=== PATIENT | female | born 1970 | race Caucasian/White ===

== ENCOUNTER 2019-10-25 00:01 | Emergency (ER) | payer SELFPAY ==
[2019-10-25 00:06] VITALS: BP 209/119; PULSE 112; RESP 20; TEMP 36.6; O2SAT 97
--- NOTE | 2019-10-25 00:33 | ED.GENADUL_ITS ---
Discharge Plan Disposition Patient Disposition: HOME Discharge Details Chief Complaint: DentalOral Clinical Impression: Dental abscess Primary Care Provider: Chrissie Roque ED Provider: Constantino Larson Home Meds and New Rx's Prescriptions: New penicillin V potassium 500 mg tablet 500 mg PO QID Qty: 27 RF: 0 Continued flaxseed oil 1,000 MG capsule 1,000 mg PO DAILY RF: 0 atorvastatin 40 MG tablet 1 tab PO DAILY RF: 0 amlodipine 10 mg tablet 10 mg PO DAILY Qty: 30 RF: 6 levothyroxine 50 mcg tablet 50 mcg PO DAILY@0600 Qty: 30 RF: 6 metoprolol tartrate 50 mg tablet 50 mg PO DAILY Qty: 30 RF: 6 triamcinolone acetonide 0.025 % ointment 1 applic Topical BID Qty: 1 RF: 2 Discharge Instructions Instructions: Penicillin V (By mouth), How to Stop Smoking (ED), Dental Abscess (ED) Additional Instructions: Please take full course of antibiotic as prescribed. Please follow-up with your dentist. Call tomorrow. Please contact your primary care physician to arrange timely follow-up this week. Be sure to discuss your elevated blood pressure. If your blood pressure remains elevated on recheck, you may need additional diagnostics and adjustment of your blood pressure medicine dosing. Return to the ER for any worsening or new concerning symptoms. Referrals: Chrissie Roque NP [Primary Care Provider] - Discharge Data Discharge Date/Time-TO BE ENTERED AT DEPARTURE: 10/25/19 01:24 Medical Decision Making 49-year-old female with history of hypertension, chronic dental disease, here with dental infection tooth #6 with significant fluctuance. Plan to start penicillin. Initial dose provided here. Incision and drainage performed by me after patient provided verbal informed consent. Patient was encouraged to follow-up with her dentist. She understands importance of timely follow-up and will call tomorrow. I discussed elevated blood pressure with the patient. She states that she is taking her antihypertensive and that her blood pressure is usually elevated when she goes to the doctor and also was significantly stressed about weather conditions outside today. I encouraged her to monitor her blood pressure at home and to follow-up this week with her primary care physician for recheck. She understands the importance of timely follow-up and that dosing adjustments may need to be made to her antihypertensive should blood pressure remain elevated. She was encouraged to return immediately for any worsening or new concerning symptoms. HPI General Mode of arrival: ambulatory . Date/Time Provider Initiated Documentation: 10/25/19 00:16 . Limitations to Documentation: no limitations . Information obtained by: patient . HPI Narrative: 59-year-old female with multiple medical problems presents with chief complaint dental infection. Patient notes history of chronic dental disease with plan for multiple tooth extractions. She has had dental infections in the past. No recent infections. Today she presents with swelling adjacent to tooth #6 inner and outer gumline. Outer gumline is moderately painful. No associated fever. She does have mild associated facial swelling. Symptoms started 2 days ago and have progressed. Salt water and hydrogen peroxide rinses have not resolved condition. Related Data Home Medications Medication Instructions Recorded Confirmed flaxseed oil 1,000 mg PO DAILY 08/12/16 10/25/19 atorvastatin 1 tab PO DAILY 12/08/17 01/01/18 amlodipine 10 mg tablet 10 mg PO DAILY #30 tab-cap 01/28/19 10/25/19 levothyroxine 50 mcg tablet 50 mcg PO DAILY@0600 #30 tab 01/28/19 10/25/19 metoprolol tartrate 50 mg tablet 50 mg PO DAILY #30 tab 01/28/19 10/25/19 triamcinolone acetonide 0.025 % 1 applic TOPICAL BID #1 tube 01/28/19 10/25/19 topical ointment penicillin V potassium 500 mg PO QID #27 tab 10/25/19 Previous Rx's Medication Instructions Recorded amlodipine 10 mg tablet 10 mg PO DAILY #30 tab-cap 01/28/19 levothyroxine 50 mcg tablet 50 mcg PO DAILY@0600 #30 tab 01/28/19 metoprolol tartrate 50 mg tablet 50 mg PO DAILY #30 tab 01/28/19 triamcinolone acetonide 0.025 % 1 applic TOPICAL BID #1 tube 01/28/19 topical ointment penicillin V potassium 500 mg PO QID #27 tab 10/25/19 Allergies Allergy/AdvReac Type Severity Reaction Status Date / Time codeine Allergy Intermediate CHEST Unverified 10/25/19 00:08 CLOSING General Stated Complaint: DentalOral ORA: 3 Review of Systems Constitutional Constitutional: Denies fever(s) Eyes Eyes: Denies eye pain ENT Ears, Nose, Mouth, and Throat: Reports as per HPI [facility] Medical History History of acute renal failure (Acute) Hypercholesteremia (Acute) Hypertension (Chronic) Hypothyroidism (Chronic) Surgical History History of appendectomy (Chronic) , Ectopic X 2 Family History Mother Essential hypertension Personal history of malignant neoplasm BREAST Father Essential hypertension Personal history of malignant neoplasm PROSTATE Sister Essential hypertension Brother Essential hypertension Social History Smoking/Tobacco Use Status: Current every day Tobacco Type: cigarettes Alcohol Intake: never Drug use: Never Substance use type: does not use current occupation: [employer] Do you feel safe at home: Yes Do you feel safe in your relationship?: Yes Exam Const General: cooperative and no acute distress HENMT General nose exam: external nose normal Face and sinus: edema on the right maxilla (mild) and no fluctuance Mouth: moist mucous membranes Teeth and gingiva: abnormal tooth or associated gingiva (#6 Fluctuance along the gumline), caries and poor dentition Throat: posterior oropharynx normal Other: No trismus Eyes Conjunctivae: normal conjunctivae Sclera: normal sclerae EOM: EOM intact bilaterally Neck Neck: no lymphadenopathy, trachea midline and supple Resp Auscultation: clear to auscultation bilaterally, no rales, no rhonchi and no wheezes Cardio Jugular venous pressure: no JVD Rate: regular rate and not tachycardic Rhythm: regular rhythm Skin General skin exam: no rashes or lesions noted Neuro General: alert and awake Extrem General: no edema Psych Mental Status: mental status grossly normal Course Vital Signs Vital signs: Vital Signs Temperature 36.6 C 10/25/19 00:06 Pulse 112 H 10/25/19 00:06 Respiratory Rate 10/25/19 00:06 Blood Pressure 209/119 H 10/25/19 00:06 Pulse Oximetry 97 10/25/19 00:06 Temperature 36.6 C 10/25/19 00:06 Temperature Source Temporal Artery Scan 10/25/19 00:06 Pulse 112 H 10/25/19 00:06 Respiratory Rate 10/25/19 00:06 Respiratory Effort Non-Labored 10/25/19 00:09 Blood Pressure 209/119 H 10/25/19 00:06 Blood Pressure Position Sitting 10/25/19 00:06 Pulse Oximetry 97 10/25/19 00:06 Oxygen Delivery Method Room Air 10/25/19 00:06 Oxygen Flow Rate 0 10/25/19 00:06 Pain Level 6 10/25/19 00:09 Procedures Abscess I/D Site: Other (dental) Side (if applicable): Right Local Anesthetic: Lidocaine 1% Amount of anesthesia used (mL): 2 Technique: Incised with #11 Blade Amount of fluid expressed (mL): 1 Packing used?: None Complications: Other (none)
[2019-10-25] MEDS: Acetaminophen 325 MG TAB 650 MG PO (00:36)
[2019-10-25] MEDS: Penicillin V POTASSIUM 500 MG TAB PO ×2 (00:36→01:40)
[2019-10-25] MEDS: Benzocaine 20% Gel 30 GM JAR MM (01:39)
[2019-10-25] MEDS: Lidocaine 1% Multi-Dose 50 ML VIAL IJ (01:40)
== END 2019-10-25 01:24 | disposition home or self-care (01) ==
PROVIDERS: Emergency Provider Student in an Organized Health Care Education/Training Program
DX: R68.84 Jaw pain (principal); K04.7 Periapical abscess without sinus; R22.0 Localized swelling, mass and lump, head; I10 Essential (primary) hypertension; F17.210 Nicotine dependence, cigarettes, uncomplicated
CPT/HCPCS: 41800

== ENCOUNTER 2020-03-20 01:14 | Outpatient (CLI) | payer MEDICAID, SELFPAY ==
[2020-03-20 12:41] LABS: Anion Gap 10.5 mmol/L (3-11); BUN 14 mg/dL (7-18); CO2 27.5 mmol/L (21.0-32.0); Calcium 9.4 mg/dL (8.5-10.1); Chloride 101 mmol/L (98-107); Estimated GFR 52.36 (mL/min/1.73m2); Glucose 89 mg/dL (74-106); Potassium 4.2 mmol/L (3.5-5.1); Sodium 139 mmol/L (136-145); TSH (W/Ref FT4) 34.45 uIU/mL (0.36-3.74)
== END 2020-03-20 01:34 ==
DX: E03.9 Hypothyroidism, unspecified (principal); G47.00 Insomnia, unspecified; I10 Essential (primary) hypertension; N28.9 Disorder of kidney and ureter, unspecified
CPT/HCPCS: 36415; 80048; 84439; 84443

== ENCOUNTER 2020-12-20 03:14 | Outpatient (CLI) | payer MEDICAID, SELFPAY ==
[2020-12-21 14:22] LABS: COVID-19 RT-PCR UVMMC Result Negative (Negative)
== END 2020-12-20 03:15 | disposition home or self-care (01) ==
LOC: LBO 03:14
DX: Z20.822 Contact with and (suspected) exposure to COVID-19 (principal)
CPT/HCPCS: U0003

== ENCOUNTER 2021-01-02 03:09 | Outpatient (CLI) | payer MEDICAID, SELFPAY ==
[2021-01-02 13:28] LABS: ALT 18 U/L (14-59); AST 14 U/L (15-37); Alkaline Phosphatase 134 U/L (46-116); Anion Gap 10.8 mmol/L (3-11); BUN 22 mg/dL (7-18); CO2 30.2 mmol/L (21.0-32.0); Calcium 9.4 mg/dL (8.5-10.1); Calculated LDL 135 mg/dL (<100); Chloride 102 mmol/L (98-107); Cholesterol 247 mg/dL (<200); Estimated GFR 58.45 (mL/min/1.73m2); Glucose 110 mg/dL (74-106); HDL Cholesterol 78 mg/dL (40-60); Potassium 3.8 mmol/L (3.5-5.1); Sodium 143 mmol/L (136-145); TSH (W/Ref FT4) 9.44 uIU/mL (0.36-3.74); Total Protein 8.2 g/dL (6.4-8.2); Triglyceride 171 mg/dL (<150)
[2021-01-02 13:51] LABS: Bilirubin, Total 0.2 mg/dL (0.2-1.0); FREE T4 1.07 ng/dL (0.76-1.46)
== END 2021-01-02 03:10 | disposition home or self-care (01) ==
LOC: LOS 03:10
DX: E03.9 Hypothyroidism, unspecified (principal); Z13.220 Encounter for screening for lipoid disorders; Z00.00 Encounter for general adult medical examination without abnormal findings
CPT/HCPCS: 36415; 80053; 80061; 84439; 84443

== ENCOUNTER 2021-01-02 11:00 | Outpatient (REF) | payer MEDICAID, SELFPAY ==
--- NOTE | 2021-01-02 11:00 | PAPFT_PTH ---
PATIENT: Geoff Treviño LOC: [facility] U#:[id number] AGE/SX: 50/F ROOM: RE01/02/[address]: Chrissie Roque APRN : 1970 BED: DIS: 01/02/2021 SPEC #: [id number] RECD: 01/03/21 13:01 STATUS: OMID GOSS #: [id number] PIERO: 01/02/21 11:[address]: Chrissie Roque [facility]PT: [facility] Cytology RECD BY: Rebecca Jeong Tissues: 1 - CX/ENDOCX FOR PAP SMEARS Procedures: PAP THIN PREP/UVM Screening HPV DNA PROBE Comments: [id number]
== END 2021-01-02 11:01 | disposition home or self-care (01) ==
LOC: LBN 11:00
DX: Z12.4 Encounter for screening for malignant neoplasm of cervix (principal); Z11.51 Encounter for screening for human papillomavirus (HPV)
CPT/HCPCS: 88142; 87624

== ENCOUNTER 2021-01-16 01:18 | Outpatient (CLI) | payer MEDICAID, SELFPAY ==
--- NOTE | 2021-01-16 12:09 | DI.MAMMO_ITS ---
EXAM: MAMMO SCREENING CLINICAL HISTORY: screening,Z12.39 TECHNIQUE: Mammograms were interpreted according to the usual protocol including computer analysis w [employer] CAD system, tomosynthesis and C-view imaging. COMPARISON: FINDINGS: The breasts are heterogeneously dense with fairly symmetrical distribution of fibroglandular tissue. No dominant mass or clumped microcalcification is identified in either breast. The current examinat ion is compared with previous examinations including March 2016 and there is a question of increased p rominence of a focal area of nodularity/asymmetric density projected in the superior anterior portion of left breast on MLO view, approximately 5 cm from the nipple. Additional mammographic views are r equested to include an MLO spot compression view of the left breast. No other significant change see n. IMPRESSION: Additional mammographic views of the left breast requested as described above. Breast ultrasound may be indicated as well depending on the results additional mammographic views. BI-RADS Category 0 - Assessment Incomplete: Need additional imaging evaluation Breast Density - Category C - Heterogeneously dense
== END 2021-01-16 01:38 ==
DX: Z12.31 Encounter for screening mammogram for malignant neoplasm of breast (principal); R92.8 Other abnormal and inconclusive findings on diagnostic imaging of breast
CPT/HCPCS: 77063; 77067

== ENCOUNTER 2021-01-23 01:45 | Outpatient (CLI) | payer MEDICAID, SELFPAY ==
--- NOTE | 2021-01-23 | DI.US_ITS ---
EXAM: MG MAMMO SCREEN CALL BACK UNI and U/S breast LT limited CLINICAL HISTORY: F/U MAMMO,? NODULARITY/ASYMMETRIC DENSITY LT BREAST. TECHNIQUE: Craniocaudal and mediolateral oblique Full Field Digital Mammography views of the left br east with Computer Aided Diagnosis followed by Tomosynthesis and left breast ultrasound. COMPARISON: Previous available for comparison. FINDINGS: Mammography/Tomosynthesis: Masses/Architectural Distortion: None seen. Microcalcifictions: No suspicious pleomorphic-type are seen. Skin Thickening/Nipple Retraction: None. Left breast US: Echotexture: Normal appearance of the glandular tissue. Shadowing: No suspicious foci. Cyst: None. Solid lesions: None seen. Ductal dilation: None. IMPRESSION: 1. No evidence of malignancy is noted. 2. Unless there is more urgent need, follow-up screening mammography is recommended, as per [employer] guidelines. 3. The findings were discussed with the patient on the date of the examination. BI-RADS Category 1 - Negative Breast Density - Category C - Heterogeneously dense Breast density Category C or D implies that the patient has dense breast tissue. Dense breast tissue can make it harder to find cancer on a mammogram. Dense breast tissue is also associated with an incr eased risk of breast cancer. This information about the result of the mammogram report was provided to the patient to raise their awareness. Use this report when you speak with the patient about their risks for breast cancer, which includes their family history. At that time, you may recommend additional screening tests (Ultrasoun d or MRI) as these tests may add significant information. A negative radiographic report should not delay biopsy if a dominant or clinically suspicious mass is present. Up to ten percent of cancers are not identified on mammography. A negative report may reinforce clinical impression. Adenosis and dense breasts may obscure an underlying neoplasm. False positive reports average 6 to 10%. Patient will receive a letter notifying them of these results.
== END 2021-01-23 02:05 ==
DX: Z12.31 Encounter for screening mammogram for malignant neoplasm of breast (principal); R92.8 Other abnormal and inconclusive findings on diagnostic imaging of breast; N64.59 Other signs and symptoms in breast
CPT/HCPCS: 76642; 77063; 77067

== ENCOUNTER 2021-06-19 18:53 | Emergency (ER) | payer MEDICAID, SELFPAY ==
[2021-06-19] VITALS (11 sets, daily range): BP systolic 168–195; BP diastolic 86–106; PULSE 65–90; RESP 18; TEMP 36.6; O2SAT 96–98
[2021-06-19] MEDS: Normal Saline 1,000 ML 1000 ML IV (20:01)
[2021-06-19 20:05] LABS: Eosinophils % 1.1; HCT 41.8 % (36.0-46.0); HGB 13.7 g/dL (11.2-15.7); Lymphocytes % 28.8; MCH 31.2 pg (27.0-33.0); MCHC 32.8 % (32.0-36.0); MCV 95.2 fL (80-95); MPV 11.1 fL (8.0-11.0); Monocytes % 8.3; Neutrophils % 60.4; Platelet Count 305 10^3/uL (130-400); RBC 4.39 10^6/uL (3.93-5.22); RDW 13.5 % (11.7-14.6); RDW-SD 47.7 fL
[2021-06-19 20:06] LABS: Abs Immature Grans 0.03 10^3/uL (0.0-0.06); Absolute Basophil Count 0.08 10^3/uL (0.0-0.2); Absolute Eosinophil Count 0.09 10^3/uL (0.0-0.7); Absolute Lymphocyte Count 2.39 10^3/uL (1.2-3.4); Absolute Monocyte Count 0.69 10^3/uL (0.1-0.8); Absolute Neutrophil Count 5.02 10^3/uL (1.2-6.7); Immature Grans % 0.4; Nucleated RBC 0 %
--- NOTE | 2021-06-19 20:07 | W.ED.GENAD ---
Discharge Plan Disposition Patient Disposition: HOME Condition: Stable Discharge Details Clinical Impression: Nausea, Dehydration, Hypothyroidism Primary Care Provider: Chrissie Roque ED Provider: James Ramirez Home Meds and New Rx's Prescriptions: New ondansetron 4 mg tablet,disintegrating 4 mg PO Q8H PRN (Reason: nausea and vomiting) Qty: 30 RF: 0 Continued metoprolol tartrate 50 mg tablet 50 mg PO BID Qty: 180 RF: 3 halobetasol propionate 0.05 % ointment 1 applic topical DAILY Qty: 50 RF: 4 amlodipine 10 mg tablet 10 mg PO DAILY Qty: 90 RF: 3 levothyroxine 75 mcg tablet 75 mcg PO DAILY Qty: 90 RF: 3 Discharge Instructions Additional Instructions: your blood work did not show concerning findings at this time. your kidney function was normal if symptoms continue this week follow up with your primary care provider if you feel more ill, have chest pain/pressure, abdomen pain, or persistent vomit return to the emergency department Medical Decision Making 51 yo female with hx of htn, hypothyroidism, prior history of tre in setting of ibuprofen use after tooth extraction, who comes in with several days of nasuea. Denies chest pain, dyspnea, headache, fevers/chills, abdomen pain or back pain. Denies urinary symptoms. Denies new foods or meds. no vomit. She is in no distress on exam speaking clearly, caox4. She has no abdomen tenderness or cva tenderness, clear lungs, no murmurs. She does smoke, denies alcohol or drug use. Unclear etiology for her nausea, could be gastritis or new food sensitivity, will evaluate for possible tre giving her history and also pancreatitis and uti. Given lack of abdomen tenderness doubt surgical pathology such as sbo and do not feel imaging at this time indicated. Given lack of chest pain/pressure or dyspnea do not feel acs workup indicated. patient's labs show no significant abnormalities and she remains stable. Still no chest pain or abdomen pain and no tenderness on abdominal exam. She feels well enough for d/c. Suspect gastritis and advised to follow up with pcp, return precautions given Differential Diagnosis Differential Diagnosis: food illness, gastritis, pancreatitis, uti Medical Records Medical records reviewed: Yes I reviewed the patient's medical records. Lab Data Lab results reviewed: Yes I reviewed the patient's lab results. HPI General Mode of arrival: ambulatory. Date/Time Provider Initiated Documentation: 06/19/21 19:43. Limitations to Documentation: no limitations. Information obtained by: patient. History of Present Illness 51 year old F presents to the emergency department with the chief complaint of nausea, described as moderate, Patient started experiencing this day(s) (3) and it has been constant. No relieving factors improve symptom(s), No exacerbating factors reported . Patient notes no other symptoms.; denies chest pain, fever/chills and shortness of breath. Patient did receive the following treatments prior to arrival, none Related Data Home Medications Medication Instructions Recorded Confirmed amlodipine 10 mg tablet 10 mg PO DAILY #90 tab-cap 06/08/20 06/19/21 halobetasol propionate 0.05 % 1 applic TOPICAL DAILY #50 g 01/02/21 06/19/21 topical ointment metoprolol tartrate 50 mg tablet 50 mg PO BID #180 tab 01/02/21 06/19/21 levothyroxine 75 mcg tablet 75 mcg PO DAILY #90 tab 05/17/21 06/19/21 ondansetron 4 mg PO Q8H PRN #30 tab 06/19/21 Previous Rx's Medication Instructions Recorded amlodipine 10 mg tablet 10 mg PO DAILY #90 tab-cap 06/08/20 halobetasol propionate 0.05 % 1 applic TOPICAL DAILY #50 g 01/02/21 topical ointment metoprolol tartrate 50 mg tablet 50 mg PO BID #180 tab 01/02/21 levothyroxine 75 mcg tablet 75 mcg PO DAILY #90 tab 05/17/21 ondansetron 4 mg PO Q8H PRN #30 tab 06/19/21 Allergies Allergy/AdvReac Type Severity Reaction Status Date / Time codeine Allergy Intermediate CHEST Verified 06/19/21 19:41 CLOSING General Stated Complaint: Nausea/Vomit/Diar ORA: 3 Review of Systems All systems reviewed & are unremarkable except as noted in HPI and below Constitutional Constitutional: Denies chills and Denies fever(s) Cardiovascular Cardiovascular: Denies chest pain and Denies dyspnea Respiratory Respiratory: Denies cough and Denies dyspnea Gastrointestinal Gastrointestinal: Denies abdominal pain and Denies vomiting Musculoskeletal Musculoskeletal: Denies joint swelling [facility] Medical History (Updated 06/19/21 @ 21:20 by James Ramirez MD) Aneurysm of infrarenal abdominal aorta (12/08/17) Annual physical exam Compromised kidney function Depressive disorder Family history of breast cancer (03/27/15) mother Headache (11/18/12) History of acute renal failure Hx of pyelonephritis (02/09/14) Hypercholesteremia Hypertension Hyperthyroidism Hypothyroidism Lichen sclerosus of female genitalia 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) (03/09/14) Renal failure (06/10/16) 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; + antibody, - antigen Surgical History (Updated 01/03/21 @ 15:28 by Chrissie Roque NP) History of appendectomy History of open reduction and internal fixation (ORIF) procedure , Ectopic X 2 Family History Mother Essential hypertension Personal history of malignant neoplasm BREAST Father Essential hypertension Personal history of malignant neoplasm PROSTATE Sister Essential hypertension Brother Essential hypertension Social History (Updated 01/08/21 @ 10:19 by Leeanne Morris) Smoking/Tobacco Use Status: Current every day Tobacco Type: cigarettes Quit status: considering quitting Smoking risk assessment performed?: Yes Alcohol Intake: current Alcohol Intake frequency: holidays/special occasions only Drug use: Never Substance use type: does not use Counseling given: No Counseling provided: none current occupation: [email or web address] Do you feel safe at home: Yes Do you feel safe in your relationship?: Yes Exam Const General: no acute distress Orientation: alert HENMT Head: normal to inspection Ears: external ears normal General nose exam: external nose normal Mouth: moist mucous membranes Eyes General: appearance normal, both eyes and all related structures Neck Neck: normal visual inspection Resp Effort & Inspection: normal respiratory effort and able to speak in complete sentences Cardio Rate: regular rate GI Palpation: soft and nontender Skin General skin exam: no rashes or lesions noted Neuro General: patient alert and patient oriented x3 Extrem General: normal to inspection Psych Mental Status: mental status grossly normal Course Vital Signs Vital signs: Vital Signs Temperature 36.6 C 06/19/21 19:35 Pulse 90 06/19/21 19:35 Respiratory Rate 18 06/19/21 19:35 Blood Pressure 195/102 H 06/19/21 19:35 Pulse Oximetry 98 06/19/21 19:35 Temperature 36.6 C 06/19/21 19:35 Temperature Source Temporal Artery Scan 06/19/21 19:35 Pulse 90 06/19/21 19:35 Respiratory Rate 18 06/19/21 19:35 Respiratory Effort Non-Labored 06/19/21 19:43 Blood Pressure 195/102 H 06/19/21 19:35 Blood Pressure Position Sitting 06/19/21 19:35 Pulse Oximetry 98 06/19/21 19:35 Oxygen Delivery Method Room Air 06/19/21 19:35 Oxygen Flow Rate 0 06/19/21 19:35 Pain Level 0 06/19/21 19:35 Lab/Test Results Lab/Test Results: Laboratory Tests Range/Units 06/19/21 19:15 WBC (4.4-10.8) 10^3/uL 8.30 RBC (3.93-5.22) 10^6/uL 4.39 Hgb (11.2-15.7) g/dL 13.7 Hct (36.0-46.0) % 41.8 MCV (80-95) fL 95.2 H MCH (27.0-33.0) pg 31.2 MCHC (32.0-36.0) % 32.8 RDW (11.7-14.6) % 13.5 Plt Count (130-400) 10^3/uL 305 MPV (8.0-11.0) fL 11.1 H Immature Gran % 0.4 Neutrophils % 60.4 Lymphocytes % 28.8 Monocytes % 8.3 Eosinophils % 1.1 Basophils % 1.0 Nucleated RBC % % 0 Absolute Neutrophils (1.2-6.7) 10^3/uL 5.02 Absolute Lymphocytes (1.2-3.4) 10^3/uL 2.39 Absolute Monocytes (0.1-0.8) 10^3/uL 0.69 Absolute Eosinophils (0.0-0.7) 10^3/uL 0.09 Absolute Basophils (0.0-0.2) 10^3/uL 0.08
[2021-06-19 20:11] LABS: Bilirubin Negative (Negative); Blood Small (Negative); Clarity Clear (Clear); Glucose Negative (Negative); Ketones Negative (Negative); Leukocyte Esterase Negative (Negative); Nitrite Negative (Negative); Specific Gravity 1.015 (1.005-1.025); Urobilinogen 0.2 EU/dL (Up TO 0.2); pH 6.5 (5-8)
[2021-06-19] MEDS: Ondansetron 4 MG/2 ML VIAL IVP (20:19)
[2021-06-19 20:26] LABS: ALT 25 U/L (14-59); AST 36 U/L (15-37); Albumin 4.5 g/dL (3.4-5.0); Alkaline Phosphatase 142 U/L (46-116); Anion Gap 7.9 mmol/L (3-11); BUN 17 mg/dL (7-18); Bilirubin, Total 0.3 mg/dL (0.2-1.0); CO2 33.1 mmol/L (21.0-32.0); Calcium 10.3 mg/dL (8.5-10.1); Chloride 101 mmol/L (98-107); Estimated GFR 58.22 (mL/min/1.73m2); Glucose 104 mg/dL (74-106); Magnesium 2.5 mg/dL (1.8-2.4); Potassium 3.4 mmol/L (3.5-5.1); Sodium 142 mmol/L (136-145); Total Protein 9.6 g/dL (6.4-8.2)
[2021-06-19 20:26] LABS: Bacteria Negative HPF (Negative); C & S Indicated? No; Crystals Negative HPF (Negative); Epithelial Cells Few HPF (Negative); Mucus Negative (Negative); WBC 0-2 HPF (0-5)
[2021-06-19 20:37] LABS: Lipase 210 U/L (73-393); TSH (W/Ref FT4) 16.62 uIU/mL (0.36-3.74)
[2021-06-19 21:00] LABS: FREE T4 0.96 ng/dL (0.76-1.46)
== END 2021-06-19 21:27 | disposition home or self-care (01) ==
PROVIDERS: Emergency Medicine; Emergency Provider Emergency Medicine
DX: R11.0 Nausea (principal); E86.0 Dehydration; E03.9 Hypothyroidism, unspecified
CPT/HCPCS: 36415; 80053; 83690; 96361; 96374; 99284; 81003; 81015; 83735; 84439; 84443; 85025; 99283; J2405

== ENCOUNTER 2021-07-04 02:37 | Outpatient (CLI) | payer MEDICAID, SELFPAY ==
[2021-07-04 12:35] LABS: TSH (W/Ref FT4) 13.07 uIU/mL (0.36-3.74)
[2021-07-04 12:54] LABS: FREE T4 0.94 ng/dL (0.76-1.46)
== END 2021-07-04 02:38 | disposition home or self-care (01) ==
LOC: LOS 02:37
DX: E03.9 Hypothyroidism, unspecified (principal)
CPT/HCPCS: 36415; 84439; 84443

== ENCOUNTER 2021-07-18 17:59 | Emergency (ER) | payer MEDICAID, SELFPAY ==
[2021-07-18 18:08] VITALS: BP 159/82; PULSE 79; RESP 16; TEMP 36.5; O2SAT 98
--- NOTE | 2021-07-18 18:54 | W.ED.GENAD ---
Discharge Plan Disposition Patient Disposition: HOME Condition: Stable Discharge Details Clinical Impression: Muscle spasm, Acute shoulder pain Primary Care Provider: Chrissie Roque ED Provider: Annie Duncan Home Meds and New Rx's Prescriptions: New cyclobenzaprine 10 mg tablet 10 mg PO TID PRN (Reason: muscle spasm) Qty: 10 RF: 0 Continued metoprolol tartrate 50 mg tablet 50 mg PO BID Qty: 180 RF: 3 halobetasol propionate 0.05 % ointment 1 applic topical DAILY Qty: 50 RF: 4 amlodipine 10 mg tablet 10 mg PO DAILY Qty: 90 RF: 3 amlodipine 5 mg tablet 5 mg PO QPM Qty: 90 RF: 3 levothyroxine 75 mcg tablet 75 mcg PO DAILY Qty: 90 RF: 3 ondansetron 4 mg tablet,disintegrating 4 mg PO Q8H PRN (Reason: nausea and vomiting) Qty: 30 RF: 0 Discharge Instructions Instructions: Cyclobenzaprine (By mouth), Muscle Spasm (ED), Shoulder Pain (ED) Additional Instructions: Your exam is most concerning for muscle spasm and muscle pain. Please encourage hydration. You may continue with Tylenol as needed for discomfort. Please continue with stretching with range of motion of the arm.. You may try topical options such as lidocaine patches. You may use the Flexeril as prescribed to help with muscle spasm. Please do not drive while taking this medication. Please follow-up with primary care in the next 2 weeks for reevaluation. If you develop chest pain, shortness of breath, increased pain, fever/chills or other new/worsening symptoms please seek care urgently once again. Referrals: Chrissie Roque NP [Primary Care Provider] - Discharge Data Discharge Date/Time-TO BE ENTERED AT DEPARTURE: 07/18/21 19:22 Medical Decision Making Patient is a pleasant 51-year-old [id number] female presenting today with chief complaint of right shoulder pain. She reports that for the past week she is been having difficulty with her neck feeling tight and pain in the posterior right shoulder. States that it feels better when she is moving and active. Worsens when at rest. Pain can occasionally radiate towards the elbow. No chest pain or shortness of breath. No pain with deep inspiration. Denies any fevers or chills. Denies any trauma. Denies any sensory deficit. Has been using Tylenol to discomfort. Patient unable to take NSAIDs secondary to kidney dysfunction. On exam, patient appears nontoxic. She is hypertensive but this appears to be chronic and unchanged. Lungs are clear, normal cardiac exam. She is limited range of motion of her neck secondary to pain along the right side of the neck towards the trapezius. No midline tenderness or paraspinal pain. No pain with palpation over the thoracic spine. She also has some discomfort and tightness towards the scapula. She is full range of motion of the right upper extremity. Neurovascularly intact. 2+ distal pulses. Axial nerve testing intact. No pain or pressure applied AP or laterally to the chest wall. No rash. No tenderness or weakness with rotator cuff testing. Patient I discussed differential diagnoses. At this time, I do not see any evidence to suggest fracture. No evidence to suggest infection. No midline tenderness or neurovascular compromise. Much more consistent with muscle spasm. I do not believe that imaging needs to be completed at this time. She reports that she has used Flexeril historically with good results. Will prescribe Flexeril. Will apply lidocaine patch. Encourage hydration. Encourage gentle range of motion. Advise follow-up with primary care in the next 1 to 2 weeks for reevaluation. Return precautions were discussed. All of her questions and concerns were addressed and she is in agreement this plan. [facility] General Mode of arrival: ambulatory. Date/Time Provider Initiated Documentation: 07/18/21 18:34. Limitations to Documentation: no limitations. Information obtained by: patient and RN notes reviewed. History of Present Illness 51 year old F presents to the emergency department with the chief complaint of right shoulder pain, described as severe, with intensity rated at 10. Quality is described as aching, and is localized to the right and upper extremity. Patient reports no radiation. Patient started experiencing this week(s) (1) and it has been constant. Movement improves symptom(s), Immoblization worsens symptoms . Patient notes no other symptoms.. Patient did receive the following treatments prior to arrival, other (heat) Related Data Home Medications Medication Instructions Recorded Confirmed halobetasol propionate 0.05 % 1 applic TOPICAL DAILY #50 g 01/02/21 07/18/21 topical ointment metoprolol tartrate 50 mg tablet 50 mg PO BID #180 tab 01/02/21 07/18/21 levothyroxine 75 mcg tablet 75 mcg PO DAILY #90 tab 05/17/21 07/18/21 ondansetron 4 mg PO Q8H PRN #30 tab 06/19/21 07/18/21 amlodipine 10 mg tablet 10 mg PO DAILY #90 tab-cap 07/03/21 07/18/21 amlodipine 5 mg tablet 5 mg PO QPM #90 tab 07/03/21 07/18/21 cyclobenzaprine 10 mg PO TID PRN #10 tab 07/18/21 Previous Rx's Medication Instructions Recorded halobetasol propionate 0.05 % 1 applic TOPICAL DAILY #50 g 01/02/21 topical ointment metoprolol tartrate 50 mg tablet 50 mg PO BID #180 tab 01/02/21 levothyroxine 75 mcg tablet 75 mcg PO DAILY #90 tab 05/17/21 ondansetron 4 mg PO Q8H PRN #30 tab 06/19/21 amlodipine 10 mg tablet 10 mg PO DAILY #90 tab-cap 07/03/21 amlodipine 5 mg tablet 5 mg PO QPM #90 tab 07/03/21 cyclobenzaprine 10 mg PO TID PRN #10 tab 07/18/21 Allergies Allergy/AdvReac Type Severity Reaction Status Date / Time codeine Allergy Intermediate CHEST Verified 07/03/21 11:24 CLOSING General Stated Complaint: Orthopedic ORA: 4 Review of Systems Constitutional Constitutional: Reports as per HPI, Denies chills, Denies fever(s), Denies headache(s) and Denies weakness ENT Ears, Nose, Mouth, and Throat: Denies headache(s) Cardiovascular Cardiovascular: Reports as per HPI Respiratory Respiratory: Reports as per HPI and Denies cough Musculoskeletal Musculoskeletal: Reports as per HPI and Denies tingling Integumentary/Breasts Skin/Breast: Reports as per HPI, Denies rash and Denies wounds Neurologic Neurologic: Reports as per HPI, Denies headache(s), Denies tingling, Denies paresthesias and Denies weakness [facility] Medical History Aneurysm of infrarenal abdominal aorta (12/08/17) Annual physical exam Compromised kidney function Depressive disorder Family history of breast cancer (03/27/15) mother Headache (11/18/12) History of acute renal failure Hx of pyelonephritis (02/09/14) Hypercholesteremia Hypertension Hyperthyroidism Hypothyroidism Lichen sclerosus of female genitalia 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) (03/09/14) Renal failure (06/10/16) 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; + antibody, - antigen Surgical History History of appendectomy History of open reduction and internal fixation (ORIF) procedure , Ectopic X 2 Family History Mother Essential hypertension Personal history of malignant neoplasm BREAST Father Essential hypertension Personal history of malignant neoplasm PROSTATE Sister Essential hypertension Brother Essential hypertension Social History Smoking/Tobacco Use Status: Current every day Tobacco Type: cigarettes Quit status: considering quitting Smoking risk assessment performed?: Yes Alcohol Intake: current Alcohol Intake frequency: holidays/special occasions only Drug use: Never Substance use type: does not use Counseling given: No Counseling provided: none current occupation: [employer] Do you feel safe at home: Yes Do you feel safe in your relationship?: Yes Exam Const General: cooperative, healthy appearing, comfortable, no acute distress, well developed and well groomed Nutritional Appearance: average body habitus and well nourished Orientation: alert and awake Neck Neck: normal visual inspection, limited ROM (limited secondary to tightness along right side of neck), no lymphadenopathy, no meningeal signs, trachea midline and supple Chest Chest: normal inspection of the chest and no localized rib tenderness Resp Effort & Inspection: normal respiratory effort, able to speak in complete sentences and no respiratory distress Auscultation: clear to auscultation bilaterally Cardio Rate: regular rate Rhythm: regular rhythm Heart Sounds: S1 normal and S2 normal Back/Spine/Pelvis Cervical Spine: normal cervical lordosis, No cervical ROM normal (limited rotation, particularly to the left), cervical muscular tenderness (right side along trapezius), pain with cervical ROM, cervical spasm, No cervical spinal tenderness and No step off deformity Thoracic/Lumbar Spine: thoracic and lumbar spine normal to inspection and No thoracic spinal tenderness Skin General skin exam: no rashes or lesions noted Lesions: no lesions Rashes: no rashes Trauma: no lacerations or abrasions Neuro General: patient alert and patient awake Cognition: normal cognition Speech: speech normal Gait: normal gait Motor: muscle tone normal throughout Sensory Exam: no sensory deficits noted Extrem Right upper extremity: normal to inspection, full ROM, normal capillary refill, no joint enlargement, shoulder/upper arm Details: normal to inspection, tenderness (superiorly along trapezius), axillary nerve sensory function normal, normal ROM and other (normal Speed, Hawkin, Neer); no swelling, no abrasions, no ecchymosis, no crepitus, no deformity and no unusual warmth, elbow/forearm Details: normal to inspection, normal ROM and distal pulses intact; no tenderness, no swelling, no crepitus and no deformity, wrist Details: normal to inspection, normal ROM, normal vascular exam and radial pulse present; no tenderness and no swelling and hand Details: normal to inspection, normal capillary refill, neuromotor exam normal, neurosensory exam normal, normal ROM of fingers and no swelling; no tenderness Psych Appearance: grossly normal and well kempt Mental Status: mental status grossly normal Speech and Movement: speech and movement normal Course Vital Signs Vital signs: Vital Signs Temperature 36.5 C 07/18/21 18:08 Pulse 79 07/18/21 18:08 Respiratory Rate 16 07/18/21 18:08 Blood Pressure 159/82 H 07/18/21 18:08 Pulse Oximetry 98 07/18/21 18:08 Temperature 36.5 C 07/18/21 18:08 Temperature Source Temporal Artery Scan 07/18/21 18:08 Pulse 79 07/18/21 18:08 Respiratory Rate 16 07/18/21 18:08 Respiratory Effort Non-Labored 07/18/21 18:12 Blood Pressure 159/82 H 07/18/21 18:08 Blood Pressure Position Sitting 07/18/21 18:08 Pulse Oximetry 98 07/18/21 18:08 Oxygen Delivery Method Room Air 07/18/21 18:08 Oxygen Flow Rate 0 07/18/21 18:08 Pain Level 10 07/18/21 18:13
[2021-07-18] MEDS: Cyclobenzaprine 10 MG TAB, 3 TABS/BTL PO (19:16)
[2021-07-18] MEDS: Lidocaine 5% Patch 1 PATCH TP (19:19)
== END 2021-07-18 19:22 | disposition home or self-care (01) ==
PROVIDERS: Emergency Provider Physician Assistant
DX: M62.838 Other muscle spasm (principal); M25.511 Pain in right shoulder
CPT/HCPCS: 99283

== ENCOUNTER 2021-07-31 01:22 | Outpatient (CLI) | payer MEDICAID, SELFPAY ==
--- NOTE | 2021-07-31 06:45 | DI.RAD_ITS ---
Exam(s) XR SHOULDER RT COMPLETE 2+V EXAM: XR SHOULDER RT COMPLETE 2+V CLINICAL HISTORY: acute pain x 2 weeks without known injury,m25.519 TECHNIQUE: COMPARISON: CR LEFT SHOULDER COMPLETE from 07/07/2015 FINDINGS: Five views were obtained. No bony or soft tissue abnormality seen. IMPRESSION: RADIATION DOSE DELIVERED: Total DLP
== END 2021-07-31 01:42 ==
DX: M25.511 Pain in right shoulder (principal)
CPT/HCPCS: 73030

== ENCOUNTER 2021-08-29 00:46 | Outpatient (CLI) | payer MEDICAID, SELFPAY ==
--- NOTE | 2021-08-29 07:15 | DI.MRI_ITS ---
Exam(s) MR CERVICAL SPINE WO EXAM: MR CERVICAL SPINE WO CLINICAL HISTORY: PT request, foraminal compromise, ? disc HERNIATION, ACUTE NECK PAIN, M54.2 TECHNIQUE: Multiplanar multisequence MRI of the cervical spine was performed without intravenous con trast. COMPARISON: No exams were available for comparison FINDINGS: The examination is limited due to patient motion artifact. BONES: Vertebral body heights are maintained. Intervertebral disc spaces are normal. Alignment is nor mal. There is a hemangioma or fatty rest in the T4 vertebral body. CERVICAL CORD: Craniovertebral junction is unremarkable. The cervical cord is normal size and signal intensity. There is prominence of the central canal of the spinal cord posterior to the T1 through T3 vertebral bodies. This may represent a syrinx. SOFT TISSUES: Unremarkable. C2-3: No disc herniation or bulge is identified. No significant central spinal canal or neural forami nal stenosis. C3-4: No disc herniation or bulge is identified. No significant central spinal canal or neural forami nal stenosis C4-5: There is a small central disc herniation. It compresses the anterior aspect of the spinal cord . The AP diameter of the spinal canal is 6 mm. No significant neural foraminal stenosis is present. C5-6: There is prominence of the osteophyte disc complex. It causes central spinal canal narrowing. The AP diameter of the central spinal canal is 6 mm. Bilateral [id number] neural foraminal st enosis is present. C6-7: There is a large disc herniation slightly eccentric to the right. It compresses the spinal cor d. The AP diameter of the spinal canal is 7 mm. There is extrusion posterior to the C7 vertebral skyler dy. There is mild narrowing of the right neural foramen. No significant left neural foraminal steno sis is seen. C7-T1: No disc herniation or bulge is identified. No significant central spinal canal or neural mihaela inal stenosis IMPRESSION: 1. Large disc herniation at C6-C7 with extrusion posterior to the C7 vertebral body. There is spinal cord compression and central spinal canal stenosis. Mild right neural foraminal stenosis is present . A postcontrast MRI of the cervical spine may be considered to confirm the disc herniation and to e xclude other epidural masses. 2. Central spinal canal stenosis at C4-5 and C5-C6 secondary to the degenerative changes/disc herniat ions. 3. Multilevel neural foraminal stenosis as described above. 4. Prominence of the central canal in the spinal cord posterior to the T1 through T3 vertebral bodies which may represent a syrinx. DATA REPOSITORY:
== END 2021-08-29 01:06 ==
DX: M50.223 Other cervical disc displacement at C6-C7 level (principal); M54.2 Cervicalgia; M48.02 Spinal stenosis, cervical region
CPT/HCPCS: 72141

== ENCOUNTER 2022-07-19 01:27 | Outpatient (CLI) | payer MEDICAID, SELFPAY ==
--- OUTSIDE RECORDS SUMMARY | 2022-07-19 01:34 | XMS_ITS | Encounter Summary ---
:1970 Author Organization [facility] [place] [address] Care Team Providers Name Role Phone Emanuel Anderson MD Primary Care Provider [phone] Encounter Details Date Type Department Care Team Description 06/07/2016 Orders Only Dermatology at [facility] Robyn Reyes MD [address] [facility] [place] [address] [facility] [phone] [place], [place] [address] (Wo rk) Social History Tobacco Use Types Packs/Day Years Used Date Former Smoker Smokeless Tobacco: Never Used Sex Assigned at Date Recorded Not on file documented as of this encounter Plan of Treatment Not on filedocumented as of this encounter Visit Diagnoses Not on filedocumented in this encounter Care Teams Cork Mixer Relationship Specialty Start Date End Date Emanuel Anderson MD PCP - General 03/17/15 12/02/[address] [place], [place] [id number] documented as of this encounter
--- OUTSIDE RECORDS SUMMARY | 2022-07-19 01:34 | XMS_ITS | Encounter Summary ---
:1970 Author Organization [facility] Address [address] [place] [address] Care Team Providers Name Role Phone Emanuel Anderson MD Primary Care Provider [phone] Reason for Visit Reason Comments Dermatitis Encounter Details Date Type Department Care Team Description 05/05/2015 Office Visit Dermatology at [facility], DR DENISE All ergic contact Road Julio Cesar Castillo MD [facility] [place] [address] dermatitis (Primary [address]) [place] [address] Social History Tobacco Use Types Packs/Day Years Used Date Former Smoker Smokeless Tobacco: Never Used Sex Assigned at Date Recorded Not on file documented as of this encounter Progress Notes Olamide Rodriguez LPN - 05/05/2015 4:16 PM EDT The patient is seen at the request of Dr. EMANUEL ANDERSON MD (General) for evaluation of rash Chief Complaint: rash History of Present Illness Geoff Treviño is a 45 y.o. female. Complains of a rash on the hands for the past 13 years intermittently. Severely pruritic. Spread to forearms. Associates flares with exposures at work. 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 No involved with washing dishes. Cannot tolerate gloves on hands due to sweat. Currently using no therapies but previously treated with topical and oral steroids with temporary resolution. Never been treated or biopsied. ? Denies Allergies Allergies Allergen Reactions ??? Codeine Phosphate CIS - dyspnea Medications levothyroxine (SYNTHROID) 200 mcg tablet; lisinopril (PRINIVIL;ZESTRIL) 20 mg tablet; hydrochlorothiazide (MICROZIDE) 12.5 mg capsule; ibuprofen (ADVIL;MOTRIN) 800 mg tablet Reconciled as above Review of Systems Significant for no fevers, chills, night sweats, or fatigue and no other pertinent and acute changesin constitutional, other skin, HEENT, gastrointestinal, respiratory, musculoskeletal, allergy/immunology systems upon specific queries. Past Medical History HTN, thyroid disease Past Surgical History Tubal ligations Family Medical History Breast and colon cancers Social History Marital Status: single Children: 2 Occupation: [employer] Tobacco: quit 2 months ago Alcohol: no Examination Standby: Rebecca Paredes, Clinical Scribe Pain 0/10. Mood is appropriate. Well developed, well-nourished in no apparent distress, alert and oriented to time, person, place and situation. Skin Type: II. Examination of the head - including the face, ears, nose, eyelids - neck, upper extremities, including the nail plates, significant for the following: - Erythematous papules and large >5 cm plaques and patches with crusts on the distal forearms anddorsum ring finger Assessment and Plan Allergic Contact Dermatitis Most c/w ACD, likely to food source, such as onions, over detergents. Last prednisone dose last week. Counseled: ACD; adverse effects of prolonged use of prednisone; immuno suppresant alternatives; limits of patch testing, patient alternative of testing various foods against skin; Recommend tapering prednisone and treating with a stronger topical steroid Counseled: patch testing, process, risk of blistering due to adhesive, keep back dry for 5 days to keep wells against skin and avoid washing off skin marker, interpretation (relevant v irrelevant v unknown positives, cross reactions, and false negatives). Must be off antihistamines 2w prior to testing. Answered all questions. Handout given. Patient to schedule. Start Clobetasol 0.05% ointment to affected areas BID PRN for itch. Counseled: risks of topical steroids, including but not limited to atrophy, dyspigmentation. Follow-up: 5 weeks for patch testing; patient will be contacted to schedule; patient instructed to call with questions or concerns. I am documenting this encounter acting as the scribe for and in the presence of Dr. Castillo: OLAMIDE RODRIGUEZ LPN and Rebecca Paredes, Clinical Scribe I performed the above scribed service and agree with the accuracy of the documentation in this encounter. Julio Cesar Castillo MD [facility] Section of Dermatology [facility] documented in this encounter Plan of Treatment Not on filedocumented as of this encounter Visit Diagnoses Diagnosis Allergic contact dermatitis - Primary Contact dermatitis and other eczema, due to unspecified cause documented in this encounter Care Teams Napper Fixer Relationship Specialty Start Date End Date Emanuel Anderson MD PCP - General 03/17/15 12/02/[address] [place] [address] documented as of this encounter
--- OUTSIDE RECORDS SUMMARY | 2022-07-19 01:34 | XMS_ITS | Encounter Summary ---
:1970 Author Organization [facility] [place] [address] Care Team Providers Name Role Phone Chrissie Roque APRN Primary Care Provider Reason for Visit Reason Onset Date Comments Appointment 05/14/2018 Encounter Details Date Type Department Care Team Description 05/14/2018 Telephone [facility]ascular Surgery at [facility] [place] [address] Social History Tobacco Use Types Packs/Day Years Used Date Current Every Day Smoker Cigarettes 0.5 Smokeless Tobacco: Never Used Sex Assigned at Date Recorded Not on file documented as of this encounter Miscellaneous Notes Telephone Encounter - Arabella Granger - 06/30/2018 12:39 PM EDT LMOM x2 Letter x1 Telephone Encounter - Arabella Granger - 05/14/2018 8:22 AM EDT LMOM x1 AAA, aortic dissection 6mo f/u documented in this encounter Plan of Treatment Not on filedocumented as of this encounter Visit Diagnoses Not on filedocumented in this encounter Care Teams It Analyst Relationship Specialty Start Date End Date Chrissie Roque APRN PCP - General Family Medicine 12/03/[address] [place], [place] [id number] documented as of this encounter
--- OUTSIDE RECORDS SUMMARY | 2022-07-19 01:34 | XMS_ITS | Clinical Summary ---
:1970 Author Organization [facility] [place] [address] Care Team Providers Name Role Phone Chrissie Roque APRN Primary Care Provider Allergies Active Allergy Reactions Severity Noted Date Comments Codeine Phosphate CIS - dysp tosin Medications Medication Sig Dispensed Refills Start Date End Date Status lisinopril 0 04/15/2005 Active (PRINIVIL;ZESTRIL) 20 mg tablet hydrochlorothiazide 0 04/15/2005 Active (MICROZIDE) 12.5 mg capsule ibuprofen (ADVIL;MOTRIN) 0 04/15/2005 Active 800 mg tablet clobetasol (TEMOVATE) 0.05 Apply twice a 60 g 2 5 Active % OintmentIndications: day to Allergic contact affected areas dermatitis as needed for itch amLODIPine (NORVASC) 5 mg Take 5 mg by 0 04/29/2016 Active Tablet mouth nightly. metoprolol tartrate 0 10/01/2021 Active (Lopressor) 50 mg Tablet levothyroxine (Synthroid) TAKE ONE 0 09/01/2021 Active 75 mcg Tablet TABLET BY MOUTH EVERY DAY amLODIPine (Norvasc) 10 mg Take 10 mg by 0 2 Active Tablet mouth daily. 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 12/03/2017 Pericardial effusion 12/03/2017 Essential hypertension 11/15/2013 Hypothyroidism 12/28/2012 Social History Tobacco Use Types Packs/Day Years Used Date Current Every Day Smoker Cigarettes 0.5 Smokeless Tobacco: Never Used Tobacco Cessation: Counseling Given: Yes Alcohol Use Standard Drinks/Week Comments Not Currently 0 (1 standard drink = 0.6 oz pure alcoho l) Sex Assigned at Date Recorded Not on file Last Filed Vital Signs Vital Sign Reading Time Taken Comments Blood Pressure 154/98 10/02/2021 1:15 PM EST Pulse 88 10/02/2021 1:15 PM EST Temperature 36.7 ??C (98 ??F) 10/02/2021 1:15 PM EST Respiratory Rate 18 10/02/2021 1:15 PM EST Oxygen Saturation 98% 10/02/2021 1:15 PM EST Inhaled Oxygen Concentration - - Weight 51.4 kg (113 lb 6.4 oz) 10/02/2021 1:15 PM EST Height 154.9 cm (5' 1) 10/02/2021 1:15 PM EST Body Mass Index 21.43 10/02/2021 1:15 PM EST Plan of Treatment Health Maintenance Due Date Last Done Comments Covid-19 Vaccine (#1) 1970 Pneumococcal Vaccine: At-Risk 5-64yrs (1 - PCV) 1975 Lipid Screening 1987 Tdap adult 1988 Tetanus vaccine 1988 HPV test 1999 PAP Smear 1999 Breast Cancer Share Decision Needed 2009 Colonoscopy 2014 Breast Cancer screening 2019 Zoster vaccine (1 of 2) 2019 Influenza (Flu) vaccine (1 of 1 - Influenza standard 05/30/2022 series) HIV screen Completed 06/06/2016 Hepatitis C Screening Completed 06/06/2016 Insurance Payer Benefit Plan / Subscriber ID Effective Dates Phone Addre ss Type Group [place] 250 2021-Prese [phone] [address] [facility] [address] [place], [place] [id number] Care Teams Audiology Technician Relationship Specialty Start Date End Date Chrissie Roque, CECIL PCP - General Family Medicine 12/03/[address] [place], [place] [id number]
--- OUTSIDE RECORDS SUMMARY | 2022-07-19 01:34 | XMS_ITS | Encounter Summary ---
:1970 Author Organization [facility] [place] [address] Care Team Providers Name Role Phone Emanuel Anderson MD Primary Care Provider [phone] Reason for Visit Reason Comments Dermatitis Consultation (Routine) - Specialty Diagnoses / Procedures Referred By Contact Refer red To Contact Dermatology Diagnoses Dermatitis Galo Castro MD [facility] Dermatology [address] [place], [place] [address] [address] [place] [address] Fax: Referral ID Status Reason Start Date Expiration Date Visits V isits Requested Authorized [id number] Consult, 05/03/2016 05/03/2017 1 1 [facility] Encounter Details Date Type Department Care Team Description 06/06/2016 Office Visit Dermatology at [facility] Robyn Reyes, Chronic dermatitis of hands (Primary Dx); Inga PLASENCIA High risk medication use [address] [place] [address] [facility] [phone] [address]-DERMATOLOGY [place], [place] [address] (Wo rk) Social History Tobacco Use Types Packs/Day Years Used Date Former Smoker Smokeless Tobacco: Never Used Sex Assigned at Date Recorded Not on file documented as of this encounter Progress Notes Robyn Reyes MD - 06/06/2016 2:30 PM EDT DERMATOLOGY - ESTABLISHED PATIENT FOLLOW-UP Date of service: 06/06/2016 Geoff Treviño : 1970 Dermatology Resident Note: Robyn Reyes MD, PGY4 Chief Complaint Patient presents with ??? Follow-up HPI: Ms. Geoff Treviño is a 46 y.o. female. This is an established patient, last seen by Julio Cesar Castillo MD, on 05/05/2015. Presents today for a rash: - Located on the bilateral hands and more recently forearms - Present for multiple years; severity fluctuates and is at times quite severe - Symptoms include itching. - Treatments tried in the past - Clobetasol - 2-3/day for multiple months - no improvement - Fluocinonide - 2-3/day for multiple months - slight improvment - Prednisone - much better. Recently completed a course of prednisone in efforts to keep condition manageable till able to be seen by Dermatology. - Current treatment: moisturizes several times a day with coconut oil or Lubriderm - Exacerbating factors: - hands itch when wearing gloves. 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 Wears latex free, powder free gloves as possible. Washes hands a lot at work. Notes significant improvement when away from work for a prolongedperiod of time. Denies other work/hobbies with her hands, outside of work. Denies h/o rash around umbilicus. Has not had her ears pierced. States she got patch testing numerous years ago, without significant findings. Skin History: Suspect allergic contact dermatitis There is no problem list on file for this patient. Past Medical History HTN, thyroid disease, acute renal failure (denies CKD but has been advised not to take NSAIDs going forward) Denies h/o liver or lung disease ?? Past Surgical History Tubal ligation Pre-Procedure Checklist: Pacemaker/defibrillator: No Allergy to lidocaine or epinephrine: No Do we have your permission to leave a voicemail with biopsy results and other detailed health information? Yes Current Outpatient Prescriptions Medication Sig Dispense Refill ??? clobetasol (TEMOVATE) 0.05 % Ointment Apply twice a day to affected areas as needed for itch 60 g 2 ??? levothyroxine (SYNTHROID) 200 mcg tablet ??? lisinopril (PRINIVIL;ZESTRIL) 20 mg tablet ??? hydrochlorothiazide (MICROZIDE) 12.5 mg capsule ??? ibuprofen (ADVIL;MOTRIN) 800 mg tablet No current facility-administered medications for this visit. Allergies Allergen Reactions ??? 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 No recent cold, fever or flu. - Skin: As per HPI; no other skin concerns. Examination: - Constitutional: Patient was alert, well-appearing and in no noticeable distress. - Skin: A focused exam of the bilateral forearms and hands was performed. Notable findings/Assessment/Plan: 1. Dermatitis - Bilateral palms, sides of fingers have innumerable deep-seated, translucent, flesh-colored, approx 2mm vesicles. Bilateral forearms have clustered, pink edematous papules. Fingers have flesh-colored scaly plaques. - Differential diagnosis includes allergic contact dermatitis, irritant contact dermatitis, dyshidrotic eczema; etiology could be multifactorial. - Recommend further evaluation with patch testing; pt agrees to proceed. - Discussed treatment options including topical steroids versus systemic immunosuppression with methotrexate or mycophenolate, some risks and benefits of each. Specifically reviewed the importance of taking methotrexate once a week, taking folic acid daily, avoiding NSAIDs and Bactrim, complete abstinence from alcohol. Discussed potential side effects of methotrexate including infection, bone marrow suppression, oral ulcers, GI upset, pulmonary toxicity, hepatotoxicity. - Labs today: CBC, CMP, HBV and HCV serologies, HIV. Verbal consent obtained to check viral serologies. Will give further consideration to these results before proceeding with immunosuppression. - Encouraged copious moisturization with a bland emollient and use of gloves. Labs Results for GEOFF TREVIÑO ( ) as of 06/07/2016 08:48 Ref. Range 06/06/2016 15:13 WBC Latest Ref Range: 4.0 - 9.5 x10(3)/mcL 4.6 RBC Latest Ref Range: 4.00 - 5.21 x10(6)/mcL 4.07 Hemoglobin Latest Ref Range: 11.7 - 15.5 gm/dL 13.1 Hematocrit Latest Ref Range: 35.7 - 45.8 % 38.1 MCV Latest Ref Range: 82.6 - 94.4 fL 93.6 MCH Latest Ref Range: 27.1 - 32.0 pg 32.2 (H) MCHC Latest Ref Range: 31.7 - 35.0 gm/dL 34.4 RDWSD Latest Ref Range: 37.0 - 46.0 fL 44.7 RDWCV Latest Ref Range: 11.5 - 14.1 % 13.0 Platelets Latest Ref Range: 145 - 357 x10(3)/mcL 270 MPV Latest Ref Range: 7.6 - 12.9 fL 10.6 nRBC % Auto Latest Units: % 0.0 nRBC Abs Auto Latest Ref Range: 0.000 - 0.000 x10(3)/mcL 0.000 Neutr Abs (ANC) Latest Ref Range: 1.70 - 6.10 x10(3)/mcL 2.95 Neutrophils % Latest Units: % 64.6 Immature Gran % Latest Units: % 0.20 Lymphocytes % Latest Units: % 18.9 Monocytes % Latest Units: % 11.0 Eosinophils % Latest Units: % 4.6 Basophils % Latest Units: % 0.7 [place] Gran Abs Latest Ref Range: 0.00 - 0.04 x10(3)/mcL 0.01 Lymphocytes Abs Latest Ref Range: 0.9 - 3.2 x10(3)/mcL 0.9 Monocyte Abs Latest Ref Range: 0.3 - 0.9 x10(3)/mcL 0.5 Eosinophils Abs Latest Ref Range: 0.0 - 0.4 x10(3)/mcL 0.2 Basophils Abs Latest Ref Range: 0.0 - 0.1 x10(3)/mcL 0.0 Sodium Latest Ref Range: 135 - 145 mmol/L 143 Potassium Latest Ref Range: 3.5 - 5.0 mmol/L 3.5 Chloride Latest Ref Range: 98 - 107 mmol/L 102 CO2 Latest Ref Range: 22 - 31 mmol/L 26 Anion Gap Latest Ref Range: 5 - 15 mmol/L 15 BUN Latest Ref Range: 8 - 18 mg/dL 13 Creatinine Latest Ref Range: 0.70 - 1.20 mg/dL 0.87 Estimated GFR Latest Ref Range: >=60 >60 Glucose Lvl Latest Ref Range: 65 - 199 mg/dL 116 Calcium Latest Ref Range: 8.5 - 10.5 mg/dL 10.0 Total Protein Latest Ref Range: 6.1 - 8.0 gm/dL 8.1 (H) Albumin Latest Ref Range: 3.2 - 5.2 gm/dL 4.7 Total Bilirubin Latest Ref Range: 0.2 - 1.3 mg/dL 0.3 Bili, Direct Latest Ref Range: 0.0 - 0.3 mg/dL 0.1 Alk Phos Latest Ref Range: 40 - 104 unit/L 139 (H) AST Latest Ref Range: 0 - 30 unit/L 55 (H) ALT Latest Ref Range: 0 - 30 unit/L 64 (H) HIV-1/2 Ab and Ag Latest Ref Range: Negative Negative HepB Surface Ab Unknown Negative HepB Surface Ag Latest Ref Range: Negative Negative Hep B Core Ab Latest Ref Range: Negative Positive (A) Hepatitis C Ab Latest Ref Range: Negative Negative Follow-up: RTC in 4 weeks. I, Kristi Banerjee MANAGER CLINICAL RESEARCH, am documenting this encounter acting as the scribe for and in the presence of Dr. Robyn Reyes. I performed the above scribed service and agree with the accuracy of the documentation of this encounter. Robyn Reyes MD, PGY4 Resident in Dermatology [facility] Patient seen and evaluated with staff transit mechanic: Saranya Rothman MD Section of Dermatology [facility] James Rothman MD - 06/06/2016 2:30 PM EDT I directly supervised Dr. Robyn Reyes during this office visit. Dr. Reyes presented the history and physical exam to me. I then saw and examined this patient with Dr. Reyes. We reviewed the history and pertinent details and I confirmed the physical findings. I agree with the details of the history and physical exam as documented in Dr. Reyes's note. JAMES ROTHMAN MD Staff Physician documented in this encounter Plan of Treatment Not on filedocumented as of this encounter Procedures Procedure Name Priority Date/Time Associated Comments Diagnosis HEMOGRAM Routine 06/06/2016 3:13 PM High risk Results f or this EDT medication use procedure are in the results section. DIFFERENTIAL, Routine 06/06/2016 3:13 PM High risk Results for this AUTOMATED EDT medication use procedure are in the results section. HEPATITIS C ANTIBODY Routine 06/06/2016 3:13 PM High risk R esults for this EDT medication use procedure are in the results section. HEPATITIS B CORE Routine 06/06/2016 3:13 PM High risk Resul ts for this ANTIBODY, TOTAL EDT medication use procedure are in the results section. HIV SCREEN, 4TH Routine 06/06/2016 3:13 PM High risk Result s for this GENERATION EDT medication use procedure are in ([facility]CGP/[place] the resul ts section. HEPATITIS B SURFACE Routine 06/06/2016 3:13 PM High risk Re sults for this ANTIBODY EDT medication use procedure are in the results section. HEPATITIS B SURFACE Routine 06/06/2016 3:13 PM High risk Re sults for this ANTIGEN EDT medication use procedure are in the results section. CBC (WITH DIFF) Routine 06/06/2016 3:13 PM High risk EDT medication use COMPREHENSIVE Routine 06/06/2016 3:13 PM High risk Results for this METABOLIC PANEL EDT medication use procedure are in (NON-FASTING) the results section. documented in this encounter Results Differential, Automated (06/06/2016 3:13 PM EDT) P athologist Signature Neutrophils % 64.6 % [facility] Neutr Abs (ANC) 2.95 1.70 - [facility] 6.10 [facility] x10(3)/[facility] LABORATORY Lymphocytes % 18.9 % [facility] Lymphocytes Abs 0.9 0.9 - 3.2 [facility] x10(3)/[facility] LABORATORY Monocytes % 11.0 % [facility] Monocyte Abs 0.5 0.3 - 0.9 [facility] x10(3)/[facility] LABORATORY Eosinophils % 4.6 % [facility] Eosinophils Abs 0.2 0.0 - 0.4 [facility] x10(3)/[facility] LABORATORY Basophils % 0.7 % [facility] Basophils Abs 0.0 0.0 - 0.1 [facility] x10(3)/[facility] LABORATORY Immature Gran % 0.20 % [facility] Comment: Immature granulocytes(IG's)percentage an d absolute count will include metamyelocytes, myelocytes, and promyelo cytes. Blood smears from CBCs yielding IG's will be scanned manually for concor dance. If this scan disagrees with the automated IG or if promyelocytes are not ed, a manual differential will be performed. [place] Gran Abs 0.01 0.00 - 0.04 x10(3)/[facility] Specimen Anatomical Collection Method Collection Time Receive d Time (Source) Location / / Volume Laterality Blood specimen 06/06/2016 3:13 PM 016 6:32 (specimen) EDT PM EDT Resulting Agency Comment Spec In Lab James Rothman MD HEMATOLOGY ORDERABLES Performing Organization Address City/State/ZIP Code Phon e Number [place] [phone] (ABNORMAL) Hemogram (06/06/2016 3:13 PM EDT) Analysis Performed At Patho logist Time Signature WBC 4.6 4.0 - 9.5 [facility] x10(3)/[facility] LABORATORY RBC 4.07 4.00 [facility]21 [facility] x10(6)/[facility] LABORATORY Hemoglobin 13.1 11.7 - [facility] 15.5 gm/dL [facility] Hematocrit 38.1 35.7 - [facility] 45.8 % [facility] MCV 93.6 82.6 - [facility] [facility] MCH 32.2 (H) 27.1 - [place] [facility] 32.[address] [facility] MCHC 34.4 31.7 - [facility] 35.0 gm/dL [facility] Platelets 270 145 - 357 [facility] x10(3)/[facility] LABORATORY RDWSD 44.7 37.0 - [facility] 46.0 [facility] LABORATORY RDWCV 13.0 11.5 - [facility] 14.1 % [facility] MPV 10.6 7.6 - 12.9 [facility] LABORATORY nRBC % Auto 0.0 % [facility] nRBC Abs Auto 0.000 0.000 - [place] 0.000 [facility] x10(3)/[facility] LABORATORY Specimen Anatomical Collection Method Collection Time Receive d Time (Source) Location / / Volume Laterality Blood specimen 06/06/2016 3:13 PM 016 6:32 (specimen) EDT PM EDT Resulting Agency Comment Spec In Lab James Rothman MD HEMATOLOGY ORDERABLES Performing Organization Address City/[facility] [place] [address] (ABNORMAL) Hepatitis B Core Antibody, Total (06/06/2016 3:13 PM EDT) Patholo gist Method Time Signature Hep B Core Ab Positive (A) Negative [facility] Specimen Anatomical Collection Method Collection Time Receive d Time (Source) Location / / Volume Laterality Blood specimen 06/06/2016 3:13 PM 016 6:30 (specimen) EDT PM EDT Resulting Agency Comment Spec In Lab James Rothman MD CHEMISTRY ORDERABLES Performing Organization Address City/[facility]/[place] [address] Hepatitis B Surface Antigen (06/06/2016 3:13 PM EDT) Analysis Performed At Patho logist Time Signature HepB Surface Negative Negative [facility] LABORATORY Specimen Anatomical Collection Method Collection Time Receive d Time (Source) Location / / Volume Laterality Blood specimen 06/06/2016 3:13 PM 016 6:30 (specimen) EDT PM EDT Resulting Agency Comment Spec In Lab James Rothman MD CHEMISTRY ORDERABLES Performing Organization Address City/[facility]/[place] [address] HIV Screen, 4th Generation (06/06/2016 3:13 PM EDT) Analysis Performed At [facility] Signature HIV-1/2 Ab and Negative Negative [facility] LABORATORY Comment: This 4th Generation HIV test screens for the presence of the HIV-1 p24 antigen as well as antibodies reactive against H IV-1 and HIV-2. A negative screen does not rule out an acute HIV infection. If acute HIV infection is suspected, testing should be repeated in 2 - 3 week s or HIV nucleic acid testing performed. Specimen Anatomical Collection Method Collection Time Receive d Time (Source) Location / / Volume Laterality Blood specimen 06/06/2016 3:13 PM 016 6:30 (specimen) EDT PM EDT Resulting Agency Comment Spec In Lab James Rothman MD IMMUNOLOGY ORDERABLES Performing Organization Address City/[facility] Phon e Number [address] Hepatitis B Surface Antibody (06/06/2016 3:13 PM EDT) Analysis Performed At [facility] Signature HepB Surface Negative [facility] LABORATORY Comment: Expected Results: Vaccinated: Positive Unvaccinated: Negative Please note: A positive result for this assay is consistent with a concentration of anti-HBs antibodies >10 mIU/ml, which indicates that anti-HBs antibodies have been detected at levels consistent with protective immunity against HBV infection. Specimen Anatomical Collection Method Collection Time Receive d Time (Source) Location / / Volume Laterality Blood specimen 06/06/2016 3:13 PM 016 6:30 (specimen) EDT PM EDT Resulting Agency Comment Spec In Lab James Rothman MD IMMUNOLOGY ORDERABLES Performing Organization Address City/[facility] Phon e Number [address] Hepatitis C Antibody (06/06/2016 3:13 PM EDT) Analysis Performed At [facility] Signature Hepatitis C Ab Negative Negative [facility] Specimen Anatomical Collection Method Collection Time Receive d Time (Source) Location / / Volume Laterality Blood specimen 06/06/2016 3:13 PM 016 6:30 (specimen) EDT PM EDT Resulting Agency Comment Spec In Lab James Rothman MD IMMUNOLOGY ORDERABLES Performing Organization Address City/State/[place] [address] (ABNORMAL) Comprehensive metabolic panel (non-fasting) (06/06/2016 3:13 PM EDT) athologist Signature Glucose Lvl 116 65 - 199 [facility] mg/dL [facility] Comment: Diabetes: >=200 mg/dL plus symp toms BUN 13 8 - 18 mg/dL [facility] Creatinine 0.87 0.70 - 1.20 mg/dL [facility] Comment: Please note that the pediatric reference intervals supplied above were not validated at [facility]. Results from pediatri c patients should be interpreted in conjunction to the patient's age, height and muscle mass. Sodium 143 135 - 145 mmol/L [facility] Potassium 3.5 3.5 - 5.0 mmol/L [facility] Comment: Please note: ??Patients with WBC >100,00 0 may have falsely elevated Potassium levels. ??For accurate Potassium quantif ication in these patients send serum separator tube (gold top) for subsequent determinations. ??Contact the Clinical Chemistry Laboratory if there are any qu estions. Chloride 102 98 - 107 mmol/L [facility] CO2 26 22 - 31 mmol/L [facility] Anion Gap 15 5 - 15 mmol/L [facility] Calcium 10.0 8.5 - 10.5 mg/dL [facility] Total Protein 8.1 (H) 6.1 - 8.0 gm/dL [facility] Albumin 4.7 3.2 - 5.2 gm/dL [facility] AST 55 (H) 0 - 30 unit/L [facility] ALT 64 (H) 0 - 30 unit/L [facility] Alk Phos 139 (H) 40 - 104 unit/L [facility] Total Bilirubin 0.3 0.2 - 1.3 mg/dL [facility] Bili, Direct 0.1 0.0 - 0.3 mg/dL [facility] Estimated GFR >60 >=60 [facility] Comment: This estimated GFR (eGFR) value was calc ulated using the MDRD equation which has been validated on patients between t he ages of 18 and 70. The MDRD should not be used to assess kidney function in patients < 18 years of age or in patients with extremes of body mass, or in patients with acute kidney failure. This value should be multiplied by 1.2 f or patients. For further information please copy and past e the following links into your internet browser. [email or web address] [email or web address] Specimen Anatomical Collection Method Collection Time Receive d Time (Source) Location / / Volume Laterality Blood specimen 06/06/2016 3:13 PM 016 6:30 (specimen) EDT PM EDT Resulting Agency Comment Spec In Lab James Rothman MD CHEMISTRY ORDERABLES Performing Organization Address City/State/ZIP Code Phon e Number [place] [phone] documented in this encounter Visit Diagnoses Diagnosis Chronic dermatitis of hands - Primary Contact dermatitis and other eczema, due to unspecified cause High risk medication use Encounter for long-term (current) use of other medications documented in this encounter Care Teams Cabin Man Relationship Specialty Start Date End Date Emanuel Anderson MD PCP - General 03/17/15 12/02/[address] [place] [address] documented as of this encounter
--- OUTSIDE RECORDS SUMMARY | 2022-07-19 01:34 | XMS_ITS | Encounter Summary ---
:1970 Author Organization [facility] [place] [address] Care Team Providers Name Role Phone Chrissie Roque APRN Primary Care Provider Encounter Details Date Type Department Care Team Description 12/03/2017 Orders Only Vascular Surgery Toño[place]Abe, Abdominal aortic [facility] Tanya Guerrero [place] [address] VASCULAR SURGERY [phone] [place], [place] [address] (Wo rk) Social History Tobacco Use Types Packs/Day Years Used Date Current Every Day Smoker Cigarettes 0.5 Smokeless Tobacco: Never Used Sex Assigned at Date Recorded Not on file documented as of this encounter Plan of Treatment Not on filedocumented as of this encounter Visit Diagnoses Diagnosis Abdominal aortic aneurysm dissection Dissection of aorta, abdominal documented in this encounter Care Teams Rotary Driller Prospecting Relationship Specialty Start Date End Date Chrissie Roque APRN PCP - General Family Medicine 12/03/[address] [place] [address] documented as of this encounter
--- OUTSIDE RECORDS SUMMARY | 2022-07-19 01:34 | XMS_ITS | Encounter Summary ---
:1970 Author Organization [facility] [place] [address] Care Team Providers Name Role Phone Chrissie Roque APRN Primary Care Provider Encounter Details Date Type Department Care Team Description 12/02/2017 External [place] [address] Social History Tobacco Use Types Packs/Day Years Used Date Former Smoker Smokeless Tobacco: Never Used Sex Assigned at Date Recorded Not on file documented as of this encounter Plan of Treatment Not on filedocumented as of this encounter Procedures Procedure Name Priority Date/Time Associated Diagnosis Comme nts ECG SCAN Routine 12/02/2017 documented in this encounter Results Scan Doc: ECG (12/02/2017) Narrative This result has an attachment that is no t available. Historical Provider MD PONCE MGR SCAN EXT ORDR/RSLT documented in this encounter Visit Diagnoses Not on filedocumented in this encounter Care Teams Weather Observer Relationship Specialty Start Date End Date Chrissie Roque APRN PCP - General Family Medicine 12/03/[address] [place] [address] documented as of this encounter
--- OUTSIDE RECORDS SUMMARY | 2022-07-19 01:34 | XMS_ITS | Encounter Summary ---
:1970 Author Organization [facility] [place] [address] Care Team Providers Name Role Phone Emanuel Anderson MD Primary Care Provider [phone] Encounter Details Date Type Department Care Team Description 01/24/2017 Telephone Dermatology at [facility] Robyn Reyes MD [address] [facility] [place] [address] [facility] [phone] [place], [place] [address] (Wo rk) Social History Tobacco Use Types Packs/Day Years Used Date Former Smoker Smokeless Tobacco: Never Used Sex Assigned at Date Recorded Not on file documented as of this encounter Miscellaneous Notes Telephone Encounter - Angie Fox - 01/24/2017 10:40 AM EDT I called the patient to schedule their long overdue f/u appointment. I was unable to reach them, so I left a VM leaving my direct line and requesting a call back to schedule. I will mail a letter letting her know she looks to be overdue for an appointment with us, and asking her to call back to schedule. Asked Dr. Reyes if I should send the letter certified since the patient isn't answering or returning our calls or letters. Will do so if she would like me to. documented in this encounter Plan of Treatment Not on filedocumented as of this encounter Visit Diagnoses Not on filedocumented in this encounter Care Teams Belt Sander Relationship Specialty Start Date End Date Emanuel Anderson MD PCP - General 03/17/15 12/02/[address] [place] [address] documented as of this encounter
--- OUTSIDE RECORDS SUMMARY | 2022-07-19 01:34 | XMS_ITS | Encounter Summary ---
:1970 Author Organization [facility] [place] [address] Care Team Providers Name Role Phone Emanuel Anderson MD Primary Care Provider [phone] Reason for Visit Reason Onset Date Comments Follow-up 07/07/2016 Encounter Details Date Type Department Care Team Description 07/07/2016 Telephone Dermatology at [facility] Robyn Reyes MD Follow-up [address] [facility] [place] [address] [facility] [phone] [place], [place] [address] (Wo rk) Social History Tobacco Use Types Packs/Day Years Used Date Former Smoker Smokeless Tobacco: Never Used Sex Assigned at Date Recorded Not on file documented as of this encounter Miscellaneous Notes Telephone Encounter - Robyn Reyes MD - 07/07/2016 5:04 PM EDT I called to inquire about whether pt has seen her PCP for further w/u regarding lab abnormalities. There was no answer. Left a general voicemail encouraging pt to call the clinic if I may be of any assistance to her. documented in this encounter Plan of Treatment Not on filedocumented as of this encounter Visit Diagnoses Not on filedocumented in this encounter Care Teams Bilingual Manager Relationship Specialty Start Date End Date Emanuel Anderson MD PCP - General 03/17/15 12/02/[address] [place], [place] [id number] documented as of this encounter
--- OUTSIDE RECORDS SUMMARY | 2022-07-19 01:34 | XMS_ITS | Encounter Summary ---
:1970 Author Organization [facility] [place] [address] Care Team Providers Name Role Phone Chrissie Roque APRN Primary Care Provider Reason for Visit Consultation (Urgent) - Authorized Specialty Diagnoses / Procedures Referred By Contact Refer red To Contact Neurosurgery Diagnoses Cervical disc disorder, unspecified, unspecified cervical region Cervicalgia Chrissie Roque APRN [facility] [address] [address] [address] [place], [place] [address] Referral ID Status Reason Start Expiration Visits Visits Date Date Requested Authorized [id number] Authorized Consult, 08/31/2021 08/31/2022 6 6 [facility] PCP Updated and/or Approved Encounter Details Date Type Department Care Team Description 10/02/2021 Office Visit Neurosurgery at [facility] Duke Radiculopathy of [facility] [place] [address] CENTER [phone] NEUROSURGERY [place], [place] [address] Social History Tobacco Use Types Packs/Day Years Used Date Current Every Day Smoker Cigarettes 0.5 Smokeless Tobacco: Never Used Alcohol Use Standard Drinks/Week Comments Not Currently 0 (1 standard drink = 0.6 oz pure alcoho l) Sex Assigned at Date Recorded Not on file documented as of this encounter Last Filed Vital Signs Vital Sign Reading [...] Mass Index 21.43 10/02/2021 1:15 PM EST documented in this encounter Progress Notes Tony Duke MD - 10/02/2021 1:30 PM EST I just met with Geoff Treviño. She is a 51-year-old left-handed female who had the onset of pain in her right shoulder and arm since June 2021. She has tried oral medications including Neurontin as well as physical therapy. She continued to have pain however more recently, she has had actually seen an improvement in the pain. When present, she stated that it was significant enough to alter her dailyactivities. She felt as though the pain radiated through the midportion of the arm and forearm. Past medical history is pertinent for hypertension, hypercholesterolemia, hypothyroidism, renal failure. She does smoke daily. On examination, she had hypoactive reflexes throughout the upper and lower extremities with no evidence of Torres's nor increased tone. Strength was 5/5 in the right biceps and 4+/5 in the right triceps. Her MRI was reviewed with her. This shows central stenosis at C4-5 and C6-7 due to degenerative discand ligament features. Pertinent to her symptoms, she has a clear herniated disc at C6-7 that is migrated caudally behind the C7 vertebral body. This is asymmetric to the patient's symptomatic right side. There is note made of a possible syrinx lower in the spinal cord. This measures approximately 2 mm. While this could be the start of a syrinx at its current size, it could also represent a slightly enlarged central canal. Therefore the patient presented with what sounds like a C7 radiculopathy that has now resolved. She has no objective findings of myelopathy. Though she has cervical stenosis at multiple levels, I think the causative level was likely the herniated disc at C6-7. Therefore she could certainly use surgery at any point she would like however with the improvement in her symptoms, it is reasonable to continue with observation. I have told her that where she to have any worsening in the right arm or extension of symptoms into the left arm or legsthat she should contact us for further evaluation. documented in this encounter Plan of Treatment Not on filedocumented as of this encounter Visit Diagnoses Diagnosis Radiculopathy of cervical region Brachial neuritis or radiculitis nos documented in this encounter Care Teams Net Web Developer Relationship Specialty Start Date End Date Chrissie Roque APRN PCP - General Family Medicine 12/03/[address] [place] [address] documented as of this encounter
--- OUTSIDE RECORDS SUMMARY | 2022-07-19 01:34 | XMS_ITS | Encounter Summary ---
:1970 Author Organization [facility] [place] [address] Care Team Providers Name Role Phone Emanuel Anderson MD Primary Care Provider [phone] Reason for Visit Reason Onset Date Comments Follow-up 01/23/2017 Encounter Details Date Type Department Care Team Description 01/23/2017 Telephone Dermatology at [facility] Robyn Reyes MD [facility] [address] [place] [address] [facility] [phone] [place], [place] [address] (Wo rk) Social History Tobacco Use Types Packs/Day Years Used Date Former Smoker Smokeless Tobacco: Never Used Sex Assigned at Date Recorded Not on file documented as of this encounter Miscellaneous Notes Telephone Encounter - Robyn Reyes MD - 01/23/2017 10:30 AM EDT I called to check in on this patient. There was no answer. I did not leave a voicemail. Also, I received this message from her PCP six months ago, in regards to her LFTs. FYI, ??I have also been trying to get in touch with her for over three weeks. Left three voice mails and send her a letter with not response as yet Galo Castro MD documented in this encounter Plan of Treatment Not on filedocumented as of this encounter Visit Diagnoses Not on filedocumented in this encounter Care Teams Senior Network Security Engineer Relationship Specialty Start Date End Date Emanuel Anderson MD PCP - General 03/17/15 12/02/[address] [place] [address] documented as of this encounter
--- OUTSIDE RECORDS SUMMARY | 2022-07-19 01:34 | XMS_ITS | Encounter Summary ---
:1970 [place] [address] Care Team Providers Name Role Phone Chrissie Roque APRN Primary Care Provider Encounter Details Date Type Department Care Team Description 12/03/2017 Telephone Non-Invasive Cardiology Lab [place], Jose Velasquez MD [facility] [place] [address] [place] [address] [phone] Social History Tobacco Use Types Packs/Day Years Used Date Current Every Day Smoker Cigarettes 0.5 Smokeless Tobacco: Never Used Sex Assigned at Date Recorded Not on file documented as of this encounter Miscellaneous Notes Telephone Encounter - Jose Chavez - 12/03/2017 1:07 AM EST See consult note documented in this encounter Plan of Treatment Not on filedocumented as of this encounter Visit Diagnoses Not on filedocumented in this encounter Care Teams Cafe Helper Relationship Specialty Start Date End Date Chrissie Roque APRN PCP - General Family Medicine 12/03/[address] [place], [place] [address] documented as of this encounter
--- OUTSIDE RECORDS SUMMARY | 2022-07-19 01:34 | XMS_ITS | Encounter Summary ---
:1970 Author Organization [facility] Address [facility] [place] [address] Care Team Providers Name Role Phone Jericho Roqueeen Avelino JACOB Primary Care Provider Encounter Details Date Type Department Care Team Description 12/03/2017 Telephone Vascular Surgery Tanya Ingram [facility] [place] [address] [facility] [phone] VASCULAR SURGERY [place], [place] [address] (Wo rk) Social History Tobacco Use Types Packs/Day Years Used Date Current Every Day Smoker Cigarettes 0.5 Smokeless Tobacco: Never Used Sex Assigned at Date Recorded Not on file documented as of this encounter Miscellaneous Notes Telephone Encounter - Tanya Ingram MD - 12/03/2017 1:30 AM EST Called by [facility] regarding the care of Geoff Treviño. I have not seen or evaluated the patient. 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 CT- PE protocol obtained and per OSH radiology read, Atherosclerosis of visualized abdominal aorta with calcified and soft plaque. Changes of theabdominal aorta at the inferior edge of this examination may be secondary to the superior end of an abdominal aorta aneurysm or possible dissection. Transfer center requesting vascular review images to see if dissection can be ruled out. The images are limited as the scan does not continue through the remainder of the abdomen/pelvis and the last several cuts of the CT scan demonstrate what could represent a dissection flap. To further evaluate, patient would need additional imaging with CT-A aorta with runoff. Recommend strict HR and BP control with SBP less than 120 and HR less than 60, in the event that patient does have a dissection. documented in this encounter Plan of Treatment Not on filedocumented as of this encounter Visit Diagnoses Not on filedocumented in this encounter Care Teams Marketing Liaison Relationship Specialty Start Date End Date Chrissie Roque APRN PCP - General Family Medicine 12/03/[address] [place] [address] [address] [place] [address] documented as of this encounter
--- OUTSIDE RECORDS SUMMARY | 2022-07-19 01:34 | XMS_ITS | Encounter Summary ---
:1970 [place] [address] Care Team Providers Name Role Phone Chrissie Roque APRN Primary Care Provider Reason for Visit Reason Onset Date Comments Other 06/30/2018 Encounter Details Date Type Department Care Team Description 06/30/2018 Telephone Vascular Lab at [facility] [place] [address] Social History Tobacco Use Types Packs/Day Years Used Date Current Every Day Smoker Cigarettes 0.5 Smokeless Tobacco: Never Used Sex Assigned at Date Recorded Not on file documented as of this encounter Miscellaneous Notes Telephone Encounter - Fátima Saldivar - 06/30/2018 1:12 PM EDT AAA, aortic dissection, 6 mo f/u (ED Consult) 06/30/18-LMOM x2 Letter x1. sha Recall removed 06/30/18 HH documented in this encounter Plan of Treatment Not on filedocumented as of this encounter Visit Diagnoses Not on filedocumented in this encounter Care Teams Roll On Man Relationship Specialty Start Date End Date Chrissie Roque APRN PCP - General Family Medicine 12/03/[address] [place] [address] documented as of this encounter
--- OUTSIDE RECORDS SUMMARY | 2022-07-19 01:34 | XMS_ITS | Encounter Summary ---
:1970 Author Organization [facility] Address [address] [place] [address] Care Team Providers Name Role Phone Chrissie Roque APRN Primary Care Provider Encounter Details Date Type Department Care Team Description 08/29/2021 Ancillary Procedure Radiology Library at Chrissie Roque APRN [facility] [place] [id number] [place] [address] (Wo rk) [address] [phone] Social History Tobacco Use Types Packs/Day Years Used Date Current Every Day Smoker Cigarettes 0.5 Smokeless Tobacco: Never Used Sex Assigned at Date Recorded Not on file documented as of this encounter Plan of Treatment Not on filedocumented as of this encounter Procedures Procedure Name Priority Date/Time Associated Diagnosis Comme nts FILM LIBRARY Routine 08/29/2021 12:00 AM Results for this STORAGE ONLY MR EST procedure ar e in SPINE the results section. documented in this encounter Results Film Library- Storage Only MR Spine (08/29/2021 12:00 AM EST) Specimen (Source) Anatomical Location Collection Method / Collectio n Time Received Time / Laterality Volume Narrative CATHLEEN - 08/31/2021 12:58 PM EST This exam is auto-finalizing. It's purpo se is for storage only. Chrissie Roque APRN Yolanda FILM LIBRARY ORDERABLES Performing Organization Address City/State/ZIP Code Phon e Number [place], [place] documented in this encounter Visit Diagnoses Not on filedocumented in this encounter Care Teams Joiner Relationship Specialty Start Date End Date Chrissie Roque APRN PCP - General Family Medicine 12/03/[address] [place] [address] documented as of this encounter
--- OUTSIDE RECORDS SUMMARY | 2022-07-19 01:34 | XMS_ITS | Encounter Summary ---
:1970 Author Organization [facility] [place] [address] Care Team Providers Name Role Phone Chrissie Roque APRN Primary Care Provider Encounter Details Date Type Department Care Team Description 06/30/2021 Telehealth notes only TeleHealth Telehealth, [facility] [place] [address] Social History Tobacco Use Types Packs/Day Years Used Date Current Every Day Smoker Cigarettes 0.5 Smokeless Tobacco: Never Used Sex Assigned at Date Recorded Not on file documented as of this encounter Miscellaneous Notes Consult Note - Clarence Goodrich MD - 06/30/2021 7:55 PM EDT [facility] TELENE[facility] EMERGENT TELENEUROLOGY CONSULT NOTE Date 06/30/21 Patient: Geoff Treviño : 1970 Gender: female VISIT Requesting Location: [facility] Requesting Physician: [place] Diagnosis/Reason for Consult: transient ischemic attack (Note: not a tPA or intra-arterial thrombolysis candidate) Arrival Date: 06/30/21 Arrival Time: 16:45 Consult Request Time: 19:13 Start Time of Video Consult: 19:50 Time Last Known Well: 1 week ago PROVIDER History: This 51 yo F presents with intermittent dizziness and nausea of unclear etiology. On 06/16 she left acamping trip due to the onset of dizziness and vomiting and felling off balance. She felt better thefollowing day and returned to work on 06/18 but on 06/19 had a recurrence of these symptoms and went to [facility] and then the story is a little unclear but on 06/20 and possibly 06/27 she went to [facility] ED for ongoing symptoms. She has had some diffuse headache at times. She felt well this AM and went to work [employer] Return and felt dizzy again and nauseated again. She fells back to baseline now except for a mild posterior headache. She was able to do the work today and in the ED was able to walk a short distance without difficulty. She has not had slurred speech or double vision or a change in hearing. She now is hungry and actually says she is starving. She received some meclizine earlier. Past Medical History: HTN. November 2017, seen [facility] for chest pain and incidental small penetrating ulcer abdominal aorta found. Current Medications: HCTZ, Lisinopril, and Metoprolol. Allergies: codeine Neurologic Family History: none reported Neurologic Social History: Not obtained Vitals: [id number]-179/98 NIH STROKE SCALE 1A. Level of Consciousness 0 1B. LOC Questions 0 1C. LOC Commands 0 2. Best Gaze 0 3. Visual 0 4. Facial Palsy 0 5. Motor Arm Left Arm 0 Right Arm 0 6. Motor Leg Left Leg 0 Right Leg 0 7. Limb Ataxia 0 8. Sensory 0 9. Best Language 0 10. Dysarthria 0 11. Extinction and Inattention (formerly neglect) 0 Additional Neurologic Examination Findings: Rolling to L or R side on stretcher does not produce symptoms Radiology Imaging CT head shows no abnormality. CTA shows no abnormalities. L FIBER WORKER looks ectatic but not stenotic to me. Labs:none abnormal reported CLINICAL IMPRESSION/DIAGNOSIS: Intermittent dizziness and nausea. She does not have any symptoms or findings at this time and the symptoms are not inducible. It is unclear if this is a gastrointestinal issue. A peripheral vestibularor central vestibular process is still possible but the current findings do not support these diagnoses. RECOMMENDATIONS/PLAN: Symptomatic treatment for intermittent nausea. If symptom continue, consider additional neurologic evaluation including a brain MRI. Outpatient monitoring of blood pressure Dr Deng and I discussed the plan. OBSERVATION/ADMISSION/TRANSFER: none documented in this encounter Plan of Treatment Not on filedocumented as of this encounter Visit Diagnoses Not on filedocumented in this encounter Care Teams Senior Lead Software Engineer Relationship Specialty Start Date End Date Chrissie Roque, PLACEMENT ASSISTANT PCP - General Family Medicine 12/03/[address] [place] [address] documented as of this encounter
--- OUTSIDE RECORDS SUMMARY | 2022-07-19 01:34 | XMS_ITS | Encounter Summary ---
:1970 Author Organization [facility] Address [address] [place] [address] Care Team Providers Name Role Phone Chrissie Roque APRN Primary Care Provider Encounter Details Date Type Department Care Team Description 07/31/2021 Ancillary Procedure Radiology Library at Chrissie Roque APRN [facility] [id number] [place] [address] (Wo rk) [address] [phone] Social History Tobacco Use Types Packs/Day Years Used Date Current Every Day Smoker Cigarettes 0.5 Smokeless Tobacco: Never Used Sex Assigned at Date Recorded Not on file documented as of this encounter Plan of Treatment Not on filedocumented as of this encounter Procedures Procedure Name Priority Date/Time Associated Diagnosis Comme nts FILM LIBRARY Routine 07/31/2021 12:00 AM Results for this STORAGE ONLY DX EDT procedure ar e in SHOULDER the results section. documented in this encounter Results Film Library- Storage Only DX Shoulder (07/31/2021 12:00 AM EDT) Specimen (Source) Anatomical Location Collection Method / Collectio n Time Received Time / Laterality Volume Narrative CATHLEEN - 08/31/2021 12:53 PM EST This exam is auto-finalizing. It's purpo se is for storage only. Chrissie Roque APRN G FILM LIBRARY ORDERABLES Performing Organization Address City/State/ZIP Code Phon e Number [place], [place] documented in this encounter Visit Diagnoses Not on filedocumented in this encounter Care Teams Restaurant Associate Relationship Specialty Start Date End Date Chrissie Roque, OPERATOR SPECIALIST COMMUNICATIONS PCP - General Family Medicine 12/03/[address] [place] [address] documented as of this encounter
--- OUTSIDE RECORDS SUMMARY | 2022-07-19 01:34 | XMS_ITS | Encounter Summary ---
:1970 Author Organization [facility] Address [facility] [place] [address] Care Team Providers Name Role Phone Emanuel Anderson MD Primary Care Provider [phone] Reason for Visit Reason Onset Date Comments Appointment 06/07/2016 Encounter Details Date Type Department Care Team Description 06/07/2016 Telephone Dermatology at [facility] Robyn Reyes MD [address]ment [address] [place] [address] [facility] [phone] [place], [place] [address] (Wo rk) Social History Tobacco Use Types Packs/Day Years Used Date Former Smoker Smokeless Tobacco: Never Used Sex Assigned at Date Recorded Not on file documented as of this encounter Miscellaneous Notes Telephone Encounter - Robyn Reyes MD - 06/12/2016 4:57 PM EDT I called and spoke with Ms. Treviño at the work #. Had her confirm first. Other # was not working though I confirmed with pt that her cell # is indeed [phone]. Informed pt that one of her hepatitis labs was abnormal, as well as a mild transaminitis. Advised pt that further blood work is needed to sort out the significance of these results. I asked pt to call her PCP's office to guide further work-up, and she agrees to do so. We discussed that we should hold off on starting methotrexate or other systemic immunosuppression till this issue is sorted out. I advised pt to continue topicals in the meantime. Could also consider in-office light treatments in the meantime and asked pt to call me if she would like me to help arrange light treatments. Telephone Encounter - Robyn Reyes MD - 06/12/2016 4:37 PM EDT I called and spoke with Dr. Castro's nurse Jyoti regarding abnormal hepatitis serologies and the need for further work-up. I suggested that perhaps he could guide further work-up. She will relay the message to Dr. Castro and she'll get back to me if there are any questions. Telephone Encounter - Robyn Reyes MD - 06/11/2016 1:35 PM EDT I called patient to discuss her lab results but there was no answer. I left a general voicemail and encouraged pt to call and let my psychiatric secretary know when would be a good time to reach her. Telephone Encounter - Alcira Bush - 06/07/2016 2:47 PM EDT I left a voicemail for Geoff Treviño requesting a call back to schedule a 4 week f/u hand dermatitis Telephone Encounter - Robyn Reyes MD - 06/07/2016 1:06 PM EDT I called the office of pt's listed PCP (Emanuel Anderson) to discuss HBV serologies. Dr. Matthew ellis works in that office is her current PCP. He is out of the office today but will be in all day Friday and Fri week, then he'll be off for a week. documented in this encounter Plan of Treatment Not on filedocumented as of this encounter Visit Diagnoses Not on filedocumented in this encounter Care Teams Loader Relationship Specialty Start Date End Date Emanuel Anderson MD PCP - General 03/17/15 12/02/17 [address] [place] [address] documented as of this encounter
--- OUTSIDE RECORDS SUMMARY | 2022-07-19 01:34 | XMS_ITS | Encounter Summary ---
:1970 Author Organization [facility] [address] [place] [address] Care Team Providers Name Role Phone Emanuel Anderson MD Primary Care Provider [phone] Encounter Details Date Type Department Care Team Description 12/02/2017 Hospital Encounter Radiology Library at YangIván [place] [address] [place] [address] [phone] (Wo rk) Social History Tobacco Use Types Packs/Day Years Used Date Former Smoker Smokeless Tobacco: Never Used Sex Assigned at Date Recorded Not on file documented as of this encounter Medications at Time of Discharge Medication Sig Dispensed Refills Start Date End Date amLODIPine (NORVASC) 5 mg Take 5 mg by mouth 0 Tablet nightly. clobetasol (TEMOVATE) 0.05 % Apply twice a day 60 g 2 05/05/2015 OintmentIndications: Allergic to affected areas contact dermatitis as needed for itch lisinopril (PRINIVIL;ZESTRIL) 0 2004 20 mg tablet hydrochlorothiazide 0 04/15/2005 (MICROZIDE) 12.5 mg capsule ibuprofen (ADVIL;MOTRIN) 800 0 005 mg tablet documented as of this encounter Plan of Treatment Not on filedocumented as of this encounter Procedures Procedure Name Priority Date/Time Associated Diagnosis Comme nts FILM LIBRARY Routine 12/02/2017 12:00 AM Pain Results for this STORAGE ONLY DX EST procedure ar e in CHEST the results section. documented in this encounter Results Film Library- Storage Only DX Chest (12/02/2017 12:00 AM EST) Specimen (Source) Anatomical Location Collection Method / Collectio n Time Received Time / Laterality Volume Narrative [facility] - 12/02/2017 11:31 PM EST This result has an attachment that is no t available. This exam is for storage only and is aut o-finalizing. Iván Yang MD IMG FILM LIBRARY ORDERABLES Performing Organization Address City/State/ZIP Code Phon e Number [place], [place] documented in this encounter Visit Diagnoses Diagnosis Pain Generalized pain documented in this encounter Care Teams Structures Technician Relationship Specialty Start Date End Date Emanuel Anderson MD PCP - General 03/17/15 12/02/[address] [place] [address] documented as of this encounter
--- OUTSIDE RECORDS SUMMARY | 2022-07-19 01:34 | XMS_ITS | Encounter Summary ---
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 ago, she developed an ear ache and coryza, both have since resolved. The onset of these symptoms made her think that perhaps it was an URTI brewing. She has no immediate family history of cardiac nor aortic issues. She denies hyper-flexible joints, elastic skin, inflamed joints. She notes that at one time she was diagnosed with PMR, but is not on active treatment for this. In the ED, she was placed on nicardipine gtt for aggressive BP lowering in the setting of the CTA demonstrating infrarenal aortic ulcers She is currently CP free Allergies Allergen Reactions ??? Codeine Phosphate CIS - dyspnea Family History: No family history on file. Social History: Social History Social History ??? Marital status: Single Spouse name: N/A ??? Number of children: N/A ??? Years of education: N/A Occupational History ??? Not on file. Social History Main Topics ??? Smoking status: Current Every Day Smoker Packs/day: 0.50 Types: Cigarettes ??? Smokeless tobacco: Never Used ??? Alcohol use Not on file ??? Drug use: Not on file ??? Sexual activity: Not on file Other Topics Concern ??? Not on file Social History Narrative Review of Systems: 11 point ROS is either negative or per HPI Physical Exam: Last value Range last 8 hrs Temperature Temp: -- Heart Rate Heart Rate: 78 Heart Rate: [72-87] Blood Pressure BP: 127/70 BP: (127-168)/(70-102) Respiratory Rate Resp: 23 Resp: [11-23] SpO2 SpO2: 91 % SpO2: [89 %-96 %] No intake or output data in the 24 hours ending 12/03/17 0702 Wt & BMI By Encounter Date ED from 12/03/2017 in Emergency Department [facility] Weight 56.7 kg (125 lb) 1 12/03/2017 0333 General: Pleasant female in NAD Cardiac: RRR, S1/S2 of normal character and amplitude, II/ non-harsh LADONNA at base, no r/g. PMI Nondisplaced. JVP not elevated. Pulsus paradoxus of 5 Respiratory: Adequate air entry throughout. No adventitious sounds Abdominal: Soft and non-tender with no organomegaly. Normal bowel sounds Extremities: No atrophy, no clubbing/cyanosis, no edema, radial/DP/PT pulses 2+ and symmetric Neurology: Without focal deficit ECG:NSR via 1* AVNB. Ischemically bland. The QTc appears prolonged CTA: 1. 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 2. Small pericardial effusion. ?? Recent Labs 12/03/17 0440 WBC 8.0 HGB 10.6* HCT 31.3* PLATELET 224 Recent Labs 12/03/17 0440 NA 143 K 3.8 CL 105 CO2 27 BUN 11 CREATININE 1.02 Recent Labs 12/03/17 0440 CK 346* TROPONINT 0.05* ESR 89 CRP 94 Assessment/Recommendations: # Troponinemia: The patient's story, with a prodromic history of perhaps a mild viral illness and a presentation of a gritty chest pain with respirophasic characteristics, along with a pericardial effusion and high inflammatory markers, point to the most likely source being a myopericarditis. The resultant pericardial effusion is clearly not causing any hemodynamic instability. Ischemia is highly unlikely, in that the patient's pain has lasted for 3 days nearly continuously, without development of Qwaves nor a significant troponin elevation. I would certainly not initiate ACS treatment for the + troponin, especially in the setting of aorticulcers and short segment dissection. Aggressive blood pressure management as ongoing is recommended. A connective tissue disease would tie together the aortic issues with her pericarditis; however, on exam and history she has no evidence of this. - Lipitor 80 - TTE - Treatment for ACS is not indicated - After consideration of intervention on the aortic ulcers by vascular surgery, would consider colchicine x 3 months Jose Cahvez MD Cardiology Staff Attending - Consult Addendum This patient was seen and examined in the ER by the on-call granulator tender, Dr. Chavez. The case was discussed with Dr. Chavez and plans were made for the patient to be admitted to the vascular service due to abdominal aortic findings as noted above. I did not have an opportunity to meet with the patient prior to her being discharged home by the vascular service. Follow-up is being arranged in thevascular medicine clinic with Dr. Ramsey and Dr. Powers. documented in this encounter Plan of Treatment Not on filedocumented as of this encounter Procedures Procedure Name Priority Date/Time Associated Comments Diagnosis ECHOCARDIOGRAM COMPLETE STAT 12/03/2017 10:16 Pericardial Results for this AM EST effusion procedure are i n the results section. TROPONIN STAT 12/03/2017 10:00 Results for this AM EST procedure are i n the results section. CT THORACIC ABDOMINAL STAT 12/03/2017 5:32 Res ults for this AORTIC ANEURYSM AM EST procedure ar e in ANGIOGRAPHY W CONTRAST the r esults section. CRP, ACUTE INFLAMMATION STAT 12/03/2017 4:40 R esults for this AM EST procedure are i n the results section. HEMOGRAM STAT 12/03/2017 4:40 Results for this AM EST procedure are i n the results section. DIFFERENTIAL, AUTOMATED STAT 12/03/2017 4:40 R esults for this AM EST procedure are i n the results section. GOLD TUBE HOLD STAT 12/03/2017 4:40 Results fo r this AM EST procedure are i n the results section. BLUE TUBE HOLD STAT 12/03/2017 4:40 Results fo r this AM EST procedure are i n the results section. SEDIMENTATION RATE STAT 12/03/2017 4:40 Result s for this AM EST procedure are i n the results section. CBC (WITH DIFF) STAT 12/03/2017 4:40 AM EST TROPONIN STAT 12/03/2017 4:40 Results for this AM EST procedure are i n the results section. CK STAT 12/03/2017 4:40 Results for this AM EST procedure are i n the results section. BASIC METABOLIC PANEL STAT 12/03/2017 4:40 Res ults for this (NON-FASTING) AM EST procedure are in the results section. EKG 12-LEAD STAT 12/03/2017 3:41 Results for this AM EST procedure are i n the results section. documented in this encounter Results ECHOCARDIOGRAM COMPLETE (12/03/2017 10:16 AM EST) P athologist Signature EF 55 HEARTLAB SYSTEM Anatomical Region Laterality Modality Other Specimen (Source) Anatomical Location Collection Method / Collectio n Time Received Time / Laterality Volume 12/03/2017 Narrative 12/03/2017 10:58 AM EST Procedure: ?Transthoracic Echocardiogram Patient: ?PATRICK Hi ? (Age): 1970(47y) Med Rec#: ? [id number] ?Sex: ?F ? Site Loc: ? [facility] ?Ht / Wt: ??160(cm)/57(kg) Pt. Loc: ?ED ?BSA: ?1.59 Study Date: ?? 12/03/2017 ?Pt. Type: Outpatient Tape: ? Referring: Alee Blake Reading: Bj Fitzpatrick ([id number]) Media Reporter: Carlos A Ball Diagnosis: *ICD-10-PCS Pericardial effusion (nonin flammatory) (I31.3) Rhythm: ? Sinus BP: ? 129/74 SUMMARY: 1. The left ventricular chamber size is normal. Severe concentric left ventricular hypertrophy is observed (LV mass index by linear method 174 g/m2). There is normal global left ventr icular systolic function. Ejection fraction is estimated to be 55% . There are no left ventricular segmental wall motion abnormalities. Lef t ventricular diastolic function is abnormal. The left ventricular diasto lic filling pattern is pseudonormal and consistent with elevate d left sided filling pressure. 2. The left atrium is moderately dilated . 3. Right ventricular chamber size, wall thickness, and systolic function are within normal limits. 4. The right atrium is mildly dilated. 5. The aortic valve leaflets are mildly thickened. There is a trace of aortic regurgitation present. 6. There is mild (1+/4+) mitral regurgit ation present. 7. There is a small circumferential rajeev cardial effusion. 8. The aortic root and ascending aorta a re normal in size without evidence for dissection. Findings ? : Study Quality: ? Adequate Left Ventricle: ? The left ventricul ar chamber size is normal. ?Severe concentric left ventricular hypertrophy is observed.(LV mass index by linear method 174 g/m2). ?There is normal global left ventri cular systolic function. ??Ejection fraction is estimated to be 55%. ?There are no left ventricular segm ental wall motion abnormalities. ?Left ventricular diastolic functio n is abnormal. ?The left ventricular diastolic mateus ling pattern is pseudonormal. ?Doppler assessment is consistent w ith elevated left sided filling pressure. Left Atrium: ? The left atrium is mo derately dilated.44 ml/m2 Right Ventricle: ? Right ventricular chamber size, wall thickness, and systolic function are within normal limi ts. Right Atrium: ? The right atrium is mildly dilated. Aortic Valve: ? The aortic valve is tricuspid. ?The aortic valve leaflets are mild ly thickened. ?There is no evidence of aortic cody ve stenosis. ?There is a trace of aortic regurgi tation present. Mitral Valve: ? The mitral valve scarlett ears normal in structure and function. ?There is mild (1+/4+) mitral regur gitation present. Tricuspid Valve: ? The tricuspid cody ve appears normal in structure and function. ?There is trace tricuspid regurgita tion present. Pulmonic Valve: ? The pulmonic valve appears normal in structure and function. ?There is mild (1+/4+) pulmonic reg urgitation present. Pericardium: ? There is a small circ umferential pericardial effusion. ?No pleural effusion is present. Aorta: ? The aortic root is normal i n size. ?The ascending aorta is normal in s ize. Pulmonary Artery: ? The main pulmona ry artery appears normal. Venous: ? The inferior vena cava scarlett ears normal in size. ?There is a greater than 50% respir atory change in the inferior vena cava dimension. Misc: ? See remainder of report for additional findings. ?Two-dimensional echo, spectral Dop pler and color Doppler performed. Chambers 2D ?Value ?Units (Range) ? IVSd (2D) ? 1.4 ?cm ? LVPWd (2D) ?1.4 ?cm ? IVS:LVPW ratio (2D) 1.1 ?ratio ? RWT (2D) ?0.6 ?ratio ? RWT PW (2D) ? 0.6 ?ratio ? LVIDd (2D) ?4.8 ?cm ? LVIDd (2D) index ?3 ?cm/m2 ? LV FS (2D) ?29 ? % ? EF Teichholz (2D) ?? 56 ? % ? Ao root diameter (2D3 ?cm (2.1 - 3.6) ? Ascending Ao ?2.9 ?cm (2 - 3.5) ? Volumes/Mass ?Value ?Units (Range) ? LA ESV BP (A/L) inde44.4 ? ml/m2 ? LV mass (2D) ?277.1 ?g ? LV mass (2D) index ??174.3 ?g/m2 ? Diastolic/Systolic Function ?Value ?Units (Range) ? MV E-wave Vmax ?1 ?m/sec ? MV deceleration gywa557.2 ? msec ? MV A-wave Vmax ?0.7 ?m/sec ? MV E:A ratio ?1.4 ?ratio ? LV septal e' Vmax ?? 0 ?m/sec ? LV lateral e' Vmax ??0.1 ?m/sec ? LV average e' Vmax ??0 ?m/sec ? LV E:e' septal ratio24.6 ? ratio ? LV E:e' lateral rati19.7 ? ratio ? LV average E:e' rati24.6 ? ratio ? Pulmonic Valve/Qp:Qs ?Value ?Units (Range) ? [place] end-diastolic Vma1.7 ?m/sec ? Wall Motion: Segment Name ?Rest ? Base-Anteroseptal ?? Normal ? Base-Anterior ? Normal ? Base-Anterolateral ??Normal ? Base-Posterolateral Normal ? Base-Inferior ? Normal ? Base-Inferoseptal ?? Normal ? Mid-Anteroseptal ?Normal ? Mid-Anterior ?Normal ? Mid-Anterolateral ?? Normal ? Mid-Posterolateral ??Normal ? Mid-Inferior ?Normal ? Mid-Inferoseptal ?Normal ? [place]-Septal ? Normal ? [place]-Anterior ? Normal ? [place]-Lateral ?Normal ? [place]-Inferior ? Normal ? [place]-Tip ?Normal ? This report has been electronically sign ed by: _ Bj Fitzpatrick MD ? 12/03/2017 10:57 :44 Images reviewed and interpretation shemar martinez [facility] Cardiac Ultrasound Laboratory Procedure Note Bj Fitzpatrick MD - 12/03/2017Formattalfredo g of this note might be different from the original. Procedure: Transthoracic Echocardiogram Patient: PATRICK CORNELL(Age): [birth year](47y) Med Rec#: [id number] Sex: F Site Loc: [facility] [place] Ht / Wt: 160(cm)/57(kg) Pt. Loc: ED BSA: 1.59 Study Date: 12/03/2017 Pt. Type: Outpati ent Tape: Referring: Alee Blake Reading: Bj Fitzpatrick ([id number]) Media Reporter: Carlos A Ball Diagnosis: *ICD-10-PCS Pericardial effusion (nonin flammatory) (I31.3) Rhythm: Sinus BP: 129/74 SUMMARY: 1. The left ventricular chamber size is normal. Severe concentric left ventricular hypertrophy is observed (LV mass index by linear method 174 g/m2). There is normal global left ventr icular systolic function. Ejection fraction is estimated to be 55% . There are no left ventricular segmental wall motion abnormalities. Lef t ventricular diastolic function is abnormal. The left ventricular diasto lic filling pattern is pseudonormal and consistent with elevate d left sided filling pressure. 2. The left atrium is moderately dilated . 3. Right ventricular chamber size, wall thickness, and systolic function are within normal limits. 4. The right atrium is mildly dilated. 5. The aortic valve leaflets are mildly thickened. There is a trace of aortic regurgitation present. 6. There is mild (1+/4+) mitral regurgit ation present. 7. There is a small circumferential rajeev cardial effusion. 8. The aortic root and ascending aorta a re normal in size without evidence for dissection. Findings : Study Quality: Adequate Left Ventricle: The left ventricular melina mber size is normal. Severe concentric left ventricular hype rtrophy is observed.(LV mass index by linear method 174 g/m2). There is normal global left ventricular systolic function. Ejection fraction is estimated to be 55%. There are no left ventricular segmental wall motion abnormalities. Left ventricular diastolic function is abnormal. The left ventricular diastolic filling pattern is pseudonormal. Doppler assessment is consistent with e levated left sided filling pressure. Left Atrium: The left atrium is moderate ly dilated.44 ml/m2 Right Ventricle: Right ventricular chamb er size, wall thickness, and systolic function are within normal limi ts. Right Atrium: The right atrium is mildly dilated. Aortic Valve: The aortic valve is tricus pid. The aortic valve leaflets are mildly th ickened. There is no evidence of aortic valve st enosis. There is a trace of aortic regurgitatio n present. Mitral Valve: The mitral valve appears n ormal in structure and function. There is mild (1+/4+) mitral regurgitat ion present. Tricuspid Valve: The tricuspid valve scarlett ears normal in structure and function. There is trace tricuspid regurgitation present. Pulmonic Valve: The pulmonic valve appea rs normal in structure and function. There is mild (1+/4+) pulmonic regurgit ation present. Pericardium: There is a small circumfere ntial pericardial effusion. No pleural effusion is present. Aorta: The aortic root is normal in size . The ascending aorta is normal in size. Pulmonary Artery: The main pulmonary art dashawn appears normal. Venous: The inferior vena cava appears n ormal in size. There is a greater than 50% respiratory change in the inferior vena cava dimension. Misc: See remainder of report for additi onal findings. Two-dimensional echo, spectral Doppler and color Doppler performed. Chambers 2D Value Units (Range) IVSd (2D) 1.4 cm LVPWd (2D) 1.4 cm IVS:LVPW ratio (2D) 1.1 ratio RWT (2D) 0.6 ratio RWT PW (2D) 0.6 ratio LVIDd (2D) 4.8 cm LVIDd (2D) index 3 cm/m2 LV FS (2D) 29 % EF Teichholz (2D) 56 % Ao root diameter (2D3 cm (2.1 - 3.6) Ascending Ao 2.9 cm (2 - 3.5) Volumes/Mass Value Units (Range) LA ESV BP (A/L) inde44.4 ml/m2 LV mass (2D) 277.1 g LV mass (2D) index 174.3 g/m2 Diastolic/Systolic Function Value Units (Range) MV E-wave Vmax 1 m/sec MV deceleration yrnm386.2 msec MV A-wave Vmax 0.7 m/sec MV E:A ratio 1.4 ratio LV septal e' Vmax 0 m/sec LV lateral e' Vmax 0.1 m/sec LV average e' Vmax 0 m/sec LV E:e' septal ratio24.6 ratio LV E:e' lateral rati19.7 ratio LV average E:e' rati24.6 ratio Pulmonic Valve/Qp:Qs Value Units (Range) [place] end-diastolic Vma1.7 m/sec Wall Motion: Segment Name Rest Base-Anteroseptal Normal Base-Anterior Normal Base-Anterolateral Normal Base-Posterolateral Normal Base-Inferior Normal Base-Inferoseptal Normal Mid-Anteroseptal Normal Mid-Anterior Normal Mid-Anterolateral Normal Mid-Posterolateral Normal Mid-Inferior Normal Mid-Inferoseptal Normal [place]-Septal Normal [place]-Anterior Normal [place]-Lateral Normal [place]-Inferior Normal [place]-Tip Normal This report has been electronically sign ed by: _ Bj Fitzpatrick MD 12/03/2017 10:57:44 Images reviewed and interpretation verif ied [facility] Cardiac Ultrasound Laboratory Alee Blake MD ECHO ORDERABLES (ABNORMAL) Troponin T (12/03/2017 10:00 AM EST) P athologist Signature Troponin-T 0.06 (H) 0.00 - BONNIE CLARKE 0.00 ng/mL [facility] Comment: called by/read back by (full name)/date- time called by/read back by (full name)/date- time The 99th percentile for Troponin T is le ss than 0.01 ng/mL, any detectable cTnT concentration using this assay should be considered elevated. According to the third universal definit ion of myocardial infarction the following criteria with a clinical prese ntation consistent with acute myocardial ischemia meets the diagnosis for a myocardial infarction (SC). Detection of a rise and/or fall of cTnT, with at least one value greater than the 99th percentile (> or = 0.01) and wi th at least one of the following ?? Symptoms of ischemia ?? New or presumed new significant ST-se gment-T wave (ST-T) changes or new left bundle branch block (LBBB) ?? Development of pathologic Q waves in the ECG ?? Imaging evidence of new loss of viabl e myocardium or new regional wall motion abnormality ?? Identification of an intracoronary th rombus by angiography or autopsy Samples for cTnT testing should be obtai linda serially upon first assessment and again 3 to 6 hours later. If the clinica l suspicion is high and previous samples have been negative an additional sample may be indicated. Reference: Third Foreman Definition of Myocardial Infarction. Journal of the [employer] 2012;60:1581-98 Specimen Anatomical Collection Method Collection Time Receive d Time (Source) Location / / Volume Laterality Blood specimen 12/03/2017 10:00 8 (specimen) AM EST 10:21 AM EST Resulting Agency Comment Spec In Lab Dana Anderson MD CHEMISTRY ORDERABLES Performing Organization Address City/State/ZIP [place] [address] Angiogram Thoracic Abdominal Aortic Aneurysm w Contrast (12/03/2017 5:32 AM EST) Anatomical Region Laterality Modality Chest, Abdomen Computed Tomography Specimen (Source) Anatomical Location Collection Method / Collectio n Time Received Time / Laterality Volume Impressions 12/03/2017 6:45 AM EST 1. ??Penetrating ulcers involving the infrarenal abdominal aorta with short segment dissection of the infrarenal abd ominal aorta with extension to the proximal common iliacs. 2. ??Small pericardial effusion. Findings #[address] Adela Blake by Dr. Baker at 6:00 AM on 12/03/2017. I have personally reviewed the image(s) and the residents interpretation and agree with the findings, Mera Torres at 12/03/2017 6:45 AM Narrative 12/03/2017 6:45 AM EST EXAMINATION: CT ANGIOGRAM THORACIC ABDOMINAL AORTIC ANEURYSM W CONTRAST CLINICAL HISTORY: chest pain, ctpe at [facility] saw ?infra-renal aortic dissection TECHNIQUE: Helical CT angiogram of the c hest, abdomen and pelvis was performed following intravenous administration of 100cc of Omnipaque 350. MPRs were performed. 3-D images were generated on an independent workstation. Of note, patient received IV contrast at [facility] at 21:54 PM on 12/02/2017. COMPARISON: Correlation made with chest CT from December 02, 2017 FINDINGS: VASCULAR FINDINGS Heart: Mildly enlarged. Small to moderat e pericardial effusion. Trace atherosclerotic plaque. Thoracic aorta: No stenosis or aneurysm. Scattered calcified atherosclerotic plaque is noted. Great vessel origins: No stenosis. Pulmonary arteries: No central filling d efects. Abdominal aorta: There is calcified and noncalcified thrombus seen throughout the abdominal aorta. There is irregulari ty of the infrarenal abdominal aorta beginning approximately 3.5 cm below the left renal artery. There are multiple penetrating ulcers along the anterior an d left lateral aspect of the aorta with a short segment dissection measuring scarlett roximately 2 cm. Suspected extension of dissection into the proximal bilateral c ommon iliacs is suggested by thin crescentic lucencies identified within b oth the right, series 624 image 357 and left, series 24 image 359 common iliac a rteries. Celiac axis: Mild narrowing of the origi n of the celiac trunk with mild poststenotic dilation. Otherwise patent. SMA: Minimal narrowing at the origin wit hout stenosis. Right renal artery: Widely patent. Left renal artery: Widely patent. LIANNA: Patent. Right: Common iliac artery: Equivocal dissectio n flap at the origin. Moderate calcified and noncalcified plaque at the origin wi th mild narrowing proximally. Patent. External iliac artery: Patent. Internal iliac artery: ??Mild calcified and noncalcified plaque without significant stenosis. Common femoral artery: Patent. Left: Common iliac artery: Equivocal dissectio n flap at the origin. Moderate calcified and noncalcified plaque at the origin wi th mild narrowing proximally. Patent.. External iliac artery: Mild narrowing at its origin secondary to calcified and noncalcified plaque.. Internal iliac artery: Moderate calcifie d and noncalcified plaques severely narrows the vessel at its origin for a s hort segment, otherwise patent Common femoral artery: Patent.. NON-VASCULAR FINDINGS Lungs and large airways: Bilateral depen dent atelectasis is noted. The airways are patent. Pleura: No effusion. Lymph nodes: No enlarged lymph nodes. Mediastinum and nova: Patulous esophagus containing air with a small amount of fluid at the level of the thoracic inlet . Prominent ampullary segment of the distal esophagus versus small hiatal her george. Liver: Normal. Bile ducts: Nondilated. Gallbladder: Single calcified gallstone near the fundus. Normal caliber wall. Pancreas: Normal. Spleen: Normal. Kidneys: Normal symmetric enhancement. N o hydronephrosis. Adrenals: Normal. Lymph Nodes: No enlarged lymph nodes. Bowel: Non-dilated, no wall thickening. ?? Peritoneum: No free air or free fluid. Urinary bladder: Contrast opacifies the normal appearing urinary bladder. Reproductive organs: Normal. Osseous structures: Fixation hardware is noted along the left ischial bone. Severe degenerative arthropathy is noted of the left hip. There is a mild levoscoliosis of the lumbar spine apex c entered at L1. Procedure Note Mera Torres MD - 12/03/2017 EXAMINATION: CT ANGIOGRAM THORACIC ABDOM INAL AORTIC ANEURYSM W CONTRAST CLINICAL HISTORY: chest pain, ctpe at [facility] saw ?infra-renal aortic dissection TECHNIQUE: Helical CT angiogram of the c hest, abdomen and pelvis was performed following intravenous administration of 100cc of Omnipaque 350. MPRs were performed. 3-D images were generated on an independent workstation. Of note, patient received IV contrast at [facility] at 21:54 PM on 12/02/2017. COMPARISON: Correlation made with chest CT from December 02, 2017 FINDINGS: VASCULAR FINDINGS Heart: Mildly enlarged. Small to moderat e pericardial effusion. Trace atherosclerotic plaque. Thoracic aorta: No stenosis or aneurysm. Scattered calcified atherosclerotic plaque is noted. Great vessel origins: No stenosis. Pulmonary arteries: No central filling d efects. Abdominal aorta: There is calcified and noncalcified thrombus seen throughout the abdominal aorta. There is irregulari ty of the infrarenal abdominal aorta beginning approximately 3.5 cm below the left renal artery. There are multiple penetrating ulcers along the anterior an d left lateral aspect of the aorta with a short segment dissection measuring scarlett roximately 2 cm. Suspected extension of dissection into the proximal bilateral c ommon iliacs is suggested by thin crescentic lucencies identified within b oth the right, series 624 image 357 and left, series 24 image 359 common iliac a rteries. Celiac axis: Mild narrowing of the origi n of the celiac trunk with mild poststenotic dilation. Otherwise patent. SMA: Minimal narrowing at the origin wit hout stenosis. Right renal artery: Widely patent. Left renal artery: Widely patent. LIANNA: Patent. Right: Common iliac artery: Equivocal dissectio n flap at the origin. Moderate calcified and noncalcified plaque at the origin wi th mild narrowing proximally. Patent. External iliac artery: Patent. Internal iliac artery: Mild calcified an d noncalcified plaque without significant stenosis. Common femoral artery: Patent. Left: Common iliac artery: Equivocal dissectio n flap at the origin. Moderate calcified and noncalcified plaque at the origin wi th mild narrowing proximally. Patent.. External iliac artery: Mild narrowing at its origin secondary to calcified and noncalcified plaque.. Internal iliac artery: Moderate calcifie d and noncalcified plaques severely narrows the vessel at its origin for a s hort segment, otherwise patent Common femoral artery: Patent.. NON-VASCULAR FINDINGS Lungs and large airways: Bilateral depen dent atelectasis is noted. The airways are patent. Pleura: No effusion. Lymph nodes: No enlarged lymph nodes. Mediastinum and nova: Patulous esophagus containing air with a small amount of fluid at the level of the thoracic inlet . Prominent ampullary segment of the distal esophagus versus small hiatal her george. Liver: Normal. Bile ducts: Nondilated. Gallbladder: Single calcified gallstone near the fundus. Normal caliber wall. Pancreas: Normal. Spleen: Normal. Kidneys: Normal symmetric enhancement. N o hydronephrosis. Adrenals: Normal. Lymph Nodes: No enlarged lymph nodes. Bowel: Non-dilated, no wall thickening. Peritoneum: No free air or free fluid. Urinary bladder: Contrast opacifies the normal appearing urinary bladder. Reproductive organs: Normal. Osseous structures: Fixation hardware is noted along the left ischial bone. Severe degenerative arthropathy is noted of the left hip. There is a mild levoscoliosis of the lumbar spine apex c entered at L1. IMPRESSION 1. 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 2. Small pericardial effusion. Findings #[address] Adela Blake by Dr. Baker at 6:00 AM on 12/03/2017. I have personally reviewed the image(s) and the residents interpretation and agree with the findings, Mera Torres at 12/03/2017 6:45 AM Alee Blake MD IMG CT ORDERABLES (ABNORMAL) CK (12/03/2017 4:40 AM EST) athologist [facility] CK, Total 346 (H) 0 - 160 [facility] unit/L [facility] Specimen Anatomical Collection Method Collection Time Receive d Time (Source) Location / / Volume Laterality Blood specimen Venous Draw / 12/03/2017 4:40 AM 2017 4:50 (specimen) Unknown EST AM EST Resulting Agency Comment Spec In Lab Jose Chavez MD CHEMISTRY ORDERABLES Performing Organization Address City/[facility]/ZIP Code Phon e Number [address] (ABNORMAL) Sedimentation rate (12/03/2017 4:40 AM EST) athologist [facility] Sed Rate 89 (H) 0 - 20 [facility] mm/hr [facility] Specimen Anatomical Collection Method Collection Time Receive d Time (Source) Location / / Volume Laterality Blood specimen Venous Draw / 12/03/2017 4:40 AM 2017 4:47 (specimen) Unknown EST AM EST Resulting Agency Comment Spec In Lab Jose Chavez MD HEMATOLOGY ORDERABLES Performing Organization Address City/[facility]/ZIP [place] [address] (ABNORMAL) CRP, acute inflammation (12/03/2017 4:40 AM EST) athologist [facility] CRP 93.7 (H) <=4.9 mg/L [facility] Comment: result rechecked-[facility] Specimen Anatomical Collection Method Collection Time Receive d Time (Source) Location / / Volume Laterality Blood specimen Venous Draw / 12/03/2017 4:40 AM 2017 4:50 (specimen) Unknown EST AM EST Resulting Agency Comment Spec In Lab Jose Chavez MD CHEMISTRY ORDERABLES Performing Organization Address City/[facility]/ZIP [place] [address] Gold Tube HOLD (12/03/2017 4:40 AM EST) P athologist Signature Gold Hold Sample in [facility] LABORATORY Specimen Anatomical Collection Method Collection Time Receive d Time (Source) Location / / Volume Laterality Blood specimen Venous Draw / 12/03/2017 4:40 AM 2017 4:48 (specimen) Unknown EST AM EST Alee Blake MD CHEMISTRY ORDERABLES Performing Organization Address City/[facility]/ZIP Code Phon e Number [address] Blue Tube HOLD (12/03/2017 4:40 AM EST) P athologist Signature Blue Hold Sample in [facility] LABORATORY Specimen Anatomical Collection Method Collection Time Receive d Time (Source) Location / / Volume Laterality Blood specimen Venous Draw / 12/03/2017 4:40 AM 2017 4:48 (specimen) Unknown EST AM EST Alee Blake MD HEMATOLOGY ORDERABLES Performing Organization Address City/[facility]/ZIP [facility] Phon e Number [address] (ABNORMAL) Differential, Automated (12/03/2017 4:40 AM EST) [facility] gist Method Time Signature Neutrophils % 68.9 % [facility] Neutr Abs (ANC) 5.48 1.70 - [facility] 6.[address] [facility] x10(3)/[facility] LABORATORY Lymphocytes % 17.2 % [facility] Lymphocytes Abs 1.4 0.9 - 3.2 [facility] x10(3)/[facility] LABORATORY Monocytes % 12.2 % [facility] Monocyte Abs 1.0 (H) 0.3 - 0.9 [facility] x10(3)/[facility] LABORATORY Eosinophils % 0.4 % [facility] Eosinophils Abs 0.0 0.0 - 0.4 [facility] x10(3)/[facility] LABORATORY Basophils % 0.9 % [facility] Basophils Abs 0.1 0.0 - 0.1 [facility] x10(3)/[facility] LABORATORY Immature Gran % 0.40 % [facility] Comment: Immature granulocytes(IG's)percentage an d absolute count will include metamyelocytes, myelocytes, and promyelo cytes. Blood smears from CBCs yielding IG's will be scanned manually for concor dance. If this scan disagrees with the automated IG or if promyelocytes are not ed, a manual differential will be performed. [place] Gran Abs 0.03 0.00 - 0.04 x10(3)/[facility] LABORATORY Specimen Anatomical Collection Method Collection Time Receive d Time (Source) Location / / Volume Laterality Blood specimen 12/03/2017 4:40 AM 018 4:47 (specimen) EST AM EST Resulting Agency Comment Spec In Lab Alee Blake MD HEMATOLOGY ORDERABLES Performing Organization Address City/State/[place] [address] (ABNORMAL) Hemogram (12/03/2017 4:40 AM EST) Analysis Performed At Patho logist Time Signature WBC 8.0 4.0 - 9.5 [facility] x10(3)/[facility] LABORATORY RBC 3.20 (L) 4.00 - [facility] 5.[address] [facility] x10(6)/[facility] LABORATORY Hemoglobin 10.6 (L) 11.7 - [facility] 15.[facility] gm/dL [facility] Hematocrit 31.3 (L) 35.7 - [facility] 45.8 % [facility]ORY MCV 97.8 (H) 82.6 - [facility] 94.4 [facility] LABORATORY MCH 33.1 (H) 27.1 - [facility] 32.0 pg [facility]ORY MCHC 33.9 31.7 - [facility] 35.0 gm/dL [facility] Platelets 224 145 - 357 [facility] x[facility](3[facility] LABORATORY RDWSD 48.6 (H) 37.0 - [facility] 46.0 [facility] RDWCV 13.5 11.5 - [facility] 14.1 % [facility] LABORATORY MPV 10.9 7.6 - 12.9 [facility] nRBC % Auto 0.0 % [facility] LABORATORY nRBC Abs Auto 0.000 0.000 - [facility] 0.[address] [facility] x10(3)/[facility] LABORATORY Specimen Anatomical Collection Method Collection Time Receive d Time (Source) Location / / Volume Laterality Blood specimen 12/03/2017 4:40 AM 018 4:47 (specimen) EST AM EST Resulting Agency Comment Spec In Lab Alee Blake MD HEMATOLOGY ORDERABLES Performing Organization Address City/State/[place] [address] (ABNORMAL) Troponin T (12/03/2017 4:40 AM EST) athologist Signature Troponin-T 0.05 (H) 0.00 - [facility] 0.00 ng/mL [facility] Comment: Called to ED by: [facility], Read back by: Yvonne Herndon, Date/Time:12/03/17 05:33. The 99th percentile for Troponin T is le ss than 0.01 ng/mL, any detectable cTnT concentration using this assay should be considered elevated. According to the third universal definit ion of myocardial infarction the following criteria with a clinical prese ntation consistent with acute myocardial ischemia meets the diagnosis for a myocardial infarction (SC). Detection of a rise and/or fall of cTnT, with at least one value greater than the 99th percentile (> or = 0.01) and wi th at least one of the following ?? Symptoms of ischemia ?? New or presumed new significant ST-se gment-T wave (ST-T) changes or new left bundle branch block (LBBB) ?? Development of pathologic Q waves in the ECG ?? Imaging evidence of new loss of viabl e myocardium or new regional wall motion abnormality ?? Identification of an intracoronary th rombus by angiography or autopsy Samples for cTnT testing should be obtai linda serially upon first assessment and again 3 to 6 hours later. If the clinica l suspicion is high and previous samples have been negative an additional sample may be indicated. Reference: Third Foreman Definition of Myocardial Infarction. Journal of the [employer] 2012;60:1581-98 Specimen Anatomical Collection Method Collection Time Receive d Time (Source) Location / / Volume Laterality Blood specimen 12/03/2017 4:40 AM 018 4:48 (specimen) EST AM EST Resulting Agency Comment Spec In Lab Alee Blake MD CHEMISTRY ORDERABLES Performing Organization Address City/State/[place] [address] (ABNORMAL) Basic Metabolic Panel (non-fasting) (12/03/2017 4:40 AM EST) athologist Signature Glucose Lvl 105 65 - 199 [facility] mg/dL [facility] Comment: Diabetes: >=200 mg/dL plus symp toms BUN 11 8 - 18 mg/dL [facility] Creatinine 1.02 0.70 - 1.20 mg/dL [facility] Sodium 143 135 - 145 mmol/L [facility] Potassium 3.8 3.5 - 5.0 mmol/L [facility] Comment: Please note: ??Patients with WBC >100,00 0 may have falsely elevated Potassium levels. ??For accurate Potassium quantif ication in these patients send serum separator tube (gold top) for subsequent determinations. ??Contact the Clinical Chemistry Laboratory if there are any qu estions. Chloride 105 98 - 107 mmol/L [facility] CO2 27 22 - 31 mmol/L [facility] Anion Gap 11 5 - 15 mmol/L [facility] Calcium 9.0 8.5 - 10.5 mg/dL [facility] Estimated GFR 58 (L) >=60 [facility] Comment: The reported eGFR should be multiplied b y 1.2 for patients. The MDRD is not an appropriate measure o f renal function for patients with body mass extremes or in patients with acute kidney failure. http://[employer]/DHnkdep http://[employer]/DHMCnkf Specimen Anatomical Collection Method Collection Time Receive d Time (Source) Location / / Volume Laterality Blood specimen 12/03/2017 4:40 AM 018 4:48 (specimen) EST AM EST Resulting Agency Comment Spec In Lab Alee Blake MD CHEMISTRY ORDERABLES Performing Organization Address City/State/[place] [address] EKG 12 Lead (12/03/2017 3:41 AM EST) [facility] gist Method Time Signature Ventricular rate 71 BPM MUSE SYSTEM Atrial Rate 71 BPM MUSE SYSTEM P-R Interval 218 ms MUSE SYSTEM QRS Duration 94 ms MUSE SYSTEM Q-T Interval 450 ms MUSE SYSTEM QTC Calculated 489 ms MUSE SYSTEM (Bezet) Calculated P Muncy 56 degrees MUSE SYSTEM Calculated R [place] 63 degrees MUSE SYSTEM Calculated T Mun[place] 52 degrees MUSE SYSTEM INTERPRETATION Sinus rhythm with 1st degree A-V block MUSE SYSTEM Abnormal ECG No previous ECGs available Confirmed by MD SOCO, GASTON ([id number]) on 12/03/2017 2:49:59 PM Specimen Anatomical Collection Method Collection Time Receive d Time (Source) Location / / Volume Laterality 12/03/2017 3:41 AM 8 2:49 EST PM EST Narrative This result has an attachment that is no t available. Alee Blake MD ECG ORDERABLES Performing Organization Address City/State/ZIP Code Phon e Number MUSE SYSTEM documented in this encounter Visit Diagnoses Diagnosis Dissection of abdominal aorta with penet rating ulcers - Primary Dissection of aorta, abdominal Pericardial effusion Unspecified disease of pericardium Acute myocardial infarction, subendocard ial infarction, initial episode of care Dissection of aorta, abdominal Essential hypertension, malignant First degree atrioventricular block Precordial pain Elevated total protein Other nonspecific findings on examinatio n of blood documented in this encounter Administered Medications Inactive Administered Medications - up to 3 most recent administrations Medication Order MAR Action Action Date Dose Rate Site iohexol (OMNIPAQUE) 350 mg/mL Given 12/03/2017 5:09 AM EST 100 m Ls solution 0-200 mL 0-200 mL, Intravenous, ONCE PRN, 1 dose, Starting on Fri12/03/17 at 0508, Until Fri12/03/17 at 0509, Per Protocol, Warning Vesicant/Irritant Medication , Radiology Contrast, Routine niCARdipine 0.2 mg/mL (standard New Bag 12/03/2017 11:15 AM ES T 15 mg/hr 75 mL/hr Adult and Pedi greater than 20 kg) infusion 5-15 mg/hr (25-75 mL/hr), Intravenous, CONTINUOUS, Starting on Fri12/03/17 at 0545, Until Fri12/03/17 at 1359, Start at 5 mg/hr, increase 2.5 mg/h increments prn, titrate to SBP >120., Routine New Bag 12/03/2017 8:31 AM EST 15 mg/hr 75 mL/hr Rate/Dose Change 12/03/2017 8:00 AM EST 15 mg/hr 75 mL/hr documented in this encounter Active and Recently Administered Medications Times are shown in EST. Continuous Medication Order 12/01/2017 12/02/2017 12/03/2017 niCARdipine 0.2 mg/mL (standard Adult and Pedi greater than 20 k g) infusion 0545 (New Bag - Provider: Jose Francisco Castellanos RN)0610 (Rate/Dose Change - Provider: Jose Francisco Castellanos RN)0615 (Rate/Dose Change - Provider: Jose Francisco Castellanos RN)0623 (Rate/Dose Change - Provider: Jose Francisco Castellanos RN) 5-15 mg/hr (25-75 mL/hr), Intravenous, a t 25-75 mL/hr, CONTINUOUS, Starting Fri12/03/17 at 0545, Until Fri12/03/17 at 1359, Start at 5 mg/hr, increase 2.5 mg/h increments prn, titrate to SBP >120., Routine 0800 (Rate/Dose Change - Provider: Ratna Harris RN)0831 (New Bag - Provider: Ratna Harris RN)1115 (New Bag - Provider: Ratna Harris, KATIE)1148 (Stopped - Provider: Ratna Harris, RN) PRN Medication Order 12/01/2017 12/02/2017 12/03/2017 iohexol (OMNIPAQUE) 350 mg/mL solution 0-200 mL (COMPLETED) 0509 (Given - Provider: Mohit Quesada) 0-200 mL, Intravenous, ONCE PRN, 1 dose, Starting Fri12/03/17 at 0508, Until Fri12/03/17 at 0509, Per Protocol, Warning Vesicant/Irritant Medication , Radiology Contrast, Routine documented in this encounter Care Teams Asphalt Mixing Machine Operator Relationship Specialty Start Date End Date Chrissie Roque, APPLIED COMPUTER SCIENCE PROFESSOR PCP - General Family Medicine 12/03/17 [address] [place] [address] documented as of this encounter
--- OUTSIDE RECORDS SUMMARY | 2022-07-19 01:35 | XMS_ITS | Encounter Summary ---
:1970 Author Organization [facility] Address [address] [place] [address] Care Team Providers Name Role Phone Unavailable Primary Care Provider Unavailable Encounter Details Date Type Department Care Team Description 03/01/2013 Results Only [facility] Cecilia Hopkins MD Laboratory Services - [facility] [address] [place] [address] [address] [facility] [place], [place] [id number] [phone] Social History Tobacco Use Types Packs/Day Years Used Date Never Assessed Sex Assigned at Date Recorded Not on file documented as of this encounter Plan of Treatment Not on filedocumented as of this encounter Procedures Procedure Name Priority Date/Time Associated Diagnosis Comme nts PAP TEST- RESULT Routine 03/01/2013 0:00 EDT Resu lts for this ONLY procedure are i n the results section. documented in this encounter Results PAP TEST- RESULT ONLY (03/01/2013 0:00 EDT) Pathology Report: CYTOPATHOLOGY REPORT [facility] Reports generated via electronic interface contain lore ginal data; however they are lacking the format of the original re port. Caution should be taken when reading/interpreting unfo rmatted reports. Name: ? GEOFF TREVIÑO ? Accession #: ? [id number] ? : ? 1970 (Age: 42) ??F ?Collect Da te: ? 03/01/2013 ? Location: ? [facility] ? Receive Date: ? 013 ? Provider: DEBBIE HOPKINS MD Copy to: ? Final Report SPECIMEN ADEQUACY ? Satisfactory for Evaluation - transformation zone component present - scant squamous epithelial component secondary to exc essive blood GENERAL CATEGORIZATION ? Negative for Intraepithelial Lesion or Malignan cy ?? Last Menstrual Period: 02/24/13 Hormonal/Contraceptive status: Yes: Levothyroxine Specimen/Source: ??Pap Test, Cervix/Endocervix, ThinPr ep Imaging System with manual evaluation Document reviewed and electronically signed by: ? Anna Munroe, CT(ASCP) ? Report ??Date: 03/09/2013 09:15 HPV with Pap Test ? Date Ordered: ? 03/09/2013 ? Status: ?? Signed Out ?Date Complete: ? 03/11/2013 ? By: ??S ystem Interface ? Date Reported: ? 03/11/2013 ? Interpretation RESULT: Positive for high or intermediate risk HPV. E6 OR E7 mRNA from one or more types of HPV types 16,1 8,31, 33,35,39,45,51,52,56,58,59,66, and 68 is detected by application engineer mediated amplification. High and intermediate risk HPV types are associated wi th most squamous intraepithelial lesions and cervical can cers. Comments Document reviewed and electronically signed by: ? System Interface ? Report date: 03/11/2013 By the signature above, the attending physician certif ies that he/she has personally conducted a gross and/or microscopic examin ation of the described specimens and rendered or confirmed the above diagnosi s. End of Report Specimen Performing Organization Address City/State/ZIP Code Phon e Number [facility] [address] [place] [address] SERVICES [facility] [address] [place] [address] documented in this encounter Visit Diagnoses Not on filedocumented in this encounter
--- OUTSIDE RECORDS SUMMARY | 2022-07-19 01:35 | XMS_ITS | Encounter Summary ---
:1970 Author Organization [facility] Address [address] [place] [address] Care Team Providers Name Role Phone Unavailable Primary Care Provider Unavailable Encounter Details Date Type Department Care Team Description 03/21/2014 Results Only [facility] Cecilia Hopkins MD Laboratory Services - [facility] [address] [place] [address] [address] [facility] [place], [place] [id number] [phone] Social History Tobacco Use Types Packs/Day Years Used Date Never Assessed Sex Assigned at Date Recorded Not on file documented as of this encounter Plan of Treatment Not on filedocumented as of this encounter Procedures Procedure Name Priority Date/Time Associated Diagnosis Comme nts PAP TEST- RESULT Routine 03/21/2014 0:00 EDT Resu lts for this ONLY procedure are i n the results section. documented in this encounter Results PAP TEST- RESULT ONLY (03/21/2014 0:00 EDT) Pathology Report: CYTOPATHOLOGY REPORT [facility] Reports generated via electronic interface contain lore ginal data; however they are lacking the format of the original re port. Caution should be taken when reading/interpreting unfo rmatted reports. Name: ? GEOFF TREVIÑO ? Accession #: ? [id number] ? : ? 1970 (Age: 44) ??F ?Collect Da te: ? 03/21/2014 ? Location: ? [facility] ? Receive Date: ? 014 ? Provider: DEBBIE HOPKINS MD Copy to: ? Final Report SPECIMEN ADEQUACY ? Satisfactory for Evaluation - transformation zone component present GENERAL CATEGORIZATION ? Negative for Intraepithelial Lesion or Malignan cy INTERPRETATION ? Reactive cellular melina nges associated with inflammation present (includes repair). Last Menstrual Period: 02/09 Other: Additional clinical information: HX OF HPV + 20 13 Specimen/Source: ??Pap Test, Cervix/Endocervix, ThinPr ep Imaging System with manual evaluation Document reviewed and electronically signed by: ? TARAS PABLO MD ? Report ??Date: 04/05/2014 18:54 HPV with Pap Test ? Date Ordered: ? 04/05/2014 ? Status: ?? Signed Out ?Date Complete: ? 04/08/2014 ? By: ??S ystem Interface ? Date Reported: ? 04/08/2014 ? Interpretation RESULT: Negative for HPV. No E6 or E7 mRNA is detected from HPV types 16,18,31,3 3,35, 39,45,51,52,56,58,59,66, and 68 by bond clerk media mateo amplification. Comments Document reviewed and electronically signed by: ? System Interface ? Report date: 04/08/2014 By the signature above, the attending physician certif ies that he/she has personally conducted a gross and/or microscopic examin ation of the described specimens and rendered or confirmed the above diagnosi s. End of Report Specimen Performing Organization Address City/State/ZIP Code Phon e Number [facility] [address] [place] [address] SERVICES [facility] [address] [place] [address] documented in this encounter Visit Diagnoses Not on filedocumented in this encounter
--- OUTSIDE RECORDS SUMMARY | 2022-07-19 01:35 | XMS_ITS | Clinical Summary ---
:1970 Author Organization [facility] Address [address] [place] [address] Care Team Providers Name Role Phone Unknown, Provider Primary Care Provider Social History Tobacco Use Types Packs/Day Years Used Date Never Assessed Sex Assigned at Date Recorded Not on file Plan of Treatment Not on file Care Teams Brickmason Helper Relationship Specialty Start Date End Date Unknown, Provider, PCP - General 08/08/15
--- OUTSIDE RECORDS SUMMARY | 2022-07-19 01:35 | XMS_ITS | Encounter Summary ---
:1970 Author Organization [facility] Address [address] [place] [address] Care Team Providers Name Role Phone Unavailable Primary Care Provider Unavailable Encounter Details Date Type Department Care Team Description 04/27/2003 Results Only [facility] - Lai Reddy MD conversion [address] [facility] [address] [place] [address] [place] [address] (Wo rk) Social History Tobacco Use Types Packs/Day Years Used Date Never Assessed Sex Assigned at Date Recorded Not on file documented as of this encounter Plan of Treatment Not on filedocumented as of this encounter Procedures Procedure Name Priority Date/Time Associated Diagnosis Comme nts CYTOPATHOLOGY Routine 04/27/2003 0:00 EDT Results for this procedure are i n the results section . documented in this encounter Results CYTOPATHOLOGY (04/27/2003 0:00 EDT) Pathology Report: CYTOPATHOLOGY REPORT [facility] Reports generated via electronic interface contain lore ginal data; however they are lacking the format of the original re port. Caution should be taken when reading/interpreting unfo rmatted reports. Name: ? GEOFF TREVIÑO ? Accession #: ? [id number] : ? 1970 (Age: 33) ??F ?Collect Date: ? 03/31 Location: ? [facility] ? Receive Date : ? 04/29/2003 Provider: ?LAI DELATORRE MD Copy to: ? Specimen/Source: ?ThinPrep Pap Test, Cervix/ Endocervix Last Menstrual Period: ? 04/22/03 ? SPECIMEN ADEQUACY ? Satisfactory for Evaluation - transformation zone component present GENERAL CATEGORIZATION ? Negative for Intraepithelial Lesion or Malignan cy INTERPRETATION ? Shift in jonathon present suggestive of bacterial vaginosis. ? Document reviewed and electronically signed by: ? ROBI Humphrey(ASCP) ? Report Date: ??05/03/2003 13:49 End of Report Specimen Performing Organization Address City/State/ZIP Code Phon e Number [facility] [address] [phone] SERVICES [facility] [address] [place] [address] documented in this encounter Visit Diagnoses Not on filedocumented in this encounter
--- OUTSIDE RECORDS SUMMARY | 2022-07-19 01:35 | XMS_ITS | Encounter Summary ---
:1970 Author Organization [facility] Address [address] [place] [address] Care Team Providers Name Role Phone Unknown, Provider Primary Care Provider Encounter Details Date Type Department Care Team Description 01/03/2021 Lab Requisition [facility] Chrissie Roque, EBD TEACHER Encounter for other Pathology & [address] [facility] Laboratory Medicine [place], [place] [address] [facility] [address] [place], [place] [phone] (Wo rk) [phone] Social History Tobacco Use Types Packs/Day Years Used Date Never Assessed Sex Assigned at Date Recorded Not on file documented as of this encounter Plan of Treatment Not on filedocumented as of this encounter Procedures Procedure Name Priority Date/Time Associated Comments Diagnosis PAP TEST Today 01/02/2021 11:00 Encounter for other Resu lts for this EDT general examination procedur e are in the results section. HUMAN PAPILLOMAVIRUS Today 01/02/2021 11:00 Encounter for ot her Results for this (HPV) DETECTION-HIGH EDT general examination procedure are in RISK TYPES the results section. documented in this encounter Results HUMAN PAPILLOMAVIRUS (HPV) DETECTION-HIGH RISK TYPES (01/02/2021 11:00 EDT) Human Papillomavirus NegativeComment: No Negative [facility] (HPV) Detection-High E6 or E7 mRNA is CENTER LABORATOR Y Types detected from HPV SERVICES types 16,18,31,33,35,39,45 ,51,52,56,58,59,66, and 68 by business intelligence manager mediated amplification. Specimen Pap Test - Cervix and/or Endocervix Performing Organization Address City/State/ZIP Code Phon e Number [facility] [address] [place] [address] SERVICES PAP TEST (01/02/2021 11:00 EDT) Specimens A. Cervix and/or [facility] Endocervix , ThinPrep CENTER Imaging System with LABORATORY Manual Evaluation SERVICES Specimen Adequacy Satisfactory for [facility] Evaluation - CENTER transformation zone LABORATORY component absent SERVICES General Negative for [facility] Categorization intraepithelial CENTER lesion or malignancy LABORATORY SERVICES Attestation . [facility] Electronically CENTER signed by Edu varela LABORATORY TEVIN Kowalski(A SCP) SERVICES on 01/10/2021 at 0824 Clinical History See below [facility] SERVICES HPV The result for the Human Pap illomavirus (HPV) Detection-High Risk Types is Negative. No E6 or E7 mRNA is detected from HPV types 16,18,31,33,35,39,45,51,52,56,58,59,66, and 68 by business intelligence manager mediated [facility] amplification.Testing was pe rformed on specimen [id number] and was resulted on 01/10/2021 0820 EDT by BENITEZ, LAB INSTRUMENT RESULTS IN [facility] SERVICES Performing Lab [facility] SERVICES Scanned Images [facility] SERVICES Specimen Pap Test - Cervix and/or Endocervix Performing Organization Address City/State/ZIP Code Phon e Number [facility] [address] [place] [address] SERVICES documented in this encounter Visit Diagnoses Diagnosis Encounter for other general examination documented in this encounter Care Teams Newspaper Editor Managing Relationship Specialty Start Date End Date Unknown, Provider, PCP - General 08/08/15 documented as of this encounter
--- OUTSIDE RECORDS SUMMARY | 2022-07-19 01:35 | XMS_ITS | Encounter Summary ---
:1970 Author Organization [facility] Address [address] [place] [address] Care Team Providers Name Role Phone Unknown, Provider MD Primary Care Provider Encounter Details Date Type Department Care Team Description 12/20/2020 Lab Requisition [facility] Outr Resulting Lab, Pathology & Laboratory Provider [facility] [address] [place], [place] [phone] Social History Tobacco Use Types Packs/Day Years Used Date Never Assessed Sex Assigned at Date Recorded Not on file documented as of this encounter Plan of Treatment Not on filedocumented as of this encounter Procedures Procedure Name Priority Date/Time Associated Diagnosis Comme nts COVID-19 TEST [facility] Today 12/20/2020 10:53 LAB PCR EDT COVID-19 TESTING Routine 12/20/2020 10:53 Results for this EDT procedure are i n the results section. documented in this encounter Results COVID-19 TEST [facility] LAB PCR (12/20/2020 10:53 EDT) Specimen Swab - Entire nasopharynx (body structur e) Performing Organization Address City/State/ZIP Code Phon e Number [facility] [address] [place] [address] SERVICES COVID-19 TESTING (12/20/2020 10:53 EDT) COVID-19 rt-PCR Negative Negative [facility] Result Comment: CENTER LABORATORY This test has not been FDA c leared or approved. This test has been authorized by FDA under an EUA for use by authorized laboratories. This test has been authorized only for detection of nucleic acid fro SERVICES m 2019-nCoV, not for any oth er viruses or pathogens. This test is only authorized for the duration of the declaration that circumstances exist justifying the authorization of emergency use of in vitro d iagnostic tests for detectio n and/or diagnosis of 2019-nCoV under section 564(b)(1) of Act, 21 U.S.C ?? 360bbb-3(b) (1), unless the authorization is terminated or revoked sooner. Negative results do not prec lude 2019-nCoV infection and should not be used as the sole basis for treatment or other patient management decisions. Negative results must be combined with clinical observa tions, patient history, and epidemiological informatio n. This test was developed and its performance characteristics determined by [facility]. It has not been cleared or approved by the US Food and Drug Administration. FDA does not require this test to go through premarket FDA review. This t est is used for clinical purposes. It should not be regarded as investigational or for research. This laboratory is certified under the Clinical Laboratory Improvement Amendm ents (CLIA) as qualified to perform high complexity clinical laboratory testing. This test is based on the CD C COVID-19 Emergency Use Authorization (EUA) assay, with minor modification as defined by the FDA Performed on the TV Volume Wizard Appo 7 Flex RT-PCR System. Performing Lab [facility] SERVICES Specimen Swab Performing Organization Address City/State/ZIP Code Phon e Number [facility] [address] [place] [address] SERVICES documented in this encounter Visit Diagnoses Not on filedocumented in this encounter Care Teams [employer] Relationship Specialty Start Date End Date Unknown, Provider, PCP - General 08/08/15 documented as of this encounter
--- OUTSIDE RECORDS SUMMARY | 2022-07-19 01:35 | XMS_ITS | Encounter Summary ---
:1970 Author Organization [facility] Address [address] [place] [address] Care Team Providers Name Role Phone Unavailable Primary Care Provider Unavailable Encounter Details Date Type Department Care Team Description 03/27/2015 Results Only [facility]- Galo Ferrer MD [phone] [address] [facility] [address] [place], [place] [address] (Wo rk) Social History Tobacco Use Types Packs/Day Years Used Date Never Assessed Sex Assigned at Date Recorded Not on file documented as of this encounter Plan of Treatment Not on filedocumented as of this encounter Procedures Procedure Name Priority Date/Time Associated Diagnosis Comme nts PAP TEST- RESULT Routine 03/27/2015 0:00 EDT Resu lts for this ONLY procedure are i n the results section. documented in this encounter Results PAP TEST- RESULT ONLY (03/27/2015 0:00 EDT) Pathology Report: CYTOPATHOLOGY REPORT [facility] Reports generated via electronic interface contain lore ginal data; SERVICES however they are lacking the format of the original re port. Caution should be taken when reading/interpreting unfo rmatted reports. Name: ? GEOFF TREVIÑO ? Accession #: ? [id number] ? : ? 1970 (Age: 45 ) ??F ?Collect Date: ? 03/27/2015 ? Location: ? [facility] ? Receive Date: ? 03/28/20 15 ? Provider: GALO DANGELO MD Copy to: ? Final Report SPECIMEN ADEQUACY ? Satisfactory for Evaluation - transformation zone component present GENERAL CATEGORIZATION ? Negative for Intraepithelial Lesion or Malignan cy INTERPRETATION ? Reactive cellular melina nges associated with inflammation present (includes repair). Last Menstrual Period: 01/11 Previous Gynecologic Pathology: HPV: + H/O 2012 Specimen/Source: ??Pap Test, Cervix/Endocervix, ThinPr ep Imaging System with manual evaluation Document reviewed and electronically signed by: ? BLAS ANDRADE MD ? Report ??Date: 04/11/2015 15:55 HPV with Pap Test ? Date Ordered: ? 04/11/2015 ? Status: ?? Signed Out ?Date Complete: ? 04/13/2015 ? By: ??Sy stem Interface ? Date Reported: ? 04/13/2015 ? Interpretation RESULT: Negative for HPV. No E6 or E7 mRNA is detected from HPV types 16,18,31,3 3,35, 39,45,51,52,56,58,59,66, and 68 by sustainable agriculture specialist media mateo amplification. Comments Document reviewed and electronically signed by: ? System Interface ? Report date: 04/13/2015 By the signature above, the attending physician certif ies that he/she has personally conducted a gross and/or microscopic examin ation of the described specimens and rendered or confirmed the above diagnosi s. End of Report Specimen Performing Organization Address City/State/ZIP Code Phon e Number [facility] [address] [place] [id number] SERVICES documented in this encounter Visit Diagnoses Not on filedocumented in this encounter
--- OUTSIDE RECORDS SUMMARY | 2022-07-19 01:35 | XMS_ITS | Encounter Summary ---
:1970 Author Organization [facility] Address [address] [place] [address] Care Team Providers Name Role Phone Unavailable Primary Care Provider Unavailable Encounter Details Date Type Department Care Team Description 08/11/2001 Results Only [facility] - Irasema Granados od, PIN GAME MACHINE INSPECTOR [address] [place] [phone] (Wo rk) Social History Tobacco Use Types Packs/Day Years Used Date Never Assessed Sex Assigned at Date Recorded Not on file documented as of this encounter Plan of Treatment Not on filedocumented as of this encounter Procedures Procedure Name Priority Date/Time Associated Diagnosis Comme nts CYTOPATHOLOGY Routine 08/11/2001 0:00 EST Results for this procedure are i n the results section . documented in this encounter Results CYTOPATHOLOGY (08/11/2001 0:00 EST) Pathology Report: CYTOPATHOLOGY REPORT [facility] Reports generated via electronic interface contain lore ginal data; however they are lacking the format of the original re port. Caution should be taken when reading/interpreting unfo rmatted reports. Name: ? GEOFF TREVIÑO ? Accession #: ? [id number] : ? 1970 (Age: 31) ??F ?Collect Date: ? 07/30 Location: ? [facility] ? Receive Date : ? 08/12/2001 Provider: ?IRASEMA LAN PIN GAME MACHINE INSPECTOR Copy to: ? Specimen/Source: ?ThinPrep Pap Test, Cervix/ Endocervix Last Menstrual Period: ? 07/31/01 ? SPECIMEN ADEQUACY ? Satisfactory for evaluation. GENERAL CATEGORIZATION ? Within Normal Limits ? Document reviewed and electronically signed by: ? ROBI Nation(ASCP) ? Report Date: ??08/18/2001 14:56 End of Report Specimen Performing Organization Address City/State/ZIP Code Phon e Number [facility] [address] [place] [address] SERVICES [facility] [address] [place] [address] documented in this encounter Visit Diagnoses Not on filedocumented in this encounter
[2022-07-19 13:07] LABS: ALT 13 U/L (14-59); AST 18 U/L (15-37); Alkaline Phosphatase 109 U/L (46-116); Anion Gap 8.4 mmol/L (3-11); BUN 18 mg/dL (7-18); Bilirubin, Total 0.2 mg/dL (0.2-1.0); CO2 30.6 mmol/L (21.0-32.0); CREATININE 1.1 mg/dL (0.55-1.02); Calcium 9.9 mg/dL (8.5-10.1); Chloride 102 mmol/L (98-107); Estimated GFR 60.08 (mL/min/1.73m2); Glucose 99 mg/dL (74-106); Potassium 3.3 mmol/L (3.5-5.1); Sodium 141 mmol/L (136-145); TSH (W/Ref FT4) 17.32 uIU/mL (0.36-3.74); Total Protein 8.3 g/dL (6.4-8.2)
[2022-07-19 13:31] LABS: FREE T4 0.79 ng/dL (0.76-1.46)
== END 2022-07-19 01:28 | disposition home or self-care (01) ==
LOC: LOS 01:27
DX: Z00.00 Encounter for general adult medical examination without abnormal findings (principal); E03.9 Hypothyroidism, unspecified
CPT/HCPCS: 36415; 80053; 84439; 84443

== ENCOUNTER 2022-09-17 19:32 | Observation (INO) | payer MEDICAID, SELFPAY ==
[2022-09-17] VITALS (16 sets, daily range): BP systolic 148–179; BP diastolic 79–88; PULSE 67–84; RESP 14–30; TEMP 36.2–36.7; O2SAT 96–98
--- NOTE | 2022-09-17 19:30 | RT.EKG_ITS ---
APPROVED REPORT Exam: Resting ECG Reason for Exam: Stroke Symptoms Patient Location: E HR:71 bpm ECG Measurements Heart Rate 71 AXIS MT 208 P 75 QRSd 98 QRS 72 QT 428 T 23 QTc 466 Conclusion Sinus rhythm...normal P axis, V-rate 60- 99 Borderline prolonged MT interval...MT >202, V-rate 50- 90 subte dep inferior lat
--- NOTE | 2022-09-17 19:45 | DI.CT_ITS ---
Exam(s) CT BRAIN NECK CTA EXAM: CT BRAIN NECK CTA CLINICAL HISTORY: left sided weakness. TECHNIQUE: Imaging Protocol: Axial CT angiography was performed with multi-slice acquisition and mu lti-planar and/or 3D reconstructions. CONTRAST MATERIAL: Intravenous: Omnipaque 350 Contrast volume:85 mL COMPARISON: CT CHEST FOR PULMONARY EMBOLUS from 12/02/2017 FINDINGS: CTA Neck W: Aortic arch anatomy: The aortic arch anatomy is conventional and there is no significant stenosis at the origin of the great vessels off of the aortic arch. No intimal flap evident. Anterior circulation: Both common carotid arteries ascend with normal luminal diameters. At the level the carotid bulbs and proximal internal carotid arteries are some mild calcified and non calcified plaque but no tight stenosis on either side. Both internal carotid arteries in the upper n maria elena exhibit normal luminal diameters and there also demonstrated to be patent in the skull base. Posterior circulation: Vertebral arteries originated conventional fashion off of the subclavian arteries and there is no obv ious stenosis at the origin of the vertebral arteries. Both vertebral arteries exhibit normal equal luminal diameters within the foramen transversarium. No focal stenosis nor dissection of these vessels. Both vertebral arteries contribute to the formation of the basilar artery at the skull base. CTA Brain W: Anterior circulation: Both internal carotid arteries are patent in the skull base carotid canals. However, there is signif icant disease of both vessels at the level the cavernous sinuses. There is severe critical stenosis in the right intracavernous internal carotid artery and moderate-severe stenosis of the left intracav ernous ICA. Supraclinoid aspects of these vessels are patent as are the A1 segments and anterior cerebral arterie s. There is no aneurysm at the level of the anterior communicating artery. Both middle cerebral arteries are patent with no evidence of significant stenosis nor intraluminal th rombus. There also no aneurysms of these vessels. Posterior circulation: The basilar artery ascends in the midline. Distally it gives off patent bilateral superior cerebella r arteries. Above this level basilar artery terminates as bilateral posterior cerebral arteries. The proximal le ft posterior cerebral artery loops anteriorly prior to coursing posteriorly. There is no evidence of aneurysm at the tip of the basilar artery nor elsewhere in the [id number] is. CT BRAIN: There is no evidence of intracranial hemorrhage, mass effect, or shift of midline structures. There are no extra-axial fluid collections. Ventricles are not enlarged or shifted. There are no ring enh ancing lesions in the brain and no abnormal meningeal enhancement. Small hypodensities in the basal ganglia left side of probably nonhemorrhagic lacunar infarcts, age i ndeterminate. IMPRESSION: 1. 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 2. Only mild plaque is noted at the carotid bifurcations and proximal ICAs in the neck. 3. Posterior circulation is patent. 4. Other findings as above. First read by [facility]. RADIATION DOSE DELIVERED: 1,843.83mGy.cm Total DLP DATA REPOSITORY: All CT scans at this facility are submitted to the National Radiology Data Registry (NRDR) Dose Index Registry (DIR) with the [employer] (ACR). RADIATION OPTIMIZATION: All CT scans at this facility use at least one of these dose optimization te chniques: automated exposure control; mA and/or kV adjustment per patient size (includes targeted exa ms where dose is matched to clinical indication); or iterative reconstruction.
[2022-09-17 20:04] LABS: Source Nasal/Nares
[2022-09-17 20:04] LABS: Abs Immature Grans 0.03 10^3/uL (0.0-0.06); Absolute Basophil Count 0.06 10^3/uL (0.0-0.2); Absolute Eosinophil Count 0.09 10^3/uL (0.0-0.7); Absolute Monocyte Count 0.84 10^3/uL (0.1-0.8); Absolute Neutrophil Count 7.43 10^3/uL (1.2-6.7); Basophils % 0.6; Eosinophils % 0.9; HCT 37.7 % (36.0-46.0); HGB 13.1 g/dL (11.2-15.7); Immature Grans % 0.3; Lymphocytes % 18.4; MCH 32.1 pg (27.0-33.0); MCHC 34.7 % (32.0-36.0); MCV 92 fL (80-95); MPV 11.3 fL (8.0-11.0); Monocytes % 8.1; Neutrophils % 71.7; Platelet Count 302 10^3/uL (130-400); RBC 4.08 10^6/uL (3.93-5.22); RDW 12.4 % (11.7-14.6); RDW-SD 42.1 fL; WBC 10.35 10^3/uL (4.4-10.8)
--- NOTE | 2022-09-17 20:23 | W.ED.GENAD ---
Discharge Plan Disposition Patient Disposition: Admit to [facility] Condition: Stable Discharge Details Clinical Impression: Acute left-sided weakness, Elevated troponin, Hypokalemia Primary Care Provider: Brittany Sandoval ED Provider: James Ramirez Home Meds and New Rx's Prescriptions: No Action halobetasol propionate 0.05 % ointment 1 applic topical DAILY Qty: 50 4RF Rx Instructions: Apply to labia and perineal tissue nightly x6 weeks then 2x per week. sertraline 25 mg tablet 25 mg PO DAILY Qty: 30 1RF hydroxyzine HCl 25 mg tablet 25 mg PO QHS PRN (Reason: itching) Qty: 30 1RF Rx Instructions: Take at bedtime as needed, take when script potassium is complete. metoprolol tartrate 50 mg tablet 50 mg PO BID Qty: 180 3RF hydrochlorothiazide 25 mg tablet 25 mg PO QAM Qty: 90 0RF amlodipine 5 mg tablet 5 mg PO QPM Qty: 90 3RF Rx Instructions: Takes 10 mg tab in AM, 5 mg tab in PM levothyroxine 88 mcg tablet 88 mcg PO DAILY Qty: 30 2RF amlodipine 10 mg tablet 10 mg PO DAILY Qty: 90 3RF Medical Decision Making 52 yo female with hx of hld, htn, who comes in with chief complaint of left sided weakness since the afternoon yesterday. She denies any fevers, chest pain, dyspnea, speech or vision changes. She arrives stable speaking clearly caox4. She does have very mild drift in her left arm and left leg and does have ataxia in both of those limbs, no drift or ataxia in either right limb. She has very mild assymetry of the left face. NIH is 5 (1 for left arm drift, 1 left leg drift, 1 for facial palsy and 2 for ataxia). Suspect she had a small cva, will obtain cbc, cmp, ekg, troponin and cta head and neck. She is outside the time window for intervention at this time. pt stable, cta shows severe stenosis of right ica and moderate/severe stenosis of left ica, k 2.4, mag 1.7, troponin over 200 but denies chest pain and suspect this is likely due to the cva she likely had. [place] to [facility] [place] discuss with neurology. spoke with neurology at [facility] [place] (Dr. Zacarias) who recommended aspirin, plavix for at least 21 days, atorvastatin, and will need f/u at discharge with neuro and vascular but no emergent interventions given last known normal was yesterday. Discussed with hospitalist who accepts for admission Differential Diagnosis Differential Diagnosis: cva, tia, electrolyte abnormality Medical Records Medical records reviewed: Yes I reviewed the patient's medical records. Imaging Data Radiologic Study: Attestation: I personally reviewed and interpreted this imaging study as follows: Imaging: CT Scan Radiologist's impression: 1. Severe stenosis cavernous right ICA. 2. Moderate to severe stenosis cavernous left ICA. Radiologic Study #2: Attestation: I personally reviewed and interpreted this imaging study as follows: Imaging: X-Ray Radiologist's impression: no acute findings Lab Data Lab results reviewed: Yes I reviewed the patient's lab results. HPI General Date/Time Provider Initiated Documentation: 09/17/22 19:51. Limitations to Documentation: no limitations. Information obtained by: patient. History of Present Illness 52 year old F presents to the emergency department with the chief complaint of left sided weakness, described as mild, Patient started experiencing this day(s) (1) and it has been constant. No relieving factors improve symptom(s), No exacerbating factors reported . Patient notes denies chest pain and shortness of breath. Patient did receive the following treatments prior to arrival, none Related Data Home Medications Medication Instructions Recorded Confirmed halobetasol propionate 0.05 % 1 applic topical DAILY #50 grams 01/02/21 09/17/22 topical ointment metoprolol tartrate 50 mg tablet 50 mg PO BID #180 tabs 01/07/22 09/17/22 amlodipine 5 mg tablet 5 mg PO QPM #90 tabs 07/15/22 09/17/22 hydrochlorothiazide 25 mg tablet 25 mg PO QAM #90 tabs 07/15/22 09/17/22 levothyroxine 88 mcg tablet 88 mcg PO DAILY #30 tabs 07/19/22 09/17/22 hydroxyzine HCl 25 mg tablet 25 mg PO QHS PRN itching #30 tabs 08/01/22 09/17/22 sertraline 25 mg tablet 25 mg PO DAILY #30 tabs 08/01/22 09/17/22 amlodipine 10 mg tablet 10 mg PO DAILY #90 tab-caps 09/04/22 09/17/22 Previous Rx's Medication Instructions Recorded halobetasol propionate 0.05 % 1 applic topical DAILY #50 grams 01/02/21 topical ointment metoprolol tartrate 50 mg tablet 50 mg PO BID #180 tabs 01/07/22 amlodipine 5 mg tablet 5 mg PO QPM #90 tabs 07/15/22 hydrochlorothiazide 25 mg tablet 25 mg PO QAM #90 tabs 07/15/22 levothyroxine 88 mcg tablet 88 mcg PO DAILY #30 tabs 07/19/22 hydroxyzine HCl 25 mg tablet 25 mg PO QHS PRN itching #30 tabs 08/01/22 sertraline 25 mg tablet 25 mg PO DAILY #30 tabs 08/01/22 amlodipine 10 mg tablet 10 mg PO DAILY #90 tab-caps 09/04/22 Allergies Allergy/AdvReac Type Severity Reaction Status Date / Time codeine Allergy Intermediate CHEST Verified 09/05/22 15:09 CLOSING General Stated Complaint: GenMedical ORA: 3 Review of Systems All systems reviewed & are unremarkable except as noted in HPI and below Constitutional Constitutional: Denies chills, Denies fever(s) and Denies weakness Cardiovascular Cardiovascular: Denies chest pain and Denies dyspnea Respiratory Respiratory: Denies cough and Denies dyspnea Gastrointestinal Gastrointestinal: Denies abdominal pain, Denies nausea and Denies vomiting Musculoskeletal Musculoskeletal: Denies joint swelling Neurologic Neurologic: Denies weakness PFSH All Active Problems (Updated 09/17/22 @ 21:44 by James Ramirez MD) Acute left-sided weakness (Acute) Elevated troponin (Acute) Hypokalemia (Acute) Eczema of both hands (Acute) Essential hypertension (Acute) Neck pain, acute (Acute) Cervical disc disorder (Acute) [facility] MRI- 08/29/21: Large disk herniation C6-7 w/ extrusion posterior to C7 vertebral body. +spinal cord compression & central spinal canal stenosis. C4-C5 & C5-C6 DJD w/spinal canal stenosis, Multilevel neural foraminal stenosis, prominence of the central canal in the spinal cord posterior to the T1-T3 vertebral bodies. Gastritis (Acute) Nausea (Acute) Muscle spasm (Acute) Acute shoulder pain (Acute) Chronic dermatitis of hands (Acute 03/27/16) Lichen sclerosus of female genitalia (Acute) Pure hypercholesterolemia (Acute 04/02/16) Smoker (Acute) Annual physical exam (Acute) Hypothyroidism (Chronic) Compromised kidney function (Acute) UTI (urinary tract infection) (Acute) Acute kidney failure (Acute) Dehydration (Acute) Bruit of right carotid artery (Acute) Murmur, cardiac (Acute) Kidney tubular necrosis (Acute) Medical History (Updated 09/17/22 @ 21:44 by James Ramirez MD) Aneurysm of infrarenal abdominal aorta (12/08/17) Depressive disorder Family history of breast cancer (03/27/15) mother Headache (11/18/12) History of acute renal failure Hx of pyelonephritis (02/09/14) Hypercholesteremia Hyperthyroidism Hypothyroidism 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) (03/09/14) Renal failure (06/10/16) 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; + antibody, - antigen Surgical History History of appendectomy History of open reduction and internal fixation (ORIF) procedure , Ectopic X 2 Family History Mother Essential hypertension Personal history of malignant neoplasm BREAST Father Essential hypertension Personal history of malignant neoplasm PROSTATE Sister Essential hypertension Brother Essential hypertension Social History (Updated 08/06/22 @ 12:11 by Tracie Mancini) Smoking/Tobacco Use Status: Current every day Tobacco Type: cigarettes Quit status: considering quitting Second Hand Exposure: Yes Smoking risk assessment performed?: Yes Alcohol Intake: current Alcohol Intake frequency: holidays/special occasions only Drug use: Never Substance use type: does not use Counseling given: No Counseling provided: none Caregiver/Support person: No Household members: family Housing: apartment Communication Needs: Deaf Do you need help understanding health information?: Never current occupation: [employer] Pets and animals: No Sexually active: No Do you think of yourself as: straight/heterosexual Current gender identity: male What is your relationship status?: never How often do you talk on the phone with friends or family?: never How often do you get together with friends or relatives?: once per week How often do you attend tenriism or restoration services?: decline to answer Do you belong to any clubs or organized social groups?: no Panel score (0-1 are the most socially isolated patients): 0 Do you feel safe at home: Yes Do you feel safe in your relationship?: Yes Exam Const General: no acute distress Orientation: alert HENOK Head: normal to inspection Ears: external ears normal General nose exam: external nose normal Mouth: moist mucous membranes Eyes General: appearance normal, both eyes and all related structures Neck Neck: normal visual inspection Resp Effort & Inspection: normal respiratory effort and able to speak in complete sentences Cardio Rate: regular rate Skin General skin exam: no rashes or lesions noted Neuro General: patient alert and patient oriented x3 Extrem General: normal to inspection Psych Mental Status: mental status grossly normal Course Vital Signs Vital signs: Vital Signs Temperature 36.7 C 09/17/22 19:46 Pulse 78 09/17/22 19:46 Respiratory Rate 16 09/17/22 19:46 Blood Pressure 179/82 H 09/17/22 19:46 Pulse Oximetry 98 09/17/22 19:46 Temperature 36.7 C 09/17/22 19:46 Temperature Source Oral 09/17/22 19:46 Pulse 78 09/17/22 19:46 Respiratory Rate 16 09/17/22 19:46 Respiratory Effort 09/17/22 19:53 Respiratory Depth Normal 09/17/22 19:53 Respiratory Pattern Normal 09/17/22 19:53 Blood Pressure 179/82 H 09/17/22 19:46 Blood Pressure Position Supine 09/17/22 19:46 Pulse Oximetry 98 09/17/22 19:46 Oxygen Delivery Method Room Air 09/17/22 19:46 Oxygen Flow Rate 0 09/17/22 19:46 Pain Level 0 09/17/22 19:46 Lab/Test Results Lab/Test Results: Laboratory Tests Range/Units 09/17/22 09/17/22 19:40 20:03 WBC (4.4-10.8) 10^3/uL 10.35 RBC (3.93-5.22) 10^6/uL 4.08 Hgb (11.2-15.7) g/dL 13.1 Hct (36.0-46.0) % 37.7 MCV (80-95) fL 92 MCH (27.0-33.0) pg 32.1 MCHC (32.0-36.0) % 34.7 RDW (11.7-14.6) % 12.4 Plt Count (130-400) 10^3/uL 302 MPV (8.0-11.0) fL 11.3 H Immature Gran % 0.3 Neutrophils % 71.7 Lymphocytes % 18.4 Monocytes % 8.1 Eosinophils % 0.9 Basophils % 0.6 Nucleated RBC % (0.0-0.3) % 0.0 Absolute Neutrophils (1.2-6.7) 10^3/uL 7.43 H Absolute Lymphocytes (1.2-3.4) 10^3/uL 1.90 Absolute Monocytes (0.1-0.8) 10^3/uL 0.84 H Absolute Eosinophils (0.0-0.7) 10^3/uL 0.09 Absolute Basophils (0.0-0.2) 10^3/uL 0.06 COVID-19 Source Nasal/Nares
[2022-09-17 20:24] LABS: ALT 15 U/L (14-59); AST 21 U/L (15-37); Albumin 4.3 g/dL (3.4-5.0); Alkaline Phosphatase 145 U/L (46-116); Anion Gap 9.8 mmol/L (3-11); BUN 14 mg/dL (7-18); Bilirubin, Total 0.2 mg/dL (0.2-1.0); CO2 30.2 mmol/L (21.0-32.0); Calcium 9.8 mg/dL (8.5-10.1); Chloride 98 mmol/L (98-107); Estimated GFR 67.36 (mL/min/1.73m2); Glucose 157 mg/dL (74-106); Magnesium 1.7 mg/dL (1.8-2.4); Sodium 138 mmol/L (136-145); Total Protein 8.8 g/dL (6.4-8.2)
[2022-09-17 20:29] LABS: Potassium 2.4 mmol/L (3.5-5.1)
[2022-09-17 20:30] LABS: Troponin I 274 ng/L (<or=60)
--- NOTE | 2022-09-17 20:30 | DI.RAD_ITS ---
Exam(s) XR CHEST 2V PA LATERAL EXAM: XR CHEST 2V PA LATERAL CLINICAL HISTORY: stroke. TECHNIQUE: 2D digital imaging was performed. COMPARISON: CR CHEST 2 VIEWS PA,LAT from 12/02/2017 FINDINGS: 2 views: Heart size is upper normal. The mediastinum is not widened. Lungs are clear. No infiltrates nor pleural effusions. IMPRESSION: No acute pulmonary findings. DATA REPOSITORY: RADIATION DOSE DELIVERED:
[2022-09-17 20:37] LABS: COVID-19 PCR Negative (Negative)
[2022-09-17] MEDS: Omnipaque 350 MG/ML 100 ML BTL IJ (20:38)
[2022-09-17 20:50] LABS: TSH (W/Ref FT4) 5.19 uIU/mL (0.36-3.74)
[2022-09-17] MEDS: MAGNESIUM SULFATE 2 GM/50 ML BAG IVPB (21:02)
[2022-09-17 21:07] LABS: FREE T4 1.33 ng/dL (0.76-1.46)
[2022-09-17] MEDS: Potassium Chloride 20 MEQ TABCR 80 MEQ PO (21:14)
--- NOTE | 2022-09-17 21:17 | DI.VRAD_ITS ---
PROCEDURE INFORMATION: Exam: CTA Head With Contrast, Arteriography Exam date and time: 09/17/2022 8:27 PM Age: 52 years old Clinical indication: Stroke-like symptoms; Lt upper extremity weakness; Additional info: Left sided weakness TECHNIQUE: Imaging protocol: Computed tomographic angiography of the head with contrast. Exam focused on the arteries. 3D rendering (Not supervised by radiologist): MIP and/or 3D reconstructed images were created by the technologist. Contrast material: OMNIPAQUE 350; Contrast volume: 85 ml; Contrast route: INTRAVENOUS (IV); COMPARISON: MR CERVICAL SPINE WO 08/29/2021 9:22 AM FINDINGS: ANTERIOR CIRCULATION: Right internal carotid artery: Severe stenosis cavernous right ICA. Right middle cerebral artery: No occlusion or significant stenosis. No aneurysm. Right anterior cerebral artery: No occlusion or significant stenosis. No aneurysm. Left internal carotid artery: Moderate to severe stenosis cavernous left ICA. Left middle cerebral artery: No occlusion or significant stenosis. No aneurysm. Left anterior cerebral artery: No occlusion or significant stenosis. No aneurysm. POSTERIOR CIRCULATION: Right vertebral artery: No occlusion or significant stenosis. No aneurysm. Left vertebral artery: No occlusion or significant stenosis. No aneurysm. Basilar artery: No occlusion or significant stenosis. No aneurysm. Right posterior cerebral artery: No occlusion or significant stenosis. No aneurysm. Left posterior cerebral artery: No occlusion or significant stenosis. No aneurysm. Brain: Hypodensities at the basal ganglia consistent with remote lacunar infarctions. Small vessel ischemic changes in the periventricular white matter. No evidence of an acute cortical infarct. Cerebral ventricles: No ventriculomegaly. Bones/joints: Unremarkable. No acute fracture. Soft tissues: Unremarkable. IMPRESSION: 1. Severe stenosis cavernous right ICA. 2. Moderate to severe stenosis cavernous left ICA. PROCEDURE INFORMATION: Exam: CTA Neck With Contrast Exam date and time: 09/17/2022 8:27 PM Age: 52 years old Clinical indication: Stroke-like symptoms; Lt upper extremity weakness; Additional info: Left sided weakness TECHNIQUE: Imaging protocol: Computed tomographic angiography of the neck with contrast. 3D rendering (Not supervised by radiologist): MIP and/or 3D reconstructed images were created by the technologist. Radiation optimization: All CT scans at this facility use at least one of these dose optimization techniques: automated exposure control; mA and/or kV adjustment per patient size (includes targeted exams where dose is matched to clinical indication); or iterative reconstruction. Contrast material: OMNIPAQUE 350; Contrast volume: 85 ml; Contrast route: INTRAVENOUS (IV); COMPARISON: MR CERVICAL SPINE WO 08/29/2021 9:22 AM FINDINGS: Right common carotid artery: No stenosis. No dissection or occlusion. Right internal carotid artery: No stenosis of the extracranial segment. No dissection or occlusion. Right external carotid artery: No occlusion or stenosis of the origin. Left common carotid artery: No stenosis. No dissection or occlusion. Left internal carotid artery: No stenosis of the extracranial segment. No dissection or occlusion. Left external carotid artery: No occlusion or stenosis of the origin. Right vertebral artery: No stenosis. No dissection or occlusion. Left vertebral artery: No stenosis. No dissection or occlusion. Soft tissues: Normal. No significant soft tissue swelling. Bones/joints: No acute fracture. IMPRESSION: No stenosis or occlusion. REFERENCES: NASCET CRITERIA. The degree of stenosis in the cervical segment of the internal carotid artery is based on NASCET criteria. Normal is no stenosis. Mild is less than 50% stenosis. Moderate is 50-69% stenosis. Severe is 70% to 99% stenosis. Total occlusion is no detectable patent lumen. Dictated and Authenticated by: Giuliano Alonzo MD. Ordering:SAE Meeks MD
--- NOTE | 2022-09-17 21:17 | DI.VRAD_ITS ---
PROCEDURE INFORMATION: Exam: XR Chest Exam date and time: 09/17/2022 8:52 PM Age: 52 years old Clinical indication: Other: Stroke TECHNIQUE: Imaging protocol: Radiologic exam of the chest. Views: 2 views. COMPARISON: CR CHEST 2 VIEWS PA,LAT 12/02/2017 8:30 PM FINDINGS: Lungs: Unremarkable. No consolidation. Pleural spaces: Unremarkable. No pleural effusion. No pneumothorax. Heart/Mediastinum: Unremarkable. No cardiomegaly. Bones/joints: Unremarkable. IMPRESSION: No acute findings. Dictated and Authenticated by: Giuliano Alonzo MD. Ordering:TEODORA Ramirez MD
[2022-09-17] MEDS: Aspirin 81 MG CHEW (21:41)
--- NOTE | 2022-09-17 22:34 | HPE_ITS ---
Date of service: 09/17/22 Time of Service: 22:35 Assessment and Plan Assessment and plan (1) Acute left-sided weakness: Status: Acute Assessment and plan: She appears to have had an acute right-sided stroke causing left hemiparesis. By symptoms and by exam her left arm appears to be improved compared to earlier. She still has persistent symptoms and findings on the left leg. She has been started on aspirin and clopidogrel and atorvastatin. Neurology consultation has been requested for tomorrow. CTA shows bilateral cavernous stenosis of internal carotid arteries. Echocardiogram has been requested. She will be placed on telemetry. (2) Elevated troponin: Status: Acute Assessment and plan: This will be rechecked in the morning. (3) Hypokalemia: Status: Acute Assessment and plan: She has been given supplemental potassium in the emergency department. This will be rechecked soon and in the morning. History of Present Illness History of Present Illness Chief Complaint: Left-sided weakness Narrative: This 52-year-old female presented here to the emergency department this evening because of weakness of her left side. She noticed that yesterday while she was at work she was having some trouble cutting up some food. 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 She said her left arm felt heavy and numb. She stated at work and today noticed that her left leg felt heavy in addition to the left arm heaviness. She did not notice any difficulty with her speech or swallowing or vision. She has not had symptoms like this previously. Today she noted she was having some trouble walking and almost fell but her daughter caught her. She says that the numb feeling in her arm was feeling improved today. She has had hypertension for 25 years and she smokes about 10 cigarettes/day. She did not tell her daughter about this until tonight because she said she thought it would get better. She lives with her daughter and grandson. She does not drink alcohol. She has had her 2 initial COVID vaccines shots but has not had any boosters nor has she had a flu shot this season. She states that yesterday her left arm felt shaky also. Review of Systems Constitutional Constitutional: Denies chills, Denies fever(s), Denies headache(s) and Reports weakness Eyes Eyes: Denies blurry vision, Denies change in vision and Denies loss of vision ENT Ears, Nose, Mouth, and Throat: Denies headache(s) and Reports disequilibrium Cardiovascular Cardiovascular: Denies chest pain, Denies syncope, Denies irregular heart rhythm, Denies palpitations and Denies dyspnea Respiratory Respiratory: Denies cough and Denies dyspnea Gastrointestinal Gastrointestinal: Denies abdominal pain, Denies diarrhea, Denies nausea and Denies vomiting Comments: She states that she attempted colonoscopy a few years ago but because she was starting to wake up they stopped it before completing it. She has not rescheduled. Genitourinary Genitourinary: Denies difficulty voiding, Denies urinary incontinence and Denies urinary urgency Musculoskeletal Musculoskeletal: Reports abnormal gait Neurologic Neurologic: Reports abnormal gait, Denies confusion, Denies syncope, Denies headache(s), Denies loss of vision, Reports sensory deficit, Reports disequilibrium and Reports weakness Psychiatric Psychiatric: Denies confusion Endocrine Endocrine: Denies palpitations PFSH All Active Problems (Updated 09/17/22 @ 21:44 by James Ramirez MD) Acute left-sided weakness (Acute) Elevated troponin (Acute) Hypokalemia (Acute) Eczema of both hands (Acute) Essential hypertension (Acute) Neck pain, acute (Acute) Cervical disc disorder (Acute) [facility] MRI- 08/29/21: Large disk herniation C6-7 w/ extrusion posterior to C7 vertebral body. +spinal cord compression & central spinal canal stenosis. C4- C5 & C5-C6 DJD w/spinal canal stenosis, Multilevel neural foraminal stenosis, prominence of the central canal in the spinal cord posterior to the T1-T3 vertebral bodies. Gastritis (Acute) Nausea (Acute) Muscle spasm (Acute) Acute shoulder pain (Acute) Chronic dermatitis of hands (Acute 03/27/16) Lichen sclerosus of female genitalia (Acute) Pure hypercholesterolemia (Acute 04/02/16) Smoker (Acute) Annual physical exam (Acute) Hypothyroidism (Chronic) Compromised kidney function (Acute) UTI (urinary tract infection) (Acute) Acute kidney failure (Acute) Dehydration (Acute) Bruit of right carotid artery (Acute) Murmur, cardiac (Acute) Kidney tubular necrosis (Acute) Medical History (Updated 09/17/22 @ 21:44 by James Ramirez MD) Aneurysm of infrarenal abdominal aorta (12/08/17) Depressive disorder Family history of breast cancer (03/27/15) mother Headache (11/18/12) History of acute renal failure Hx of pyelonephritis (02/09/14) Hypercholesteremia Hyperthyroidism Hypothyroidism 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) (03/09/14) Renal failure (06/10/16) 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; + antibody, - antigen Surgical History History of appendectomy History of open reduction and internal fixation (ORIF) procedure , Ectopic X 2 Family History Mother Essential hypertension Personal history of malignant neoplasm BREAST Father Essential hypertension Personal history of malignant neoplasm PROSTATE Sister Essential hypertension Brother Essential hypertension Social History (Updated 08/06/22 @ 12:11 by Tracie Mancini) Smoking/Tobacco Use Status: Current every day Tobacco Type: cigarettes Quit status: considering quitting Second Hand Exposure: Yes Smoking risk assessment performed?: Yes Alcohol Intake: current Alcohol Intake frequency: holidays/special occasions only Drug use: Never Substance use type: does not use Counseling given: No Counseling provided: none Caregiver/Support person: No Household members: family Housing: apartment Communication Needs: Deaf Do you need help understanding health information?: Never current occupation: [employer] Pets and animals: No Sexually active: No Do you think of yourself as: straight/heterosexual Current gender identity: male What is your relationship status?: never How often do you talk on the phone with friends or family?: never How often do you get together with friends or relatives?: once per week How often do you attend presybeterian or confucianism services?: decline to answer Do you belong to any clubs or organized social groups?: no Panel score (0-1 are the most socially isolated patients): 0 Do you feel safe at home: Yes Do you feel safe in your relationship?: Yes Meds Allergies and Home Medications Allergies Allergy/AdvReac Type Severity Reaction Status Date / Time codeine Allergy Intermediate CHEST Verified 09/05/22 15:09 CLOSING Home Medications Medication Instructions Recorded Confirmed Type halobetasol propionate 0.05 % 1 applic topical DAILY #50 grams 01/02/21 09/17/22 Rx topical ointment metoprolol tartrate 50 mg tablet 50 mg PO BID #180 tabs 01/07/22 09/17/22 Rx amlodipine 5 mg tablet 5 mg PO QPM #90 tabs 07/15/22 09/17/22 Rx hydrochlorothiazide 25 mg tablet 25 mg PO QAM #90 tabs 07/15/22 09/17/22 Rx levothyroxine 88 mcg tablet 88 mcg PO DAILY #30 tabs 07/19/22 09/17/22 Rx hydroxyzine HCl 25 mg tablet 25 mg PO QHS PRN itching #30 tabs 08/01/22 09/17/22 Rx sertraline 25 mg tablet 25 mg PO DAILY #30 tabs 08/01/22 09/17/22 Rx amlodipine 10 mg tablet 10 mg PO DAILY #90 tab-caps 09/04/22 09/17/22 Rx Exam Const General: cooperative, comfortable and no acute distress Nutritional Appearance: average body habitus Orientation: alert and awake [facility] Head: normal to inspection Throat: posterior oropharynx normal, uvula midline and uvula not displaced Eyes General: appearance normal, both eyes and all related structures Neck Neck: normal visual inspection, full ROM and no lymphadenopathy Carotids: no bruits Resp Auscultation: clear to auscultation bilaterally Cardio Rate: regular rate Rhythm: regular rhythm GI Palpation: soft, no hepatosplenomegaly, not firm and nontender Neuro General: patient alert, patient awake, patient oriented x3 and no meningeal signs Other: There is no drift of outstretched arms. Veneer Redrier is equal bilaterally. Finger interosseous strength is normal bilaterally. Iqynou-ar-mhhg and rapid altering movements of the hands and fingers are normal. She has weakness of left leg elevation and includes quadricep and hamstring compared to the right. She has difficulty doing lvdh-rt-[id number] testing on the left. Xiyd-uydh-hppp on the right is normal. There is mild weakness of ankle inversion and eversion plantar and dorsiflexion on the left compared. Extrem General: no cyanosis and no edema Results Labs Result diagrams: 09/17/22 19:40 09/17/22 19:40 Labs: Laboratory Results - last 24 hr 09/17/22 09/17/22 09/17/22 19:40 19:40 19:40 WBC 10.35 RBC 4.08 Hgb 13.1 Hct 37.7 MCV 92 MCH 32.1 MCHC 34.7 RDW 12.4 Plt Count 302 MPV 11.3 H Immature Gran % 0.3 Neutrophils % 71.7 Lymphocytes % 18.4 Monocytes % 8.1 Eosinophils % 0.9 Basophils % 0.6 Nucleated RBC % 0.0 Absolute Neutrophils 7.43 H Absolute Lymphocytes 1.90 Absolute Monocytes 0.84 H Absolute Eosinophils 0.09 Absolute Basophils 0.06 Sodium 138 Potassium 2.4 L* Chloride 98 Carbon Dioxide 30.2 Anion Gap 9.8 BUN 14 Creatinine 1.0 Est GFR (CKD-EPI 2020) 67.36 Glucose 157 H Calcium 9.8 Magnesium 1.7 L Total Bilirubin 0.2 AST 21 ALT 15 Alkaline Phosphatase 145 H Troponin I 274 H* Total Protein 8.8 H Albumin 4.3 TSH 5.19 H Free T4 1.33 COVID-19 Source SARS-CoV-2 (PCR) 09/17/22 09/17/22 20:03 21:25 WBC RBC Hgb Hct MCV MCH MCHC RDW Plt Count MPV Immature Gran % Neutrophils % Lymphocytes % Monocytes % Eosinophils % Basophils % Nucleated RBC % Absolute Neutrophils Absolute Lymphocytes Absolute Monocytes Absolute Eosinophils Absolute Basophils Sodium Potassium Chloride Carbon Dioxide Anion Gap BUN Creatinine Est GFR (CKD-EPI 2020) Glucose Calcium Magnesium Total Bilirubin AST ALT Alkaline Phosphatase Troponin I Total Protein Albumin TSH Free T4 COVID-19 Source Nasal/Nares Cancelled SARS-CoV-2 (PCR) Negative Cancelled Last Vital Signs Temp 36.7 C 09/17/22 19:46 Pulse 73 09/17/22 22:16 Resp 22 09/17/22 22:16 BP 164/79 H 09/17/22 22:16 Pulse Ox 98 09/17/22 22:16
[2022-09-17] MEDS: POTASSIUM CHLORIDE 10 MEQ/100 ML BAG 100 MEQ IVPB (23:21)
[2022-09-17] MEDS: Atorvastatin 20 MG TAB PO (23:34)
[2022-09-17] MEDS: Clopidogrel 75 MG TAB PO (23:34)
[2022-09-17 23:37] LABS: Potassium 2.5 mmol/L (3.5-5.1)
[2022-09-17 23:38] LABS: Troponin I 274 ng/L (<or=60)
[2022-09-18] VITALS (10 sets, daily range): BP systolic 113–161; BP diastolic 58–97; PULSE 55–80; RESP 16–18; TEMP 36.2–37; O2SAT 96–99
[2022-09-18 02:05] LABS: Troponin I 268 ng/L (<or=60)
--- NOTE | 2022-09-18 07:00 | RT.EKG_ITS ---
APPROVED REPORT Exam: Resting ECG Reason for Exam: elevated troponin, stroke Patient Location: I HR:79 bpm ECG Measurements Heart Rate 79 AXIS ND 224 P 64 QRSd 121 QRS 70 QT 411 T 50 QTc 472 Conclusion Sinus rhythm...normal P axis, V-rate 50- 99 Prolonged ND interval...ND >210, V-rate 50- 90
[2022-09-18 07:19] LABS: Potassium 2.8 mmol/L (3.5-5.1); Troponin I 259 ng/L (<or=60)
--- NOTE | 2022-09-18 08:00 | OT.INNT ---
Date of service: 09/18/22 Time of Service: 08:00 Occupational Therapy Notes 09/18/22 OT consult received and pts chart was reviewed. OT attempted to consult with pt who was out of room for testing. OT will attempt to resume services tomorrow. Tara Hardy OTR/[facility]
[2022-09-18] MEDS: Aspirin E.C. 81 MG TABEC PO (09:11)
[2022-09-18] MEDS: Levothyroxine 88 MCG TAB PO (09:11)
[2022-09-18] MEDS: Clopidogrel 75 MG TAB PO (09:11)
[2022-09-18] MEDS: amLODIPine 10 MG TAB PO (09:11)
[2022-09-18] MEDS: Sertraline 25 MG TAB PO (09:11)
[2022-09-18] MEDS: Metoprolol 50 MG TAB PO (09:11)
[2022-09-18] MEDS: Potassium Chloride Liquid 20 MEQ PKT 40 MEQ PO (09:11)
[2022-09-18] MEDS: POTASSIUM CHLORIDE 20 MEQ/100 ML BAG 50 MEQ IVPB (09:12)
--- NOTE | 2022-09-18 10:13 | INITIAL_ITS ---
- If Service Date Differs Date of service: 09/18/22 Time of Service: 10:13 Care Management Initial Assess REASON FOR HOSPITALIZATION:: left sided weakness, hypokalemia PAST MEDICAL HISTORY/PAST SURGICAL HISTORY:: All Active Problems. Acute left- sided weakness (Acute). Elevated troponin (Acute). Hypokalemia (Acute). Eczema of both hands (Acute). Essential hypertension (Acute). Neck pain, acute (Acute). Cervical disc disorder (Acute). [facility] MRI- 08/29/21: Large disk herniation C6-7 w/ extrusion posterior to C7 vertebral body. +spinal cord compression & central spinal canal stenosis. C4-C5 & C5-C6 DJD w/spinal canal stenosis, Multilevel neural foraminal stenosis, prominence of the central canal in the spinal cord posterior to the T1-T3 vertebral bodies. Gastritis (Acute). Nausea (Acute). Muscle spasm (Acute). Acute shoulder pain (Acute). Chronic dermatitis of hands (Acute 03/27/16). Lichen sclerosus of female genitalia (Acute). Pure hypercholesterolemia (Acute 04/02/16). Smoker (Acute). Annual physical exam (Acute). Hypothyroidism (Chronic). Compromised kidney function (Acute). UTI (urinary tract infection) (Acute). Acute kidney failure (Acute). Dehydration (Acute). Bruit of right carotid artery (Acute). Murmur, cardiac (Acute). Kidney tubular necrosis (Acute). Medical History. Aneurysm of infrarenal abdominal aorta (12/08/17). Depressive disorder. Family history of breast cancer (03/27/15). mother. Headache (11/18/12). History of acute renal failure. Hx of pyelonephritis (02/09/14). Hypercholesteremia. Hyperthyroidism. Hypothyroidism. 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) (03/09/14). Renal failure (06/10/16). Type B viral hepatitis. HX of Hep B; + antibody, - antigen. Surgical History. History of appendectomy. History of open reduction and internal fixation (ORIF) procedure. , Ectopic. X 2 PREVIOUS FUNCTIONAL STATUS/SOCIAL/FAMILY SUPPORTS:: Rosina lives in [place] with her daughter, Dee, and her grandson. 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 She is independent at baseline. CURRENT FUNCTIONAL STATUS:: Rosina was sitting up in bed when CM met with her. She stated that she is feeling ok, and she is hoping to be home before the holidays. CM discussed her plan as per report, she will be seen by PT, OT, and Neuro. She stated that she had an MRI this morning. Depending on these consults, she may discharge home soon, as she is in observation, or she may be changed to inpatient, if indicated. CM will continue to follow. ADVANCE DIRECTIVES:: Not on file. Has patient been provided with info about the portal/API?: Yes Did the patient sign up for the portal?: Yes (active) CODE STATUS:: Full Code INSURANCE COVERAGE / FINANCIAL ISSUES:: [employer] CURRENT HOME/COMMUNITY SERVICES/EQUIPMENT:: No services or equipment. PRIMARY CARE PHYSICIAN:: Brittany Castellanos POTENTIAL DISCHARGE NEEDS:: Evaluations for further needs, follow up appointments. PATIENT/FAMILY EDUCATION NEEDS:: Review discharge instructions and limitations, discussion of self care needs including ask me three. ANTICIPATED BARRIERS TO DISCHARGE:: None identified. TRANSPORTATION:: Via private vehicle by family. PLAN:: Anticipate Rosina will return home when medically cleared. Her daughter will drive her home via private vehicle. She will follow up with her PCP and discharge plan of care. CM will continue to follow.
--- NOTE | 2022-09-18 12:10 | DI.MRI_ITS ---
Exam(s) MR BRAIN WO EXAM: MR BRAIN WO CLINICAL HISTORY: CVA TECHNIQUE: Multiplanar multisequence MRI of the brain was performed. COMPARISON: No exams were available for comparison FINDINGS: CEREBRAL PARENCHYMA: There is no evidence of intracranial hemorrhage, mass effect, or shift of midline structures. There are no extra-axial fluid collections. Ventricles are not enlarged or shifted. There is no significant focal signal abnormality in the cerebellar hemispheres nor within the kay, m idbrain, and thalami. However, there are multiple foci of restricted diffusion in the right frontal and parietal lobes cons istent with probable emboli. No evidence of hemorrhage at these levels nor elsewhere in the brain. Similar findings are not seen on the left side. There few other nonacute appearing FLAIR bright foci of white matter signal abnormality bilaterally. PITUITARY GLAND: No mass nor parasellar abnormality. No obvious abnormality in the cavernous sinuses. FLOW VOIDS: The expected flow void are noted. No evidence of obvious aneurysm nor obvious vascular ma lformation. PARANASAL SINUSES: The visualized paranasal sinuses appear unremarkable. No obvious finding ORBITS: No obvious findings. IMPRESSION: There are multiple small foci of restricted diffusion evident on DWI in the right frontal and right p arietal lobes, consistent with acute ischemic insults, most probably embolic. Please note that the recent CT angiography study revealed severe stenosis in the right intracavernous internal carotid artery (and moderate-severe stenosis in the left intracavernous internal carotid ar doug). That study also revealed some mild plaque at both carotid bifurcations-proximal internal [place] tid arteries. DATA REPOSITORY:
--- NOTE | 2022-09-18 14:25 | IN_ITS ---
Date of service: 09/18/22 Time of Service: 14:25 PT Notes Visit Reasons: left-sided weakness,hypokalemia Physical Therapy Inpatient Initial Evaluation Date: 09/18/2022 Referring Doctor: Edi Canela MD PT Orders: PT CONSULT: Limited ability Precautions: Fall. Standard. Activity as tolerated. Patient Profile/Admitting Diagnosis: Ashley is a 52-year-old female right-hand dominant female who presented to the ED on 09/17/2022 due to left-sided weakness that started and yesterday in the afternoon. Patient is admitted to the MedSurg unit for assessment of acute left-sided weakness, elevated troponin, and hypokalemia. PMHX: All Active Problems?(Updated 09/17/22 @ 21:44 by James Ramirez MD) Acute left-sided weakness (Acute) Elevated troponin (Acute) Hypokalemia (Acute) Eczema of both hands (Acute) Essential hypertension (Acute) Neck pain, acute (Acute) Cervical disc disorder (Acute) [facility] MRI- 08/29/21: Large disk herniation C6-7 w/ extrusion posterior to C7 vertebral body. +spinal cord compression & central spinal canal stenosis. C4-C5 & C5-C6 DJD w/spinal canal stenosis, Multilevel neural foraminal stenosis, prominence of the central canal in the spinal cord posterior to the T1-T3 vertebral bodies. Gastritis (Acute) Nausea (Acute) Muscle spasm (Acute) Acute shoulder pain (Acute) Chronic dermatitis of hands (Acute 03/27/16) Lichen sclerosus of female genitalia (Acute) Pure hypercholesterolemia (Acute 04/02/16) Smoker (Acute) Annual physical exam (Acute) Hypothyroidism (Chronic) Compromised kidney function (Acute) UTI (urinary tract infection) (Acute) Acute kidney failure (Acute) Dehydration (Acute) Bruit of right carotid artery (Acute) Murmur, cardiac (Acute) Kidney tubular necrosis (Acute) Medical History?(Updated 09/17/22 @ 21:44 by James Ramirez MD) Aneurysm of infrarenal abdominal aorta (12/08/17) Depressive disorder Family history of breast cancer (03/27/15) mother Headache (11/18/12) History of acute renal failure Hx of pyelonephritis (02/09/14) Hypercholesteremia Hyperthyroidism Hypothyroidism 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) (03/09/14) Renal failure (06/10/16) 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 History of appendectomy History of open reduction and internal fixation (ORIF) procedure , Ectopic X 2 Social History/Home Situation: Lives with daughter and grandson in a private home. Independent with all aspects of ADLs prior to admission. 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 Equipment Owned/DME: None Subjective: 2 attempts at evaluation earlier were unsuccessful as patient was at testing. In the afternoon, patient reported that she is feels that she is at baseline mobility. Complained of being chilly. Did verbalize needing to rest and stay in bed after ambulation activity. Denies headache, chest pain, and dizziness throughout session. Objective: General Observation: Supine in bed. IV access through the left UE. Telemetry monitoring in place. Mental Status: Alert and oriented as to person, place, time, and purpose. Able to pay attention, focus, and respond appropriately. Pain: Denies Vital Signs: WNL as closely monitored by nursing staff ROM: Right Upper Extremity: Shoulder Flexion WFL. Shoulder abduction WFL. Elbow flexion WFL. Wrist flexion WFL. Functional opening and closing of hand WFL. Left Upper Extremity: Shoulder Flexion WFL. Shoulder abduction WFL. Elbow flexion WFL. Wrist flexion WFL. Functional opening and closing of hand WFL. Right Lower Extremity: Hip flexion WFL. Hip abduction WFL. Knee flexion WFL. Ankle dorsiflexion to neutral only. Ankle plantarflexion WFL. Left Lower Extremity: Hip flexion lacks the last 25% of AROM. Hip abduction lacks the last 25% of AROM. Knee flexion WFL. Ankle dorsiflexion to neutral only. Ankle plantarflexion WFL. Strength: Right Upper Extremity: Shoulder flexors 4-/5. Shoulder abductors 4-/5. Elbow flexors 4-/5. Elbow extensors 4-/5. Agricultural Education Teacher strong. Left Upper Extremity: Shoulder flexors 4-/5. Shoulder abductors 4-/5. Elbow flexors 4-/5. Elbow extensors 4-/5. Agricultural Education Teacher strong. Right Lower Extremity: Hip flexors 5/5. Hip abductors 5/5. Knee flexors 5/5. Knee extensors 5/5. Ankle dorsiflexors 3-/5. Ankle plantarflexors 4-/5. Left Lower Extremity: Hip flexors 3-/5. Hip abductors 3-/5. Knee flexors 4-/5. Knee extensors 4-/5. Ankle dorsiflexors 3-/5. Ankle plantarflexors 4-/5. Bed Mobility/Transfers: Supine to sit independent Sit to supine independent Sit to stand independent Stand to sit independent Bed to reclining chair independent Reclining chair to bed independent Gait: Instructed patient with level surface ambulation of 350 feet requiring supervision, no assistive device needed. Step length slightly asymmetric due to previous surgery in L hip. No loss of balance. No shortness of breath. Did gently bumped onto housekeeping cart parked on her left side on the way to her room. Balance: Static Sitting: Normal Dynamic Sitting: Normal Static Standing: Normal Dynamic Standing: Good Special Tests: Mobility Limitations Standardized Measure [facility] 6 clicks Basic Mobility Inpatient Short Form: Raw Score: 24 CMS Score: 0% deficit NEURO: Romberg Test: Negative Rapid alternating movement: slowed down in the L UE Finger to nose: slowed response with L UE [id number]: Unable with L LE due to AROM limitations in the L hip 4-stage balance Test: Unable to maintain full tandem and one-legged stance for 10 seconds Informed Consent/Education: Patient was instructed in purpose of PT consult and plan of care. Agreeable to proceed with established PT POC to achieve personal goals. Assessment: AROM in L UE symmetric however some slowness in movement with the L UE was obeserved. Strength in the UEs the same. Strength difference in the LEs due in part to previous L hip ORIF. Patient states that at this time, there has been no change as far as strength and mobility are concerned. There is some decline in balance but did not require use of AD during ambulation. Some mild impairment with L-sided awareness seen. Patient presents with clinical signs and symptoms consistent with current/admitting diagnoses as demonstrated by the following impairment level findings: 1. Decreased strength to L hip major muscle groups (chronic) 2. Impaired standing balance 3. Impaired activity tolerance 4. Limitation of joint range of motion in L hip (chronic) 5. Mild reduction L-sided awareness/L-sided neglect Impairments are contributing to the following functional limitations: 1. Decreased safety with environmental manipulation Patient is assessed as a 89150 low complexity based on the following: History: 52-year-old female with past medical history as indicated above Examination: Demonstrable impairment in strength, balance, and mobility level with underlying impairments and functional limitations as exhibited above as well as deficit score of 0% utilizing the [facility] Mobility Inpatient Short Form Presentation: Stable Decision Makin low complexity Goals: Goals X1 week 1. Patient will be independent with level surface ambulation with no assistive ambulatory device with full awareness of environmental obstacles for safe return to ADL and vocational performance. Plan of Care/Treatment Plan: 1x/day, 7 days/week x 1 week. Plan of care has been reviewed with the CARE TEAM COORDINATOR SCHEDULER providing the service under Physical Therapy direction. Initiate Physical Therapy intervention for pain management as needed, strengthening, bed mobility, transfers, gait, stairs, balance training, and use of assistive device. DISCHARGE RECOMMENDATIONS: [] Home with no services [] [] Home with services [specify] [X] Home with outpatient PT to address persistent impairments noted above. [] SNF for continued rehabilitation [] [] Marketing Support Coordinator Care [] [] SNF versus LTC based on ability to participate and progress [] TREATMENT CODE/TIME: 77759 x 20 minutes beginning at 14:25 PM. Thank you for the opportunity to participate in the care of this patient. Alyse More PT, DPT, CLT [facility] [place], [place]
[2022-09-18 15:41] LABS: Lab Add On Test DONE
--- NOTE | 2022-09-18 15:43 | W.NEUROCONSU ---
Date of service: 09/18/22 Time of Service: 15:43 Assessment and Plan Assessment and plan (1) Acute left-sided weakness: Status: Acute (2) Intracranial carotid stenosis, bilateral: Status: Acute (3) Acute stroke due to stenosis of right carotid artery: Status: Acute Assessment and plan: Ms. Treviño is a 52 year-old, left-handed woman admitted with acute stroke manifested by L hemiparesis, ?ataxia, and ?hemisensory loss, symptoms now seemingly resolved though with some mild L hip flexor weakness - complicated by prior L hip injury. Etiology secondary to severe R carotid intracranial stenosis at the cavernous sinus. Incidentally noted to have stenosis in the same area on the left, moderate. We discussed diagnosis of stroke as well as the intracranial stenosis, etiology, and treatment options. Evidence suggests even with severe intracranial stenosis, that medical management remains superior. However, we discussed given the degrees of stenosis and her young age, that a surgical consultation may be worthwhile. She will think about this. Work-up: -TTE with bubble study - results pending -Lipid panel -results pending Medications: -aspirin 81mg daily for secondary stroke prevention; indefinitely -clopidogrel 75mg daily for secondary stroke prevention, x 90 days only -atorvastatin 80mg daily for secondary stroke prevention Other: -Allow permissive hypertension; avoid hypotension given bilateral carotid stenosis -Physical therapy for leg weakness, gait training -Occupation therapy for upper extremity weakness, activities of daily living -We discussed smoking cessation -We discussed fatigue post-stroke as well as increased risk of mood d/o following stroke -Otherwise, noted exam finding consistent with her known cervical stenosis. Will plan to have her follow-up for routine neurological exams to monitor. She should f/up in neurology clinic in ~4 weeks at which time we can further discuss neurosurgical consultation for her R carotid stenosis. History of Present Illness History of Present Illness Chief Complaint: stroke Narrative: Handedness: LEFT. HPI: Ms. Treviño is a 52 year-old woman with hypertension, smoking, AAA, prior hepatitis, cervical spine stenosis, and hypothyroidism. On 09/16/22 at work, she noticed her left arm/hand felt heavy. On 09/17/22, this persisted but she also developed a sensation of pins/needles throughout her left hemibody. Her left leg began to feel weak. She tried to walk and fell - luckily daughter was there to catch her. She presented to the [facility] ER and admitted for suspected stroke, noted to have mild L>F/A weakness and ataxia. She was not a candidate for tPA as she was outside of the time window. She was started on ASA 81mg + clopidogrel 75mg (no load that I can see) + atorvastatin 80mg. She was on none of these prior to admission. She has undergone the work-up as below. She feels here clinical symptoms have resolved as of today. Work-up: -CTH (09/17/22): No acute findings. I reviewed these images personally and this is my personal interpretation. -CTA head/neck (09/17/22): severe R carotid stenosis in the cavernous sinus. Moderate L in the same area. Mild plaque at the carotid bulbs L>R but with no stenosis. I reviewed these images personally and this is my personal interpretation. -MRI brain w/o (09/18/22): scattered small areas of acute ischemia in the right frontal and parietal lobe in MCA vs watershed distribution. No prior strokes. Mild chronic vascular changes. I reviewed these images personally and this is my personal interpretation. 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 She smokes <1ppd. She has been trying to quit smoking. She has a FHx of HTN. No history of stroke/RI that she is aware of. She otherwise has a history of cervical spine stenosis. -MRI c-spine (08/29/21): syrinx T1-T3. Large disc herniations with severe cervical stenosis C5-6 and C6-7. I reviewed these images personally and this is my personal interpretation. MRI was done at the time for what sounds like cervical radiculopathy symptoms, now resolved. Consulted with Dr. Duke at [facility] who recommended clinical monitoring for symptoms of myelopathy at which time surgery would be indicated. Review of Systems All systems reviewed & are unremarkable except as noted in HPI and below PFSH All Active Problems (Updated 09/18/22 @ 16:47 by Jyoti Crisostomo MD) Acute stroke due to stenosis of right carotid artery (Acute) Intracranial carotid stenosis, bilateral (Acute) Acute left-sided weakness (Acute) Elevated troponin (Acute) Hypokalemia (Acute) Eczema of both hands (Acute) Essential hypertension (Acute) Neck pain, acute (Acute) Cervical disc disorder (Acute) [facility] MRI- 08/29/21: Large disk herniation C6-7 w/ extrusion posterior to C7 vertebral body. +spinal cord compression & central spinal canal stenosis. C4-C5 & C5-C6 DJD w/spinal canal stenosis, Multilevel neural foraminal stenosis, prominence of the central canal in the spinal cord posterior to the T1-T3 vertebral bodies. Gastritis (Acute) Nausea (Acute) Muscle spasm (Acute) Acute shoulder pain (Acute) Chronic dermatitis of hands (Acute 03/27/16) Lichen sclerosus of female genitalia (Acute) Pure hypercholesterolemia (Acute 04/02/16) Smoker (Acute) Annual physical exam (Acute) Hypothyroidism (Chronic) Compromised kidney function (Acute) UTI (urinary tract infection) (Acute) Acute kidney failure (Acute) Dehydration (Acute) Bruit of right carotid artery (Acute) Murmur, cardiac (Acute) Kidney tubular necrosis (Acute) Medical History (Updated 09/18/22 @ 16:47 by Jyoti Crisostomo MD) Aneurysm of infrarenal abdominal aorta (12/08/17) Depressive disorder Family history of breast cancer (03/27/15) mother Headache (11/18/12) History of acute renal failure Hx of pyelonephritis (02/09/14) Hypercholesteremia Hyperthyroidism Hypothyroidism 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) (03/09/14) Renal failure (06/10/16) 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; + antibody, - antigen Surgical History History of appendectomy History of open reduction and internal fixation (ORIF) procedure , Ectopic X 2 Family History Mother Essential hypertension Personal history of malignant neoplasm BREAST Father Essential hypertension Personal history of malignant neoplasm PROSTATE Sister Essential hypertension Brother Essential hypertension Social History (Updated 08/06/22 @ 12:11 by Tracie Mancini) Smoking/Tobacco Use Status: Current every day Tobacco Type: cigarettes Quit status: considering quitting Second Hand Exposure: Yes Smoking risk assessment performed?: Yes Alcohol Intake: current Alcohol Intake frequency: holidays/special occasions only Drug use: Never Substance use type: does not use Counseling given: No Counseling provided: none Caregiver/Support person: No Household members: family Housing: apartment Communication Needs: Deaf Do you need help understanding health information?: Never current occupation: [employer] Pets and animals: No Sexually active: No Do you think of yourself as: straight/heterosexual Current gender identity: male What is your relationship status?: never How often do you talk on the phone with friends or family?: never How often do you get together with friends or relatives?: once per week How often do you attend sikh or gnosticism services?: decline to answer Do you belong to any clubs or organized social groups?: no Panel score (0-1 are the most socially isolated patients): 0 Do you feel safe at home: Yes Do you feel safe in your relationship?: Yes Visit Medication and Allergies Active Medications Generic Name Dose Route Start Last Admin Trade Name Freq PRN Reason Stop Dose Admin Amlodipine Besylate 10 mg 09/18/22 08:30 09/18/22 09:11 Amlodipine 10 Mg Tab PO 10 mg DAILY ZENAIDA Administration Aspirin 81 mg 09/18/22 08:30 09/18/22 09:11 Aspirin E.C. 81 Mg Tabec PO 81 mg DAILY ZENAIDA Administration Atorvastatin Calcium 80 mg 09/18/22 20:00 Atorvastatin 40 Mg Tab PO QPM ZENAIDA Clopidogrel Bisulfate 75 mg 09/18/22 08:30 09/18/22 09:11 Clopidogrel 75 Mg Tab PO 75 mg DAILY ZENAIDA Administration Dimethicone/Zinc Oxide 0 gm 09/17/22 22:26 Nathalia Protect Cream 142 Gm Tube TP PRN PRN Hydroxyzine HCl 25 mg 09/18/22 11:11 Hydroxyzine Hcl 25 Mg Tab PO HS PRN PRN ITCHING Sodium Chloride 500 mls @ 0 mls/hr 09/17/22 19:51 Saline 500ml Bag IV PRN PRN As Directed IV Miscellaneous Supplies 1 each 09/17/22 20:00 Iv Access IV DIRECTED ZENAIDA Levothyroxine Sodium 88 mcg 09/18/22 06:00 09/18/22 09:11 Levothyroxine 88 Mcg Tab PO 88 mcg DAILY@0600 ZENAIDA Administration Metoprolol Tartrate 50 mg 09/18/22 08:30 09/18/22 09:11 Metoprolol 50 Mg Tab PO 50 mg BID ZENAIDA Administration Nicotine 14 mg 09/18/22 08:30 09/18/22 09:11 Nicotine 14 Mg/24 Hr Patch TD Not Given DAILY ZENAIDA Sertraline HCl 25 mg 09/18/22 08:30 09/18/22 09:11 Sertraline 25 Mg Tab PO 25 mg DAILY ZENAIDA Administration Sodium Chloride 0 ml 09/17/22 19:51 Normal Saline Flush 10 Ml Syr IVP PRN PRN Allergies codeine Allergy (Intermediate, Verified 09/05/22 15:09) CHEST CLOSING Exam Narrative Exam Narrative: Physical Exam: Gen: Patient of apparent stated age, NAD Head and face: no facial or cranial abnormalities Neck: Supple, no meningismus, no occipital tenderness CV: + S1, S2, RRR, no murmur Resp: CTA B/L Abd: soft, nontender, nondistended Ext: No edema. No clubbing or cyanosis. No bony deformity. Neuro Exam: Language: fluency, naming, repetition, and comprehension intact; Mental Status: AAOx3, current events intact, fund of knowledge intact; Speech: no dysarthria Cranial nerves: Funduscopy: not performed CN II: visual sanchez intact CN III, IV, : extraocular movements intact, no nystagmus, pupils symmetric and reactive to light CN V: face sensation intact to LT and PP CN VII: no facial asymmetry noted CN VIII: hearing intact bilaterally CN IX, X: palate rises symmetrically CN XI: trapezius/SCM 5/5 bilaterally CN XII: protrudes tongue symmetrically Sensory: intact to LT, PP in all extremities Motor: bulk and tone intact. Fine motor movements intact bilaterally. No pronator drift. Strength 5/5 throughout including the deltoids, biceps, triceps, wrist extensors, hip flexors, knee flexors, knee extensors, ankle flexors, and ankle extensors except L hip flexor 4/5. Reflexes: 2+ at the biceps, triceps, brachioradialis, patella, and achilles tendons bilaterally; +Babinski bilaterally; neg Torres/Tromner Coordination: FTN and HTS intact bilaterally Gait: not tested Results Last Vital Signs Temp 98.2 F 09/18/22 15:14 Pulse 55 L 09/18/22 15:14 Resp 16 09/18/22 15:14 BP 113/71 09/18/22 15:14 Pulse Ox 97 09/18/22 15:14 Labs Result diagrams: 09/17/22 19:40 09/18/22 06:21 Labs: Laboratory Results - last 24 hr 09/17/22 09/17/22 09/17/22 19:40 19:40 19:40 WBC 10.35 RBC 4.08 Hgb 13.1 Hct 37.7 MCV 92 MCH 32.1 MCHC 34.7 RDW 12.4 Plt Count 302 MPV 11.3 H Immature Gran % 0.3 Neutrophils % 71.7 Lymphocytes % 18.4 Monocytes % 8.1 Eosinophils % 0.9 Basophils % 0.6 Nucleated RBC % 0.0 Absolute Neutrophils 7.43 H Absolute Lymphocytes 1.90 Absolute Monocytes 0.84 H Absolute Eosinophils 0.09 Absolute Basophils 0.06 Sodium 138 Potassium 2.4 L* Chloride 98 Carbon Dioxide 30.2 Anion Gap 9.8 BUN 14 Creatinine 1.0 Est GFR (CKD-EPI 2020) 67.36 Glucose 157 H Calcium 9.8 Magnesium 1.7 L Total Bilirubin 0.2 AST 21 ALT 15 Alkaline Phosphatase 145 H Troponin I 274 H* Total Protein 8.8 H Albumin 4.3 TSH 5.19 H Free T4 1.33 COVID-19 Source SARS-CoV-2 (PCR) Add-On Test Request 09/17/22 09/17/22 09/17/22 20:03 21:25 23:03 WBC RBC Hgb Hct MCV MCH MCHC RDW Plt Count MPV Immature Gran % Neutrophils % Lymphocytes % Monocytes % Eosinophils % Basophils % Nucleated RBC % Absolute Neutrophils Absolute Lymphocytes Absolute Monocytes Absolute Eosinophils Absolute Basophils Sodium Potassium Chloride Carbon Dioxide Anion Gap BUN Creatinine Est GFR (CKD-EPI 2020) Glucose Calcium Magnesium Total Bilirubin AST ALT Alkaline Phosphatase Troponin I 274 H* Total Protein Albumin TSH Free T4 COVID-19 Source Nasal/Nares Cancelled SARS-CoV-2 (PCR) Negative Cancelled Add-On Test Request 09/17/22 09/18/22 09/18/22 23:03 01:41 06:21 WBC RBC Hgb Hct MCV MCH MCHC RDW Plt Count MPV Immature Gran % Neutrophils % Lymphocytes % Monocytes % Eosinophils % Basophils % Nucleated RBC % Absolute Neutrophils Absolute Lymphocytes Absolute Monocytes Absolute Eosinophils Absolute Basophils Sodium Potassium 2.5 L* 2.8 L* Chloride Carbon Dioxide Anion Gap BUN Creatinine Est GFR (CKD-EPI 2020) Glucose Calcium Magnesium Total Bilirubin AST ALT Alkaline Phosphatase Troponin I 268 H* 259 H* Total Protein Albumin TSH Free T4 COVID-19 Source SARS-CoV-2 (PCR) Add-On Test Request 09/18/22 06:21 WBC RBC Hgb Hct MCV MCH MCHC RDW Plt Count MPV Immature Gran % Neutrophils % Lymphocytes % Monocytes % Eosinophils % Basophils % Nucleated RBC % Absolute Neutrophils Absolute Lymphocytes Absolute Monocytes Absolute Eosinophils Absolute Basophils Sodium Potassium Chloride Carbon Dioxide Anion Gap BUN Creatinine Est GFR (CKD-EPI 2020) Glucose Calcium Magnesium Total Bilirubin AST ALT Alkaline Phosphatase Troponin I Total Protein Albumin TSH Free T4 COVID-19 Source SARS-CoV-2 (PCR) Add-On Test Request DONE
[2022-09-18 16:42] LABS: Hemoglobin A1C 5.8 % (<5.7)
[2022-09-18 16:45] LABS: Calculated LDL 169 mg/dL (<100); Cholesterol 247 mg/dL (<200); HDL Cholesterol 64 mg/dL (40-60); Triglyceride 73 mg/dL (<150)
--- NOTE | 2022-09-18 18:20 | PGE_ITS ---
Date of Service Date of service: 09/18/22 Time of Service: 18:20 Assessment and Plan Assessment and plan (1) Acute left-sided weakness: Status: Acute Assessment and plan: CT head w/o acute findings. CTA head and neck showed severe R carotid stenosis in the cavernous sinus. Moderate stenosis of L carotid in cavernous sinus. MRI brain with scattered small areas of acute ischemia in the right frontal and parietal lobe in the MCA vs watershed distribution. Mild chronic vascular changes. ASA, Plavix and high dose statin Echocardiogram pending. A1c and lipid panel pending. PT/OT/Speech. (2) Elevated troponin: Status: Acute Assessment and plan: Troponins: 274>274>268>259. Echocardiogram read pending. She has had no CP. Now on ASA, Plavix and statin as above for stroke. (3) Hypokalemia: Status: Acute Assessment and plan: She has been given supplemental potassium in the emergency department. IMproved from 2.6 to 2.8. Cont oral and IV repletion and monitor. Subjective Subjective Patient reports: no new complaints and feels better; denies nausea, vomiting or shortness of breath Exam Const General: cooperative, comfortable and no acute distress Nutritional Appearance: average body habitus Orientation: alert and awake [facility] Head: normal to inspection Throat: posterior oropharynx normal, uvula midline and uvula not displaced Eyes General: appearance normal, both eyes and all related structures Neck Neck: normal visual inspection, full ROM and no lymphadenopathy Carotids: no bruits Resp Effort & Inspection: normal respiratory effort Auscultation: clear to auscultation bilaterally Cardio Rate: regular rate Rhythm: regular rhythm Heart Sounds: S1 normal and S2 normal GI Palpation: soft, no hepatosplenomegaly, not firm and nontender Neuro General: patient alert, patient awake, patient oriented x3 and no meningeal signs Cognition: normal cognition Motor: strength 5/5 throughout (Upper exts. Left hip flexor 4/5.) Coordination: pyoi-pu-lyap test normal Other: There is no drift of outstretched arms. 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 Finger interosseous strength is normal bilaterally. Hqbehr-gz-fkrh and rapid altering movements of the hands and fingers are normal. She has weakness of left leg elevation and includes quadricep and hamstring compared to the right. She has difficulty doing rydf-es-sykf testing on the left. Mura-itau-mhmh on the right is normal. There is mild weakness of ankle inversion and eversion plantar and dorsiflexion on the left compared. Extrem General: no cyanosis and no edema Psych Appearance: grossly normal Speech and Movement: speech clear Affect: blunted Objective Last Vital Signs Temp 36.8 C 09/18/22 15:14 Pulse 55 L 09/18/22 15:14 Resp 16 09/18/22 15:14 BP 113/71 09/18/22 15:14 Pulse Ox 97 09/18/22 15:14 Laboratory Results - last 24 hr 09/17/22 09/17/22 09/17/22 19:40 19:40 19:40 WBC 10.35 RBC 4.08 Hgb 13.1 Hct 37.7 MCV 92 MCH 32.1 MCHC 34.7 RDW 12.4 Plt Count 302 MPV 11.3 H Immature Gran % 0.3 Neutrophils % 71.7 Lymphocytes % 18.4 Monocytes % 8.1 Eosinophils % 0.9 Basophils % 0.6 Nucleated RBC % 0.0 Absolute Neutrophils 7.43 H Absolute Lymphocytes 1.90 Absolute Monocytes 0.84 H Absolute Eosinophils 0.09 Absolute Basophils 0.06 Sodium 138 Potassium 2.4 L* Chloride 98 Carbon Dioxide 30.2 Anion Gap 9.8 BUN 14 Creatinine 1.0 Est GFR (CKD-EPI 2020) 67.36 Glucose 157 H Hemoglobin A1c Calcium 9.8 Magnesium 1.7 L Total Bilirubin 0.2 AST 21 ALT 15 Alkaline Phosphatase 145 H Troponin I 274 H* Total Protein 8.8 H Albumin 4.3 Triglycerides Total Cholesterol LDL Cholesterol, Calc HDL Cholesterol TSH 5.19 H Free T4 1.33 COVID-19 Source SARS-CoV-2 (PCR) Add-On Test Request 09/17/22 09/17/22 09/17/22 19:40 20:03 21:25 WBC RBC Hgb Hct MCV MCH MCHC RDW Plt Count MPV Immature Gran % Neutrophils % Lymphocytes % Monocytes % Eosinophils % Basophils % Nucleated RBC % Absolute Neutrophils Absolute Lymphocytes Absolute Monocytes Absolute Eosinophils Absolute Basophils Sodium Potassium Chloride Carbon Dioxide Anion Gap BUN Creatinine Est GFR (CKD-EPI 2020) Glucose Hemoglobin A1c 5.8 H Calcium Magnesium Total Bilirubin AST ALT Alkaline Phosphatase Troponin I Total Protein Albumin Triglycerides Total Cholesterol LDL Cholesterol, Calc HDL Cholesterol TSH Free T4 COVID-19 Source Nasal/Nares Cancelled SARS-CoV-2 (PCR) Negative Cancelled Add-On Test Request 09/17/22 09/17/22 09/18/22 23:03 23:03 01:41 WBC RBC Hgb Hct MCV MCH MCHC RDW Plt Count MPV Immature Gran % Neutrophils % Lymphocytes % Monocytes % Eosinophils % Basophils % Nucleated RBC % Absolute Neutrophils Absolute Lymphocytes Absolute Monocytes Absolute Eosinophils Absolute Basophils Sodium Potassium 2.5 L* Chloride Carbon Dioxide Anion Gap BUN Creatinine Est GFR (CKD-EPI 2020) Glucose Hemoglobin A1c Calcium Magnesium Total Bilirubin AST ALT Alkaline Phosphatase Troponin I 274 H* 268 H* Total Protein Albumin Triglycerides Total Cholesterol LDL Cholesterol, Calc HDL Cholesterol TSH Free T4 COVID-19 Source SARS-CoV-2 (PCR) Add-On Test Request 09/18/22 09/18/22 09/18/22 06:21 06:21 06:21 WBC RBC Hgb Hct MCV MCH MCHC RDW Plt Count MPV Immature Gran % Neutrophils % Lymphocytes % Monocytes % Eosinophils % Basophils % Nucleated RBC % Absolute Neutrophils Absolute Lymphocytes Absolute Monocytes Absolute Eosinophils Absolute Basophils Sodium Potassium 2.8 L* Chloride Carbon Dioxide Anion Gap BUN Creatinine Est GFR (CKD-EPI 2020) Glucose Hemoglobin A1c Calcium Magnesium Total Bilirubin AST ALT Alkaline Phosphatase Troponin I 259 H* Total Protein Albumin Triglycerides 73 Total Cholesterol 247 H LDL Cholesterol, Calc 169 H HDL Cholesterol 64 TSH Free T4 COVID-19 Source SARS-CoV-2 (PCR) Add-On Test Request DONE
[2022-09-18] MEDS: Atorvastatin 40 MG TAB 80 MG PO (19:56)
[2022-09-18] MEDS: Normal Saline Flush 10 ML SYR IVP (19:57)
[2022-09-19 02:57] VITALS: BP 116/71; PULSE 68; RESP 18; TEMP 36.3; O2SAT 95
[2022-09-19] MEDS: Levothyroxine 88 MCG TAB PO (05:56)
[2022-09-19 06:43] LABS: Anion Gap 5.8 mmol/L (3-11); BUN 11 mg/dL (7-18); CO2 27.2 mmol/L (21.0-32.0); CREATININE 0.9 mg/dL (0.55-1.02); Calcium 9.6 mg/dL (8.5-10.1); Chloride 101 mmol/L (98-107); Estimated GFR 76.44 (mL/min/1.73m2); Glucose 100 mg/dL (74-106); Magnesium 2.3 mg/dL (1.8-2.4); Sodium 134 mmol/L (136-145)
[2022-09-19 07:30] VITALS: PULSE 62
[2022-09-19 08:19] VITALS: BP 114/60; PULSE 64; RESP 17; TEMP 36.3; O2SAT 98
[2022-09-19] MEDS: Sertraline 25 MG TAB PO (08:27)
[2022-09-19] MEDS: Clopidogrel 75 MG TAB PO (08:27)
[2022-09-19] MEDS: Aspirin E.C. 81 MG TABEC PO (08:28)
--- NOTE | 2022-09-19 08:31 | OT.INIE ---
Occupational Therapy Notes Inpatient Occupational Therapy Evaluation Date: 09/19/22 Referring Doctor:Dr. Reynolds OT Orders: Non-Urgent Precautions: Fall, standard, full PATIENT PROFILE/ADMITTING DIAGNOSIS: Pt is a 52 year old female who was admitted through the ED for acute stroke due to stenosis of (R) carotid artery, intracranial carotid stenosis (B), elevated troponin, hypokalemia, gastritis, nausea and muscle spasm. Past Medical History: All Active Problems?(Updated 09/17/22 @ 21:44 by James Ramirez MD) Acute left-sided weakness (Acute) Elevated troponin (Acute) Hypokalemia (Acute) Eczema of both hands (Acute) Essential hypertension (Acute) Neck pain, acute (Acute) Cervical disc disorder (Acute) [facility] MRI- 08/29/21: Large disk herniation C6-7 w/ extrusion posterior to C7 vertebral body. +spinal cord compression & central spinal canal stenosis. C4-C5 & C5-C6 DJD w/spinal canal stenosis, Multilevel neural foraminal stenosis, prominence of the central canal in the spinal cord posterior to the T1-T3 vertebral bodies.Gastritis (Acute) Nausea (Acute) Muscle spasm (Acute) Acute shoulder pain (Acute) Chronic dermatitis of hands (Acute 03/27/16) Lichen sclerosus of female genitalia (Acute) Pure hypercholesterolemia (Acute 04/02/16) Smoker (Acute) Annual physical exam (Acute) Hypothyroidism (Chronic) Compromised kidney function (Acute) UTI (urinary tract infection) (Acute) Acute kidney failure (Acute) Dehydration (Acute) Bruit of right carotid artery (Acute) Murmur, cardiac (Acute) Kidney tubular necrosis (Acute) Medical History?(Updated 09/17/22 @ 21:44 by James Ramirez MD) Aneurysm of infrarenal abdominal aorta (12/08/17) Depressive disorder Family history of breast cancer (03/27/15) mother Headache (11/18/12) History of acute renal failure Hx of pyelonephritis (02/09/14) Hypercholesteremia Hyperthyroidism Hypothyroidism 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) (03/09/14) Renal failure (06/10/16) 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 History of appendectomy History of open reduction and internal fixation (ORIF) procedure , Ectopic X 2 Social History/Home Situation: Pt states that she lives in a private home with her daughter and grandson. She notes that they are veyr helpful around her home with cleaning and managing home tasks. At her baseline she reports that she is (I). She does utilize a sock aide at her baseline due to an old injury that occurred. Pt states that she feels like she is at her baseline level of function at this time. She does have a couple stairs to get into her home but notes that otherwise she is (I) with functional mobility. She reports that she has a tub shower for bathing. She notes that she has no difficulty with this. Equipment owned/DME: sock aide SUBJECTIVE: Pt was lying in bed when OT arrived. She reports that she is doing fine. She notes that she feels like she is at her baseline level of function. OBJECTIVE: General Observation: Pleasant, a slight (L) side neglect. Pt is aware of her position in space but awkward functional mobility with her arm. Mental Status: A&Ox4 Pain: no c/o pain ROM: RUE AROM WFL L UE AROM WFL STRENGTH: RUE 4/5 throughout LUE 4-/5 throughout FUNCTIONAL MOBILITY/ADLS: BATHING Pt denies but has ideal ROM for functional (I) and performance. DRESSING utilizes sock aide for (L) LE due to old injury, otherwise (I) BALANCE: Static sitting Normal Dynamic Sitting Normal SPECIAL TESTS: Daily Activity Limitations Standardized Measure [facility] AM -PAC ?6 clicks? Daily Activity Inpatient Short Form: Raw score: 23 INFORMED CONSENT/EDUCATION: Pt instructed in purpose of OT Consult and plan of care. ASSESSMENT: Patient is a 52-year-old female referred to occupational therapy services with diagnosis of acute stroke due to stenosis of (R) carotid artery, intracranial carotid stenosis (B), elevated troponin, hypokalemia, gastritis, nausea and muscle spasm. Patient presents with clinical signs and symptoms consistent with dx. Pt was seen for initial consult today. She does feel that she is at her baseline level of function. She does have a slight neglect and OT was able to go over strengthening with pt and increased functional use of her (L) hand. She is (L) hand dominant so this will (A) with her functional use. Patient is assessed as a Low 34308 complexity based on the following: History: see above Examination:see functional limitations Presentation: evolving Decision Making: AMPAC score 23 GOALS N/A seen for OT consult only. PLAN OF CARE/TREATMENT PLAN: Seen for OT consult only and plan is to discharge pt to home when medically cleared per MD. DISCHARGE RECOMMENDATIONS Return home when medically cleared per MD with outpatient Physical and/or Occupational Therapy for progressive hand function, strengthening, increased (L) Side awareness, and increased functional activity tolerance. TREATMENT TIME/MINUTES/CODES 22430, 01102, 20 minutes (08:15) Tara Hardy OTR/[facility]
--- NOTE | 2022-09-19 11:01 | W.PM.DS.N ---
Date of service: 09/19/22 Time of Service: 11:01 DS: Diagnosis Discharge Diagnosis (1) Acute left-sided weakness: Status: Acute (2) Elevated troponin: Status: Acute (3) Hypokalemia: Status: Acute Discharge Plan Disposition Patient Disposition: Home Condition: Good Discharge Details Reason For Visit: left-sided weakness,hypokalemia Admit Date/Time: 09/17/22 21:45 Admit Provider: Edi Canela Attending Provider: Edi Canela [facility] Course: This 52-year-old female presented here to the emergency department this evening because of weakness of her left side.? She noticed that on the prior day while she was at work she was having some trouble cutting up some food.? 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 She endorsed left arm felt heavy and numb.? She stated at work and today noticed that her left leg felt heavy in addition to the left arm heaviness.? She did not notice any difficulty with her speech or swallowing or vision.? She has not had symptoms like this previously.? Today she noted she was having some trouble walking and almost fell but her daughter caught her.? She stated that the numb feeling in her arm was feeling improved.? She has had hypertension for 25 years and she smokes about 10 cigarettes/day.? She did not tell her daughter about this until the night of admission because she said she thought it would get better.? She lives with her daughter and grandson.? She does not drink alcohol.? She has had her 2 initial COVID vaccines shots but has not had any boosters nor has she had a flu shot this season.? She states that her left arm felt shaky also. She was started on aspirin and clopidogrel and atorvastatin.? Neurology consulted.? CTA shows bilateral cavernous stenosis of internal carotid arteries.? Echocardiogram. Placed on telemetry and no arrythmias noted. Echocardiogram showed a left ventricular EF of 61% and no segmental wall motion abnormalities noted. MRI head with scattered small areas of acute ischemia in the right frontal and parietal lobe in the MCA vs watershed distribution.? Mild chronic vascular changes Total cholesterol 247. LDL 169. Hgb A1c 5.8 PT/OT consulted. Recommended outpt PT/OT. Neurology will have pt f/u in 4 weeks and discuss the carotid stenosis and possible referral for evaluation. Home Meds and New Rx's Prescriptions: New aspirin 81 mg Tablet,Delayed Release (Dr/Ec) 81 mg PO DAILY Qty: 0 0RF atorvastatin [Lipitor] 80 mg tablet 80 mg PO QHS Qty: 30 0RF clopidogrel 75 mg Tablet 75 mg PO DAILY Qty: 30 0RF nicotine 14 mg/24 hr Patch 24 Hour 14 mg transdermal DAILY Qty: 14 0RF Continued halobetasol propionate 0.05 % ointment 1 applic topical DAILY Qty: 50 4RF Rx Instructions: Apply to labia and perineal tissue nightly x6 weeks then 2x per week. sertraline 25 mg tablet 25 mg PO DAILY Qty: 30 1RF hydroxyzine HCl 25 mg tablet 25 mg PO QHS PRN (Reason: itching) Qty: 30 1RF Rx Instructions: Take at bedtime as needed, take when script potassium is complete. levothyroxine 88 mcg tablet 88 mcg PO DAILY Qty: 30 2RF Held metoprolol tartrate 50 mg tablet 50 mg PO BID Qty: 180 3RF Hold Instructions: Resume on 09/20/22. hydrochlorothiazide 25 mg tablet 25 mg PO QAM Qty: 90 0RF Hold Instructions: Resume on 09/20/22. amlodipine 10 mg tablet 10 mg PO DAILY Qty: 90 3RF Hold Instructions: Resume on 09/20/22. Discontinued amlodipine 5 mg tablet 5 mg PO QPM Qty: 90 3RF Rx Instructions: Takes 10 mg tab in AM, 5 mg tab in PM Discharge Instructions Referrals: EDWARD Reeder [OTHER] - (s/p CVA with left sided involvement. ) Tara Hardy [REG OCCUPATIONAL THERAPIST] - (S/P CVA with left sided involvement) Activity:: Activity as Tolerated Equipment/Supplies:: No Equipment Needed Diet:: low carb diet Discharge Orders Discharge Orders: Discharge Order (Routine); Ordered 09/19/22 Ordered By: Darvin Reynolds DS: Summary Time Spent with Patient providing and/or coordinating discharge services: Greater than 30 minutes Status at Discharge Functional status at discharge: independent ambulation Overall status at discharge: patient is progressing back to baseline Mental Status: mental status grossly normal Speech and Movement: speech clear Mood: congruent mood Affect: blunted Exam Const General: cooperative, comfortable and no acute distress Nutritional Appearance: average body habitus Orientation: alert and awake [facility] Head: normal to inspection Throat: posterior oropharynx normal, uvula midline and uvula not displaced Eyes General: appearance normal, both eyes and all related structures Neck Neck: normal visual inspection, full ROM and no lymphadenopathy Carotids: no bruits Resp Effort & Inspection: normal respiratory effort Auscultation: clear to auscultation bilaterally Cardio Rate: regular rate Rhythm: regular rhythm Heart Sounds: S1 normal and S2 normal GI Palpation: soft, no hepatosplenomegaly, not firm and nontender Neuro General: patient alert, patient awake, patient oriented x3 and no meningeal signs Cognition: normal cognition Motor: strength 5/5 throughout (Upper exts. Left hip flexor 4/5.) Coordination: gnqv-uw-wjlm test normal Other: There is no drift of outstretched arms. Heat And Vent Aircraft Mechanic is equal bilaterally. Finger interosseous strength is normal bilaterally. Kkikpm-cb-ppzs and rapid altering movements of the hands and fingers are normal. She has weakness of left leg elevation and includes quadricep and hamstring compared to the right. She has difficulty doing purb-sd-epdf testing on the left. Ktgu-yfyi-dqpz on the right is normal. There is mild weakness of ankle inversion and eversion plantar and dorsiflexion on the left compared. Extrem General: no cyanosis and no edema Psych Appearance: grossly normal Mental Status: mental status grossly normal Speech and Movement: speech clear Mood: congruent mood Affect: blunted DS: Data Vitals/I&O Vitals and I&O: Vital Signs Temperature 36.3 C L 09/19/22 08:19 Temperature Source Tympanic 09/19/22 08:19 Pulse 64 09/19/22 08:19 Pulse Rhythm Regular 09/19/22 08:53 Pulse 81 09/17/22 22:16 Respiratory Rate 17 09/19/22 08:19 Respiratory Effort 09/19/22 08:53 Respiratory Depth Normal 09/19/22 08:53 Respiratory Pattern Normal 09/19/22 08:53 Blood Pressure 114/60 09/19/22 08:19 Blood Pressure Mean 98 09/17/22 22:16 Blood Pressure Position Supine 09/17/22 19:46 Pulse Oximetry 98 09/19/22 08:19 Oxygen Delivery Method Room Air 09/19/22 08:19 Oxygen Flow Rate 0 09/19/22 08:19 Pain Level 0 09/19/22 02:57 Comment 09/18/22 12:30 Intake & Output 09/18/22 09/18/22 09/19/22 11:59 23:59 11:59 Intake Total 390 / 500 110 / 500 120 / 120 Balance 390 / 500 110 / 500 120 / 120 Intake: IV 150 / 260 110 / 260 Oral 240 / 240 120 / 120 Other: Urine Appearance Clear Clear Comment pT goes to the bathroom independently. Voids in toilet. pt voids independently. pt denies dysuria pt reports voiding in BR without difficulty Voiding Methods Toilet Toilet Data Completed and Pending Labs on day of discharge: Labs from last 24 hours 09/19/22 09/18/22 09/18/22 05:55 06:21 06:21 Sodium 134 L Potassium 3.0 L Chloride 101 Carbon Dioxide 27.2 Anion Gap 5.8 BUN 11 Creatinine 0.9 Est GFR (CKD-EPI 2020) 76.44 Glucose 100 Hemoglobin A1c Calcium 9.6 Magnesium 2.3 Triglycerides 73 Total Cholesterol 247 H LDL Cholesterol, Calc 169 H HDL Cholesterol 64 Add-On Test Request DONE 09/17/22 19:40 Sodium Potassium Chloride Carbon Dioxide Anion Gap BUN Creatinine Est GFR (CKD-EPI 2020) Glucose Hemoglobin A1c 5.8 H Calcium Magnesium Triglycerides Total Cholesterol LDL Cholesterol, Calc HDL Cholesterol Add-On Test Request PFSH All Active Problems Acute stroke due to stenosis of right carotid artery (Acute) Intracranial carotid stenosis, bilateral (Acute) Acute left-sided weakness (Acute) Elevated troponin (Acute) Hypokalemia (Acute) Eczema of both hands (Acute) Essential hypertension (Acute) Neck pain, acute (Acute) Cervical disc disorder (Acute) [facility] MRI- 08/29/21: Large disk herniation C6-7 w/ extrusion posterior to C7 vertebral body. +spinal cord compression & central spinal canal stenosis. C4-C5 & C5-C6 DJD w/spinal canal stenosis, Multilevel neural foraminal stenosis, prominence of the central canal in the spinal cord posterior to the T1-T3 vertebral bodies. Gastritis (Acute) Nausea (Acute) Muscle spasm (Acute) Acute shoulder pain (Acute) Chronic dermatitis of hands (Acute 03/27/16) Lichen sclerosus of female genitalia (Acute) Pure hypercholesterolemia (Acute 04/02/16) Smoker (Acute) Annual physical exam (Acute) Hypothyroidism (Chronic) Compromised kidney function (Acute) UTI (urinary tract infection) (Acute) Acute kidney failure (Acute) Dehydration (Acute) Bruit of right carotid artery (Acute) Murmur, cardiac (Acute) Kidney tubular necrosis (Acute) Medical History Aneurysm of infrarenal abdominal aorta (12/08/17) Depressive disorder Family history of breast cancer (03/27/15) mother Headache (11/18/12) History of acute renal failure Hx of pyelonephritis (02/09/14) Hypercholesteremia Hyperthyroidism Hypothyroidism 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) (03/09/14) Renal failure (06/10/16) 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; + antibody, - antigen Surgical History History of appendectomy History of open reduction and internal fixation (ORIF) procedure , Ectopic X 2 Family History Mother Essential hypertension Personal history of malignant neoplasm BREAST Father Essential hypertension Personal history of malignant neoplasm PROSTATE Sister Essential hypertension Brother Essential hypertension Social History Smoking/Tobacco Use Status: Current every day Tobacco Type: cigarettes Quit status: considering quitting Second Hand Exposure: Yes Smoking risk assessment performed?: Yes Alcohol Intake: current Alcohol Intake frequency: holidays/special occasions only Drug use: Never Substance use type: does not use Counseling given: No Counseling provided: none Caregiver/Support person: No Household members: family Housing: apartment Communication Needs: Deaf Do you need help understanding health information?: Never 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
[2022-09-19 11:29] VITALS: BP 123/73; PULSE 63; RESP 16; TEMP 36.4; O2SAT 98
--- NOTE | 2022-09-19 11:35 | PT.INTREAT ---
Date of service: 09/19/22 Time of Service: 10:48 PT Notes Visit Reasons: left-sided weakness,hypokalemia Inpatient Physical Therapy Treatment Note [facility] Date: 09/19/2022 PRECAUTIONS: Fall, Activity as tolerated SUBJECTIVE: Rosina is pleasant and agreeable to participating in PT. She reports that she is feeling better, although feels her balance is not quite at her baseline. Patient reports that she has been transferring and ambulating independently within her room safely. OBJECTIVE: PAIN: No c/o pain BED MOBILITY/TRANSFERS Supine-sit: I Sit-supine: I Sit-stand: I Stand-sit: I Bed-Chair: I Chair-bed: I GAIT Assistive Device: No AD Weight bearing: Full Assist: I Distance: 650' Deviation: Appropriate pacing STAIRS: Up/down 3x4 and 2x6 using U rail/no rail and a step-to pattern independently. ASSESSMENT: Patient tolerated session well, without complaint. She was able to tolerate a progression in gait distance, demonstrating independence without AD support. PLAN: Patient to discharge to home later today, per provider. Recommend follow up with OP PT upon discharge. TREATMENT CODE/TIME: 10 minutes; 96129 (10:48)
--- NOTE | 2022-09-19 12:55 | PDOC.CMDIS ---
- If Service Date Differs Date of service: 09/19/22 Time of Service: 12:55 LACE Index Scoring Tool - Questions: Length of Stay (in days): 2 Acuity (Admit via E.D.?): Yes Comorbidities: Cerebrovascular Disease E.D. Visits: 1 - Answers: Total Score: 7 Risk of Readmission: Low Risk Care Management Discharge Reason for Hospitalization: left sided weakness, hypokalemia Discharge Plan: Rosina returned home today with a referral to outpatient PT/OT. Her daughter drove her home via private vehicle. She will follow up with her PCP and discharge plan of care. She is happy to be going home. Patient/Family Education Needs: Review discharge instructions and limitations, discussion of self care needs including ask me three.
--- NOTE | 2022-09-20 08:51 | INDS_ITS ---
PT Notes Visit Reasons: left-sided weakness,hypokalemia Physical Therapy Inpatient Discharge Summary Treatment Dates: 09/18/2022 - 09/19/22 Referring Doctor: Edi Canela MD PT Orders: PT CONSULT: Limited ability Precautions: Fall. Standard. Activity as tolerated. This document serves as a summary of care. No PT services were provided on this date. Patient Profile/Admitting Diagnosis: Ashley is a 52-year-old female right-hand dominant female who presented to the ED on 09/17/2022 due to left-sided weakness that started and yesterday in the afternoon. Patient is admitted to the Medr unit for assessment of acute left-sided weakness, elevated troponin, and hypokalemia.She was seen for 2 PT sessions over the course of 2 days, demonstrating significant improvements in mobility. Once deemed medically stable, was recommended for return to community with PT in outpatient setting. Social History/Home Situation: Lives with daughter and grandson in a private home. Independent with all aspects of ADLs prior to admission. 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 Equipment Owned/DME: None Subjective: none obtained Objective: ROM: Right Upper Extremity: Shoulder Flexion WFL. Shoulder abduction WFL. Elbow flexion WFL. Wrist flexion WFL. Functional opening and closing of hand WFL. Left Upper Extremity: Shoulder Flexion WFL. Shoulder abduction WFL. Elbow flexion WFL. Wrist flexion WFL. Functional opening and closing of hand WFL. Right Lower Extremity: Hip flexion WFL. Hip abduction WFL. Knee flexion WFL. Ankle dorsiflexion to neutral only. Ankle plantarflexion WFL. Left Lower Extremity: Hip flexion lacks the last 25% of AROM. Hip abduction lacks the last 25% of AROM. Knee flexion WFL. Ankle dorsiflexion to neutral only. Ankle plantarflexion WFL. Strength: Right Upper Extremity: Shoulder flexors 4-/5. Shoulder abductors 4-/5. Elbow flexors 4-/5. Elbow extensors 4-/5. Information Technology Specialist strong. Left Upper Extremity: Shoulder flexors 4-/5. Shoulder abductors 4-/5. Elbow flexors 4-/5. Elbow extensors 4-/5. Information Technology Specialist strong. Right Lower Extremity: Hip flexors 5/5. Hip abductors 5/5. Knee flexors 5/5. Knee extensors 5/5. Ankle dorsiflexors 3-/5. Ankle plantarflexors 4-/5. Left Lower Extremity: Hip flexors 3-/5. Hip abductors 3-/5. Knee flexors 4-/5. Knee extensors 4-/5. Ankle dorsiflexors 3-/5. Ankle plantarflexors 4-/5. BED MOBILITY/TRANSFERS? Supine-sit: I ? Sit-supine: I? Sit-stand: I? Stand-sit: I ? Bed-Chair: I ? Chair-bed: I ? GAIT? Assistive Device: No AD ? Weight bearing: Full Assist: I ? Distance: 650' ? Deviation: Appropriate pacing STAIRS: Up/down 3x4 and 2x6 using U rail/no rail and a step-to pattern independently. Balance: Static Sitting: Normal Dynamic Sitting: Normal Static Standing: Normal Dynamic Standing: Good Special Tests: Mobility Limitations Standardized Measure [facility] AM-PAC 6 clicks Basic Mobility Inpatient Short Form: Raw Score: 24 CMS Score: 0% deficit Assessment: Patient participated in 2 PT sessions over the course of 2 days. Demonstrated sufficient safety and independence to return home once medically stabilized. Was able to discharge home 09/19/22. D/C from PT services in acute care setting, with recommendation for outpatient PT. Goals: Goals X1 week 1. Patient will be independent with level surface ambulation with no assistive ambulatory device with full awareness of environmental obstacles for safe return to ADL and vocational performance. (met) Plan of Care/Treatment Plan: DISCHARGE RECOMMENDATIONS: [X] Home with outpatient PT to address persistent impairments noted in initial evaluation. TREATMENT CODE/TIME: Thank you for the opportunity to participate in the care of this patient. Betina Tobias PT, DPT [facility] [place], [place]
== END 2022-09-19 12:54 | disposition home or self-care (01) ==
LOC: ER 22:00 → MS 22:43
PROVIDERS: Family Medicine; Student in an Organized Health Care Education/Training Program; Admitting Provider Family Medicine; Emergency Provider Emergency Medicine; PCP Nurse Practitioner Family; Visit Provider Family Medicine
DX: I63.233 Cerebral infarction due to unspecified occlusion or stenosis of bilateral carotid arteries (principal); R53.1 Weakness; R74.8 Abnormal levels of other serum enzymes; E87.6 Hypokalemia; G81.94 Hemiplegia, unspecified affecting left nondominant side; I10 Essential (primary) hypertension; F17.210 Nicotine dependence, cigarettes, uncomplicated; E03.9 Hypothyroidism, unspecified; M50.221 Other cervical disc displacement at C4-C5 level; Z20.822 Contact with and (suspected) exposure to COVID-19
CPT/HCPCS: 36415; 36416; 70496; 70498; 80048; 80053; 80061; 82962; 87635; 93005; 96365; 96366; 97110; 97161; 97165; 97530; 99217; 99285; 70551; 71046; 83036; 83735; 84132; 84439; 84443; 84484; 85025; 93010; 93306; 99220; 99225; G0378; J3480; J3490

== ENCOUNTER 2022-11-03 12:11 | Emergency (ER) | payer MEDICAID, SELFPAY ==
[2022-11-03] VITALS (39 sets, daily range): BP systolic 127–185; BP diastolic 66–103; PULSE 69–111; RESP 5–38; TEMP 36.6; O2SAT 95–100
--- NOTE | 2022-11-03 12:15 | RT.EKG_ITS ---
APPROVED REPORT Exam: Resting ECG Reason for Exam: dizziness Patient Location: E HR:90 bpm ECG Measurements Heart Rate 90 AXIS IL 217 P 49 QRSd 99 QRS 77 QT 365 T -71 QTc 448 Conclusion Sinus rhythm...normal P axis, V-rate 60- 99 Prolonged IL interval...IL >210, V-rate 50- 90 Left atrial enlargement...P, P'>60mS, <-0.15mV V1
[2022-11-03 13:13] LABS: Abs Immature Grans 0.06 10^3/uL (0.0-0.06); Absolute Basophil Count 0.06 10^3/uL (0.0-0.2); Absolute Eosinophil Count 0.08 10^3/uL (0.0-0.7); Absolute Lymphocyte Count 1.28 10^3/uL (1.2-3.4); Absolute Monocyte Count 0.76 10^3/uL (0.1-0.8); Absolute Neutrophil Count 5.81 10^3/uL (1.2-6.7); Basophils % 0.7; HCT 40.8 % (36.0-46.0); HGB 14.1 g/dL (11.2-15.7); Immature Grans % 0.7; Lymphocytes % 15.9; MCH 31.6 pg (27.0-33.0); MCHC 34.6 % (32.0-36.0); MCV 92 fL (80-95); Monocytes % 9.4; Neutrophils % 72.3; Platelet Count 343 10^3/uL (130-400); RBC 4.46 10^6/uL (3.93-5.22); RDW 12.5 % (11.7-14.6); RDW-SD 41.7 fL; WBC 8.05 10^3/uL (4.4-10.8)
[2022-11-03 13:33] LABS: ALT 38 U/L (14-59); AST 34 U/L (15-37); Albumin 4.6 g/dL (3.4-5.0); Alkaline Phosphatase 181 U/L (46-116); Anion Gap 12.6 mmol/L (3-11); BUN 15 mg/dL (7-18); Bilirubin, Total 0.5 mg/dL (0.2-1.0); CO2 31.4 mmol/L (21.0-32.0); CREATININE 1.5 mg/dL (0.55-1.02); Calcium 10.1 mg/dL (8.5-10.1); Chloride 97 mmol/L (98-107); Creatine Kinase 247 U/L (26-192); Estimated GFR 41.41 (mL/min/1.73m2); Glucose 133 mg/dL (74-106); Magnesium 1.8 mg/dL (1.8-2.4); Sodium 141 mmol/L (136-145); Total Protein 9.1 g/dL (6.4-8.2)
[2022-11-03 13:36] LABS: Potassium 2.4 mmol/L (3.5-5.1); Troponin I 237 ng/L (<or=60)
--- NOTE | 2022-11-03 13:45 | DI.CT_ITS ---
Exam(s) CT BRAIN NECK CTA EXAM: CT BRAIN NECK CTA CLINICAL HISTORY: dizziness. TECHNIQUE: Imaging Protocol: Axial CT angiography was performed with multi-slice acquisition and mu lti-planar and/or 3D reconstructions. CONTRAST MATERIAL: Intravenous: Omnipaque 350 contrast volume:85 mL COMPARISON: CT CT BRAIN NECK CTA from 09/17/2022 FINDINGS: CT Head W/O and W: Ventricles and Extra axial spaces: Normal in size and morphology for the patient's age. Hemorrhage: None. Cerebral parenchyma: No acute territorial infarct is present. 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 There are areas of decreased attenuation in the white matter consistent with small vessel ischemic disease. Midline shift: None. Brainstem/Cerebellum: Normal. Calvarium: Normal. Visualized Paranasal sinuses/Mastoids: Clear. Soft Tissues: Unremarkable. Enhancement: Unremarkable. CTA Neck W: Common Carotid: Right: No dissection, occlusion or significant stenosis. Left: No dissection, occlusion or significant stenosis. External Carotid: Right: No occlusion or significant stenosis. Left: No occlusion or significant stenosis. Internal Carotid: Right: No dissection, occlusion or significant stenosis. Left: No dissection, occlusion or significant stenosis. Vertebral Artery: Right: No dissection, occlusion or significant stenosis. Left: No dissection, occlusion or significant stenosis. Lung Apices: Normal. Bones: Within normal limits for the patient's age. There are mild degenerative changes in the cervica l spine. Soft Tissues: Normal. CTA Brain W: Internal Carotid Arteries: There is atherosclerosis present. Severe stenosis is seen in the right in ternal carotid artery in the right carotid siphon region. There is less than 50 percent stenosis of the left internal carotid artery in the region of the carotid siphon. No aneurysm or occlusion. Anterior Cerebral Arteries: Right: No aneurysm, occlusion or significant stenosis. Left: No aneurysm, occlusion or significant stenosis. Middle Cerebral Arteries: Right: No aneurysm, occlusion or significant stenosis. Left: No aneurysm, occlusion or significant stenosis. Posterior Cerebral Arteries: Right: No aneurysm, occlusion or significant stenosis. Left: No aneurysm, occlusion or significant stenosis. Vertebral Arteries: Right: No aneurysm, occlusion or significant stenosis. Left: No aneurysm, occlusion or significant stenosis. Basilar Artery: No aneurysm, occlusion or significant stenosis. IMPRESSION: 1. Severe (79 99 percent stenosis of the right internal carotid artery in the right carotid siphon se gment. 2. Less than 50 percent stenosis of the left internal carotid artery in the left carotid siphon segme nt. 3. No acute intracranial process. 4. No occlusion or significant stenosis on the CT angiography of the neck. RADIATION DOSE DELIVERED: 1,803.7mGy.cm Total DLP DATA REPOSITORY: All CT scans at this facility are submitted to the National Radiology Data Registry (NRDR) Dose Index Registry (DIR) with the [employer] [place] [employer] (A[employer]). RADIATION OPTIMIZATION: All CT scans at this facility use at least one of these dose optimization te chniques: automated exposure control; mA and/or kV adjustment per patient size (includes targeted exa ms where dose is matched to clinical indication); or iterative reconstruction.
[2022-11-03 14:17] LABS: TSH (W/Ref FT4) 5.21 uIU/mL (0.36-3.74)
[2022-11-03] MEDS: Potassium Chloride 20 MEQ TABCR 40 MEQ PO (14:21)
[2022-11-03] MEDS: Metoclopramide 10 MG/2 ML VIAL IVP (14:22)
[2022-11-03] MEDS: POTASSIUM CHLORIDE 20 MEQ/100 ML BAG 50 MEQ IVPB (14:22)
[2022-11-03] MEDS: Lactated Ringers 1,000 ML 1000 ML IV (14:22)
[2022-11-03 14:34] LABS: FREE T4 1.29 ng/dL (0.76-1.46)
--- NOTE | 2022-11-03 15:27 | ED.GENADUL_ITS ---
Discharge Plan Disposition Patient Disposition: Home Condition: Improving Discharge Details Clinical Impression: Nausea & vomiting, Hypokalemia, Dizziness Primary Care Provider: Brittany Sandoval ED Provider: Fredy Sears Home Meds and New Rx's Prescriptions: New potassium chloride 20 mEq tablet extended release 40 meq PO BID 5 Days Qty: 20 0RF Continued bupropion HCl [Wellbutrin SR] 150 mg tablet sustained-release 12 hr 150 mg PO BID Qty: 180 1RF Rx Instructions: Start with 150 mg p.o. daily, increase to 150 mg p.o. twice a day after 3 days. Stop smoking between days 5 and 7. chlorthalidone 25 mg tablet 25 mg PO DAILY Qty: 90 3RF clopidogrel 75 mg tablet 75 mg PO DAILY Qty: 60 0RF metoprolol tartrate 50 mg tablet 50 mg PO BID Qty: 180 3RF Hold Instructions: Resume on 09/20/22. amlodipine 10 mg tablet 10 mg PO DAILY Qty: 90 3RF Hold Instructions: Resume on 09/20/22. atorvastatin [Lipitor] 80 mg tablet 80 mg PO QHS Qty: 90 3RF levothyroxine 88 mcg tablet 88 mcg PO DAILY Qty: 90 2RF aspirin 81 mg Tablet,Delayed Release (Dr/Ec) 81 mg PO DAILY Qty: 0 0RF nicotine 14 mg/24 hr Patch 24 Hour 14 mg transdermal DAILY Qty: 14 0RF Discharge Instructions Instructions: Hypokalemia (ED), Acute Nausea and Vomiting (ED), Dizziness (ED) Additional Instructions: Zofran and potassium as directed. Please watch for new or worsening symptoms and return to the ER for any concerns. Please contact your primary care provider tomorrow to discuss your ER visit and need for outpatient reevaluation. You will need to have your labs rechecked in the next few days to be sure that your potassium is normalizing. Discharge Data Discharge Date/Time-TO BE ENTERED AT DEPARTURE: 11/03/22 19:09 Medical Decision Making <LIAN Causey - Last Filed: 11/06/22 08:48> This 52-year-old female with complex medical history and multiple comorbidities presents with report of dizziness and lightheadedness which started yesterday. She denies any chest pain or shortness of breath She had a stroke at the end of August for which she was hospitalized but states that the symptoms are different she had left-sided involvement at that time She was discharged home on 3 new medications, chlorthalidone, clopidogrel, and statin She on exam is quite lightheaded but ambulatory with assistance She has a nonfocal neurological exam Potassium of 2.4 without significant EKG change, gap of 12.6, creatinine 1.5, increased from prior, CPK of 247 Troponin is elevated at 273without acute evidence of ischemia on EKG, please see attendings interpretation When compared to prior, her last admission in August she had elevated troponin and prior to that her troponins have been consistently elevated, Denies any chest pain or shortness of breath, however she is quite nauseous and lightheaded so will order repeat troponin level, telemetry monitoring, given the dizziness and recent stroke a CTA of her head and neck which is still pending at this time Secondary to her hypokalemia, IV potassium was initiated and p.o. potassium, she received 20 mill equivalents IV and 40 mEq p.o. She will likely need admission to the hospital pending CTA and potassium administration <LIAN Leyva - Last Filed: 11/03/22 17:41> This 52-year-old female with complex medical history and multiple comorbidities presents with report of dizziness and lightheadedness which started yesterday. She denies any chest pain or shortness of breath She had a stroke at the end of August for which she was hospitalized but states that the symptoms are different she had left-sided involvement at that time She was discharged home on 3 new medications, chlorthalidone, clopidogrel, and statin She on exam is quite lightheaded but ambulatory with assistance She has a nonfocal neurological exam Potassium of 2.4 without significant EKG change, gap of 12.6, creatinine 1.5, increased from prior, CPK of 247 Troponin is elevated at 273without acute evidence of ischemia on EKG, please see attendings interpretation When compared to prior, her last admission in August she had elevated troponin and prior to that her troponins have been consistently elevated, Denies any chest pain or shortness of breath, however she is quite nauseous and lightheaded so will order repeat troponin level, telemetry monitoring, given the dizziness and recent stroke a CTA of her head and neck which is still pending at this time Secondary to her hypokalemia, IV potassium was initiated and p.o. potassium, she received 20 mill equivalents IV and 40 mEq p.o. She will likely need admission to the hospital pending CTA and potassium administration 1530: Fredy Sears PA-C I assumed care of this 52-year-old female from my colleague LIAN Ahmadi, please see her initial HPI and examination. At time of signout awaiting delta troponin and CTA of the head and brain, then likely admission. Patient is receiving 20 IV and 40 p.o. potassium for hypokalemia. Delta troponin 240, CTA pending. CTA as below, known stenosis, multiple chronic infarcts. No large vessel occlusion. Nothing acute On reevaluation patient is receiving IV fluids. She reports overall her nausea and vomiting has resolved completely, dizziness is a little better but not resolved. Reports burning from her IV potassium, mixing with additional fluid. Plan to discuss the case with our hospitalist team for admission for hypokalemia and dizziness. The case was discussed with Dr. Reynolds. After reviewing the case he feels as though the patient can be safely discharged home and does not require admission. CTA does not reveal any acute process. Nausea and vomiting has resolved and patient is now tolerating p.o. intake. Troponins appear chronically elevated, stable today, no chest pain whatsoever. EKG reveals no evidence of hypokalemia or STEMI. Hypokalemia likely secondary to the nausea and vomiting. Recommends oral antiemetics and potassium supplementation, 40 p.o. twice daily. I discussed my conversation with her hospitalist team with the patient. She states that she feels as though her overall dizziness has resolved completely and she is comfortable with this plan. She will finish receiving her IV potassium. I will provide her a prescription for potassium supplementation as well as Zofran. Patient was noted to ambulate steadily. Standard discharge and return precautions were provided. Patient understands, is agreeable to this plan, and has no additional questions or concerns upon discharge. This documentation was generated using [email or web address] system, please disregard any oddities of phrase or misspellings. Medical Records Medical records reviewed: Yes I reviewed the patient's medical records. Imaging Data Radiologic Study: Attestation: I personally reviewed and interpreted this imaging study as follows: Imaging: CT Scan Radiologist's impression: PROCEDURE INFORMATION: Exam: CTA Head With Contrast, Arteriography Exam date and time: 11/03/2022 3:45 PM Age: 52 years old Clinical indication: Dizziness and giddiness TECHNIQUE: Imaging protocol: Computed tomographic angiography of the head with contrast. Exam focused on the arteries. 3D rendering (Not supervised by radiologist): MIP and/or 3D reconstructed images were created by the technologist. Contrast material: OMNIPAQUE 350; Contrast volume: 100 ml; Contrast route: INTRAVENOUS (IV); COMPARISON: CT BRAIN NECK CTA 09/17/2022 8:27 PM FINDINGS: ANTERIOR CIRCULATION: Right internal carotid artery: Intracranial segment is patent, however there is severe, 70-99% diameter stenosis of the artery in the right carotid siphon region. No aneurysm. Right middle cerebral artery: No occlusion or significant stenosis. No aneurysm. Right anterior cerebral artery: No occlusion or significant stenosis. No aneurysm. Left internal carotid artery: Intracranial segment is patent, however there is mild, less than 50% diameter stenosis of the artery in the left carotid siphon region. No aneurysm. Left middle cerebral artery: No occlusion or significant stenosis. No aneurysm. Left anterior cerebral artery: No occlusion or significant stenosis. No aneurysm. POSTERIOR CIRCULATION: Right vertebral artery: No occlusion or significant stenosis. No aneurysm.Left vertebral artery: No occlusion or significant stenosis. No aneurysm. Basilar artery: No occlusion or significant stenosis. No aneurysm. Right posterior cerebral artery: No occlusion or significant stenosis. No aneurysm. Left posterior cerebral artery: No occlusion or significant stenosis. No aneurysm. Brain: No definite mass, mass effect, or midline shift. Multiple chronic infarcts are noted in both basal ganglia especially the left caudate nucleus region. Small foci of leukomalacia are present in the deep white matter of both cerebral hemispheres consistent with chronic small vessel ischemic disease. Cerebral ventricles: No ventriculomegaly. Bones/joints: Unremarkable. No acute fracture. Soft tissues: Unremarkable. IMPRESSION: 1. No large vessel occlusion identified in the intracranial arteries. 2. There is severe, 70-99% diameter stenosis of the right internal carotid artery in the right carotid siphon segment. 3. There is mild, less than 50% diameter stenosis of the left internal carotid artery in the left carotid siphon segment. 4. Multiple chronic lacunar infarcts are noted in both basal ganglia especially the left caudate nucleus region. Small foci of leukomalacia are present in the deep white matter of both cerebral hemispheres, consistent with chronic small vessel ischemic disease. PROCEDURE INFORMATION: Exam: CTA Neck With Contrast Exam date and time: 11/03/2022 3:45 PM Age: 52 years old Clinical indication: Dizziness and giddiness TECHNIQUE: Imaging protocol: Computed tomographic angiography of the neck with contrast. 3D rendering (Not supervised by radiologist): MIP and/or 3D reconstructed images were created by the technologist. Contrast material: OMNIPAQUE 350; Contrast volume: 100 ml; Contrast route: INTRAVENOUS (IV); COMPARISON: CT BRAIN NECK CTA 09/17/2022 8:27 PMFINDINGS: The great vessels in the upper mediastinum and the proximal subclavian arteries bilaterally are normal. Right common carotid artery: No stenosis. No dissection or occlusion. Right internal carotid artery: No stenosis of the extracranial segment. No dissection or occlusion. Right external carotid artery: No occlusion or stenosis of the origin. Left common carotid artery: No stenosis. No dissection or occlusion. Left internal carotid artery: No stenosis of the extracranial segment. No dissection or occlusion. Left external carotid artery: No occlusion or stenosis of the origin. Right vertebral artery: No stenosis. No dissection or occlusion. Left vertebral artery: No stenosis. No dissection or occlusion. Soft tissues: Normal. No significant soft tissue swelling. Bones/joints: No acute fracture. IMPRESSION: No stenosis, dissection or occlusion of the arteries in the neck. Lab Data Lab results reviewed: Yes I reviewed the patient's lab results. Labs: 11/03/22 16:35 Urine - Reflex from Ua Urine Culture - Pending Laboratory Tests Range/Units 11/03/22 11/03/22 11/03/22 12:30 12:30 12:30 WBC (4.4-10.8) 10^3/uL 8.05 RBC (3.93-5.22) 10^6/uL 4.46 Hgb (11.2-15.7) g/dL 14.1 Hct (36.0-46.0) % 40.8 MCV (80-95) fL 92 MCH (27.0-33.0) pg 31.6 MCHC (32.0-36.0) % 34.6 RDW (11.7-14.6) % 12.5 Plt Count (130-400) 10^3/uL 343 MPV (8.0-11.0) fL 11.0 Immature Gran % 0.7 Neutrophils % 72.3 Lymphocytes % 15.9 Monocytes % 9.4 Eosinophils % 1.0 Basophils % 0.7 Nucleated RBC % (0.0-0.3) % 0.0 Absolute Neutrophils (1.2-6.7) 10^3/uL 5.81 Absolute Lymphocytes (1.2-3.4) 10^3/uL 1.28 Absolute Monocytes (0.1-0.8) 10^3/uL 0.76 Absolute Eosinophils (0.0-0.7) 10^3/uL 0.08 Absolute Basophils (0.0-0.2) 10^3/uL 0.06 Sodium (136-145) mmol/L 141 Potassium (3.5-5.1) mmol/L 2.4 L* Chloride (98-107) mmol/L 97 L Carbon Dioxide (21.0-32.0) mmol/L 31.4 Anion Gap (3-11) mmol/L 12.6 H BUN (7-18) mg/dL 15 Creatinine (0.55-1.02) mg/dL 1.5 H Est GFR (CKD-EPI 2020) (mL/min/1.73m2) 41.41 Glucose (74-106) mg/dL 133 H Calcium (8.5-10.1) mg/dL 10.1 Magnesium (1.8-2.4) mg/dL 1.8 Total Bilirubin (0.2-1.0) mg/dL 0.5 AST (15-37) U/L 34 ALT (14-59) U/L 38 Alkaline Phosphatase (46-116) U/L 181 H Creatine Kinase (26-192) U/L 247 H Troponin I (<or=60) ng/L 237 H* Total Protein (6.4-8.2) g/dL 9.1 H Albumin (3.4-5.0) g/dL 4.6 TSH (0.36-3.74) uIU/mL 5.21 H Free T4 (0.76-1.46) ng/dL 1.29 Urine Color (Yellow) Urine Clarity (Clear) Urine pH (5-8) Ur Specific Strawberry (1.005-1.025) Urine Protein (Negative) mg/dL Urine Ketones (Negative) mg/dL Urine Blood (Negative) Urine Nitrite (Negative) Urine Bilirubin (Negative) Urine Urobilinogen (Up TO 0.2) EU/dL Ur Leukocyte Esterase (Negative) Urine RBC (0-2) HPF Urine WBC (0-5) HPF Ur Epithelial Cells (Negative) HPF Urine Crystals (Negative) HPF Urine Bacteria (Negative) HPF Urine Casts (Negative) LPF Urine Mucus (Negative) Ur Culture Indicated? Urine Glucose (Negative) mg/dL Range/Units 11/03/22 11/03/22 16:25 16:35 WBC (4.4-10.8) 10^3/uL RBC (3.93-5.22) 10^6/uL Hgb (11.2-15.7) g/dL Hct (36.0-46.0) % MCV (80-95) fL MCH (27.0-33.0) pg MCHC (32.0-36.0) % RDW (11.7-14.6) % Plt Count (130-400) 10^3/uL MPV (8.0-11.0) fL Immature Gran % Neutrophils % Lymphocytes % Monocytes % Eosinophils % Basophils % Nucleated RBC % (0.0-0.3) % Absolute Neutrophils (1.2-6.7) 10^3/uL Absolute Lymphocytes (1.2-3.4) 10^3/uL Absolute Monocytes (0.1-0.8) 10^3/uL Absolute Eosinophils (0.0-0.7) 10^3/uL Absolute Basophils (0.0-0.2) 10^3/uL Sodium (136-145) mmol/L Potassium (3.5-5.1) mmol/L Chloride (98-107) mmol/L Carbon Dioxide (21.0-32.0) mmol/L Anion Gap (3-11) mmol/L BUN (7-18) mg/dL Creatinine (0.55-1.02) mg/dL Est GFR (CKD-EPI 2020) (mL/min/1.73m2) Glucose (74-106) mg/dL Calcium (8.5-10.1) mg/dL Magnesium (1.8-2.4) mg/dL Total Bilirubin (0.2-1.0) mg/dL AST (15-37) U/L ALT (14-59) U/L Alkaline Phosphatase (46-116) U/L Creatine Kinase (26-192) U/L Troponin I (<or=60) ng/L 240 H* Total Protein (6.4-8.2) g/dL Albumin (3.4-5.0) g/dL TSH (0.36-3.74) uIU/mL Free T4 (0.76-1.46) ng/dL Urine Color (Yellow) Yellow Urine Clarity (Clear) Sl Cloudy Urine pH (5-8) 7.0 Ur Specific Strawberry (1.005-1.025) 1.015 Urine Protein (Negative) mg/dL Negative Urine Ketones (Negative) mg/dL Negative Urine Blood (Negative) Trace-intact H Urine Nitrite (Negative) Negative Urine Bilirubin (Negative) Negative Urine Urobilinogen (Up TO 0.2) EU/dL 0.2 Ur Leukocyte Esterase (Negative) Trace H Urine RBC (0-2) HPF 0-2 Urine WBC (0-5) HPF 5-10 Ur Epithelial Cells (Negative) HPF Few Urine Crystals (Negative) HPF Negative Urine Bacteria (Negative) HPF Moderate Urine Casts (Negative) LPF Negative Urine Mucus (Negative) Negative Ur Culture Indicated? Yes Urine Glucose (Negative) mg/dL Negative HPI <LIAN Causey - Last Filed: 11/06/22 08:48> General Date/Time Provider Initiated Documentation: 11/03/22 12:12 . HPI Narrative: This 52-year-old female with history of ischemic stroke, gastritis, hypothyroidism, renal insufficiency, coronary artery disease presents with dizziness that started yesterday. She states that she feels dizzy with intermittent lightheadedness. She states she is status post stroke at the end of August. She states that she recently had medication changed from hydrochlorothiazide to chlorthalidone, Lipitor, and Plavix, these are new for the patient. She denies any chest pain or shortness of breath. She states he has been vomiting and quite nauseous. She feels as though the dizziness is precipitating this. She states she is not been able to hold down anything today. She is been having difficulty urinating as well. She denies any fever or chills. She denies known sick contacts. She denies any blood in her vomitus. Related Data Home Medications Medication Instructions Recorded Confirmed metoprolol tartrate 50 mg tablet 50 mg PO BID #180 tabs 01/07/22 11/03/22 amlodipine 10 mg tablet 10 mg PO DAILY #90 tab-caps 09/04/22 11/03/22 aspirin 81 mg tablet,delayed 81 mg PO DAILY #0 tabs 09/19/22 11/03/22 release nicotine 14 mg/24 hr daily 14 mg transdermal DAILY #14 ea 09/19/22 11/03/22 transdermal patch clopidogrel 75 mg tablet 75 mg PO DAILY #60 tabs 10/17/22 11/03/22 atorvastatin 80 mg tablet (Lipitor) 80 mg PO QHS #90 tabs 10/21/22 11/03/22 bupropion HCl 150 mg tablet,12 hr 150 mg PO BID #180 tabs 10/24/22 11/03/22 sustained-release (Wellbutrin SR) chlorthalidone 25 mg tablet 25 mg PO DAILY #90 tabs 10/24/22 11/03/22 levothyroxine 88 mcg tablet 88 mcg PO DAILY #90 tabs 11/03/22 potassium chloride 20 mEq 40 meq PO BID 5 days #20 tabs 11/03/22 tablet,extended release Previous Rx's Medication Instructions Recorded metoprolol tartrate 50 mg tablet 50 mg PO BID #180 tabs 01/07/22 amlodipine 10 mg tablet 10 mg PO DAILY #90 tab-caps 09/04/22 aspirin 81 mg tablet,delayed 81 mg PO DAILY #0 tabs 09/19/22 release nicotine 14 mg/24 hr daily 14 mg transdermal DAILY #14 ea 09/19/22 transdermal patch clopidogrel 75 mg tablet 75 mg PO DAILY #60 tabs 10/17/22 atorvastatin 80 mg tablet (Lipitor) 80 mg PO QHS #90 tabs 10/21/22 bupropion HCl 150 mg tablet,12 hr 150 mg PO BID #180 tabs 10/24/22 sustained-release (Wellbutrin SR) chlorthalidone 25 mg tablet 25 mg PO DAILY #90 tabs 10/24/22 levothyroxine 88 mcg tablet 88 mcg PO DAILY #90 tabs 11/03/22 potassium chloride 20 mEq 40 meq PO BID 5 days #20 tabs 11/03/22 tablet,extended release Allergies Allergy/AdvReac Type Severity Reaction Status Date / Time codeine Allergy Intermediate CHEST Verified 02/05/23 12:18 CLOSING General Stated Complaint: Nausea/Vomit/Diar ORA: 3 PFSH <LIAN Causey - Last Filed: 11/06/22 08:48> All Active Problems (Updated 11/03/22 @ 17:35 by LIAN Leyva) Nausea & vomiting (Acute) Hypokalemia (Acute) Dizziness (Acute) Depression with anxiety (Acute) Acute stroke due to stenosis of right carotid artery (Acute) Intracranial carotid stenosis, bilateral (Acute) Elevated troponin (Acute) Eczema of both hands (Acute) Essential hypertension (Acute) Neck pain, acute (Acute) Cervical disc disorder (Acute) [facility] MRI- 08/29/21: Large disk herniation C6-7 w/ extrusion posterior to C7 vertebral body. +spinal cord compression & central spinal canal stenosis. C4- C5 & C5-C6 DJD w/spinal canal stenosis, Multilevel neural foraminal stenosis, prominence of the central canal in the spinal cord posterior to the T1-T3 vertebral bodies. Gastritis (Acute) Nausea (Acute) Muscle spasm (Acute) Acute shoulder pain (Acute) Chronic dermatitis of hands (Acute 03/27/16) Lichen sclerosus of female genitalia (Acute) Pure hypercholesterolemia (Acute 04/02/16) Smoker (Acute) Annual physical exam (Acute) Hypothyroidism (Chronic) Compromised kidney function (Acute) UTI (urinary tract infection) (Acute) Acute kidney failure (Acute) Dehydration (Acute) Bruit of right carotid artery (Acute) Murmur, cardiac (Acute) Kidney tubular necrosis (Acute) Medical History Aneurysm of infrarenal abdominal aorta (12/08/17) Depressive disorder Family history of breast cancer (03/27/15) mother Headache (11/18/12) History of acute renal failure Hx of pyelonephritis (02/09/14) Hypercholesteremia Hyperthyroidism Hypothyroidism 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) (03/09/14) Renal failure (06/10/16) 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; + antibody, - antigen Surgical History History of appendectomy History of open reduction and internal fixation (ORIF) procedure , Ectopic X 2 Family History Mother Essential hypertension Personal history of malignant neoplasm BREAST Father Essential hypertension Personal history of malignant neoplasm PROSTATE Sister Essential hypertension Brother Essential hypertension Social History Smoking/Tobacco Use Status: Former Tobacco Use Quit status: considering quitting Second Hand Exposure: Yes Smoking risk assessment performed?: Yes Alcohol Intake: former Drug use: Never Substance use type: does not use Counseling given: No Counseling provided: none Caregiver/Support person: No Household members: family Housing: apartment Communication Needs: Deaf Do you need help understanding health information?: Never current occupation: [employer] Pets and animals: No Sexually active: No Do you think of yourself as: straight/heterosexual Current gender identity: male What is your relationship status?: never How often do you talk on the phone with friends or family?: never How often do you get together with friends or relatives?: once per week How often do you attend baptist or tenriism services?: decline to answer Do you belong to any clubs or organized social groups?: no Panel score (0-1 are the most socially isolated patients): 0 Do you feel safe at home: Yes Do you feel safe in your relationship?: Yes Exam <LIAN Causey - Last Filed: 11/06/22 08:48> Const General: cooperative, comfortable and well developed Eyes Pupils: PERRL EOM: No nystagmus Neck Other: No carotid bruit Resp Effort & Inspection: normal respiratory effort Auscultation: clear to auscultation bilaterally Cardio Rate: regular rate Rhythm: regular rhythm GI Inspection: normal to inspection Auscultation: normal bowel sounds Skin General skin exam: no rashes or lesions noted Neuro General: patient alert and patient oriented x3 Cranial Nerves: CN's II-XI intact bilaterally, tongue midline and no nystagmus Cognition: normal cognition Motor: strength 5/5 throughout Coordination: [id number] test abnormal Other: Negative [id number], negative heel landaverde, negative pronator drift Extrem General: normal to inspection Course <LIAN Causey - Last Filed: 11/06/22 08:48> Vital Signs Vital signs: Vital Signs Temperature 36.6 C 11/03/22 12:15 Pulse 111 H 11/03/22 12:15 Blood Pressure 185/103 H 11/03/22 12:15 Pulse Oximetry 95 11/03/22 12:15 Temperature 36.6 C 11/03/22 12:15 Temperature Source Temporal Artery Scan 11/03/22 12:15 Pulse 111 H 11/03/22 12:15 Respiratory Effort Non-Labored 11/03/22 12:18 Blood Pressure 185/103 H 11/03/22 12:15 Blood Pressure Position Sitting 11/03/22 12:15 Pulse Oximetry 95 11/03/22 12:15 Oxygen Delivery Method Room Air 11/03/22 12:15 Oxygen Flow Rate 0 11/03/22 12:15 Pain Level 0 11/03/22 14:22 Lab/Test Results Lab/Test Results: Laboratory Tests Range/Units 11/03/22 11/03/22 11/03/22 12:30 12:30 12:30 WBC (4.4-10.8) 10^3/uL 8.05 RBC (3.93-5.22) 10^6/uL 4.46 Hgb (11.2-15.7) g/dL 14.1 Hct (36.0-46.0) % 40.8 MCV (80-95) fL 92 MCH (27.0-33.0) pg 31.6 MCHC (32.0-36.0) % 34.6 RDW (11.7-14.6) % 12.5 Plt Count (130-400) 10^3/uL 343 MPV (8.0-11.0) fL 11.0 Immature Gran % 0.7 Neutrophils % 72.3 Lymphocytes % 15.9 Monocytes % 9.4 Eosinophils % 1.0 Basophils % 0.7 Nucleated RBC % (0.0-0.3) % 0.0 Absolute Neutrophils (1.2-6.7) 10^3/uL 5.81 Absolute Lymphocytes (1.2-3.4) 10^3/uL 1.28 Absolute Monocytes (0.1-0.8) 10^3/uL 0.76 Absolute Eosinophils (0.0-0.7) 10^3/uL 0.08 Absolute Basophils (0.0-0.2) 10^3/uL 0.06 Sodium (136-145) mmol/L 141 Potassium (3.5-5.1) mmol/L 2.4 L* Chloride (98-107) mmol/L 97 L Carbon Dioxide (21.0-32.0) mmol/L 31.4 Anion Gap (3-11) mmol/L 12.6 H BUN (7-18) mg/dL 15 Creatinine (0.55-1.02) mg/dL 1.5 H Est GFR (CKD-EPI 2020) (mL/min/1.73m2) 41.41 Glucose (74-106) mg/dL 133 H Calcium (8.5-10.1) mg/dL 10.1 Magnesium (1.8-2.4) mg/dL 1.8 Total Bilirubin (0.2-1.0) mg/dL 0.5 AST (15-37) U/L 34 ALT (14-59) U/L 38 Alkaline Phosphatase (46-116) U/L 181 H Creatine Kinase (26-192) U/L 247 H Troponin I (<or=60) ng/L 237 H* Total Protein (6.4-8.2) g/dL 9.1 H Albumin (3.4-5.0) g/dL 4.6 TSH (0.36-3.74) uIU/mL 5.21 H Free T4 (0.76-1.46) ng/dL 1.29 Sign Out <LIAN Causey - Last Filed: 11/06/22 08:48> Sign Out Data: Sign Out Comment: pending cta interpretation and repeat troponin and admission for dizziness and hypokalemia Last updated by Rebecca Ahmadi PA at 11/03/22 16:03
[2022-11-03] MEDS: Omnipaque 350 MG/ML 100 ML BTL IJ (15:43)
[2022-11-03] MEDS: Normal Saline Flush 10 ML SYR IVP (15:45)
[2022-11-03] MEDS: Normal Saline - Diluent 50 ML VIAL IJ (15:45)
[2022-11-03 16:50] LABS: Bilirubin Negative (Negative); Blood Trace-intact (Negative); Clarity Sl Cloudy (Clear); Glucose Negative (Negative); Ketones Negative (Negative); Leukocyte Esterase Trace (Negative); Nitrite Negative (Negative); Specific Gravity 1.015 (1.005-1.025); Urobilinogen 0.2 EU/dL (Up TO 0.2)
[2022-11-03 16:54] LABS: Troponin I 240 ng/L (<or=60)
[2022-11-03 16:58] LABS: Bacteria Moderate HPF (Negative); C & S Indicated? Yes; Casts Negative LPF (Negative); Crystals Negative HPF (Negative); Epithelial Cells Few HPF (Negative); Mucus Negative (Negative); RBC 0-2 HPF (0-2)
--- NOTE | 2022-11-03 17:11 | DI.VRAD_ITS ---
PROCEDURE INFORMATION: Exam: CTA Head With Contrast, Arteriography Exam date and time: 11/03/2022 3:45 PM Age: 52 years old Clinical indication: Dizziness and giddiness TECHNIQUE: Imaging protocol: Computed tomographic angiography of the head with contrast. Exam focused on the arteries. 3D rendering (Not supervised by radiologist): MIP and/or 3D reconstructed images were created by the technologist. Contrast material: OMNIPAQUE 350; Contrast volume: 100 ml; Contrast route: INTRAVENOUS (IV); COMPARISON: CT BRAIN NECK CTA 09/17/2022 8:27 PM FINDINGS: ANTERIOR CIRCULATION: Right internal carotid artery: Intracranial segment is patent, however there is severe, 70-99% diameter stenosis of the artery in the right carotid siphon region. No aneurysm. Right middle cerebral artery: No occlusion or significant stenosis. No aneurysm. Right anterior cerebral artery: No occlusion or significant stenosis. No aneurysm. Left internal carotid artery: Intracranial segment is patent, however there is mild, less than 50% diameter stenosis of the artery in the left carotid siphon region. No aneurysm. Left middle cerebral artery: No occlusion or significant stenosis. No aneurysm. Left anterior cerebral artery: No occlusion or significant stenosis. No aneurysm. POSTERIOR CIRCULATION: Right vertebral artery: No occlusion or significant stenosis. No aneurysm. Left vertebral artery: No occlusion or significant stenosis. No aneurysm. Basilar artery: No occlusion or significant stenosis. No aneurysm. Right posterior cerebral artery: No occlusion or significant stenosis. No aneurysm. Left posterior cerebral artery: No occlusion or significant stenosis. No aneurysm. Brain: No definite mass, mass effect, or midline shift. Multiple chronic infarcts are noted in both basal ganglia especially the left caudate nucleus region. Small foci of leukomalacia are present in the deep white matter of both cerebral hemispheres consistent with chronic small vessel ischemic disease. Cerebral ventricles: No ventriculomegaly. Bones/joints: Unremarkable. No acute fracture. Soft tissues: Unremarkable. IMPRESSION: 1. No large vessel occlusion identified in the intracranial arteries. 2. There is severe, 70-99% diameter stenosis of the right internal carotid artery in the right carotid siphon segment. 3. There is mild, less than 50% diameter stenosis of the left internal carotid artery in the left carotid siphon segment. 4. Multiple chronic lacunar infarcts are noted in both basal ganglia especially the left caudate nucleus region. Small foci of leukomalacia are present in the deep white matter of both cerebral hemispheres, consistent with chronic small vessel ischemic disease. PROCEDURE INFORMATION: Exam: CTA Neck With Contrast Exam date and time: 11/03/2022 3:45 PM Age: 52 years old Clinical indication: Dizziness and giddiness TECHNIQUE: Imaging protocol: Computed tomographic angiography of the neck with contrast. 3D rendering (Not supervised by radiologist): MIP and/or 3D reconstructed images were created by the technologist. Contrast material: OMNIPAQUE 350; Contrast volume: 100 ml; Contrast route: INTRAVENOUS (IV); COMPARISON: CT BRAIN NECK CTA 09/17/2022 8:27 PM FINDINGS: The great vessels in the upper mediastinum and the proximal subclavian arteries bilaterally are normal. Right common carotid artery: No stenosis. No dissection or occlusion. Right internal carotid artery: No stenosis of the extracranial segment. No dissection or occlusion. Right external carotid artery: No occlusion or stenosis of the origin. Left common carotid artery: No stenosis. No dissection or occlusion. Left internal carotid artery: No stenosis of the extracranial segment. No dissection or occlusion. Left external carotid artery: No occlusion or stenosis of the origin. Right vertebral artery: No stenosis. No dissection or occlusion. Left vertebral artery: No stenosis. No dissection or occlusion. Soft tissues: Normal. No significant soft tissue swelling. Bones/joints: No acute fracture. IMPRESSION: No stenosis, dissection or occlusion of the arteries in the neck. REFERENCES: NASCET CRITERIA. The degree of stenosis in the cervical segment of the internal carotid artery is based on NASCET criteria. Normal is no stenosis. Mild is less than 50% stenosis. Moderate is 50-69% stenosis. Severe is 70% to 99% stenosis. Total occlusion is no detectable patent lumen. Dictated and Authenticated by: Wilder Ortiz MD. Ordering:MARIANGEL Fernandez MD
[2022-11-03] MEDS: Normal Saline 1,000 ML 1000 ML IV (17:28)
== END 2022-11-03 19:09 | disposition home or self-care (01) ==
PROVIDERS: Physician Assistant; Emergency Provider Physician Assistant; PCP Nurse Practitioner Family
DX: E87.6 Hypokalemia (principal); R11.2 Nausea with vomiting, unspecified; R42 Dizziness and giddiness; I25.10 Atherosclerotic heart disease of native coronary artery without angina pectoris; R77.8 Other specified abnormalities of plasma proteins; Z86.73 Personal history of transient ischemic attack (TIA), and cerebral infarction without residual deficits; Z79.02 Long term (current) use of antithrombotics/antiplatelets
CPT/HCPCS: 70496; 70498; 80053; 82550; 93005; 96361; 96365; 96366; 96375; 99285; 81003; 81015; 83735; 84439; 84443; 84484; 85025; 87086; 93010; 99284; J2765; J3480; J3490

== ENCOUNTER 2022-11-12 21:46 | Outpatient (REF) | payer MEDICAID, SELFPAY ==
[2022-11-12 22:24] LABS: ALT 30 U/L (14-59); AST 29 U/L (15-37); Albumin 4.3 g/dL (3.4-5.0); Alkaline Phosphatase 163 U/L (46-116); Anion Gap 8.6 mmol/L (3-11); BUN 18 mg/dL (7-18); Bilirubin, Total 0.4 mg/dL (0.2-1.0); CO2 31.4 mmol/L (21.0-32.0); CREATININE 1.1 mg/dL (0.55-1.02); Calcium 9.9 mg/dL (8.5-10.1); Chloride 99 mmol/L (98-107); Estimated GFR 60.08 (mL/min/1.73m2); Glucose 109 mg/dL (74-106); Potassium 3.2 mmol/L (3.5-5.1); Sodium 139 mmol/L (136-145)
== END 2022-11-12 21:47 | disposition home or self-care (01) ==
LOC: LBN 21:46
PROVIDERS: Visit Provider Nurse Practitioner Family
DX: I10 Essential (primary) hypertension (principal)
CPT/HCPCS: 80053

== ENCOUNTER 2022-11-14 13:51 | Emergency (ER) | payer MEDICAID, SELFPAY ==
[2022-11-14] VITALS (54 sets, daily range): BP systolic 81–148; BP diastolic 49–107; PULSE 59–95; RESP 10–24; TEMP 36.7; O2SAT 90–100
--- NOTE | 2022-11-14 13:45 | RT.EKG_ITS ---
APPROVED REPORT Exam: Resting ECG Reason for Exam: nausea, pain between shoulder blades. Patient Location: E HR:70 bpm ECG Measurements Heart Rate 70 AXIS RI 196 P 81 QRSd 99 QRS 83 QT 452 T 71 QTc 487 Conclusion Sinus rhythm...normal P axis, V-rate 60- 99 Narrow complex normal sinus rhythm at a rate of 70. Normal axis. Intervals within normal limits. S T segment flattening left lateral chest wall leads. Appears slightly more pronounced compared to pina or dated earlier this month. QTc has also prolonged
--- NOTE | 2022-11-14 14:30 | DI.MRI_ITS ---
Exam(s) MR ANGIO BRAIN WO EXAM: MR ANGIO BRAIN WO CLINICAL HISTORY: dizziness, hx of cva TECHNIQUE: Performed on 1.5 artemio unit [id number] sequence. No IV contrast COMPARISON: MR MR BRAIN WO from 09/18/2022 MR MR ANGIO NECK WO from 11/14/2022 MR MR BRAIN WO from 11/14/2022 FINDINGS: ANTERIOR CIRCULATION: Both internal carotid arteries are patent in the skull base and cavernous sinuses. Supraclinoid aspe cts of vessels are patent nonaneurysmal. Both A1 segments are patent as are the anterior cerebral ar teries. Is no evidence of obvious aneurysm at the level of the anterior communicating artery. Both middle cerebral arteries are patent. No significant stenosis occlusion. No aneurysms. POSTERIOR CIRCULATION: Basilar artery is formed by both vertebral arteries at the skull base and asce nds in the midline. Distally it gives off the superior cerebellar arteries. Above this level termin ates as patent bilateral posterior cerebral arteries. There is no aneurysm of the tip of the basilar artery. IMPRESSION: 1. Patent intracranial arteries. See separate brain MRI study. Called by myself to ER provider. DATA REPOSITORY:
--- NOTE | 2022-11-14 14:30 | DI.MRI_ITS ---
Exam(s) MR BRAIN WO EXAM: MR BRAIN WO CLINICAL HISTORY: dizziness, hx of cva TECHNIQUE: Multiplanar multisequence MRI of the brain was performed. COMPARISON: MR MR BRAIN WO from 09/18/2022 FINDINGS: CEREBRAL PARENCHYMA: There is no evidence of intracranial hemorrhage, mass effect, or shift of midline structures. There are no extra-axial fluid collections. Ventricles are not enlarged or shifted. There is no new significant focal signal abnormality in the cerebellar hemispheres nor within the marianne s, midbrain, and thalami. Again noted are the previously described FLAIR bright foci of white matter signal abnormality which w ere previously present on the prior study and remain unchanged. The present study there are no foci of restricted diffusion as were evident on prior August 1022. PITUITARY GLAND: No mass nor parasellar abnormality. No obvious abnormality in the cavernous sinuses. FLOW VOIDS: The expected flow void are noted. No evidence of obvious aneurysm nor obvious vascular ma lformation. PARANASAL SINUSES: The visualized paranasal sinuses appear unremarkable. No obvious finding ORBITS: No obvious findings. IMPRESSION: No significant acute intracranial findings on this noninfused MRI scan of the brain. Foci of white matter signal abnormality are unchanged from 09/18/2022. There are no focal areas of restricted diffusion in the brain on today's study (as were evident on MRI scan of September 18, 2022). DATA REPOSITORY:
--- NOTE | 2022-11-14 14:30 | DI.MRI_ITS ---
Exam(s) MR ANGIO NECK WO CLINICAL HISTORY: dizziness, hx of cva. TECHNIQUE: Multiplanar multisequence MRI of the neck was performed using [id number] sequence CONTRAST MATERIAL: IV Contrast: None COMPARISON: None. FINDINGS: Both common carotid arteries are patent. There is no significant stenosis at carotid bifurcations no r within the proximal internal carotid arteries. The internal carotid arteries in the upper neck are also nicely patent and not tortuous. Posterior circulation: Vertebral arteries are patent. Ascend in the foramen transverse area with nor mal approximately equal luminal diameters. No evidence of intraluminal thrombus nor stenosis nor dis section. At the skull base both vertebral arteries contribute to the formation of the basilar artery . IMPRESSION: Patent carotid and vertebral arteries in the neck. DATA REPOSITORY:
[2022-11-14] MEDS: Normal Saline 500 ML IV (14:44)
[2022-11-14 14:46] LABS: Abs Immature Grans 0.09 10^3/uL (0.0-0.06); Absolute Basophil Count 0.07 10^3/uL (0.0-0.2); Absolute Eosinophil Count 0.06 10^3/uL (0.0-0.7); Absolute Lymphocyte Count 1.12 10^3/uL (1.2-3.4); Absolute Monocyte Count 0.87 10^3/uL (0.1-0.8); Absolute Neutrophil Count 6.03 10^3/uL (1.2-6.7); Basophils % 0.8; Eosinophils % 0.7; HCT 38.9 % (36.0-46.0); Immature Grans % 1.1; Lymphocytes % 13.6; MCHC 33.4 % (32.0-36.0); MCV 93 fL (80-95); Monocytes % 10.6; Neutrophils % 73.2; Platelet Count 323 10^3/uL (130-400); RBC 4.19 10^6/uL (3.93-5.22); RDW 12.6 % (11.7-14.6); RDW-SD 43.2 fL; WBC 8.24 10^3/uL (4.4-10.8)
[2022-11-14] MEDS: diazePAM 10 MG/2 ML SYR 5 MG IVP (14:47)
--- NOTE | 2022-11-14 14:53 | W.ED.GENAD ---
Discharge Plan Discharge Details Chief Complaint: Nausea/Vomit/Diar Primary Care Provider: Brittany Sandoval ED Provider: Vidal Early Home Meds and New Rx's Prescriptions: No Action bupropion HCl [Wellbutrin SR] 150 mg tablet sustained-release 12 hr 150 mg PO BID Qty: 180 1RF Rx Instructions: Start with 150 mg p.o. daily, increase to 150 mg p.o. twice a day after 3 days. Stop smoking between days 5 and 7. chlorthalidone 25 mg tablet 25 mg PO DAILY Qty: 90 3RF lisinopril 10 mg tablet 10 mg PO DAILY Qty: 90 1RF triamcinolone acetonide 0.1 % lotion 1 applic topical BID 90 Days Qty: 60 2RF clopidogrel 75 mg tablet 75 mg PO DAILY Qty: 60 0RF amlodipine 10 mg tablet 10 mg PO DAILY Qty: 90 3RF Hold Instructions: Resume on 09/20/22. atorvastatin [Lipitor] 80 mg tablet 80 mg PO QHS Qty: 90 3RF levothyroxine 88 mcg tablet 88 mcg PO DAILY Qty: 90 2RF aspirin 81 mg Tablet,Delayed Release (Dr/Ec) 81 mg PO DAILY Qty: 0 0RF nicotine 14 mg/24 hr Patch 24 Hour 14 mg transdermal DAILY Qty: 14 0RF Medical Decision Making Patient presenting to the emergency department for chief complaint of headache, nausea vomiting, dizziness, and pain between her shoulder blades. She states this has been going on for the past couple days. She thought maybe it was because her new prescription of Wellbutrin but she has been on this for almost 3 weeks. Patient has significant past medical history of infrarenal aneurysm of the abdominal or aorta, VA, acute renal failure, hypercholesteremia, CVA with mild left-sided symptoms. Patient also reports 75% stenosis of the right carotid. Physical exam shows mild bilateral effusions to the ears, no findings noted on hints exam, no nystagmus, no focal weakness above reported baseline, normal cardiac and respiratory exam. Patient did have reported dizziness with Zahida-Hallpike maneuver to the left which we went into the Rani's maneuver which patient did tolerate but did not have any resolution of symptoms. Given patient's significant history and vasculopath I am concerned/differential diagnosis to includer potential CVA, worsening carotid stenosis, or aortic dissection given pain between her shoulder blades and back and her history. At this time she is stable but it is noted that she has slightly low blood pressure. We will give patient 500 mL bag of fluids and diazepam pending results. Please see physician interpretation for full interpretation of EKG but there is noted ST depressions unsure if these are any change from before but no findings to qualify patient as acute STEMI. We will continue to monitor Reviewed patient's labs and CBC is overall unremarkable and nondiagnostic, CMP shows potassium of 3.1, carbon oxide of 33.8, elevated BUN and creatinine of 19 creatinine of 2.1 with a GFR of 27. Glucose is 112, calcium of 10.3, alk phos of 177, troponin is bumped at 221 but upon review of previous records patient typically has troponin in the 200s on every visit to the ER. But will continue to monitor. Given question of aortic dissection along with low GFR discussed with radiologist for doing MRA of thorax and abdomen for further evaluation of potential dissection. HPI General Mode of arrival: ambulatory. Date/Time Provider Initiated Documentation: 11/14/22 14:10. Limitations to Documentation: no limitations. Information obtained by: patient, RN notes reviewed and old records reviewed. History of Present Illness 52 year old F presents to the emergency department with the chief complaint of Dizziness, described as moderate and similar to prior episodes, with intensity rated at 8. Quality is described as aching, and is localized to the head. Patient reports no radiation. Patient started experiencing this day(s) (2) and it has been constant. No relieving factors improve symptom(s), Patient notes denies syncope and weakness. Patient did receive the following treatments prior to arrival, none Related Data Home Medications Medication Instructions Recorded Confirmed amlodipine 10 mg tablet 10 mg PO DAILY #90 tab-caps 09/04/22 11/14/22 aspirin 81 mg tablet,delayed 81 mg PO DAILY #0 tabs 09/19/22 11/14/22 release nicotine 14 mg/24 hr daily 14 mg transdermal DAILY #14 ea 09/19/22 11/14/22 transdermal patch clopidogrel 75 mg tablet 75 mg PO DAILY #60 tabs 10/17/22 11/14/22 atorvastatin 80 mg tablet (Lipitor) 80 mg PO QHS #90 tabs 10/21/22 11/14/22 bupropion HCl 150 mg tablet,12 hr 150 mg PO BID #180 tabs 10/24/22 11/14/22 sustained-release (Wellbutrin SR) chlorthalidone 25 mg tablet 25 mg PO DAILY #90 tabs 10/24/22 11/14/22 levothyroxine 88 mcg tablet 88 mcg PO DAILY #90 tabs 11/03/22 11/14/22 lisinopril 10 mg tablet 10 mg PO DAILY #90 tabs 11/12/22 11/14/22 triamcinolone acetonide 0.1 % 1 applic topical BID 90 days #60 mL 11/12/22 11/14/22 lotion Previous Rx's Medication Instructions Recorded amlodipine 10 mg tablet 10 mg PO DAILY #90 tab-caps 09/04/22 aspirin 81 mg tablet,delayed 81 mg PO DAILY #0 tabs 09/19/22 release nicotine 14 mg/24 hr daily 14 mg transdermal DAILY #14 ea 09/19/22 transdermal patch clopidogrel 75 mg tablet 75 mg PO DAILY #60 tabs 10/17/22 atorvastatin 80 mg tablet (Lipitor) 80 mg PO QHS #90 tabs 10/21/22 bupropion HCl 150 mg tablet,12 hr 150 mg PO BID #180 tabs 10/24/22 sustained-release (Wellbutrin SR) chlorthalidone 25 mg tablet 25 mg PO DAILY #90 tabs 10/24/22 levothyroxine 88 mcg tablet 88 mcg PO DAILY #90 tabs 11/03/22 lisinopril 10 mg tablet 10 mg PO DAILY #90 tabs 11/12/22 triamcinolone acetonide 0.1 % 1 applic topical BID 90 days #60 mL 11/12/22 lotion Allergies Allergy/AdvReac Type Severity Reaction Status Date / Time codeine Allergy Intermediate CHEST Verified 11/14/22 14:39 CLOSING General Stated Complaint: Nausea/Vomit/Diar ORA: 3 Review of Systems Constitutional Constitutional: Denies body ache(s), Denies chills, Denies fever(s) and Reports headache(s) Eyes Eyes: Denies change in vision ENT Ears, Nose, Mouth, and Throat: Reports dizziness, Reports headache(s) and Reports other (Occasional popping sensation of left ear) Cardiovascular Cardiovascular: Denies chest pain, Denies syncope and Denies dyspnea Respiratory Respiratory: Denies dyspnea Gastrointestinal Gastrointestinal: Reports nausea and Reports vomiting Musculoskeletal Musculoskeletal: Reports abnormal gait, Reports back pain and Reports tingling (Left upper and lower extremity) Neurologic Neurologic: Reports as per HPI, Reports abnormal gait, Denies confusion, Reports dizziness, Denies syncope, Reports headache(s), Reports localized weakness, Denies sensory deficit and Reports tingling (Left upper and lower extremity) Psychiatric Psychiatric: Denies confusion PFSH All Active Problems Nausea & vomiting (Acute) Hypokalemia (Acute) Dizziness (Acute) Depression with anxiety (Acute) Acute stroke due to stenosis of right carotid artery (Acute) Intracranial carotid stenosis, bilateral (Acute) Elevated troponin (Acute) Eczema of both hands (Acute) Essential hypertension (Acute) Neck pain, acute (Acute) Cervical disc disorder (Acute) [facility]- 08/29/21: Large disk herniation C6-7 w/ extrusion posterior to C7 vertebral body. +spinal cord compression & central spinal canal stenosis. C4-C5 & C5-C6 DJD w/spinal canal stenosis, Multilevel neural foraminal stenosis, prominence of the central canal in the spinal cord posterior to the T1-T3 vertebral bodies. Gastritis (Acute) Nausea (Acute) Muscle spasm (Acute) Acute shoulder pain (Acute) Chronic dermatitis of hands (Acute 03/27/16) Lichen sclerosus of female genitalia (Acute) Pure hypercholesterolemia (Acute 04/02/16) Smoker (Acute) Annual physical exam (Acute) Hypothyroidism (Chronic) Compromised kidney function (Acute) UTI (urinary tract infection) (Acute) Acute kidney failure (Acute) Dehydration (Acute) Bruit of right carotid artery (Acute) Murmur, cardiac (Acute) Kidney tubular necrosis (Acute) Medical History Aneurysm of infrarenal abdominal aorta (12/08/17) Depressive disorder Family history of breast cancer (03/27/15) mother Headache (11/18/12) History of acute renal failure Hx of pyelonephritis (02/09/14) Hypercholesteremia Hyperthyroidism Hypothyroidism 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) (03/09/14) Renal failure (06/10/16) 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; + antibody, - antigen Surgical History History of appendectomy History of open reduction and internal fixation (ORIF) procedure , Ectopic X 2 Family History Mother Essential hypertension Personal history of malignant neoplasm BREAST Father Essential hypertension Personal history of malignant neoplasm PROSTATE Sister Essential hypertension Brother Essential hypertension Social History Smoking/Tobacco Use Status: Former Tobacco Use Quit status: considering quitting Second Hand Exposure: Yes Smoking risk assessment performed?: Yes Alcohol Intake: former Drug use: Never Substance use type: does not use Counseling given: No Counseling provided: none Caregiver/Support person: No Household members: family Housing: apartment Communication Needs: Deaf Do you need help understanding health information?: Never current occupation: [employer] Pets and animals: No Sexually active: No Do you think of yourself as: straight/heterosexual Current gender identity: male What is your relationship status?: never How often do you talk on the phone with friends or family?: never How often do you get together with friends or relatives?: once per week How often do you attend mandaeism or orthodoxy services?: decline to answer Do you belong to any clubs or organized social groups?: no Panel score (0-1 are the most socially isolated patients): 0 Do you feel safe at home: Yes Do you feel safe in your relationship?: Yes Exam Const General: cooperative, healthy appearing, no acute distress and well groomed Orientation: alert, awake and oriented x3 HENMT Head: normal to inspection Ears: hearing grossly normal bilaterally and TM abnormal wth effusion serous bilaterally General nose exam: external nose normal Face and sinus: normal facial exam Mouth: oral mucosae normal and moist mucous membranes Throat: posterior oropharynx normal Eyes Visual Sanchez: normal visual sanchez by confrontation Alignment and Position: alignment normal Periorbital: periorbital findings normal Eyelids: eyelids normal Sclera: sclerae normal Cornea: corneas normal Pupils: PERRL EOM: EOM intact bilaterally Neck Neck: normal visual inspection, full ROM, no lymphadenopathy and no meningeal signs Resp Effort & Inspection: normal respiratory effort and able to speak in complete sentences Auscultation: clear to auscultation bilaterally Cardio Rate: regular rate Rhythm: regular rhythm Heart Sounds: S1 normal and S2 normal Neuro General: patient alert, patient awake, patient oriented x3, gait normal, tone normal, moves all extremities, CN's II-XI intact bilaterally and not confused Cognition: normal cognition Speech: speech normal Motor: muscle tone normal throughout, no movement abnormalities noted and no fasciculations Coordination: [id number] test normal and Does not sway with eyes open Course Vital Signs Vital signs: Vital Signs Temperature 36.7 C 11/14/22 13:54 Pulse 82 11/14/22 13:54 Respiratory Rate 18 11/14/22 13:54 Blood Pressure 98/60 L 11/14/22 13:54 Pulse Oximetry 98 11/14/22 13:54 Temperature 36.7 C 11/14/22 13:54 Temperature Source Tympanic 11/14/22 13:54 Pulse 83 11/14/22 14:31 Pulse 77 11/14/22 14:31 Respiratory Rate 13 11/14/22 14:31 Respiratory Effort Normal, Non-Labored 11/14/22 14:39 Blood Pressure 91/65 L 11/14/22 14:31 Blood Pressure Mean 72 11/14/22 14:31 Blood Pressure Position Sitting 11/14/22 13:54 Pulse Oximetry 95 11/14/22 14:31 Oxygen Delivery Method Room Air 11/14/22 13:54 Oxygen Flow Rate 0 11/14/22 13:54 Pain Level 8 11/14/22 13:54 Lab/Test Results Lab/Test Results: Laboratory Tests Range/Units 11/14/22 14:07 WBC (4.4-10.8) 10^3/uL 8.24 RBC (3.93-5.22) 10^6/uL 4.19 Hgb (11.2-15.7) g/dL 13.0 Hct (36.0-46.0) % 38.9 MCV (80-95) fL 93 MCH (27.0-33.0) pg 31.0 MCHC (32.0-36.0) % 33.4 RDW (11.7-14.6) % 12.6 Plt Count (130-400) 10^3/uL 323 MPV (8.0-11.0) fL 11.0 Immature Gran % 1.1 Neutrophils % 73.2 Lymphocytes % 13.6 Monocytes % 10.6 Eosinophils % 0.7 Basophils % 0.8 Nucleated RBC % (0.0-0.3) % 0.0 Absolute Neutrophils (1.2-6.7) 10^3/uL 6.03 Absolute Lymphocytes (1.2-3.4) 10^3/uL 1.12 L Absolute Monocytes (0.1-0.8) 10^3/uL 0.87 H Absolute Eosinophils (0.0-0.7) 10^3/uL 0.06 Absolute Basophils (0.0-0.2) 10^3/uL 0.07 Sign Out Sign Out Data: Sign Out Comment: Patient signed out pending MRI/MRA brain and neck for dizziness and evaluation of CVA, patient also pending MRA of thorax and abdomen for evaluation of potential aneurysm. Patient in stable condition and in DI at time of signout. Do suspect need of admission due to significant worsening of GFR compared to baseline along with symptomology Last updated by Vidal Early NP at 11/14/22 15:43
[2022-11-14 15:16] LABS: ALT 40 U/L (14-59); AST 28 U/L (15-37); Albumin 4.6 g/dL (3.4-5.0); Alkaline Phosphatase 177 U/L (46-116); Anion Gap 9.2 mmol/L (3-11); BUN 19 mg/dL (7-18); Bilirubin, Total 0.5 mg/dL (0.2-1.0); CO2 33.8 mmol/L (21.0-32.0); CREATININE 2.1 mg/dL (0.55-1.02); Calcium 10.3 mg/dL (8.5-10.1); Chloride 98 mmol/L (98-107); Estimated GFR 27.65 (mL/min/1.73m2); Glucose 112 mg/dL (74-106); Magnesium 2.2 mg/dL (1.8-2.4); Potassium 3.1 mmol/L (3.5-5.1); Sodium 141 mmol/L (136-145); Total Protein 9.1 g/dL (6.4-8.2)
[2022-11-14 15:26] LABS: Troponin I 221 ng/L (<or=60)
--- NOTE | 2022-11-14 15:49 | DI.CT_ITS ---
Exam(s) CT THORAX ABD/PEL CTA EXAM: CT THORAX ABD/PEL CTA CLINICAL HISTORY: Evaluation for dissection, mid back pain. TECHNIQUE: Imaging Protocol: Axial CT angiography was performed with multi-slice acquisition and mu lti-planar and/or 3D reconstructions. CONTRAST MATERIAL: Intravenous: Omnipaque 350 Contrast volume:100 ml COMPARISON: CT ABD PELVIS WITH CONTRAST from 04/06/2009 CT HEAD WITHOUT CONTRAST from 11/18/[address] BRAIN NECK CTA from 11/03/2022 FINDINGS: CHEST: Pulmonary Arteries: Not well evaluated since bolus timing was performed for evaluation of the arteria l structures. No large central pulmonary emboli visible. Tracheobronchial tree: Patent where visualized. Mediastinum and Meggan: No dominant adenopathy or fluid collection. Pulmonary parenchyma: No consolidation or dominant measurable mass. No architectural distortion. Pleura: No effusion or pneumothorax. Heart: The heart is not dilated. Mild coronary artery calcifications are seen. Aorta: Mild atherosclerotic changes seen at arch. Mild dilatation of the ascending aorta to 2.9 cm. Bones: Mild degenerative changes in the spine. No compression fractures. Tubes, Catheters, and Lines: None ABDOMEN: Liver: Normal density. No measurable mass. Portal, Superior Mesenteric, and Splenic Veins: Unremarkable. Gallbladder and Biliary Tract: Gallbladder not well evaluated due to surrounding motion artifact. Ca lcified stones is packed in. No abnormal distension. No radiodense calculus or dilation. Pancreas: Normal density, no abnormal calcifications or inflammatory process. Spleen: Normal. Adrenals: No masses seen. Kidneys: Normal size, contour and axis. No radiodense stones or obstructive uropathy. No masses seen. Abdominal Aorta: Dilatation 2.8 x 2.1 cm. Marked calcification is well as irregularity in the region of the dilatation as well as mural thrombus. Findings suspicious for penetrating ulcer over a lengt h of 4 cm. Approximate 7 millimeters of depth. No evidence of active contrast extravasation. Iliac arteries: Right: Marked atherosclerotic plaque causing moderate stenosis at the origin and over all mild degree of stenosis throughout its extent.. Left: Severe atherosclerotic plaque causing mode rate to severe stenosis at the origin and [id number] stenosis throughout its extent. Celiac axis--and SMA show mild stenosis proximally. The LIANNA arises at the level of the penetrating u lcer and shows moderate stenosis. No definite distal branch vessel occlusions. Renal arteries no significant stenosis. Bowel: Thickening of the antrum of the stomach and duodenum. Abnormal bowel wall thickening also see n in multiple loops of distal ileum. Colon shows no wall thickening. Appendix is not seen. Peritoneal Cavity: No ascites, collection or mesenteric inflammatory response. Lymph Nodes: Within normal limits. Bones: Degenerative changes in the spine. Soft Tissues: Unremarkable. PELVIS: Bladder: Symmetric distention, no gross wall thickening. Reproductive Organs: Unremarkable as visualized. Lymph Nodes: Within normal limits. Bones: Hardware in left ischium. Degenerative changes of the hips. IMPRESSION: 1. No acute abnormality in the chest. 2. Severe atherosclerotic changes aorta and iliac arteries. Findings suspicious for penetrating ulce r of the distal abdominal aorta. 3. Wall thickening and mild dilatation involving stomach, duodenum and distal ileum suspicious for en teritis, the ischemic versus inflammatory. RADIATION DOSE DELIVERED: 296.17 mGy.cm Total DLP DATA REPOSITORY: All CT scans at this facility are submitted to the National Radiology Data Registry (NRDR) Dose Index Registry (DIR) with the [employer] (ACR). RADIATION OPTIMIZATION: All CT scans at this facility use at least one of these dose optimization te chniques: automated exposure control; mA and/or kV adjustment per patient size (includes targeted exa ms where dose is matched to clinical indication); or iterative reconstruction.
[2022-11-14 18:07] LABS: Lactate 0.8 mmol/L (0.6-1.4)
[2022-11-14] MEDS: Potassium Chloride 20 MEQ TABCR 40 MEQ PO (18:10)
[2022-11-14 18:47] LABS: COVID-19 PCR Negative (Negative); Influenza A PCR Negative (Negative); Influenza B PCR Negative (Negative); RSV PCR Negative (Negative)
[2022-11-14 18:49] LABS: Source Nasopharynx
[2022-11-14] MEDS: Normal Saline 1,000 ML 1000 ML IV (19:15)
--- NOTE | 2022-11-14 19:20 | NUR.NOTE ---
report from KATIE Borden. Pt now returning from radiology, placed back on monitor, IV fluids infusing
[2022-11-14] MEDS: Omnipaque 350 MG/ML 100 ML BTL IJ (19:40)
[2022-11-14] MEDS: Normal Saline - Diluent 50 ML VIAL IJ (19:41)
[2022-11-14 20:43] LABS: Bilirubin Negative (Negative); Blood Trace-intact (Negative); Clarity Clear (Clear); Glucose Negative (Negative); Ketones Negative (Negative); Leukocyte Esterase Trace (Negative); Nitrite Negative (Negative); Specific Gravity 1.015 (1.005-1.025); Urobilinogen 0.2 EU/dL (Up TO 0.2)
[2022-11-14 21:00] LABS: Bacteria Rare HPF (Negative); C & S Indicated? Yes; Casts Negative LPF (Negative); Crystals Negative HPF (Negative); Epithelial Cells Rare HPF (Negative); Mucus Negative (Negative); RBC 0-2 HPF (0-2)
[2022-11-14 21:44] LABS: Troponin I 215 ng/L (<or=60)
--- NOTE | 2022-11-14 21:46 | DI.VRAD_ITS ---
PROCEDURE INFORMATION: Exam: CTA Chest With Contrast CTA Abdomen and Pelvis With Contrast Exam date and time: 11/14/2022 5:25 PM Age: 52 years old Clinical indication: Other: Evaluation for dissection, mid back pain; Abdominal pain TECHNIQUE: Imaging protocol: Computed tomographic angiography of the chest with contrast. Computed tomographic angiography of the abdomen and pelvis with contrast. 3D rendering (Not supervised by radiologist): MIP and/or 3D reconstructed images were created by the technologist. Contrast material: OMNIPAQUE 350; Contrast volume: 60 ml; Contrast route: INTRAVENOUS (IV); COMPARISON: MR ANGIO NECK WO 11/14/2022 4:17 PM FINDINGS: Limitations: This examination is not diagnostic for pulmonary embolus due to suboptimal contrast opacification of the pulmonary arteries. VASCULATURE: Pulmonary arteries: Limited evaluation due to suboptimal contrast opacification. Aorta: There is adequate contrast opacification of the aorta. There is no evidence of thoracic aortic aneurysm or dissection.There is mild scattered atherosclerotic calcification throughout the thoracic aorta. In the mid and distal infrarenal abdominal aorta, however, there is a penetrating ulcer along the left posterolateral aortic wall. At this level, the aorta measures 2.8 x 2.1 cm in transaxial diameters. The penetrating ulcer shows a maximum depth of 7 mm, extends along the anterior, left lateral and posterior circumference of the aorta and shows a craniocaudal extent of 4 cm. There is both contrast and thrombus in the aortic wall. No evidence of free para-aortic fluid or contrast are extravasation. Celiac trunk and mesenteric arteries: The celiac trunk and SMA show mild proximal stenosis. The LIANNA arises from the aorta at the penetrating ulcer and shows moderate stenosis at its origin. Renal arteries: Mild atherosclerotic plaques noted in the right and left main renal arteries without a hemodynamically significant stenosis. Right iliac arteries: There is diffuse atherosclerotic plaque throughout the right common iliac artery with mild stenosis. There is moderate stenosis at the origin of the right internal iliac artery. The right external iliac artery is widely patent. There is a mild stenosis at the origin the right common femoral artery. Left iliac arteries: Diffuse atherosclerotic plaques throughout the left common iliac artery with mild to moderate stenosis. There is moderate to severe stenosis at the origin of the left internal iliac artery. The left external iliac shows a mild stenosis at its origin and distal segment. CHEST: Lungs: There are mild bibasilar atelectatic changes. No consolidation. No masses. Pleural spaces: Unremarkable. No pneumothorax. No pleural effusion. Heart: Unremarkable. No cardiomegaly. No pericardial effusion. ABDOMEN AND PELVIS: Liver: No mass. Gallbladder and bile ducts: Unremarkable. No calcified stones. No ductal dilation. Pancreas: No mass. No ductal dilation. Spleen: Unremarkable. No splenomegaly. Adrenal glands: Unremarkable. No mass. Kidneys and ureters: There is no hydronephrosis. No renal or obstructive ureteral calculi are identified. Stomach and bowel: There is severe wall thickening and mucosal enhancement throughout the stomach consistent with gastritis. There is wall thickening of the duodenum and multiple small bowel loops consistent with enteritis. Appendix: The appendix is not identified. Intraperitoneal space: Unremarkable. No free air. No significant fluid collection. Urinary bladder: Unremarkable. No mass. Reproductive: Unremarkable as visualized. Lymph nodes: Unremarkable. No enlarged lymph nodes. Bones/joints: No acute fracture. There are degenerative changes of both hips, worse on the left. There is orthopedic instrumentation of the right iliac bone posterior to the acetabulum for treatment of an old healed fracture. There is fusion of the left sacroiliac joint. Multilevel facet arthrosis of the lumbar spine is noted. Soft tissues: Unremarkable. IMPRESSION: 1. Findings consistent with gastroenteritis. 2. Large penetrating ulcer in the mid and distal infrarenal abdominal aorta as described above. No evidence of active extravasation, but consider vascular surgery evaluation if clinically indicated. 3. Additional non emergent findings as above. THIS REPORT CONTAINS FINDINGS THAT MAY BE CRITICAL TO PATIENT CARE. The findings were verbally communicated via telephone conference with LIAN Bernard at 9:40 PM EST on 11/14/2022. The findings were acknowledged and understood. Dictated and Authenticated by: Beka Mccormick MD. Ordering:CAREY Drake MD
[2022-11-14 21:59] LABS: Anion Gap 10.6 mmol/L (3-11); BUN 20 mg/dL (7-18); CO2 26.4 mmol/L (21.0-32.0); CREATININE 1.6 mg/dL (0.55-1.02); Calcium 8.6 mg/dL (8.5-10.1); Chloride 103 mmol/L (98-107); Estimated GFR 38.33 (mL/min/1.73m2); Glucose 78 mg/dL (74-106); Sodium 140 mmol/L (136-145)
--- NOTE | 2022-11-14 22:35 | W.ED.GENAD ---
Discharge Plan Disposition Patient Disposition: Home Discharge Details Clinical Impression: Acute kidney failure, Elevated troponin, Nausea & vomiting, Acute hypokalemia Primary Care Provider: Brittany Sandoval ED Provider: Rebecca Ahmadi Home Meds and New Rx's Prescriptions: New prochlorperazine maleate [Compazine] 10 mg tablet 10 mg PO Q6H PRNQty: 10 0RF potassium chloride 20 mEq tablet,ER particles/crystals 20 meq PO DAILY Qty: 10 0RF Continued bupropion HCl [Wellbutrin SR] 150 mg tablet sustained-release 12 hr 150 mg PO BID Qty: 180 1RF Rx Instructions: Start with 150 mg p.o. daily, increase to 150 mg p.o. twice a day after 3 days. Stop smoking between days 5 and 7. chlorthalidone 25 mg tablet 25 mg PO DAILY Qty: 90 3RF lisinopril 10 mg tablet 10 mg PO DAILY Qty: 90 1RF triamcinolone acetonide 0.1 % lotion 1 applic topical BID 90 Days Qty: 60 2RF clopidogrel 75 mg tablet 75 mg PO DAILY Qty: 60 0RF amlodipine 10 mg tablet 10 mg PO DAILY Qty: 90 3RF Hold Instructions: Resume on 09/20/22. atorvastatin [Lipitor] 80 mg tablet 80 mg PO QHS Qty: 90 3RF levothyroxine 88 mcg tablet 88 mcg PO DAILY Qty: 90 2RF aspirin 81 mg Tablet,Delayed Release (Dr/Ec) 81 mg PO DAILY Qty: 0 0RF nicotine 14 mg/24 hr Patch 24 Hour 14 mg transdermal DAILY Qty: 14 0RF Discharge Instructions Instructions: Hypokalemia (ED), Acute Nausea and Vomiting (ED) Additional Instructions: Take Compazine as needed for nausea and vomiting Start taking your potassium tomorrow You should be drinking at least eight 8 ounce glasses of water daily You need to have your creatinine rechecked with your doctor Ask your doctor for referral to [facility] regarding your aorta, you have an ulcer that was diagnosed several years ago and has not changed acutely I recommend reassessment with your doctor tomorrow Return earlier should you have any worsening complaints Referrals: Brittany Sandoval NP [Primary Care Provider] - 1 day Discharge Data Discharge Date/Time-TO BE ENTERED AT DEPARTURE: 11/14/22 23:06 HPI General Mode of arrival: ambulatory. Date/Time Provider Initiated Documentation: 11/14/22 14:10. Limitations to Documentation: no limitations. Information obtained by: patient, RN notes reviewed and old records reviewed. History of Present Illness with intensity rated at 8. Quality is described as aching, and is localized to the head. No relieving factors improve symptom(s), Patient notes denies syncope and weakness. Patient did receive the following treatments prior to arrival, none HPI Narrative: This 52-year-old female with complex medical history including that of stroke and new and ulcerating lesion in her abdominal aorta presents with report of upper back pain which started after vomiting which is now resolved, nausea and vomiting for the past 2 days. Denies any blood in vomitus. Denies any shortness of breath. States she was started on Wellbutrin approximately a month ago and is wondering if this is contributing to her symptoms Related Data Home Medications Medication Instructions Recorded Confirmed amlodipine 10 mg tablet 10 mg PO DAILY #90 tab-caps 09/04/22 11/14/22 aspirin 81 mg tablet,delayed 81 mg PO DAILY #0 tabs 09/19/22 11/14/22 release nicotine 14 mg/24 hr daily 14 mg transdermal DAILY #14 ea 09/19/22 11/14/22 transdermal patch clopidogrel 75 mg tablet 75 mg PO DAILY #60 tabs 10/17/22 11/14/22 atorvastatin 80 mg tablet (Lipitor) 80 mg PO QHS #90 tabs 10/21/22 11/14/22 bupropion HCl 150 mg tablet,12 hr 150 mg PO BID #180 tabs 10/24/22 11/14/22 sustained-release (Wellbutrin SR) chlorthalidone 25 mg tablet 25 mg PO DAILY #90 tabs 10/24/22 11/14/22 levothyroxine 88 mcg tablet 88 mcg PO DAILY #90 tabs 11/03/22 11/14/22 lisinopril 10 mg tablet 10 mg PO DAILY #90 tabs 11/12/22 11/14/22 triamcinolone acetonide 0.1 % 1 applic topical BID 90 days #60 mL 11/12/22 11/14/22 lotion potassium chloride 20 mEq 20 meq PO DAILY #10 tabs 11/14/22 tablet,extended release(part/cryst) prochlorperazine maleate 10 mg 10 mg PO Q6H PRN #10 tabs 11/14/22 tablet (Compazine) Previous Rx's Medication Instructions Recorded amlodipine 10 mg tablet 10 mg PO DAILY #90 tab-caps 09/04/22 aspirin 81 mg tablet,delayed 81 mg PO DAILY #0 tabs 09/19/22 release nicotine 14 mg/24 hr daily 14 mg transdermal DAILY #14 ea 09/19/22 transdermal patch clopidogrel 75 mg tablet 75 mg PO DAILY #60 tabs 10/17/22 atorvastatin 80 mg tablet (Lipitor) 80 mg PO QHS #90 tabs 10/21/22 bupropion HCl 150 mg tablet,12 hr 150 mg PO BID #180 tabs 10/24/22 sustained-release (Wellbutrin SR) chlorthalidone 25 mg tablet 25 mg PO DAILY #90 tabs 10/24/22 levothyroxine 88 mcg tablet 88 mcg PO DAILY #90 tabs 11/03/22 lisinopril 10 mg tablet 10 mg PO DAILY #90 tabs 11/12/22 triamcinolone acetonide 0.1 % 1 applic topical BID 90 days #60 mL 11/12/22 lotion potassium chloride 20 mEq 20 meq PO DAILY #10 tabs 11/14/22 tablet,extended release(part/cryst) prochlorperazine maleate 10 mg 10 mg PO Q6H PRN #10 tabs 11/14/22 tablet (Compazine) Allergies Allergy/AdvReac Type Severity Reaction Status Date / Time codeine Allergy Intermediate CHEST Verified 11/15/22 13:20 CLOSING General Stated Complaint: Nausea/Vomit/Diar ORA: 3 PFSH All Active Problems (Updated 11/14/22 @ 22:40 by LIAN Causey) Nausea & vomiting (Acute) Acute hypokalemia (Acute) Nausea & vomiting (Acute) Hypokalemia (Acute) Dizziness (Acute) Depression with anxiety (Acute) Acute stroke due to stenosis of right carotid artery (Acute) Intracranial carotid stenosis, bilateral (Acute) Elevated troponin (Acute) Eczema of both hands (Acute) Essential hypertension (Acute) Neck pain, acute (Acute) Cervical disc disorder (Acute) [facility] MRI- 08/29/21: Large disk herniation C6-7 w/ extrusion posterior to C7 vertebral body. +spinal cord compression & central spinal canal stenosis. C4-C5 & C5-C6 DJD w/spinal canal stenosis, Multilevel neural foraminal stenosis, prominence of the central canal in the spinal cord posterior to the T1-T3 vertebral bodies. Gastritis (Acute) Nausea (Acute) Muscle spasm (Acute) Acute shoulder pain (Acute) Chronic dermatitis of hands (Acute 03/27/16) Lichen sclerosus of female genitalia (Acute) Pure hypercholesterolemia (Acute 04/02/16) Smoker (Acute) Annual physical exam (Acute) Hypothyroidism (Chronic) Compromised kidney function (Acute) UTI (urinary tract infection) (Acute) Acute kidney failure (Acute) Dehydration (Acute) Bruit of right carotid artery (Acute) Murmur, cardiac (Acute) Kidney tubular necrosis (Acute) Medical History Aneurysm of infrarenal abdominal aorta (12/08/17) Depressive disorder Family history of breast cancer (03/27/15) mother Headache (11/18/12) History of acute renal failure Hx of pyelonephritis (02/09/14) Hypercholesteremia Hyperthyroidism Hypothyroidism 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) (03/09/14) Renal failure (06/10/16) 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; + antibody, - antigen Surgical History History of appendectomy History of open reduction and internal fixation (ORIF) procedure , Ectopic X 2 Family History Mother Essential hypertension Personal history of malignant neoplasm BREAST Father Essential hypertension Personal history of malignant neoplasm PROSTATE Sister Essential hypertension Brother Essential hypertension Social History Smoking/Tobacco Use Status: Former Tobacco Use Quit status: considering quitting Second Hand Exposure: Yes Smoking risk assessment performed?: Yes Alcohol Intake: former Drug use: Never Substance use type: does not use Counseling given: No Counseling provided: none Caregiver/Support person: No Household members: family Housing: apartment Communication Needs: Deaf Do you need help understanding health information?: Never current occupation: [employer] Pets and animals: No Sexually active: No Do you think of yourself as: straight/heterosexual Current gender identity: male What is your relationship status?: never How often do you talk on the phone with friends or family?: never How often do you get together with friends or relatives?: once per week How often do you attend moravian or confucianist services?: decline to answer Do you belong to any clubs or organized social groups?: no Panel score (0-1 are the most socially isolated patients): 0 Do you feel safe at home: Yes Do you feel safe in your relationship?: Yes Course Vital Signs Vital signs: Vital Signs Temperature 36.7 C 11/14/22 13:54 Pulse 82 11/14/22 13:54 Respiratory Rate 18 11/14/22 13:54 Blood Pressure 98/60 L 11/14/22 13:54 Pulse Oximetry 98 11/14/22 13:54 Temperature 36.7 C 11/14/22 13:54 Temperature Source Tympanic 11/14/22 13:54 Pulse 79 11/14/22 22:01 Pulse 75 11/14/22 22:10 Respiratory Rate 19 11/14/22 22:10 Respiratory Effort Normal, Non-Labored 11/14/22 14:39 Blood Pressure 148/107 H 11/14/22 22:01 Blood Pressure Mean 114 11/14/22 22:01 Blood Pressure Position Sitting 11/14/22 13:54 Pulse Oximetry 96 11/14/22 22:10 Oxygen Delivery Method Room Air 11/14/22 18:32 Oxygen Flow Rate 0 11/14/22 18:32 Pain Level 8 11/14/22 13:54 Lab/Test Results Lab/Test Results: 11/14/22 20:27 Urine - Reflex from Ua Urine Culture - Pending Laboratory Tests Range/Units 11/14/22 11/14/22 11/14/22 14:07 14:07 18:03 WBC (4.4-10.8) 10^3/uL 8.24 RBC (3.93-5.22) 10^6/uL 4.19 Hgb (11.2-15.7) g/dL 13.0 Hct (36.0-46.0) % 38.9 MCV (80-95) fL 93 MCH (27.0-33.0) pg 31.0 MCHC (32.0-36.0) % 33.4 RDW (11.7-14.6) % 12.6 Plt Count (130-400) 10^3/uL 323 MPV (8.0-11.0) fL 11.0 Immature Gran % 1.1 Neutrophils % 73.2 Lymphocytes % 13.6 Monocytes % 10.6 Eosinophils % 0.7 Basophils % 0.8 Nucleated RBC % (0.0-0.3) % 0.0 Absolute Neutrophils (1.2-6.7) 10^3/uL 6.03 Absolute Lymphocytes (1.2-3.4) 10^3/uL 1.12 L Absolute Monocytes (0.1-0.8) 10^3/uL 0.87 H Absolute Eosinophils (0.0-0.7) 10^3/uL 0.06 Absolute Basophils (0.0-0.2) 10^3/uL 0.07 VBG Lactate (0.6-1.4) mmol/L Sodium (136-145) mmol/L 141 Potassium (3.5-5.1) mmol/L 3.1 L Chloride (98-107) mmol/L 98 Carbon Dioxide (21.0-32.0) mmol/L 33.8 H Anion Gap (3-11) mmol/L 9.2 BUN (7-18) mg/dL 19 H Creatinine (0.55-1.02) mg/dL 2.1 H D Est GFR (CKD-EPI 2020) (mL/min/1.73m2) 27.65 Glucose (74-106) mg/dL 112 H Calcium (8.5-10.1) mg/dL 10.3 H Magnesium (1.8-2.4) mg/dL 2.2 Total Bilirubin (0.2-1.0) mg/dL 0.5 AST (15-37) U/L 28 ALT (14-59) U/L 40 Alkaline Phosphatase (46-116) U/L 177 H Troponin I (<or=60) ng/L 221 H* Total Protein (6.4-8.2) g/dL 9.1 H Albumin (3.4-5.0) g/dL 4.6 Urine Color (Yellow) Urine Clarity (Clear) Urine pH (5-8) Ur Specific [place] (1.005-1.025) Urine Protein (Negative) mg/dL Urine Ketones (Negative) mg/dL Urine Blood (Negative) Urine Nitrite (Negative) Urine Bilirubin (Negative) Urine Urobilinogen (Up TO 0.2) EU/dL Ur Leukocyte Esterase (Negative) Urine RBC (0-2) HPF Urine WBC (0-5) HPF Ur Epithelial Cells (Negative) HPF Urine Crystals (Negative) HPF Urine Bacteria (Negative) HPF Urine Casts (Negative) LPF Urine Mucus (Negative) Ur Culture Indicated? Urine Glucose (Negative) mg/dL COVID-19 Source Nasopharynx SARS-CoV-2 (PCR) (Negative) Negative Influenza Type A (PCR) (Negative) Negative Influenza Type B (PCR) (Negative) Negative RSV (PCR) (Negative) Negative Range/Units 11/14/22 11/14/22 11/14/22 18:03 20:27 21:13 WBC (4.4-10.8) 10^3/uL RBC (3.93-5.22) 10^6/uL Hgb (11.2-15.7) g/dL Hct (36.0-46.0) % MCV (80-95) fL MCH (27.0-33.0) pg MCHC (32.0-36.0) % RDW (11.7-14.6) % Plt Count (130-400) 10^3/uL MPV (8.0-11.0) fL Immature Gran % Neutrophils % Lymphocytes % Monocytes % Eosinophils % Basophils % Nucleated RBC % (0.0-0.3) % Absolute Neutrophils (1.2-6.7) 10^3/uL Absolute Lymphocytes (1.2-3.4) 10^3/uL Absolute Monocytes (0.1-0.8) 10^3/uL Absolute Eosinophils (0.0-0.7) 10^3/uL Absolute Basophils (0.0-0.2) 10^3/uL VBG Lactate (0.6-1.4) mmol/L 0.8 Sodium (136-145) mmol/L Potassium (3.5-5.1) mmol/L Chloride (98-107) mmol/L Carbon Dioxide (21.0-32.0) mmol/L Anion Gap (3-11) mmol/L BUN (7-18) mg/dL Creatinine (0.55-1.02) mg/dL Est GFR (CKD-EPI 2020) (mL/min/1.73m2) Glucose (74-106) mg/dL Calcium (8.5-10.1) mg/dL Magnesium (1.8-2.4) mg/dL Total Bilirubin (0.2-1.0) mg/dL AST (15-37) U/L ALT (14-59) U/L Alkaline Phosphatase (46-116) U/L Troponin I (<or=60) ng/L 215 H* Total Protein (6.4-8.2) g/dL Albumin (3.4-5.0) g/dL Urine Color (Yellow) Yellow Urine Clarity (Clear) Clear Urine pH (5-8) 6.0 Ur Specific [place] (1.005-1.025) 1.015 Urine Protein (Negative) mg/dL Negative Urine Ketones (Negative) mg/dL Negative Urine Blood (Negative) Trace-intact H Urine Nitrite (Negative) Negative Urine Bilirubin (Negative) Negative Urine Urobilinogen (Up TO 0.2) EU/dL 0.2 Ur Leukocyte Esterase (Negative) Trace H Urine RBC (0-2) HPF 0-2 Urine WBC (0-5) HPF 3-5 Ur Epithelial Cells (Negative) HPF Rare Urine Crystals (Negative) HPF Negative Urine Bacteria (Negative) HPF Rare Urine Casts (Negative) LPF Negative Urine Mucus (Negative) Negative Ur Culture Indicated? Yes Urine Glucose (Negative) mg/dL Negative COVID-19 Source SARS-CoV-2 (PCR) (Negative) Influenza Type A (PCR) (Negative) Influenza Type B (PCR) (Negative) RSV (PCR) (Negative) Range/Units 11/14/22 21:13 WBC (4.4-10.8) 10^3/uL RBC (3.93-5.22) 10^6/uL Hgb (11.2-15.7) g/dL Hct (36.0-46.0) % MCV (80-95) fL MCH (27.0-33.0) pg MCHC (32.0-36.0) % RDW (11.7-14.6) % Plt Count (130-400) 10^3/uL MPV (8.0-11.0) fL Immature Gran % Neutrophils % Lymphocytes % Monocytes % Eosinophils % Basophils % Nucleated RBC % (0.0-0.3) % Absolute Neutrophils (1.2-6.7) 10^3/uL Absolute Lymphocytes (1.2-3.4) 10^3/uL Absolute Monocytes (0.1-0.8) 10^3/uL Absolute Eosinophils (0.0-0.7) 10^3/uL Absolute Basophils (0.0-0.2) 10^3/uL VBG Lactate (0.6-1.4) mmol/L Sodium (136-145) mmol/L 140 Potassium (3.5-5.1) mmol/L 3.0 L Chloride (98-107) mmol/L 103 Carbon Dioxide (21.0-32.0) mmol/L 26.4 Anion Gap (3-11) mmol/L 10.6 BUN (7-18) mg/dL 20 H Creatinine (0.55-1.02) mg/dL 1.6 H Est GFR (CKD-EPI 2020) (mL/min/1.73m2) 38.33 Glucose (74-106) mg/dL 78 Calcium (8.5-10.1) mg/dL 8.6 Magnesium (1.8-2.4) mg/dL Total Bilirubin (0.2-1.0) mg/dL AST (15-37) U/L ALT (14-59) U/L Alkaline Phosphatase (46-116) U/L Troponin I (<or=60) ng/L Total Protein (6.4-8.2) g/dL Albumin (3.4-5.0) g/dL Urine Color (Yellow) Urine Clarity (Clear) Urine pH (5-8) Ur Specific [place] (1.005-1.025) Urine Protein (Negative) mg/dL Urine Ketones (Negative) mg/dL Urine Blood (Negative) Urine Nitrite (Negative) Urine Bilirubin (Negative) Urine Urobilinogen (Up TO 0.2) EU/dL Ur Leukocyte Esterase (Negative) Urine RBC (0-2) HPF Urine WBC (0-5) HPF Ur Epithelial Cells (Negative) HPF Urine Crystals (Negative) HPF Urine Bacteria (Negative) HPF Urine Casts (Negative) LPF Urine Mucus (Negative) Ur Culture Indicated? Urine Glucose (Negative) mg/dL COVID-19 Source SARS-CoV-2 (PCR) (Negative) Influenza Type A (PCR) (Negative) Influenza Type B (PCR) (Negative) RSV (PCR) (Negative) Sign Out Sign Out Data: Sign Out Comment: Patient signed out pending MRI/MRA brain and neck for dizziness and evaluation of CVA, patient also pending MRA of thorax and abdomen for evaluation of potential aneurysm. Patient in stable condition and in DI at time of signout. Do suspect need of admission due to significant worsening of GFR compared to baseline along with symptomology Last updated by Vidal Early NP at 11/14/22 15:43
== END 2022-11-14 23:06 | disposition home or self-care (01) ==
PROVIDERS: Nurse Practitioner Family; Emergency Provider Physician Assistant; PCP Nurse Practitioner Family
DX: N17.9 Acute kidney failure, unspecified (principal); R77.8 Other specified abnormalities of plasma proteins; E78.00 Pure hypercholesterolemia, unspecified; I10 Essential (primary) hypertension; E87.6 Hypokalemia; H93.8X3 Other specified disorders of ear, bilateral; Z86.73 Personal history of transient ischemic attack (TIA), and cerebral infarction without residual deficits; Z79.82 Long term (current) use of aspirin; Z79.01 Long term (current) use of anticoagulants; Z20.822 Contact with and (suspected) exposure to COVID-19
CPT/HCPCS: 36415; 70544; 70547; 71275; 80048; 80053; 87637; 93005; 96361; 96374; 99285; 70551; 74174; 81003; 81015; 83605; 83735; 84484; 85025; 87086; 93010; 99284; J3360; J3490

== ENCOUNTER 2022-11-19 12:45 | Outpatient (REF) | payer MEDICAID, SELFPAY ==
[2022-11-18 19:15] LABS: Anion Gap 7.4 mmol/L (3-11); BUN 15 mg/dL (7-18); CO2 31.6 mmol/L (21.0-32.0); Calcium 9.4 mg/dL (8.5-10.1); Chloride 107 mmol/L (98-107); Estimated GFR 67.36 (mL/min/1.73m2); Glucose 97 mg/dL (74-106); Potassium 3.6 mmol/L (3.5-5.1); Sodium 146 mmol/L (136-145)
== END 2022-11-19 12:46 | disposition home or self-care (01) ==
LOC: LBN 12:45
PROVIDERS: PCP Nurse Practitioner Family; Visit Provider Nurse Practitioner Family
DX: E87.6 Hypokalemia (principal)
CPT/HCPCS: 80048

== ENCOUNTER 2023-03-05 02:19 | Outpatient (CLI) | payer MEDICAID, SELFPAY ==
--- NOTE | 2023-03-05 08:00 | DI.MRI_ITS ---
Exam(s) MR BRAIN WO EXAM: MR BRAIN WO CLINICAL HISTORY: Prior stroke with severe intracranial artery disease, acute stroke stenosis TECHNIQUE: Multiplanar multisequence MRI of the brain was performed. COMPARISON: MR MR BRAIN WO from 09/18/2022 MR MR BRAIN WO from 11/14/2022 FINDINGS: VENTRICLES AND EXTRA AXIAL SPACES: Normal in size and morphology for the patient's age. MIDLINE SHIFT: None. CEREBRAL PARENCHYMA: No focus of restricted diffusion to suggest acute infarct. No space-occupying le stacie identified. There are several areas of hyperintense signal seen in the white matter on the FLAIR and T2 weighted images consistent with small vessel ischemic disease. Sign old lacunar infarct in t he left basal ganglia. HEMORRHAGE: None. BRAINSTEM/CEREBELLUM: Normal. CALVARIUM: Normal. VISUALIZED PARANASAL SINUSES/MASTOIDS:Clear. [place]: Normal flow void. PIT[place]ARY GLAND: Unremarkable. OTHER FINDINGS: None. IMPRESSION: 1. No evidence of an acute infarct. 2. Small vessel ischemic disease and old left basal gangliar lacunar infarct. DATA REPOSITORY:
== END 2023-03-05 02:39 ==
LOC: DI 02:20
PROVIDERS: PCP Nurse Practitioner Family; Visit Provider Psychiatry & Neurology Neurology
DX: I63.81 Other cerebral infarction due to occlusion or stenosis of small artery
CPT/HCPCS: 70551

== ENCOUNTER 2023-03-05 02:21 | Outpatient (CLI) | payer MEDICAID, SELFPAY ==
--- NOTE | 2023-03-05 08:00 | DI.RAD_ITS ---
Exam(s) XR HAND RT COMPLETE XR WRIST RT COMPLETE EXAM: XR HAND RT COMPLETE and XR wrist RT complete CLINICAL HISTORY: pain rt wrist, M25.531. TECHNIQUE: 2D digital imaging was performed of the right hand. Six images were obtained. AP, latera l and oblique views were obtained. COMPARISON: No previous for comparison. FINDINGS: BONES: No acute fracture is present. No bony destructive lesion is seen. JOINTS: No dislocation present. There are mild degenerative changes in the hand and wrist characteriz ed by joint space narrowing and periarticular spurring. The findings are most marked at the 1st CMC joint and the interphalangeal joints of the fingers. No erosions are seen. SOFT TISSUE: Normal. IMPRESSION: Mild degenerative changes of the hand and wrist. DATA REPOSITORY: RADIATION DOSE DELIVERED:
== END 2023-03-05 02:41 ==
LOC: DI 02:21
PROVIDERS: PCP Nurse Practitioner Family; Visit Provider Nurse Practitioner Family
DX: M19.031 Primary osteoarthritis, right wrist; M19.041 Primary osteoarthritis, right hand
CPT/HCPCS: 73110; 73130

== ENCOUNTER 2023-03-25 02:03 | Outpatient (CLI) | payer MEDICAID, SELFPAY ==
[2023-03-25 16:44] LABS: Hemoglobin A1C 5.5 % (<5.7)
[2023-03-25 17:34] LABS: Anion Gap 7.3 mmol/L (3-11); BUN 15 mg/dL (7-18); CO2 30.7 mmol/L (21.0-32.0); Calculated LDL 122 mg/dL (<100); Chloride 105 mmol/L (98-107); Cholesterol 209 mg/dL (<200); Estimated GFR 66.95 (mL/min/1.73m2); Glucose 94 mg/dL (74-106); HDL Cholesterol 66 mg/dL (40-60); Potassium 4.1 mmol/L (3.5-5.1); Sodium 143 mmol/L (136-145); Triglyceride 109 mg/dL (<150)
[2023-03-28 09:13] LABS: Lipoprotein (a) <7 nmol/L (<75)
== END 2023-03-25 02:04 | disposition home or self-care (01) ==
LOC: LBO 02:03
PROVIDERS: PCP Nurse Practitioner Family; Visit Provider Internal Medicine Cardiovascular Disease
DX: I71.02 Dissection of abdominal aorta (principal); I10 Essential (primary) hypertension
CPT/HCPCS: 36415; 80048; 80061; 83695; 83036

== ENCOUNTER 2023-10-28 02:35 | Outpatient (CLI) | payer MEDICAID, SELFPAY ==
[2023-10-28 13:00] LABS: TSH (W/Ref FT4) 7.82 uIU/mL (0.36-3.74)
[2023-10-28 13:17] LABS: FREE T4 0.83 ng/dL (0.76-1.46)
== END 2023-10-28 02:36 | disposition home or self-care (01) ==
LOC: LBO 02:35
PROVIDERS: PCP Nurse Practitioner Family; Visit Provider Nurse Practitioner Family
DX: E03.9 Hypothyroidism, unspecified (principal)
CPT/HCPCS: 36415; 84439; 84443

== ENCOUNTER 2025-05-10 01:36 | Observation (INO) | payer SELFPAY ==
[2025-05-10] VITALS (227 sets, daily range): BP systolic 134–239; BP diastolic 80–111; PULSE 57–89; RESP 9–26; TEMP 35.7–37.1; O2SAT 92–99
--- NOTE | 2025-05-10 01:15 | RT.EKG_ITS ---
APPROVED REPORT Exam: Resting ECG Reason for Exam: SOB Patient Location: E HR:74 bpm ECG Measurements Heart Rate 74 AXIS NJ 256 P 55 QRSd 100 QRS 75 QT 429 T 15 QTc 476 Conclusion Sinus rhythm...normal P axis, V-rate 60- 99 Prolonged NJ interval...NJ >210, V-rate 50- [address]-T changes There are no significant changes compared to prior EKG performed on 11/14/2022 at 14:04.
--- NOTE | 2025-05-10 01:27 | W.ED.GENAD ---
Discharge Plan Disposition Patient Disposition: Admit to [facility] Condition: Improving Discharge Details Clinical Impression: Hypertensive emergency, LFT elevation Primary Care Provider: Brittany Sandoval ED Provider: Antonio Herrera Medissac and New Rx's Prescriptions: No Action clobetasol 0.05 % ointment 1 applic topical BID 14 Days Qty: 60 1RF Rx Instructions: Use BID for 1 week, then daily for 1 week and then as needed. atorvastatin [Lipitor] 80 mg tablet 80 mg PO QHS Qty: 90 3RF bupropion HCl [Wellbutrin SR] 150 mg tablet sustained-release 12 hr 150 mg PO BID Qty: 180 3RF lisinopril 10 mg tablet 10 mg PO DAILY Qty: 90 3RF amlodipine 10 mg tablet 10 mg PO DAILY Qty: 90 3RF levothyroxine 88 mcg tablet 88 mcg PO DAILY Qty: 90 2RF clopidogrel 75 mg tablet 75 mg PO DAILY Qty: 90 1RF carvedilol 3.125 mg tablet 3.125 mg PO BID Qty: 60 0RF aspirin 81 mg Tablet,Delayed Release (Dr/Ec) 81 mg PO DAILY Qty: 0 0RF HPI General Mode of arrival: EMS. Date/Time Provider Initiated Documentation: 05/10/25 01:41. Limitations to Documentation: no limitations. Information obtained by: patient, RN notes reviewed and old records reviewed. HPI Narrative: Patient presents to the ED by ambulance after waking up with shortness of breath, chest pain with radiation of pain to the back and shoulders. Patient was fine prior to going to bed. Describes feeling some tingling in her arms but no weakness, syncope, loss of sensation. Family member provided a nebulizer while waiting for EMS to arrive. EMS gave aspirin and establish IV, transported patient to ED. Patient reports feeling somewhat better with minimal pain at this point. Still feels a little short of breath. Does not describe the pain as pleuritic. Did not have any abdominal pain or low back pain. No recent illnesses. Does have a previous history of CVA and is followed by cardiology at [facility]. Related Data Home Medications ?Medication ?Instructions ?Recorded ?Confirmed aspirin 81 mg tablet,delayed 81 mg PO DAILY #0 tabs 09/19/22 05/10/25 release atorvastatin 80 mg tablet (Lipitor) 80 mg PO QHS #90 tabs 10/21/22 05/10/25 clobetasol 0.05 % topical ointment 1 applic topical BID 2 weeks #60 08/05/23 05/10/25 grams bupropion HCl 150 mg tablet,12 hr 150 mg PO BID #180 tabs 10/06/23 05/10/25 sustained-release (Wellbutrin SR) lisinopril 10 mg tablet 10 mg PO DAILY #90 tabs 06/15/24 05/10/25 amlodipine 10 mg tablet 10 mg PO DAILY #90 tab-caps 10/04/24 05/10/25 levothyroxine 88 mcg tablet 88 mcg PO DAILY #90 tabs 10/04/24 05/10/25 clopidogrel 75 mg tablet 75 mg PO DAILY #90 tabs 12/19/24 05/10/25 carvedilol 3.125 mg tablet 3.125 mg PO BID #60 tabs 04/25/25 05/10/25 Previous Rx's ?Medication ?Instructions ?Recorded aspirin 81 mg tablet,delayed 81 mg PO DAILY #0 tabs 09/19/22 release atorvastatin 80 mg tablet (Lipitor) 80 mg PO QHS #90 tabs 10/21/22 clobetasol 0.05 % topical ointment 1 applic topical BID 2 weeks #60 08/05/23 grams bupropion HCl 150 mg tablet,12 hr 150 mg PO BID #180 tabs 10/06/23 sustained-release (Wellbutrin SR) lisinopril 10 mg tablet 10 mg PO DAILY #90 tabs 06/15/24 amlodipine 10 mg tablet 10 mg PO DAILY #90 tab-caps 10/04/24 levothyroxine 88 mcg tablet 88 mcg PO DAILY #90 tabs 10/04/24 clopidogrel 75 mg tablet 75 mg PO DAILY #90 tabs 12/19/24 carvedilol 3.125 mg tablet 3.125 mg PO BID #60 tabs 04/25/25 Allergies Allergy/AdvReac Type Severity Reaction Status Date / Time codeine Allergy Intermediate CHEST Verified 05/10/25 01:38 CLOSING General ORA: 3 Exam Narrative Exam Narrative: Const: WDWN female in NAD. VS per triage. HEENT: NC/AT. Normal facial exam. Neck: Supple. Trachea midline. Lungs: Normal respiratory effort. Lungs are clear. Cor: RRR without murmur. Good distal pulses. GI: Soft/ND/NT. Neuro: A+O x 3. Normal speech, mentation, gait. Cranial nerves II - XII grossly intact. No gross motor or sensory deficit. Ext: No C/C/E. Medical Decision Making Patient presenting to the ED acute onset of shortness of breath, chest pain radiating to back and shoulders, tingling in her arms which woke her from sleep. She does have a prior history of CVA. She is followed by [facility] cardiology. She does have a previous history ofaortic and abdominal aortic. She has improved and on arrival reports minimal pain and improvement in her shortness of breath. EKG on arrival is sinus rhythm with prolonged CT, nonspecific ST changes, nothing acute and does not significantly different from previous. My concern would be for aortic dissection, ACS, less likely PE. She has good pulses throughout. She is neurologically intact. She did receive aspirin from EMS. Will proceed with fluids, laboratory studies, CTA of the torso to evaluate for possible dissection which should also allow for evaluation of possible PE. 03:30 - Patient reports feeling much better at this time. BP is still quite high. She reports taking her medications regularly. Labs significant for elevated LFTs with AST 301, ALT 132, Alk Phos 192, Total Bili 0.4. Her first troponin is 118. Potassium a little low. CT scan with no PE and no dissection, no change in aortic ulcerations. Large gallstone but no suggestion of acute cholecystitis and no CBD. Patient has a completely non-tender abdomen at this time. Second troponin is down to 106. This may be related to hypertensive emergency/urgency given continued elevated BP. Will dose with labetalol and replete potassium orally. 06:00 - BP initially responded to labetalol but then went back up to systolics over 200 once again. She was given her oral lisinopril and amlodipine as well as a second dose of IV labetalol. She did have improvement though she is still running high with most recent blood pressure 175/81. Troponin continues to trend down. Suspect symptoms are related to hypertensive urgency/emergency. Will discuss with hospitalist for admission monitoring of blood pressure, consider ECHO. Medical Records Medical records reviewed: Yes I reviewed the patient's medical records. Medical records narrative: cardiology notes Imaging Data Radiologic Study: Imaging: CT Scan Radiologist's impression: IMPRESSION: 1. Unchanged appearance of the multiple abdominal aortic ulcerated plaques within the infrarenal abdominal aorta when compared with the study dated 11/14/2022. 2. No findings to suggest aortic dissection. No aneurysmal dilatation of the aorta. 3. Cholelithiasis. The gallbladder has a bilobed appearance raising the suspicion for gallbladder scarring at the level of the large, solitary gallstone. There are no findings to suggest acute cholecystitis or choledocholithiasis. 4. The appendix is not visualized; however there are no ancillary findings to suggest acute appendicitis. Thank you for allowing us to participate in the care of your patient. Dictated and Authenticated by: Joann Rothman MD Lab Data Lab results reviewed: Yes I reviewed the patient's lab results. Lab results narrative: see MDM ECG Data Attestation: I personally reviewed and interpreted this ECG (s) as follows: Prior ECG tracings: available for review Interpretation: see EKG/MDM Quality:SDOH Health Related Social Needs: Health related social needs house/econ circumstance Health related social needs details UNINSURED Critical Care Time Critical Care Time Critical Care Time: Yes Total Critical Care Time: 60 Attestation: Upon my evaluation, this patient had a high probability of imminent or life-threatening deterioration, which required my direct attention, intervention, and personal management. I have personally provided 60 minutes of critical care time exclusive of time spent on separately billable procedures. Time includes monitoring for potential decompensation, ordering of tests and medications, review of laboratory and radiology results, discussion with consultants and documentation . Interventions were performed as documented above in procedures. [facility] All Active Problems (Updated 05/10/25 @ 06:50 by Antonio Herrera MD) LFT elevation (Acute) Hypertensive emergency (Acute) De Quervain's tenosynovitis, right (Acute) 40 mg Depo-Medrol injection: 09/15/2023 UTI (urinary tract infection) (Acute) Bruit of right carotid artery (Acute) Murmur, cardiac (Acute) Kidney tubular necrosis (Acute) Compromised kidney function (Acute) Hypothyroidism (Chronic) Annual physical exam (Acute) Pure hypercholesterolemia (Acute 04/02/16) Lichen sclerosus of female genitalia (Acute) Chronic dermatitis of hands (Acute 03/27/16) Nausea (Acute) Muscle spasm (Acute) Acute shoulder pain (Acute) Gastritis (Acute) Cervical disc disorder (Acute) [facility] MRI- 08/29/21: Large disk herniation C6-7 w/ extrusion posterior to C7 vertebral body. +spinal cord compression & central spinal canal stenosis. C4-C5 & C5-C6 DJD w/spinal canal stenosis, Multilevel neural foraminal stenosis, prominence of the central canal in the spinal cord posterior to the T1-T3 vertebral bodies. 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; + antibody, - antigen Hx of pyelonephritis (02/09/14) 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) (03/09/14) History of acute renal failure Hypercholesteremia Hypothyroidism Hyperthyroidism Surgical History History of open reduction and internal fixation (ORIF) procedure History of appendectomy , Ectopic X 2 Family History Mother Essential hypertension Personal history of malignant neoplasm BREAST Father Essential hypertension Personal history of malignant neoplasm PROSTATE Sister Essential hypertension Brother Essential hypertension Social History Smoking/Tobacco Use Status: Former Tobacco Use Quit status: quit date established Second Hand Exposure: Yes Smoking risk assessment performed?: Yes Alcohol Intake: former Drug use: Never Substance use type: does not use Counseling given: No Counseling provided: none Caregiver/Support person: No Household members: family Housing: apartment Communication Needs: Deaf Do you need help understanding health information?: Never 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
--- NOTE | 2025-05-10 01:30 | DI.CT_ITS ---
Exam(s) CT THORAX ABD/PEL CTA EXAM: CT THORAX ABD/PEL CTA CLINICAL HISTORY: Chest pain concern for dissection. TECHNIQUE: Imaging Protocol: Axial CT angiography was performed with multi- slice acquisition and multi-planar and/or 3D reconstructions. Computer aided detection (CAD) was utilized. CONTRAST MATERIAL: Intravenous: Omnipaque 350 Contrast volume:100 ml Intravenous: Omnipaque 350 Contrast volume:125 ml COMPARISON: CT CT THORAX ABD/PEL CTA from 11/14/2022 FINDINGS: CHEST: Pulmonary Arteries: Suboptimally opacified. No evidence of filling defects to suggest pulmonary emboli. Tracheobronchial tree: No bronchiectasis or mucus plugging. Mediastinum and Meggan: No dominant adenopathy or fluid collection. Pulmonary parenchyma: No consolidation or dominant measurable mass. Pleura: No effusion. No pneumothorax. Heart: The heart is notdilated. No coronary artery calcifications are seen. Aorta: Thoracic aorta non-dilated. Mild plaque. Bones: Unremarkable for age. Tubes, Catheters, and Lines: None. Soft tissues: Unremarkable. ABDOMEN and PELVIS: Liver: Normal size. Normal density. No suspicious measurable mass. Portal, Superior Mesenteric, and Splenic Veins: Unremarkable. Gallbladder and Biliary Tract: Cholelithiasis. No gallbladder wall thickening. No biliary dilatation. Pancreas: Normal density, no abnormal calcifications or inflammatory process. Spleen: Normal. Adrenals: No masses seen. Kidneys: Normal size, contour and axis. No radiodense stones. No obstructive uropathy. No masses seen. Vasculature: Abdominal aorta non-dilated. Multi focal calcific plaque. Slight dilatation of the distal abdominal aorta with there is irregular ulcerated plaque. Moderate stenosis of the left common iliac artery. Multi focal plaque involving the external iliac arteries and common femoral arteries without significant stenosis. Bowel: No obstruction or bowel wall thickening. Appendix is unremarkable not seen. Peritoneal Cavity: No ascites, collection or mesenteric inflammatory response. Lymph Nodes: Within normal limits. Soft Tissues: Unremarkable. Bladder: Symmetric distention, no gross wall thickening. Reproductive Organs: Unremarkable as visualized. Bones: Hardware noted in left acetabulum. Advanced degenerative changes are noted in the left hip. IMPRESSION: 1. No evidence of aortic dissection or pulmonary embolism. 2. No acute abdominal or pelvic process. 3. Atherosclerotic changes of the abdominal aorta with ulcerated plaque distally. No evidence of dissection. Moderate stenosis of proximal left common iliac artery. The preliminary [facility] report was reviewed. RADIATION DOSE DELIVERED: 467.04mGy.cm Total DLP 467.04mGy.cm Total DLP DATA REPOSITORY: All CT scans at this facility are submitted to the National Radiology Data Registry (NRDR) Dose Index Registry (DIR) with the [employer] (A[employer]). RADIATION OPTIMIZATION: All CT scans at this facility use at least one of these dose optimization techniques: automated exposure control; mA and/or kV adjustment per patient size (includes targeted exams where dose is matched to clinical indication); or iterative reconstruction.
[2025-05-10] MEDS: Omnipaque 350 MG/ML 100 ML BTL IJ (01:53)
[2025-05-10] MEDS: Normal Saline Flush 10 ML SYR IVP ×3 (01:54→20:02)
[2025-05-10] MEDS: Normal Saline - Diluent 50 ML VIAL IJ (01:54)
[2025-05-10 02:00] LABS: Abs Immature Grans 0.04 10^3/uL (0.0-0.06); HCT 36.7 % (36.0-46.0); HGB 12.2 g/dL (11.2-15.7); Immature Grans % 0.5 %; MCH 30.8 pg (27.0-33.0); MCHC 33.2 % (32.0-36.0); MCV 93 fL (80-95); MPV 10.6 fL (8.0-11.0); Platelet Count 232 10^3/uL (130-400); RBC 3.96 10^6/uL (3.93-5.22); RDW 13.1 % (11.7-14.6); RDW-SD 44.4 fL; WBC 8.77 10^3/uL (4.4-10.8)
[2025-05-10 02:21] LABS: ALT 132 U/L (14-59); AST 301 U/L (15-37); Albumin 4.2 g/dL (3.4-5.0); Alkaline Phosphatase 192 U/L (46-116); Anion Gap 7.9 mmol/L (3-11); BUN 21 mg/dL (7-18); Bilirubin, Total 0.4 mg/dL (0.2-1.0); CO2 31.1 mmol/L (21.0-32.0); Calcium 9.7 mg/dL (8.5-10.1); Chloride 101 mmol/L (98-107); Estimated GFR 58.97 (mL/min/1.73m2); Glucose 136 mg/dL (74-106); Magnesium 2.1 mg/dL (1.8-2.4); Potassium 3.2 mmol/L (3.5-5.1); Sodium 140 mmol/L (136-145); Total Protein 8.4 g/dL (6.4-8.2)
[2025-05-10 02:25] LABS: Troponin I 118 ng/L (<or=51)
[2025-05-10] MEDS: Omnipaque 350 MG/ML 50 ML BTL IJ (02:57)
[2025-05-10] MEDS: Normal Saline 500 ML IV (03:06)
--- NOTE | 2025-05-10 03:22 | DI.[facility]_ITS ---
PROCEDURE INFORMATION: Exam: CTA Chest With Contrast CTA Abdomen and Pelvis With Contrast Exam date and time: 05/10/2025 1:45 AM Age: 55 years old Clinical indication: Radiating; Prior surgery; Surgery date: 6+ months; Surgery type: L hip surgery, appendectomy; Chest pain concern for dissection TECHNIQUE: Imaging protocol: Computed tomographic angiography of the chest with contrast. Exam focused on the arteries. Computed tomographic angiography of the abdomen and pelvis with contrast. Exam focused on the arteries. 3D rendering (Not supervised by radiologist): MIP and/or 3D reconstructed images were created by the technologist. Radiation optimization: All CT scans at this facility use at least one of these dose optimization techniques: automated exposure control; mA and/or kV adjustment per patient size (includes targeted exams where dose is matched to clinical indication); or iterative reconstruction. Contrast material: OMNIPAQUE 350; Contrast volume: 125 ml; Contrast route: INTRAVENOUS (IV); COMPARISON: CT THORAX ABD/PEL CTA 11/14/2022 5:25 PM FINDINGS: VASCULATURE: Pulmonary arteries: Normal. No pulmonary emboli. Aorta: Atheromatous calcifications are present within the visualized thoracic aorta. Scattered atheromatous calcifications are present within the descending thoracic aorta. No aortic wall thickening or periaortic fat stranding. Scattered atheromatous calcifications are present within the abdominal aorta. Multiple ulcerated plaques are redemonstrated within the abdominal aorta. These are similar in size, location and extent to the comparison CT dated 11/14/2022. Celiac trunk and mesenteric arteries: No occlusion or significant stenosis. Renal arteries: No occlusion or significant stenosis. Right iliac arteries: A mild stenosis is redemonstrated at the origin of the right common iliac artery, unchanged. Left iliac arteries: A moderate stenosis is present at the origin of the left common iliac artery, increased when compared with the 2022 CT. CHEST: Lungs: Mild atelectasis is present at the dependent lung bases. The lungs are otherwise clear. Pleural spaces: Unremarkable. No pneumothorax. No pleural effusion. Heart: Heart is normal size. No pericardial effusion. ABDOMEN AND PELVIS: Liver: The liver has a normal appearance. Gallbladder and biliary ducts: A calcified stone is present within the body of the gallbladder. The gallbladder has a bilobed appearance. No gallbladder wall thickening or pericholecystic fluid. Pancreas: The pancreas demonstrates normal size. No pancreatic ductal dilatation. Spleen: The spleen demonstrates normal size. Adrenal glands: The adrenal glands have a normal appearance. Kidneys and ureters: The kidneys are symmetric in size and enhancement. Multifocal cortical scarring is noted suggesting prior infarct or infection. No nephrolithiasis or hydronephrosis. No hydroureter or ureterolithiasis. Stomach and bowel: The bowel demonstrates overall normal caliber and wall thickness. Appendix: The appendix is not visualized; however there are no ancillary findings to suggest acute appendicitis such as free right lower quadrant fluid or perienteric fat stranding. Intraperitoneal space: Unremarkable. No free air. No significant fluid collection. Urinary bladder: The bladder is thin walled and fluid filled. Reproductive: The uterus has a normal appearance. Lymph nodes: Unremarkable. No enlarged lymph nodes. Bones/joints: Bones have a normal appearance. No acute fracture or suspicious bone lesion. Soft tissues: Unremarkable. IMPRESSION: 1. Unchanged appearance of the multiple abdominal aortic ulcerated plaques within the infrarenal abdominal aorta when compared with the study dated 11/14/2022. 2. No findings to suggest aortic dissection. No aneurysmal dilatation of the aorta. 3. Cholelithiasis. The gallbladder has a bilobed appearance raising the suspicion for gallbladder scarring at the level of the large, solitary gallstone. There are no findings to suggest acute cholecystitis or choledocholithiasis. 4. The appendix is not visualized; however there are no ancillary findings to suggest acute appendicitis. Dictated and Authenticated by: Joann Rothman MD. Orderin Javier Alvarez MD
[2025-05-10 03:33] LABS: Troponin I 106 ng/L (<or=51)
[2025-05-10] MEDS: Labetalol 100 MG/20 ML VIAL 20 MG IVP ×2 (03:54→05:04)
[2025-05-10] MEDS: Potassium Chloride 10 MEQ CAPCR 40 MEQ PO (04:17)
[2025-05-10] MEDS: Lisinopril 10 MG TAB PO (05:07)
[2025-05-10] MEDS: amLODIPine 10 MG TAB PO (05:33)
[2025-05-10] MEDS: Calcium Carbonate *TUMS* 500 MG CHEW 1000 MG PO ×2 (05:33→22:21)
[2025-05-10 06:08] LABS: Troponin I 97 ng/L (<or=51)
--- NOTE | 2025-05-10 08:47 | W.PM.HP.N ---
Date of service: 05/10/25 Time of Service: 08:00 Assessment and Plan Assessment and plan (1) Hypertensive emergency: Status: Acute Assessment and plan: Severe range BPs in the 230's / 100's on arrival Cardiac workup negative Imaging negative for acute vasculopathy in the chest/abdomen/pelvis Resolved with medications Etiology unclear. UDS not done. TSH checked, consistent with uncontrolled hypothyroidism which would not contribute to BP elevation. Possible panic attack. Will monitor on telemetry and continue home regimen (2) Hypothyroidism: Status: Chronic Assessment and plan: Undertreated. Current levothyroxine dose 88 mcg for many years, no labs done for years. TSH elevated with low free T4. Increasing dose to 150 mcg Unlikely to see improvement in labs for 6-8 weeks Strongly recommend PCP followup and monitoring (3) Intracranial carotid stenosis, bilateral: Status: Acute Assessment and plan: Patient's 2021 CVA due to significant carotid atherosclerosis She was lost to followup with [facility] [place] cardiology and vascular surgery She followed with neurology who continued DAPT indefinitely, and she has been taking it per her report Continue DAPT, statin (4) Major depression, recurrent, chronic: Status: Acute Assessment and plan: Continue bupropion History of Present Illness History of Present Illness Chief Complaint: chest pain Narrative: Geoff Treviño is a 55 year old woman presenting May 10 with sudden onset of chest pain radiating to her back. She reports being roused from sleep by sharp epigastric pain which initially felt like a need to burp, worsening to chest pain and dyspnea. She felt that both arms were tingling intermittently. Her daughter called 911. She had gone to bed feeling fine. She has not seen a regular doctor for a long time as she is uninsured, but she continues to buy her medications and take them as directed. PMH includes 2021 CVA due to carotid intracranial stenosis, 2018 infrarenal AAA, hypothyroid, depression, HTN, former tobacco smoker On ED arrival, BP 239 / 104. EKG with NSR, unchanged from 2022. Troponin elevated 118, downtrending to 97. CTA chest/abdomen/pelvis with atherosclerosis of the major vessels, no dissection/aneurysm/PE. Mildly low potassium 3.2. Mildly elevated glucose 136. Transaminitis with ALT 301 worsening to 1409 and AST 192 worsening to 271. Thyroid labs checked after admission with TSH very elevated at 14.6 with free T4 low at 0.54. BP improved with labetalol 20 x2 and amlodipine. PFSH All Active Problems (Updated 05/10/25 @ 18:44 by Tee Maier MD) Major depression, recurrent, chronic (Acute) LFT elevation (Acute) Hypertensive emergency (Acute) De Quervain's tenosynovitis, right (Acute) 40 mg Depo-Medrol injection: 09/15/2023 UTI (urinary tract infection) (Acute) Bruit of right carotid artery (Acute) Murmur, cardiac (Acute) Kidney tubular necrosis (Acute) Compromised kidney function (Acute) Hypothyroidism (Chronic) Annual physical exam (Acute) Pure hypercholesterolemia (Acute 04/02/16) Lichen sclerosus of female genitalia (Acute) Chronic dermatitis of hands (Acute 03/27/16) Nausea (Acute) Muscle spasm (Acute) Acute shoulder pain (Acute) Gastritis (Acute) Cervical disc disorder (Acute) [facility] MRI- 08/29/21: Large disk herniation C6-7 w/ extrusion posterior to C7 vertebral body. +spinal cord compression & central spinal canal stenosis. C4-C5 & C5-C6 DJD w/spinal canal stenosis, Multilevel neural foraminal stenosis, prominence of the central canal in the spinal cord posterior to the T1-T3 vertebral bodies. 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; + antibody, - antigen Hx of pyelonephritis (02/09/14) 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) (03/09/14) History of acute renal failure Hypercholesteremia Hypothyroidism Hyperthyroidism Surgical History History of open reduction and internal fixation (ORIF) procedure History of appendectomy , Ectopic X 2 Family History Mother Essential hypertension Personal history of malignant neoplasm BREAST Father Essential hypertension Personal history of malignant neoplasm PROSTATE Sister Essential hypertension Brother Essential hypertension Social History Smoking/Tobacco Use Status: Former Tobacco Use Quit status: quit date established Second Hand Exposure: Yes Smoking risk assessment performed?: Yes Alcohol Intake: former Drug use: Never Substance use type: does not use Counseling given: No Counseling provided: none Caregiver/Support person: No Household members: family Housing: apartment Communication Needs: Deaf Do you need help understanding health information?: Never current occupation: [employer] Pets and animals: No Sexually active: No Do you think of yourself as: straight/heterosexual Current gender identity: male What is your relationship status?: never How often do you talk on the phone with friends or family?: never How often do you get together with friends or relatives?: once per week How often do you attend temple or mormon services?: decline to answer Do you belong to any clubs or organized social groups?: no Panel score (0-1 are the most socially isolated patients): 0 Do you feel safe at home: Yes Do you feel safe in your relationship?: Yes Meds Allergies and Home Medications Allergies Allergy/AdvReac Type Severity Reaction Status Date / Time codeine Allergy Intermediate CHEST Verified 05/10/25 01:38 CLOSING Home Medications ?Medication ?Instructions ?Recorded ?Confirmed ?Type aspirin 81 mg tablet,delayed 81 mg PO DAILY #0 tabs 09/19/22 05/10/25 Rx release atorvastatin 80 mg tablet (Lipitor) 80 mg PO QHS #90 tabs 10/21/22 05/10/25 Rx clobetasol 0.05 % topical ointment 1 applic topical BID 2 weeks #60 08/05/23 05/10/25 Rx grams bupropion HCl 150 mg tablet,12 hr 150 mg PO BID #180 tabs 10/06/23 05/10/25 Rx sustained-release (Wellbutrin SR) lisinopril 10 mg tablet 10 mg PO DAILY #90 tabs 06/15/24 05/10/25 Rx amlodipine 10 mg tablet 10 mg PO DAILY #90 tab-caps 10/04/24 05/10/25 Rx levothyroxine 88 mcg tablet 88 mcg PO DAILY #90 tabs 10/04/24 05/10/25 Rx clopidogrel 75 mg tablet 75 mg PO DAILY #90 tabs 12/19/24 05/10/25 Rx carvedilol 3.125 mg tablet 3.125 mg PO BID #60 tabs 04/25/25 05/10/25 Rx Exam Narrative Exam Narrative: General: This is a very pleasant woman in no acute distress HEENT: Normocephalic, atraumatic CV: RRR Resp: CTAB Abd: soft, NT/ND, +NBS MSK: Voluntary motion x4 Neuro: Awake, alert, no focal deficits Results Labs 05/10/25 01:50 05/10/25 10:14 Labs: Laboratory Results - last 24 hr 05/10/25 05/10/25 05/10/25 01:50 02:54 04:55 WBC 8.77 RBC 3.96 Hgb 12.2 Hct 36.7 MCV 93 MCH 30.8 MCHC 33.2 RDW 13.1 Plt Count 232 MPV 10.6 Immature Gran % 0.5 Neutrophils % 74.8 Lymphocytes % 14.5 Monocytes % 8.4 Eosinophils % 1.1 Basophils % 0.7 Nucleated RBC % 0.0 Absolute Neutrophils 6.56 Absolute Lymphocytes 1.27 Absolute Monocytes 0.74 Absolute Eosinophils 0.10 Absolute Basophils 0.06 Sodium 140 Potassium 3.2 L Chloride 101 Carbon Dioxide 31.1 Anion Gap 7.9 BUN 21 H Creatinine 1.1 H Est GFR (CKD-EPI 2020) 58.97 Glucose 136 H Calcium 9.7 Magnesium 2.1 Total Bilirubin 0.4 AST 301 H ALT 132 H Alkaline Phosphatase 192 H Troponin I 118 H* 106 H* 97 H* Total Protein 8.4 H Albumin 4.2 Last Vital Signs Temp 36.5 C 05/10/25 08:41 Pulse 66 05/10/25 08:41 Resp 18 05/10/25 08:41 BP 161/90 H 05/10/25 08:41 Pulse Ox 95 05/10/25 08:41 Time Spent Time spent with Patient: 40-54 minutes Time was spent: preparing to see the patient(eg.review tests), obtaining and/or reviewing separately otained hiistory, ordering medications,tests, procedures, referring, communicating with other health residential child care counselor, indepentently interpreting results, counseling the patient and care coordination
--- NOTE | 2025-05-10 08:53 | W.PC.ACHO ---
Registration Status: ADM JAXSON Primary Language: Preferred Language: Estonian ED Information & Data Chief Complaint Chest Pain 05/10/25 01:34 Chief Complaint Chest Pain 05/10/25 01:27 Other Complaint RespSymp 05/10/25 01:27 Triage Note Pt BIBEMS s/p waking up ~ 05/10/25 01:27 0000 from sleep w/ severe resp distress. Also feeling numbness to BUE and 'gas bubble' pressure substernally radiating into back. ASA given enroute. Family member gave a neb prescribed to them (not pt) Medical / Surgical History (Last Reviewed 05/10/25 @ 02:12 by Antonio Herrera MD) Smoker Dehydration Acute kidney failure Aneurysm of infrarenal abdominal aorta (12/08/17) Depressive disorder Family history of breast cancer (03/27/15) Headache (11/18/12) Renal failure (06/10/16) Type B viral hepatitis Hx of pyelonephritis (02/09/14) 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) (03/09/14) History of acute renal failure Hypercholesteremia Hypothyroidism Hyperthyroidism (Last Reviewed 05/10/25 @ 02:11 by Antonio Herrera MD) History of open reduction and internal fixation (ORIF) procedure History of appendectomy , Ectopic Most Recent Vital Signs Temperature 36.5 C 05/10/25 08:41 Temperature Source Temporal Artery Scan 05/10/25 08:41 Pulse 66 05/10/25 08:41 Pulse Rhythm Regular 05/10/25 08:32 Pulse 59 L 05/10/25 08:01 Respiratory Rate 18 05/10/25 08:41 Respiratory Effort Normal 05/10/25 08:32 Respiratory Depth Normal 05/10/25 08:32 Respiratory Pattern Normal 05/10/25 08:32 Blood Pressure 161/90 H 05/10/25 08:41 Blood Pressure Mean 113 05/10/25 08:41 Blood Pressure Position Supine 05/10/25 01:27 Pulse Oximetry 95 05/10/25 08:41 Oxygen Delivery Method Room Air 05/10/25 08:41 Oxygen Flow Rate 0 05/10/25 08:41 Pain Level 0 05/10/25 08:32 Comment rn notified 05/10/25 08:41 Allergies codeine Allergy (Intermediate, Verified 05/10/25 01:38) CHEST CLOSING Precautions Isolation Standard precaution 05/10/25 01:34 Active Medications Generic Name Dose Route Start Last Admin Trade Name Roopa PRN Reason Stop Dose Admin Sodium Chloride 0 ml 05/10/25 01:41 05/10/25 01:54 Normal Saline Flush 10 Ml Syr IVP 10 ml PRN PRN Administration IV IV Catheter Type [Right Saline Lock Antecubital] IV Catheter Type [Right Wrist] Saline Lock IV Catheter Type [Left Saline Lock Antecubital] IV Catheter Gauge [Right 18 Antecubital] IV Catheter Gauge [Right Wrist 20 ] IV Catheter Gauge [Left 20 Antecubital] Diet Orders Category Date Time Status Heart Healthy Eating [DIET] Nutrition 05/10/25 Breakfast Active Diagnostics 05/10/25 05/10/25 05/10/25 Range/Units 09:00 04:55 02:54 WBC (4.4-10.8) 10^3/uL RBC (3.93-5.22) 10^6/uL Hgb (11.2-15.7) g/dL Hct (36.0-46.0) % MCV (80-95) fL MCH (27.0-33.0) pg MCHC (32.0-36.0) % RDW (11.7-14.6) % Plt Count (130-400) 10^3/uL MPV (8.0-11.0) fL Immature Gran % % Neutrophils % % Lymphocytes % % Monocytes % % Eosinophils % % Basophils % % Nucleated RBC % (0.0-0.3) % Absolute Neutrophils (1.2-6.7) 10^3/uL Absolute Lymphocytes (1.2-3.4) 10^3/uL Absolute Monocytes (0.1-0.8) 10^3/uL Absolute Eosinophils (0.0-0.7) 10^3/uL Absolute Basophils (0.0-0.2) 10^3/uL Sodium Pending (136-145) mmol/L Potassium Pending (3.5-5.1) mmol/L Chloride Pending (98-107) mmol/L Carbon Dioxide Pending (21.0-32.0) mmol/L Anion Gap Pending (3-11) mmol/L BUN Pending (7-18) mg/dL Creatinine Pending (0.55-1.02) mg/dL Est GFR (CKD-EPI 2020) Pending (mL/min/1.73m2) Glucose Pending (74-106) mg/dL Calcium Pending (8.5-10.1) mg/dL Magnesium (1.8-2.4) mg/dL Total Bilirubin Pending (0.2-1.0) mg/dL AST Pending (15-37) U/L ALT Pending (14-59) U/L Alkaline Phosphatase Pending (46-116) U/L Troponin I 97 H* 106 H* (<or=51) ng/L Total Protein Pending (6.4-8.2) g/dL Albumin Pending (3.4-5.0) g/dL TSH Pending 05/10/25 Range/Units 01:50 WBC 8.77 (4.4-10.8) 10^3/uL RBC 3.96 (3.93-5.22) 10^6/uL Hgb 12.2 (11.2-15.7) g/dL Hct 36.7 (36.0-46.0) % MCV 93 (80-95) fL MCH 30.8 (27.0-33.0) pg MCHC 33.2 (32.0-36.0) % RDW 13.1 (11.7-14.6) % Plt Count 232 (130-400) 10^3/uL MPV 10.6 (8.0-11.0) fL Immature Gran % 0.5 % Neutrophils % 74.8 % Lymphocytes % 14.5 % Monocytes % 8.4 % Eosinophils % 1.1 % Basophils % 0.7 % Nucleated RBC % 0.0 (0.0-0.3) % Absolute Neutrophils 6.56 (1.2-6.7) 10^3/uL Absolute Lymphocytes 1.27 (1.2-3.4) 10^3/uL Absolute Monocytes 0.74 (0.1-0.8) 10^3/uL Absolute Eosinophils 0.10 (0.0-0.7) 10^3/uL Absolute Basophils 0.06 (0.0-0.2) 10^3/uL Sodium 140 (136-145) mmol/L Potassium 3.2 L (3.5-5.1) mmol/L Chloride 101 (98-107) mmol/L Carbon Dioxide 31.1 (21.0-32.0) mmol/L Anion Gap 7.9 (3-11) mmol/L BUN 21 H (7-18) mg/dL Creatinine 1.1 H (0.55-1.02) mg/dL Est GFR (CKD-EPI 2020) 58.97 (mL/min/1.73m2) Glucose 136 H (74-106) mg/dL Calcium 9.7 (8.5-10.1) mg/dL Magnesium 2.1 (1.8-2.4) mg/dL Total Bilirubin 0.4 (0.2-1.0) mg/dL AST 301 H (15-37) U/L ALT 132 H (14-59) U/L Alkaline Phosphatase 192 H (46-116) U/L Troponin I 118 H* (<or=51) ng/L Total Protein 8.4 H (6.4-8.2) g/dL Albumin 4.2 (3.4-5.0) g/dL TSH Intake and Output - 24 Hour Total 05/10/25 01:20 thru 05/10/25 08:32 Intake Total 500 Output Total 1475 Balance -975 Weight 53.6 kg Intake: IV 500 Output: Urine 1475 Other: Urine Appearance Clear Falls Risk Assessment History of Falls No History 05/10/25 08:32 Contributing Factors No Factors 05/10/25 08:32 Ambulatory Aids Independent 05/10/25 08:32 Tubes/Lines None 05/10/25 08:32 Gait Evaluation No gait disturbance 05/10/25 08:32 Cognition No cognitive impairment 05/10/25 08:32 Fall Total Score 0 05/10/25 08:32 Level of Risk Standard/Low Risk 05/10/25 08:32 v v v v v v v v v Sending and/or Receiving Nurses: Please use comment section below to note any information pertinent to the patient hand-off not included above. Information / Comments: This nurse received report from ED patient alert and oriented came for further treatment of HTN. Report received from: [facility]
[2025-05-10] MEDS: Clopidogrel 75 MG TAB PO (09:47)
[2025-05-10] MEDS: Aspirin E.C. 81 MG TABEC PO (09:47)
[2025-05-10 10:48] LABS: ALT 764 U/L (14-59); AST 1409 U/L (15-37); Albumin 4.1 g/dL (3.4-5.0); Alkaline Phosphatase 271 U/L (46-116); Anion Gap 6.9 mmol/L (3-11); BUN 19 mg/dL (7-18); Bilirubin, Total 1.0 mg/dL (0.2-1.0); CO2 28.1 mmol/L (21.0-32.0); Calcium 9.9 mg/dL (8.5-10.1); Chloride 102 mmol/L (98-107); Estimated GFR 66.12 (mL/min/1.73m2); Glucose 119 mg/dL (74-106); Potassium 4.3 mmol/L (3.5-5.1); Sodium 137 mmol/L (136-145); TSH (W/Ref FT4) 14.60 uIU/mL (0.36-3.74); Total Protein 8.3 g/dL (6.4-8.2)
--- NOTE | 2025-05-10 14:24 | CMACTNOTE_ITS ---
Date of service: 05/10/25 Time of Service: 14:25 Care Management Activity Note Activity Note Text Activity Note Text: Geoff was admitted earlier today. She will be assessed by CM fully tomorrow. She asked to see CM because she has no insurance. Geoff was given the [employer] card and a referral was sent with her permission. Geoff was also given the patient assistance financial packet.
--- NOTE | 2025-05-10 14:26 | PHA.REVIEW2 ---
Pharmacy Admission Review Admission Clinical Review Admission Pharmacy Review: codeine Allergy (Intermediate, Verified 05/10/25 01:38) CHEST CLOSING Resuscitation Status Full Code Height 5 ft 1 in Weight 53.6 kg Comments Comments/Follow Ups: follow up on Wellbutrin - see home med section Pharmacy Admission Review Renal Dosing Renal Dosing: BUN 19 mg/dL (7-18) H 05/10/25 10:14 Creatinine 1.0 mg/dL (0.55-1.02) 05/10/25 10:14 Medications needing adjustments: Reviewed (CrCl 52.7 mL/min) List of meds needing interventions: Current medications are okay Anticoagulation Anticoagulation: Hgb 12.2 g/dL (11.2-15.7) 05/10/25 01:50 Hct 36.7 % (36.0-46.0) 05/10/25 01:50 Plt Count 232 10^3/uL (130-400) 05/10/25 01:50 Creatinine 1.0 mg/dL (0.55-1.02) 05/10/25 10:14 DVT Prophylaxis: Reviewed (SCDs) Relevant Labs Relevant Labs: Sodium 137 mmol/L (136-145) 05/10/25 10:14 Potassium 4.3 mmol/L (3.5-5.1) D 05/10/25 10:14 Chloride 102 mmol/L (98-107) 05/10/25 10:14 Magnesium 2.1 mg/dL (1.8-2.4) 05/10/25 01:50 Electrolytes, C-Reactive P, ESR: Reviewed (AST/ALT 1409/764) Cardiac Review Cardiac Review: Troponin I 97 ng/L (<or=51) H* 05/10/25 04:55 Blood Pressure 142/92 1200 Blood Pressure 161/90 0841 Blood Pressure 134/84 0801 Blood Pressure 144/84 0746 Blood Pressure 151/85 0731 Blood Pressure 141/82 0716 Blood Pressure 149/87 0701 Blood Pressure 142/96 0646 Blood Pressure 170/84 0630 Blood Pressure 169/85 0616 Blood Pressure 175/81 0601 Blood Pressure 171/84 0546 Blood Pressure 174/84 0531 Blood Pressure 155/81 0516 Blood Pressure 183/94 0504 Blood Pressure 183/94 0501 Blood Pressure 191/92 0454 Blood Pressure 214/89 0430 Blood Pressure 182/82 0415 Blood Pressure 180/89 0401 Blood Pressure 179/83 0359 Blood Pressure 167/81 0357 Blood Pressure 212/99 0354 Blood Pressure 212/99 0346 Blood Pressure 215/102 0331 Blood Pressure 199/101 0316 Blood Pressure 209/91 0301 BP, HR, EF%: Reviewed (HR 58) List meds needing interventions: Has orders for amlodipine 10mg daily, carvedilol 3.125mg BID and lisinopril 10mg daily QTc Review QTc: Reviewed (476 from 05/10/25) IV to PO Switch IV Medications: Reviewed Home Meds Home Med List reviewed: Intervened Relevent Home Meds Not ordered & why?: clobetasol ointment Reached out to nurse to verify if patient still takes Wellbutrin at home - per external fill history was last filled 06/15/24. Waiting to hear back. Current Meds Current Medication Order Review: Intervened Comments: Changed IV ED access order Discontinued now ZENAIDA labetalol orders - completed Comments Comments/Follow Ups: follow up on Wellbutrin - see home med section
[2025-05-10] MEDS: Levothyroxine 50 MCG TAB PO (17:33)
[2025-05-10] MEDS: Atorvastatin 40 MG TAB 80 MG PO (20:00)
[2025-05-10] MEDS: Carvedilol 3.125 MG TAB PO (20:00)
[2025-05-11] MEDS: Levothyroxine 150 MCG TAB PO (05:43)
[2025-05-11 05:45] VITALS: BP 123/77; PULSE 61; RESP 17; TEMP 35.9; O2SAT 95
[2025-05-11 06:44] LABS: HCT 34.4 % (36.0-46.0); HGB 11.5 g/dL (11.2-15.7); MCH 31.7 pg (27.0-33.0); MCHC 33.4 % (32.0-36.0); MCV 95 fL (80-95); MPV 10.9 fL (8.0-11.0); Platelet Count 230 10^3/uL (130-400); RBC 3.63 10^6/uL (3.93-5.22); RDW 13.8 % (11.7-14.6); RDW-SD 48.1 fL; WBC 5.12 10^3/uL (4.4-10.8)
[2025-05-11 07:12] LABS: ALT 842 U/L (14-59); AST 751 U/L (15-37); Albumin 3.7 g/dL (3.4-5.0); Alkaline Phosphatase 349 U/L (46-116); Anion Gap 7.1 mmol/L (3-11); BUN 21 mg/dL (7-18); Bilirubin, Total 0.7 mg/dL (0.2-1.0); CO2 27.9 mmol/L (21.0-32.0); Calcium 9.5 mg/dL (8.5-10.1); Chloride 105 mmol/L (98-107); Estimated GFR 58.97 (mL/min/1.73m2); Glucose 100 mg/dL (74-106); Magnesium 2.3 mg/dL (1.8-2.4); Potassium 4.0 mmol/L (3.5-5.1); Sodium 140 mmol/L (136-145); Total Protein 7.5 g/dL (6.4-8.2)
[2025-05-11 07:41] VITALS: BP 128/88; PULSE 63; RESP 17; TEMP 36.8; O2SAT 94
[2025-05-11] MEDS: amLODIPine 10 MG TAB PO (08:31)
[2025-05-11] MEDS: Aspirin E.C. 81 MG TABEC PO (08:31)
[2025-05-11] MEDS: Carvedilol 3.125 MG TAB PO (08:31)
[2025-05-11] MEDS: Clopidogrel 75 MG TAB PO (08:31)
[2025-05-11] MEDS: Lisinopril 10 MG TAB PO (08:31)
[2025-05-11] MEDS: Normal Saline Flush 10 ML SYR IVP (08:31)
--- NOTE | 2025-05-11 09:16 | DSE_ITS ---
Date of service: 05/11/25 Time of Service: 09:00 DS: Diagnosis Discharge Diagnosis (1) Hypertensive emergency: Status: Acute Asessment and Plan: Severe range BPs in the 230's / 100's on arrival Cardiac workup negative Imaging negative for acute vasculopathy in the chest/abdomen/pelvis Resolved with medications Etiology unclear. UDS not done. TSH checked, consistent with uncontrolled hypothyroidism which would not contribute to BP elevation. Possible panic attack. Patient's blood pressure has been in normal range since admission. She does not want to stay for additional workup, will follow up with PCP (2) Hypothyroidism: Status: Chronic Asessment and Plan: Undertreated. Current levothyroxine dose 88 mcg for many years, no labs done for years. TSH elevated with low free T4. Increasing dose to 150 mcg Unlikely to see improvement in labs for 6-8 weeks Strongly recommend PCP followup and monitoring (3) Intracranial carotid stenosis, bilateral: Asessment and Plan: Patient's 2021 CVA due to significant carotid atherosclerosis She was lost to followup with [facility] cardiology and vascular surgery She followed with neurology who continued DAPT indefinitely, and she has been taking it per her report Continue DAPT, statin (4) Major depression, recurrent, chronic: Asessment and Plan: Continue bupropion Discharge Plan Disposition Patient Disposition: Home Condition: Fair Discharge Details Reason For Visit: Hypertensive Emergency Admit Date/Time: 05/10/25 07:27 Admit Provider: Tee Maier Attending Provider: Tee Maier Primary Care Provider: Brittany Sandoval Hospital Course Hospital Course: Geoff Treviño is a 55 year old woman presenting May 10 with sudden onset of chest pain radiating to her back, which woke her from sleep. BP found to be 230's / 90's, improved with IV labetalol and resumption of home HTN medications. Troponin was elevated and trended down without new EKG findings. She has a history of CVA with carotid and renal artery atherosclerosis. Cardiac workup was negative. Thoracic imaging was negative for acute pathology. Patient's blood pressure has been in normal range since admission. Elevated liver enzymes have improved. Clinical findings significant only for uncontrolled hypothyroid, which does not provide an explanation for her HTN emergency. She has been assisted with options for health insurance to help her get access to PCP and vascular surgery followup. She is safe to discharge home at this time. Home Meds and New Rx's Prescriptions: New atorvastatin 40 mg Tablet 80 mg PO QPM Qty: 180 3RF bupropion HCl 150 mg Tablet Sustained-Release 12 Hr 150 mg PO BID Qty: 180 3RF clopidogrel 75 mg Tablet 75 mg PO DAILY Qty: 90 3RF aspirin 81 mg Tablet,Delayed Release (Dr/Ec) 81 mg PO DAILY Qty: 90 3RF carvedilol 3.125 mg Tablet 3.125 mg PO BID Qty: 180 3RF amlodipine 10 mg Tablet 10 mg PO DAILY Qty: 90 3RF lisinopril 10 mg Tablet 10 mg PO DAILY Qty: 90 3RF levothyroxine 150 mcg Tablet 150 mcg PO DAILY@0600 Qty: 90 3RF Discontinued atorvastatin [Lipitor] 80 mg tablet 80 mg PO QHS Qty: 90 3RF bupropion HCl [Wellbutrin SR] 150 mg tablet sustained-release 12 hr 150 mg PO BID Qty: 180 3RF lisinopril 10 mg tablet 10 mg PO DAILY Qty: 90 3RF amlodipine 10 mg tablet 10 mg PO DAILY Qty: 90 3RF clopidogrel 75 mg tablet 75 mg PO DAILY Qty: 90 1RF carvedilol 3.125 mg tablet 3.125 mg PO BID Qty: 60 0RF aspirin 81 mg Tablet,Delayed Release (Dr/Ec) 81 mg PO DAILY Qty: 0 0RF No Action clobetasol 0.05 % ointment 1 applic topical BID 14 Days Qty: 60 1RF Rx Instructions: Use BID for 1 week, then daily for 1 week and then as needed. levothyroxine 88 mcg tablet 88 mcg PO DAILY Qty: 90 2RF Discharge Instructions Instructions: Atherosclerosis, Peripheral artery disease and claudication Activity:: Activity as Tolerated Equipment/Supplies:: No Equipment Needed Diet:: As Tolerated Discharge Orders Discharge Orders: Discharge Order (Routine); Ordered 05/11/25 Ordered By: Tee Maier Discharge Data Discharge Date/Time-TO BE ENTERED AT DEPARTURE: 05/11/25 10:55 DS: Summary Time Spent with Patient providing and/or coordinating discharge services: Greater than 30 minutes Status at Discharge Functional status at discharge: independent ambulation Overall status at discharge: patient is back to baseline Mental Status: mental status grossly normal Speech and Movement: speech and movement normal Mood: congruent mood Affect: normal affect Quality:SDOH Health Related Social Needs: Health related social needs risk of homeless food inse curity transpo insecurity material hardship house/econ circumstance daily activities lonely/isolated education Health related social needs details worried about her job Health related social needs details: worried about her job Exam Narrative Exam Narrative: General: This is a very pleasant woman in no acute distress HEENT: Normocephalic, atraumatic CV: RRR Resp: CTAB Abd: soft, NT/ND, +NBS MSK: Voluntary motion x4 Neuro: Awake, alert, no focal deficits Psych Mental Status: mental status grossly normal Speech and Movement: speech and movement normal Mood: congruent mood Affect: normal affect DS: Data Vitals/I&O Vitals and I&O: Vital Signs Temperature 36.8 C 05/11/25 07:41 Temperature Source Temporal Artery Scan 05/11/25 07:41 Pulse 63 05/11/25 07:41 Pulse Rhythm Regular 05/10/25 08:32 Pulse 59 L 05/10/25 08:01 Respiratory Rate 17 05/11/25 07:41 Respiratory Effort Normal 05/10/25 08:32 Respiratory Depth Normal 05/10/25 08:32 Respiratory Pattern Normal 05/10/25 08:32 Blood Pressure 128/88 05/11/25 07:41 Blood Pressure Mean 101 05/11/25 07:41 Blood Pressure Position Supine 05/10/25 01:27 Pulse Oximetry 94 05/11/25 07:41 Oxygen Delivery Method Room Air 05/11/25 07:41 Oxygen Flow Rate 0 05/11/25 07:41 Pain Level 0 05/11/25 07:41 Comment PT is sleeping refused vitals, will try again later. 05/11/25 03:31 Intake & Output 05/10/25 05/10/25 05/11/25 11:59 23:59 11:59 Intake Total 500 / 1060 560 / 1060 Output Total 1474 550 2024 Balance -975 / -965 10 / -965 Weight 53.6 kg Intake: IV 500 / 520 20 / 520 Oral 540 / 540 Output: Urine 1474 / 2024 Other: Urine Appearance Clear Comment MARIUM.independent in Data Completed and Pending Labs on day of discharge: Labs from last 24 hours 05/11/25 05/10/25 06:08 10:14 WBC 5.12 RBC 3.63 L Hgb 11.5 Hct 34.4 L MCV 95 MCH 31.7 MCHC 33.4 RDW 13.8 Plt Count 230 MPV 10.9 Sodium 140 137 Potassium 4.0 4.3 D Chloride 105 102 Carbon Dioxide 27.9 28.1 Anion Gap 7.1 6.9 BUN 21 H 19 H Creatinine 1.1 H 1.0 Est GFR (CKD-EPI 2020) 58.97 66.12 Glucose 100 119 H Calcium 9.5 9.9 Magnesium 2.3 Total Bilirubin 0.7 1.0 AST 751 H 1409 H ALT 842 H 764 H Alkaline Phosphatase 349 H 271 H Total Protein 7.5 8.3 H Albumin 3.7 4.1 TSH 14.60 H Free T4 0.54 L PFSH All Active Problems (Updated 05/12/25 @ 00:03 by SIA VEGA) LFT elevation (Acute) Hypertensive emergency (Acute) Compromised kidney function (Acute) Hypothyroidism (Chronic) Pure hypercholesterolemia (Acute 04/02/16) Essential hypertension (Acute) Uncontrolled Medical History Smoker Dehydration Acute kidney failure Aneurysm of infrarenal abdominal aorta (12/08/17) ulceration Depressive disorder Family history of breast cancer (03/27/15) mother Headache (11/18/12) Renal failure (06/10/16) 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; + antibody, - antigen Hx of pyelonephritis (02/09/14) 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) (03/09/14) History of acute renal failure Hypercholesteremia Hypothyroidism Hyperthyroidism Surgical History History of open reduction and internal fixation (ORIF) procedure History of appendectomy , Ectopic X 2 Family History Mother Essential hypertension Personal history of malignant neoplasm BREAST Father Essential hypertension Personal history of malignant neoplasm PROSTATE Sister Essential hypertension Brother Essential hypertension Social History Smoking/Tobacco Use Status: Former Tobacco Use Quit status: quit date established Second Hand Exposure: Yes Smoking risk assessment performed?: Yes Alcohol Intake: former Drug use: Never Substance use type: does not use Counseling given: No Counseling provided: none Caregiver/Support person: No Household members: family Housing: apartment Communication Needs: Deaf Do you need help understanding health information?: Never current occupation: [employer] Pets and animals: No Sexually active: No Do you think of yourself as: straight/heterosexual Current gender identity: male What is your relationship status?: never How often do you talk on the phone with friends or family?: never How often do you get together with friends or relatives?: once per week How often do you attend bahai or amish services?: decline to answer Do you belong to any clubs or organized social groups?: no Panel score (0-1 are the most socially isolated patients): 0 Do you feel safe at home: Yes Do you feel safe in your relationship?: Yes Time Spent with Patient Time Spent with Patient: <45 minutes Time was spent: preparing to see the patient(eg.review tests), obtaining and/or reviewing separately otained hiistory, ordering medications,tests, procedures, referring, communicating with other health childcare attendant, indepentently interpreting results, counseling the patient and care coordination
--- NOTE | 2025-05-11 13:40 | CMDISCH_ITS ---
Date of service: 05/11/25 Time of Service: 13:41 LACE Index Scoring Tool Questions: Length of Stay (in days): 1 Was the patient admitted via the E.D.?: Yes Comorbidities: Cerebrovascular Disease and Liver or Renal Disease E.D. Visits: 1 Answers: Total Score: 10 Risk of Readmission: High Risk Care Management Discharge Plan Reason for Hospitalization: hypertension Discharge Plan: Geoff was admitted yesterday with extremely high blood pressures, she was c/o chest pain. Cardiac workup was negative. Geoff has no insurance. She was referred to [facility] with her permission, and she was given the Patient Assistance packet. She has been prescribed several medications, which at this time she will need to pay out of pocket. [facility] did not reach out yesterday, as referral was placed late in the day. Geoff was strongly encouraged to head to [facility] this morning, straight from the hospital. She was encouraged to ask for help with the Assistance packet from the hospital or [facility]. The reproductive healthcare assistant at her PCP office was notified of this admission and the circumstances with her insurance. Geoff was discharged home today with no new services. She should f/u with her PCP and straighten out her insurance issues. Geoff was transported home by her daughter. Patient/Family Education Needs: Review of discharge instructions, importance of medication compliance, activity and limitations. Discuss Ask me 3. SDOH Health Related Social Needs: Health related social needs risk of homeless food inse curity transpo insecurity material hardship house/econ circumstance daily activities lonely/isolated education Health related social needs details worried about her job Health related social needs details: worried about her job
== END 2025-05-11 10:55 | disposition home or self-care (01) ==
LOC: ER 07:04 → MS 08:30
PROVIDERS: Admitting Provider Family Medicine; Emergency Provider Emergency Medicine; PCP Nurse Practitioner Family; Responsible Provider Family Medicine; Visit Provider Family Medicine
DX: I16.1 Hypertensive emergency (principal); R07.89 Other chest pain; I65.23 Occlusion and stenosis of bilateral carotid arteries; F33.9 Major depressive disorder, recurrent, unspecified; E03.9 Hypothyroidism, unspecified; E78.00 Pure hypercholesterolemia, unspecified; I70.0 Atherosclerosis of aorta; I10 Essential (primary) hypertension; R74.8 Abnormal levels of other serum enzymes; Z86.73 Personal history of transient ischemic attack (TIA), and cerebral infarction without residual deficits; Z79.899 Other long term (current) drug therapy; I71.43 Infrarenal abdominal aortic aneurysm, without rupture; Z87.891 Personal history of nicotine dependence; Z59.811 Housing instability, housed, with risk of homelessness; Z59.41 Food insecurity; Z59.82 Transportation insecurity; R45.89 Other symptoms and signs involving emotional state; R45.82 Worries
CPT/HCPCS: 00123; 36415; 71275; 80053; 85027; 93005; 96361; 96374; 96376; 99291; 74174; 83735; 84439; 84443; 84484; 85025; 93010; 99222; 99239; G0378; J1920; J3490; Q9967

== ENCOUNTER 2025-05-25 17:28 | Emergency (ER) | payer SELFPAY ==
[2025-05-25] VITALS (24 sets, daily range): BP systolic 153–190; BP diastolic 72–95; PULSE 70–88; RESP 12–21; TEMP 36.4; O2SAT 96–99
--- NOTE | 2025-05-25 17:30 | RT.EKG_ITS ---
APPROVED REPORT Exam: Resting ECG Reason for Exam: dizziness Patient Location: E HR:78 bpm ECG Measurements Heart Rate 78 AXIS WV 226 P 64 QRSd 99 QRS 71 QT 402 T 6 QTc 459 Conclusion Sinus rhythm, rate 78 1st degree HB, WV interval 226ms No STEMI No significant changes from priors
--- NOTE | 2025-05-25 17:45 | DI.RAD_ITS ---
Exam(s) XR CHEST 2V PA LATERAL EXAM: XR CHEST 2V PA LATERAL CLINICAL HISTORY: Chest pain. TECHNIQUE: 2D digital imaging was performed. COMPARISON: CR,XR XR CHEST 2V PA LATERAL from 09/17/2022 FINDINGS: 2 views: Heart size is normal. The mediastinum is not widened. Lungs are clear. No infiltrates nor pleural effusions. IMPRESSION: No acute pulmonary findings. DATA REPOSITORY: RADIATION DOSE DELIVERED:
--- NOTE | 2025-05-25 18:20 | W.ED.GENAD ---
Discharge Plan Disposition Patient Disposition: Home Condition: Stable Discharge Details Clinical Impression: Chest pain, Dizziness, Essential hypertension Primary Care Provider: Brittany Sandoval ED Provider: Jyoti Wang Home Meds and New Rx's Prescriptions: No Action clobetasol 0.05 % ointment 1 applic topical BID 14 Days Qty: 60 1RF Rx Instructions: Use BID for 1 week, then daily for 1 week and then as needed. levothyroxine 88 mcg tablet 88 mcg PO DAILY Qty: 90 2RF atorvastatin 40 mg Tablet 80 mg PO QPM Qty: 180 3RF bupropion HCl 150 mg Tablet Sustained-Release 12 Hr 150 mg PO BID Qty: 180 3RF clopidogrel 75 mg Tablet 75 mg PO DAILY Qty: 90 3RF aspirin 81 mg Tablet,Delayed Release (Dr/Ec) 81 mg PO DAILY Qty: 90 3RF carvedilol 3.125 mg Tablet 3.125 mg PO BID Qty: 180 3RF amlodipine 10 mg Tablet 10 mg PO DAILY Qty: 90 3RF lisinopril 10 mg Tablet 10 mg PO DAILY Qty: 90 3RF levothyroxine 150 mcg Tablet 150 mcg PO DAILY@0600 Qty: 90 3RF Discharge Instructions Instructions: Chest Pain, Adult ED Additional Instructions: You were seen in the emergency department today for evaluation of dizziness, chest discomfort, and nausea. In our department had a full physical examination performed, had laboratories that were reassuring. Your cardiac enzyme remains quite elevated, but is actually decreased from your last admission and downtrending in our emergency department. Your EKG does not show sign of a heart attack. You have received fluids for rehydration and this did improve your dizziness I recommend that you reach out to the [place] Medicaid resources that you were provided to establish health insurance, so that you can follow-up with cardiology, vascular surgery, and your primary care. Please take all of your medications as prescribed and continue to check your blood pressure at home. You can always return to the emergency department for reevaluation if your chest pain returns or worsens, you have shortness of breath, fever or chills, change in responsiveness, etc. Please follow-up with your primary care provider in the next few days to discuss this visit and any symptoms that change, worsen, or persist. Thank you for allowing us to be part of your care. Stand Alone Forms: Work Release HPI General Mode of arrival: ambulatory. Date/Time Provider Initiated Documentation: 05/25/25 17:37. Limitations to Documentation: no limitations. Information obtained by: patient and old records reviewed. HPI Narrative: This is a 55-year-old female patient with a past medical history significant for hypothyroidism, hypertension, and recent admission for hypertensive emergency, presenting for evaluation of dizziness, nausea, and chest pain. The patient reports she was in her normal state of health this morning, but at work developed a sensation of chest pain that felt like hot water in her chest. She states that this was associated with lightheadedness but no syncope or vertigo, she felt nauseated but did not vomit. The dizziness has improved somewhat but her chest pain has persisted. She has not had fever or chills, vision changes or headache, abdominal pain. No history of significant GERD or heartburn, and states that this does not feel like heartburn or GI complaints. Has been taking all of her medications as prescribed. Related Data Home Medications ?Medication ?Instructions ?Recorded ?Confirmed clobetasol 0.05 % topical ointment 1 applic topical BID 2 weeks #60 08/05/23 05/25/25 grams levothyroxine 88 mcg tablet 88 mcg PO DAILY #90 tabs 10/04/24 05/25/25 amlodipine 10 mg tablet 10 mg PO DAILY #90 tabs 05/11/25 05/25/25 aspirin 81 mg tablet,delayed 81 mg PO DAILY #90 tabs 05/11/25 05/25/25 release atorvastatin 40 mg tablet 80 mg (2 x 40 mg) PO QPM #180 tabs 05/11/25 05/25/25 bupropion HCl 150 mg tablet,12 hr 150 mg PO BID #180 tabs 05/11/25 05/25/25 sustained-release carvedilol 3.125 mg tablet 3.125 mg PO BID #180 tabs 05/11/25 05/25/25 clopidogrel 75 mg tablet 75 mg PO DAILY #90 tabs 05/11/25 05/25/25 levothyroxine 150 mcg tablet 150 mcg PO DAILY@0600 #90 tabs 05/11/25 05/25/25 lisinopril 10 mg tablet 10 mg PO DAILY #90 tabs 05/11/25 05/25/25 Previous Rx's ?Medication ?Instructions ?Recorded clobetasol 0.05 % topical ointment 1 applic topical BID 2 weeks #60 08/05/23 grams levothyroxine 88 mcg tablet 88 mcg PO DAILY #90 tabs 10/04/24 amlodipine 10 mg tablet 10 mg PO DAILY #90 tabs 05/11/25 aspirin 81 mg tablet,delayed 81 mg PO DAILY #90 tabs 05/11/25 release atorvastatin 40 mg tablet 80 mg (2 x 40 mg) PO QPM #180 tabs 05/11/25 bupropion HCl 150 mg tablet,12 hr 150 mg PO BID #180 tabs 05/11/25 sustained-release carvedilol 3.125 mg tablet 3.125 mg PO BID #180 tabs 05/11/25 clopidogrel 75 mg tablet 75 mg PO DAILY #90 tabs 05/11/25 levothyroxine 150 mcg tablet 150 mcg PO DAILY@0600 #90 tabs 05/11/25 lisinopril 10 mg tablet 10 mg PO DAILY #90 tabs 05/11/25 Allergies Allergy/AdvReac Type Severity Reaction Status Date / Time codeine Allergy Intermediate CHEST Verified 05/25/25 17:36 CLOSING General Stated Complaint: GenMedical ORA: 2 Exam Narrative Exam Narrative: Gen: awake and alert, in no apparent distress. Appears well nourished. HEENT: PERRL, EOMs full and without nystagmus. External ears and nose normal, mucous membranes moist. Neck: Supple, full range of motion, no observable masses Lungs: No increased work of breathing, lung sounds clear and equal bilaterally without wheezes, rhonchi, or rales. CV: Heart with regular rate and rhythm, no murmurs auscultated. Strong and symmetrical radial pulses. Abdomen: Soft, nondistended, non-tender to palpation. No rigidity, rebound tenderness, or guarding. MSK: No joint swelling, no redness. Full ROM without limitation, no external traumatic findings. No unilateral calf swelling or tenderness, no peripheral edema Skin: No rashes or lesions to visualized skin. Normal color, warm, and dry. Neuro: Cranial nerves II-XII intact and symmetrical bilaterally. 5/5 strength in all muscle groups x4 extremities. No sensory deficits. Ambulates with steady gait. Psych: Appropriate for situation. Course Vital Signs Vital signs: Vital Signs Temperature 36.4 C 05/25/25 17:32 Pulse 88 05/25/25 17:32 Respiratory Rate 20 05/25/25 17:32 Blood Pressure 153/95 H 05/25/25 17:32 Pulse Oximetry 98 05/25/25 17:32 Temperature 36.4 C 05/25/25 18:19 Temperature Source Tympanic 05/25/25 18:19 Pulse 88 05/25/25 18:19 Respiratory Rate 20 05/25/25 18:19 Respiratory Depth Normal 05/25/25 18:19 Blood Pressure 153/95 H 05/25/25 18:19 Blood Pressure Position Sitting 05/25/25 18:19 Pulse Oximetry 98 05/25/25 18:19 Oxygen Delivery Method Room Air 05/25/25 18:19 Oxygen Flow Rate 0 05/25/25 18:19 Pain Level 0 05/25/25 18:19 Medical Decision Making This is a 55-year-old female patient presenting for evaluation of lightheadedness, dizziness, and chest pain. My differential includes but is not limited to ACS including STEMI, NSTEMI, unstable angina, certainly considered arrhythmia, pericarditis/myocarditis, aortic pathology, though the patient did have a recent CTA of the chest abdomen pelvis that was reassuring. Considered pulmonary abnormalities including pneumonia, bronchitis, pleural effusion, pulmonary edema, reactive airway disease, pneumothorax. The patient is without tachycardia, hypoxia, or a pleuritic component to his pain to significantly increase my concern for pulmonary embolism. No GI symptoms or vomiting to suggest Boerhaave's, esophagitis, peptic ulcer disease, pancreatitis. Considered musculoskeletal pathologies including costochondritis, chest wall pain. Consider dehydration, metabolic electrolyte derangements, orthostasis, anemia, no focal neurodeficits or vertiginous symptoms to increase my concern for stroke, intracranial hemorrhage, mass effect. I obtained an EKG, which shows a normal sinus rhythm without evidence of ischemia, interval abnormality, or ectopy. No significant changes from prior. We will obtain laboratory studies to include CBC, CMP, magnesium, troponin, BNP, lipase, and TSH to evaluate for hyperthyroidism given the recent change in Synthroid dosing. Will obtain a chest x-ray. - Chest x-ray reviewed, shows no evidence of intrapulmonary abnormality, mediastinum is not widened making aortic pathology less likely. I independently interpreted the laboratory studies, which show no significant leukocytosis, anemia, or thrombocytopenia. The chemistry panel is without evidence of electrolyte abnormality, severe kidney dysfunction, or liver injury, other than a slightly elevated alkaline phosphatase. Initial troponin elevated to 88, which is actually decreased from her discharge troponin few weeks ago. 1 hour delta troponin was 85. BNP not elevated, lipase is low and the TSH is now within normal limits. After fluid resuscitation, the patient reports that her symptoms have improved significantly. I did discuss getting the third troponin with her, though I suspect that we are seeing an ongoing decrease of her troponin after her recent hypertensive emergency. I have a very low concern for active ischemia in this patient, and she at this time is desiring of discharge to home. She is no longer dizzy, her chest pain has resolved, and she has been hemodynamically appropriate, though her blood pressure is slightly high. She notes she has not yet taken her nighttime carvedilol and will do so as soon as she gets home. She was provided with resources to establish with health insurance as this is a limiting factor to her outpatient follow-ups. At this time, the patient has had a full medical evaluation and is safe for discharge to home. They are hemodynamically stable, ambulatory, and tolerating PO. They are understanding of the follow-up plan and return precautions. They left our facility without incident. Jyoti Wang MD Quality:SDOH Health Related Social Needs: Health related social needs risk of homeless food insecurity transpo insecurity material hardship house/econ circumstance daily activities lonely/isolated education Health related social needs details worried about her job PFSH All Active Problems (Updated 05/25/25 @ 21:00 by Jyoti Wang MD) Dizziness (Acute) Chest pain (Acute) LFT elevation (Acute) Hypertensive emergency (Acute) Compromised kidney function (Acute) Hypothyroidism (Chronic) Pure hypercholesterolemia (Acute 04/02/16) Essential hypertension (Acute) Uncontrolled Medical History Smoker Dehydration Acute kidney failure Aneurysm of infrarenal abdominal aorta (12/08/17) ulceration Depressive disorder Family history of breast cancer (03/27/15) mother Headache (11/18/12) Renal failure (06/10/16) 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; + antibody, - antigen Hx of pyelonephritis (02/09/14) 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) (03/09/14) History of acute renal failure Hypercholesteremia Hypothyroidism Hyperthyroidism Surgical History History of open reduction and internal fixation (ORIF) procedure History of appendectomy , Ectopic X 2 Family History Mother Essential hypertension Personal history of malignant neoplasm BREAST Father Essential hypertension Personal history of malignant neoplasm PROSTATE Sister Essential hypertension Brother Essential hypertension Social History Smoking/Tobacco Use Status: Former Tobacco Use Quit status: quit date established Second Hand Exposure: Yes Smoking risk assessment performed?: Yes Alcohol Intake: former Drug use: Never Substance use type: does not use Counseling given: No Counseling provided: none Caregiver/Support person: No Household members: family Housing: apartment Communication Needs: Deaf Do you need help understanding health information?: Never current occupation: [employer] Pets and animals: No Sexually active: No Do you think of yourself as: straight/heterosexual Current gender identity: male What is your relationship status?: never How often do you talk on the phone with friends or family?: never How often do you get together with friends or relatives?: once per week How often do you attend congregational or quaker services?: decline to answer Do you belong to any clubs or organized social groups?: no Panel score (0-1 are the most socially isolated patients): 0 Do you feel safe at home: Yes Do you feel safe in your relationship?: Yes
[2025-05-25 18:25] LABS: Abs Immature Grans 0.02 10^3/uL (0.0-0.06); HCT 34.3 % (36.0-46.0); HGB 11.4 g/dL (11.2-15.7); Immature Grans % 0.4 %; MCH 31.1 pg (27.0-33.0); MCHC 33.2 % (32.0-36.0); MCV 94 fL (80-95); MPV 10.5 fL (8.0-11.0); Platelet Count 256 10^3/uL (130-400); RBC 3.66 10^6/uL (3.93-5.22); RDW 12.8 % (11.7-14.6); RDW-SD 44.3 fL; WBC 5.65 10^3/uL (4.4-10.8)
[2025-05-25 18:39] LABS: ALT 47 U/L (14-59); AST 22 U/L (15-37); Albumin 4.6 g/dL (3.4-5.0); Alkaline Phosphatase 223 U/L (46-116); Anion Gap 5.9 mmol/L (3-11); BUN 21 mg/dL (7-18); Bilirubin, Total 0.4 mg/dL (0.2-1.0); CO2 32.1 mmol/L (21.0-32.0); Calcium 9.8 mg/dL (8.5-10.1); Chloride 104 mmol/L (98-107); Estimated GFR 58.97 (mL/min/1.73m2); Glucose 105 mg/dL (74-106); Magnesium 2.2 mg/dL (1.8-2.4); Potassium 3.7 mmol/L (3.5-5.1); Sodium 142 mmol/L (136-145); Total Protein 8.5 g/dL (6.4-8.2)
[2025-05-25 18:50] LABS: Lipase 54 U/L (<78); NT-proBNP 200 pg/mL (<300); TSH (W/Ref FT4) 2.57 uIU/mL (0.36-3.74)
[2025-05-25 18:55] LABS: Troponin I 88 ng/L (<or=51)
[2025-05-25] MEDS: Lactated Ringers 1,000 ML 1000 ML IV (18:55)
[2025-05-25] MEDS: Aspirin 81 MG CHEW 324 MG CH (19:14)
[2025-05-25 19:42] LABS: Troponin I 85 ng/L (<or=51)
== END 2025-05-25 21:13 | disposition home or self-care (01) ==
PROVIDERS: Emergency Provider Emergency Medicine; PCP Nurse Practitioner Family
DX: R07.9 Chest pain, unspecified; R42 Dizziness and giddiness; I10 Essential (primary) hypertension; R11.0 Nausea; Z59.811 Housing instability, housed, with risk of homelessness; Z59.82 Transportation insecurity; Z59.87 Material hardship due to limited financial resources, not elsewhere classified; Z59.89 Other problems related to housing and economic circumstances; Z60.8 Other problems related to social environment
CPT/HCPCS: 36415; 80053; 83690; 93005; 96360; 96361; 99284; 71046; 83735; 83880; 84443; 84484; 85025; 93010

== ENCOUNTER 2025-05-26 16:14 | Observation (INO) | payer SELFPAY ==
[2025-05-26] VITALS (25 sets, daily range): BP systolic 139–194; BP diastolic 84–102; PULSE 64–98; RESP 9–18; TEMP 36.1–36.9; O2SAT 95–98
--- NOTE | 2025-05-26 16:45 | DI.RAD_ITS ---
Exam(s) XR PORTABLE CHEST AP EXAM: XR PORTABLE CHEST AP CLINICAL HISTORY: Chest pain. TECHNIQUE: 2D digital imaging was performed. COMPARISON: CR XR CHEST 2V PA LATERAL from 05/25/2025 FINDINGS: Single AP portable view. Heart size is upper normal. The mediastinum is not widened. Lungs are clear. No infiltrates nor obvious pleural effusions. IMPRESSION: No acute pulmonary findings on this single AP portable view of the chest. DATA REPOSITORY: RADIATION DOSE DELIVERED:
--- NOTE | 2025-05-26 16:45 | DI.CT_ITS ---
Exam(s) CT BRAIN NECK CTA EXAM: CT BRAIN NECK CTA CLINICAL HISTORY: Dizziness. TECHNIQUE: Imaging Protocol: Axial CT angiography was performed with multi- slice acquisition and multi-planar and/or 3D reconstructions. CONTRAST MATERIAL: Intravenous: Omnipaque 350 Contrast volume:70 mL COMPARISON: CT CT BRAIN NECK CTA from 11/03/2022 FINDINGS: CTA Neck W: Aortic arch anatomy: Aortic arch is atherosclerotic but there is no critical stenosis at the origin of the great vessels off the aortic arch. Also no intimal flap evident. Anterior circulation: Both common carotid arteries ascend with normal luminal diameters. At the level the carotid bulbs and proximal internal carotid arteries there both calcified and noncalcified plaque evident bilaterally. There is approximately 30 percent stenosis in the proximal left ICA and 20 percent stenosis in the proximal right ICA. The internal carotid arteries in the upper neck are nicely patent as well as within the skull base-carotid canals. Posterior circulation: Both vertebral arteries originate in conventional fashion off of the subclavian arteries and there is no obvious stenosis at the origin of the vertebral arteries. Both vertebral arteries exhibit normal luminal diameters within the foramen transversarium. Both vertebral arteries exhibit equal size lumens and both contribute equally to the formation of the basilar artery at the skull base. CTA Brain W: Anterior circulation: Internal carotid arteries are patent in the skull base. They exhibit mural calcification within the cavernous sinuses. On the right side there is a significant focal stenosis within the intracavernous ICA again noted. There does not appear to be significant focal stenosis within the left intracavernous ICA The supraclinoid aspects of the ICAs are patent. Both A1 segments are patent as are the anterior cerebral arteries and there is no evidence of aneurysm at the level of the anterior communicating artery. Both middle cerebral arteries are patent with no evidence of significant stenosis nor intraluminal thrombus. There also no aneurysms of these vessels. Posterior circulation: Basilar artery ascends with normal luminal diameter. Distally it gives off patent bilateral superior cerebellar arteries. Above this level it terminates as patent bilateral posterior cerebral arteries. The P1 segment of the left posterior cerebral artery loops anteriorly but without significant stenosis at this level.. There is no evidence of aneurysm at the tip of the basilar artery nor elsewhere in the [id number]. CT BRAIN: There is no evidence of intracranial hemorrhage, mass effect, or shift of midline structures. There are no extra-axial fluid collections. Ventricles are not enlarged or shifted. There are no ring enhancing lesions in the brain and no abnormal meningeal enhancement. There is a small area of abnormal hypodensity in lateral aspect of the inferior left cerebellar hemisphere, probably representing post ischemic change. This, however, is unchanged from the CT scan of October 2022. IMPRESSION: 1. There is mild stenosis in the proximal internal carotid arteries in both sides the neck, estimated at or less than 30 percent. 2. Patent vertebral arteries in the neck. No stenosis at the origin of the vertebral arteries off of the subclavian arteries nor throughout the course of the vertebral arteries in the neck and there is also no evidence of vertebral artery dissection. 3. There is again noted a significant focal stenosis within the right intracavernous internal carotid artery. 4. Area of abnormal hypodensity in the inferior lateral aspect of the left cerebellar hemisphere, unchanged from CT scan of October 2022 and possibly representing chronic post ischemic change. 5. Recommend follow-up MRI with diffusion imaging. Findings discussed by phone with ER physician 05/26/2025 at 6:30 p.m. RADIATION DOSE DELIVERED: 2,162.03mGy.cm Total DLP DATA REPOSITORY: All CT scans at this facility are submitted to the National Radiology Data Registry (NRDR) Dose Index Registry (DIR) with the [employer] (ACR). RADIATION OPTIMIZATION: All CT scans at this facility use at least one of these dose optimization techniques: automated exposure control; mA and/or kV adjustment per patient size (includes targeted exams where dose is matched to clinical indication); or iterative reconstruction.
[2025-05-26 17:11] LABS: Abs Immature Grans 0.03 10^3/uL (0.0-0.06); HCT 37.1 % (36.0-46.0); HGB 12.2 g/dL (11.2-15.7); Immature Grans % 0.4 %; MCH 30.4 pg (27.0-33.0); MCHC 32.9 % (32.0-36.0); MCV 93 fL (80-95); MPV 10.5 fL (8.0-11.0); Platelet Count 285 10^3/uL (130-400); RBC 4.01 10^6/uL (3.93-5.22); RDW 12.6 % (11.7-14.6); RDW-SD 43.4 fL; WBC 7.46 10^3/uL (4.4-10.8)
[2025-05-26] MEDS: Droperidol 5 MG/2 ML VIAL 2.5 MG IVP (17:25)
[2025-05-26] MEDS: Acetaminophen 500 MG TAB 1000 MG PO (17:26)
[2025-05-26] MEDS: MAGNESIUM SULFATE 2 GM/50 ML BAG IV_INF (17:27)
[2025-05-26 17:32] LABS: ALT 46 U/L (14-59); AST 26 U/L (15-37); Albumin 4.6 g/dL (3.4-5.0); Alkaline Phosphatase 237 U/L (46-116); Anion Gap 8.8 mmol/L (3-11); BUN 13 mg/dL (7-18); Bilirubin, Total 0.4 mg/dL (0.2-1.0); CO2 30.2 mmol/L (21.0-32.0); Calcium 10.2 mg/dL (8.5-10.1); Chloride 101 mmol/L (98-107); Estimated GFR 75.03 (mL/min/1.73m2); Glucose 95 mg/dL (74-106); Magnesium 2.1 mg/dL (1.8-2.4); NT-proBNP 224 pg/mL (<300); Potassium 3.8 mmol/L (3.5-5.1); Sodium 140 mmol/L (136-145); Total Protein 8.9 g/dL (6.4-8.2)
[2025-05-26 17:34] LABS: Troponin I 91 ng/L (<or=51)
[2025-05-26] MEDS: Omnipaque 350 MG/ML 100 ML BTL IJ (17:51)
[2025-05-26] MEDS: Normal Saline - Diluent 50 ML VIAL IJ (17:51)
[2025-05-26 18:36] LABS: Troponin I 81 ng/L (<or=51)
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
--- NOTE | 2025-05-26 19:00 | RT.EKG_ITS ---
APPROVED REPORT Exam: Resting ECG Reason for Exam: chest pain Patient Location: E HR:69 bpm ECG Measurements Heart Rate 69 AXIS DE 222 P 63 QRSd 100 QRS 55 QT 442 T 36 QTc 472 Conclusion Sinus rhythm...normal P axis, V-rate 60- 99 Prolonged DE interval...DE >210, V-rate 50- 90 No STEMI
[2025-05-26] MEDS: Aspirin 81 MG CHEW 243 MG PO (19:18)
[2025-05-26 20:30] LABS: Troponin I 91 ng/L (<or=51)
--- NOTE | 2025-05-26 20:45 | HPE_ITS ---
Date of service: 05/26/25 Time of Service: 20:45 Assessment and Plan Assessment and plan (1) TIA (transient ischemic attack): Start date: 05/26/25 Status: Acute Assessment and plan: This is a 55-year-old lady with history of previous left cerebellar CVA and right ICA focal stenosis which has not been intervened upon on aspirin and Plavix chronically presenting with similar symptoms to her stroke in 2021. She has a history of migraine headaches and this presentation with her diffuse headache and neck pain was different than a migraine. She had no aura. Symptoms did self resolve with treatment for nausea and patient did have teleneurology consultation after CTA of the head and neck showed no acute changes and symptoms had resolved. Neurology advised increasing aspirin to 162 mg/day and continue Plavix, permissive hypertension and follow-up imaging in the morning to include echocardiogram with bubble study and MRI of the brain. She will be observed overnight with vital signs every 4 hours, neurochecks and telemetry. She has no history of atrial fibrillation. Previous echo did show enlarged atria. If patient is stable and imaging unrevealing, she should follow-up with neurology and also cardiology with her history of heart disease and elevated troponins. She is a full code. (2) Stenosis of right internal carotid artery: Status: Chronic Assessment and plan: Focal right intracavernous ICAstenosis which is stable. At the time of her stroke in 2021 no intervention was recommended by vascular surgery. This can be followed up at [facility] with neurology and vascular surgery. (3) Essential hypertension: Status: Chronic Assessment and plan: Slightly elevated but permissive hypertension while evaluating for TIA. Her carvedilol will be continued and amlodipine as well as lisinopril will be held overnight. (4) Elevated troponin: Assessment and plan: Most likely secondary to stress of recent hypertension emergency. Trending down slowly. Patient creatinine level is normal. If troponins do not normalize after she recovers from this event, she should see cardiology for further investigations and possible stress testing. (5) CAD (coronary artery disease), [place] coronary artery: Status: Chronic Assessment and plan: Patient had non-STEMI in 2018 requiring transfer to [facility] emergency room but was discharged without cardiac catheterization or intervention. Her last echocardiogram did not reveal reduction of left ventricular ejection fraction. She does have chronic mitral regurgitation. There is no evidence of acute ischemia with her elevated troponins. (6) Hypercholesteremia: Assessment and plan: Continue high-dose atorvastatin therapy, especially with recurring TIA symptoms and chronically elevated troponin with question of underlying CAD exacerbation. (7) Hypothyroidism: Status: Chronic Assessment and plan: Check TSH and continue outpatient dosing of levothyroxine. (8) Major depression, recurrent, chronic: Assessment and plan: Continue outpatient medical therapy. History of Present Illness History of Present Illness Chief Complaint: Neck pain with headache and dizziness with nausea and for 1 day. Narrative: This is a 55-year-old female patient has a history of previous cerebellar CVA x 2 which were weeks apart on aspirin and Plavix now presenting with similar symptoms of dizziness with nausea, a global headache and neck pain radiating into her head bilaterally. She was seen in the ED yesterday for dizziness and nausea with chest discomfort but had a negative workup for ischemic heart disease though she does have history of CAD status post N-STEMI in 2018. Her troponins were elevated but trending downward and they were elevated with her previous hospitalization 05/10/2025 for hypertensive emergency. She appears to be hypertensive upon this presentation with initial blood pressure 194/102 and she is on medical therapy for this with poorly controlled blood pressures in the past. She has had a previous neck injury in 1987 with cervical fracture at that time not requiring intervention. With her previous strokes she did not have headache or neck pain. She does have a history of untreated migraines which are usually one-sided and not involving the entire head as she had this presentation with radiation from neck. She has had some facial droop and tremors or uncontrolled hand movements with her previous strokes in 2021 which occurred less than 2 months apart and without residual after these events. She has significant focal intracavernous ICA stenosis on CTA of the brain at that time and this did not require intervention. The ED did evaluate the patient with CTA of the head and neck with no acute changes with previous stroke seen in the left cerebellum and focal right ICA stenosis unchanged from previous exam in 2021. Teleneurology was consulted and did recommend increasing her aspirin from 81 mg to 162 mg daily with continue Plavix, echocardiogram and MRI of the brain with observation for TIA. Patient did receive extra dose of aspirin in the ED. They also recommended permissive hypertension. They did not recommend other interventions with the patient outside the window for tPA and symptoms resolving. Neurological exam by the ED physician was essentially normal. Patient will be admitted for observation with increase in aspirin dosing as recommended and imaging in the morning as suggested. She is already on high- dose statins and beta-eugene with carvedilol. Patient's blood pressure medications were adjusted during her recent admission for hypertensive emergency. Cardiology was not consulted in the ED with patient asymptomatic and having downtrending, chronically elevated troponins with her recent events. She is a full code. Review of Systems Narrative: 13 point review of systems otherwise unrevealing or stable. [facility] All Active Problems (Updated 05/27/25 @ 00:51 by Giuliano Ag) CAD (coronary artery disease), [place] coronary artery (Chronic) Neck pain (Acute) Stenosis of right internal carotid artery (Chronic) Coronary artery disease status post coronary stent insertion (Acute) TIA (transient ischemic attack) (Acute) Dizziness (Acute) Chest pain (Acute) LFT elevation (Acute) Compromised kidney function (Acute) Hypothyroidism (Chronic) Pure hypercholesterolemia (Acute 04/02/16) Essential hypertension (Chronic) Uncontrolled Medical History Major depression, recurrent, chronic De Quervain's tenosynovitis, right 40 mg Depo-Medrol injection: 09/15/2023 Acute stroke due to stenosis of right carotid artery Intracranial carotid stenosis, bilateral Elevated troponin Eczema of both hands Cervical disc disorder [facility] MRI- 08/29/21: Large disk herniation C6-7 w/ extrusion posterior to C7 vertebral body. +spinal cord compression & central spinal canal stenosis. C4- C5 & C5-C6 DJD w/spinal canal stenosis, Multilevel neural foraminal stenosis, prominence of the central canal in the spinal cord posterior to the T1-T3 vertebral bodies. 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; + antibody, - antigen Hx of pyelonephritis (02/09/14) 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) (03/09/14) History of acute renal failure Hypercholesteremia Hypothyroidism Hyperthyroidism Surgical History History of open reduction and internal fixation (ORIF) procedure History of appendectomy , Ectopic X 2 Family History Mother Essential hypertension Personal history of malignant neoplasm BREAST Father Essential hypertension Personal history of malignant neoplasm PROSTATE Sister Essential hypertension Brother Essential hypertension Social History Smoking/Tobacco Use Status: Former Tobacco Use Quit status: quit date established Second Hand Exposure: Yes Smoking risk assessment performed?: Yes Alcohol Intake: former Drug use: Never Substance use type: does not use Counseling given: No Counseling provided: none Caregiver/Support person: No Household members: family Housing: apartment Communication Needs: Deaf Do you need help understanding health information?: Never current occupation: [employer] Pets and animals: No Sexually active: No Do you think of yourself as: straight/heterosexual Current gender identity: male What is your relationship status?: never How often do you talk on the phone with friends or family?: never How often do you get together with friends or relatives?: once per week How often do you attend scientologist or religion services?: decline to answer Do you belong to any clubs or organized social groups?: no Panel score (0-1 are the most socially isolated patients): 0 Do you feel safe at home: Yes Do you feel safe in your relationship?: Yes Meds Allergies and Home Medications Allergies Allergy/AdvReac Type Severity Reaction Status Date / Time codeine Allergy Intermediate CHEST Verified 05/25/25 17:36 CLOSING Home Medications ?Medication ?Instructions ?Recorded ?Confirmed ?Type clobetasol 0.05 % topical ointment 1 applic topical BI D 2 weeks #60 08/05/23 05/26/25 Rx grams amlodipine 10 mg tablet 10 mg PO DAILY #90 tabs 04/2905/26/25 Rx aspirin 81 mg tablet,delayed 81 mg PO DAILY #90 tabs 0 05/11/25 05/26/25 Rx release atorvastatin 40 mg tablet 80 mg (2 x 40 mg) PO QPM #18 0 tabs 05/11/25 05/26/25 Rx bupropion HCl 150 mg tablet,12 hr 150 mg PO BID #180 t abs 05/11/25 05/26/25 Rx sustained-release carvedilol 3.125 mg tablet 3.125 mg PO BID #180 tabs 0 05/11/25 05/26/25 Rx clopidogrel 75 mg tablet 75 mg PO DAILY #90 tabs 04/2905/26/25 Rx levothyroxine 150 mcg tablet 150 mcg PO DAILY@0600 #90 tabs 05/11/25 05/26/25 Rx lisinopril 10 mg tablet 10 mg PO DAILY #90 tabs 04/2905/26/25 Rx Exam Narrative Exam Narrative: General: Patient appears older than stated age, normal body build, alert and oriented x 3 and in no acute distress. She recalls events of her presentation with interview. HEENT: Normocephalic, eyes with pupils equal and reactive to light symmetrically, no nystagmus, extraocular movement intact and sclera anicteric. Oropharynx with moist mucosa and poor dentition. Neck: Supple without JVD. No palpable carotid thrills. Back: Stooped posture without CVA tenderness. Lungs: Fair aeration and clear to auscultation percussion with no focalizing rales rhonchi. No expiratory wheeze. Breast: Exam deferred. Heart: Regular rate and rhythm with 3/6 holosystolic murmur over the apex, no gallops or rub. Abdomen: Soft, nontender to palpation with no palpable hepatosplenomegaly. Bowel sounds positive all quadrants. Genitalia/rectal: Exam deferred. Extremities: Without clubbing, cyanosis or pitting edema. Fair capillary refill. Skin: Normal color, warm and dry. Neuro: Cranial nerves II through XII gross intact, no focalized motor deficits and no tremor. DTRs are physiologic and symmetrical. No Babinski. Patient was not tested for Romberg but did have full exam by teleneurology. See ED providers physical exam. Psych: Normal affect and mood. No abnormal thought processes. Remote and recent memory intact. Results Imaging Imaging Studies: EXAM: CT BRAIN NECK CTA Date of exam: 05/18/2025 CLINICAL HISTORY: Dizziness. TECHNIQUE: Imaging Protocol: Axial CT angiography was performed with multi- slice acquisition and multi-planar and/or 3D reconstructions. CONTRAST MATERIAL: Intravenous: Omnipaque 350 Contrast volume:70 mL COMPARISON: CT CT BRAIN NECK CTA from 11/03/2022 FINDINGS: CTA Neck W: Aortic arch anatomy: Aortic arch is atherosclerotic but there is no critical stenosis at the origin of the great vessels off the aortic arch. Also no intimal flap evident. Anterior circulation: Both common carotid arteries ascend with normal luminal diameters. At the level the carotid bulbs and proximal internal carotid arteries there both calcified and noncalcified plaque evident bilaterally. There is approximately 30 percent stenosis in the proximal left ICA and 20 percent stenosis in the proximal right ICA. The internal carotid arteries in the upper neck are nicely patent as well as within the skull base-carotid canals. Posterior circulation: Both vertebral arteries originate in conventional fashion off of the subclavian arteries and there is no obvious stenosis at the origin of the vertebral arteries. Both vertebral arteries exhibit normal luminal diameters within the foramen transversarium. Both vertebral arteries exhibit equal size lumens and both contribute equally to the formation of the basilar artery at the skull base. CTA Brain W: Anterior circulation: Internal carotid arteries are patent in the skull base. They exhibit mural calcification within the cavernous sinuses. On the right side there is a significant focal stenosis within the intracavernous ICA again noted. There does not appear to be significant focal stenosis within the left intracavernous ICA The supraclinoid aspects of the ICAs are patent. Both A1 segments are patent as are the anterior cerebral arteries and there is no evidence of aneurysm at the level of the anterior communicating artery. Both middle cerebral arteries are patent with no evidence of significant stenosis nor intraluminal thrombus. There also no aneurysms of these vessels. Posterior circulation: Basilar artery ascends with normal luminal diameter. Distally it gives off patent bilateral superior cerebellar arteries. Above this level it terminates as patent bilateral posterior cerebral arteries. The P1 segment of the left posterior cerebral artery loops anteriorly but without significant stenosis at this level.. There is no evidence of aneurysm at the tip of the basilar artery nor elsewhere in the [id number]. CT BRAIN: There is no evidence of intracranial hemorrhage, mass effect, or shift of midline structures. There are no extra-axial fluid collections. Ventricles are not enlarged or shifted. There are no ring enhancing lesions in the brain and no abnormal meningeal enhancement. There is a small area of abnormal hypodensity in lateral aspect of the inferior left cerebellar hemisphere, probably representing post ischemic change. This, however, is unchanged from the CT scan of October 2022. IMPRESSION: 1. There is mild stenosis in the proximal internal carotid arteries in both sides the neck, estimated at or less than 30 percent. 2. Patent vertebral arteries in the neck. No stenosis at the origin of the vertebral arteries off of the subclavian arteries nor throughout the course of the vertebral arteries in the neck and there is also no evidence of vertebral artery dissection. 3. There is again noted a significant focal stenosis within the right intracavernous internal carotid artery. 4. Area of abnormal hypodensity in the inferior lateral aspect of the left cerebellar hemisphere, unchanged from CT scan of October 2022 and possibly representing chronic post ischemic change. 5. Recommend follow-up MRI with diffusion imaging. EXAM: XR PORTABLE CHEST AP Date of exam: 05/26/2025 CLINICAL HISTORY: Chest pain. TECHNIQUE: 2D digital imaging was performed. COMPARISON: CR XR CHEST 2V PA LATERAL from 05/25/2025 FINDINGS: Single AP portable view. Heart size is upper normal. The mediastinum is not widened. Lungs are clear. No infiltrates nor obvious pleural effusions. IMPRESSION: No acute pulmonary findings on this single AP portable view of the chest. Labs 05/27/25 06:02 05/27/25 06:02 Labs: Laboratory Results - last 24 hr 05/26/25 05/26/25 05/26/25 16:55 18:00 19:57 WBC 7.46 RBC 4.01 Hgb 12.2 Hct 37.1 MCV 93 MCH 30.4 MCHC 32.9 RDW 12.6 Plt Count 285 MPV 10.5 Immature Gran % 0.4 Neutrophils % 77.9 Lymphocytes % 12.1 Monocytes % 8.2 Eosinophils % 0.9 Basophils % 0.5 Nucleated RBC % 0.0 Absolute Neutrophils 5.81 Absolute Lymphocytes 0.90 L Absolute Monocytes 0.61 Absolute Eosinophils 0.07 Absolute Basophils 0.04 Sodium 140 Potassium 3.8 Chloride 101 Carbon Dioxide 30.2 Anion Gap 8.8 BUN 13 Creatinine 0.9 Est GFR (CKD-EPI 2020) 75.03 Glucose 95 Calcium 10.2 H Magnesium 2.1 Total Bilirubin 0.4 AST 26 ALT 46 Alkaline Phosphatase 237 H Troponin I 91 H* 81 H* 91 H* NT-Pro-B Natriuret Pep 224 Total Protein 8.9 H Albumin 4.6 Last Vital Signs Temp 36.4 C 05/26/25 18:15 Pulse 77 05/26/25 18:07 Resp 16 05/26/25 18:15 BP 158/92 H 05/26/25 18:15 Pulse Ox 97 05/26/25 18:07 Time Spent Time spent with Patient: >75 minutes Time was spent: preparing to see the patient(eg.review tests), obtaining and/or reviewing separately otained hiistory, ordering medications,tests, procedures, referring, communicating with other health health care facility administrator, indepentently interpreting results, counseling the patient and care coordination
--- NOTE | 2025-05-26 22:44 | W.PC.ACHO ---
Registration Status: REG ER Primary Language: Preferred Language: Amharic ED Information & Data Chief Complaint GenMedical 05/26/25 18:56 Triage Note was here yesterday w/ 05/26/25 16:16 hypertension and dizziness. Still feeling this way, nauseous, head ache, off balance, ears are burning Medical / Surgical History (Last Reviewed 05/26/25 @ 21:56 by Giuliano Ag) Major depression, recurrent, chronic De Quervain's tenosynovitis, right Acute stroke due to stenosis of right carotid artery Intracranial carotid stenosis, bilateral Elevated troponin Eczema of both hands Cervical disc disorder Chronic dermatitis of hands (03/27/16) Lichen sclerosus of female genitalia Annual physical exam Kidney tubular necrosis Murmur, cardiac Bruit of right carotid artery UTI (urinary tract infection) Smoker Dehydration Acute kidney failure Aneurysm of infrarenal abdominal aorta (12/08/17) Depressive disorder Family history of breast cancer (03/27/15) Headache (11/18/12) Renal failure (06/10/16) Type B viral hepatitis Hx of pyelonephritis (02/09/14) 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) (03/09/14) History of acute renal failure Hypercholesteremia Hypothyroidism Hyperthyroidism (Last Reviewed 05/26/25 @ 21:56 by Giuliano Ag) History of open reduction and internal fixation (ORIF) procedure History of appendectomy , Ectopic Most Recent Vital Signs Temperature 36.4 C 05/26/25 18:15 Temperature Source Oral 05/26/25 18:15 Pulse 77 05/26/25 18:07 Pulse 78 05/26/25 18:07 Respiratory Rate 16 05/26/25 18:15 Respiratory Effort Normal 05/26/25 18:15 Respiratory Depth Normal 05/26/25 18:15 Respiratory Pattern Normal 05/26/25 17:39 Blood Pressure 158/92 H 05/26/25 18:15 Blood Pressure Mean 114 05/26/25 18:15 Pulse Oximetry 97 05/26/25 18:07 Oxygen Delivery Method Room Air 05/26/25 18:15 Oxygen Flow Rate 0 05/26/25 18:15 Pain Level 0 05/26/25 18:15 Allergies codeine Allergy (Intermediate, Verified 05/25/25 17:36) CHEST CLOSING Active Medications Generic Name Dose Route Start Last Admin Trade Name Freq PRN Reason Stop Dose Admin Iohexol 100 ml 08/28/25 18:00 05/26/25 17:51 Omnipaque 350 Mg/Ml 100 Ml Btl IJ 06/25/25 23:59 70 ml DIRECTED ZENAIDA Administration Sodium Chloride 50 ml 05/26/25 18:00 05/26/25 17:51 Normal Saline - Diluent 50 Ml Vial IJ 50 ml DIRECTED ZENAIDA Administration IV IV Catheter Type [Left Saline Lock Antecubital] IV Catheter Gauge [Left 18 Antecubital] Diagnostics 05/26/25 05/26/25 05/26/25 Range/Units 21:47 19:57 18:00 WBC (4.4-10.8) 10^3/uL RBC (3.93-5.22) 10^6/uL Hgb (11.2-15.7) g/dL Hct (36.0-46.0) % MCV (80-95) fL MCH (27.0-33.0) pg MCHC (32.0-36.0) % RDW (11.7-14.6) % Plt Count (130-400) 10^3/uL MPV (8.0-11.0) fL Immature Gran % % Neutrophils % % Lymphocytes % % Monocytes % % Eosinophils % % Basophils % % Nucleated RBC % (0.0-0.3) % Absolute Neutrophils (1.2-6.7) 10^3/uL Absolute Lymphocytes (1.2-3.4) 10^3/uL Absolute Monocytes (0.1-0.8) 10^3/uL Absolute Eosinophils (0.0-0.7) 10^3/uL Absolute Basophils (0.0-0.2) 10^3/uL Sodium (136-145) mmol/L Potassium (3.5-5.1) mmol/L Chloride (98-107) mmol/L Carbon Dioxide (21.0-32.0) mmol/L Anion Gap (3-11) mmol/L BUN (7-18) mg/dL Creatinine (0.55-1.02) mg/dL Est GFR (CKD-EPI 2020) (mL/min/1.73m2) Glucose (74-106) mg/dL Calcium (8.5-10.1) mg/dL Magnesium (1.8-2.4) mg/dL Total Bilirubin (0.2-1.0) mg/dL AST (15-37) U/L ALT (14-59) U/L Alkaline Phosphatase (46-116) U/L Troponin I 91 H* 81 H* (<or=51) ng/L NT-Pro-B Natriuret Pep (<300) pg/mL Total Protein (6.4-8.2) g/dL Albumin (3.4-5.0) g/dL COVID-19 Source Pending SARS-CoV-2 (PCR) Pending Influenza Type A (PCR) Pending Influenza Type B (PCR) Pending RSV (PCR) Pending 05/26/25 Range/Units 16:55 WBC 7.46 (4.4-10.8) 10^3/uL RBC 4.01 (3.93-5.22) 10^6/uL Hgb 12.2 (11.2-15.7) g/dL Hct 37.1 (36.0-46.0) % MCV 93 (80-95) fL MCH 30.4 (27.0-33.0) pg MCHC 32.9 (32.0-36.0) % RDW 12.6 (11.7-14.6) % Plt Count 285 (130-400) 10^3/uL MPV 10.5 (8.0-11.0) fL Immature Gran % 0.4 % Neutrophils % 77.9 % Lymphocytes % 12.1 % Monocytes % 8.2 % Eosinophils % 0.9 % Basophils % 0.5 % Nucleated RBC % 0.0 (0.0-0.3) % Absolute Neutrophils 5.81 (1.2-6.7) 10^3/uL Absolute Lymphocytes 0.90 L (1.2-3.4) 10^3/uL Absolute Monocytes 0.61 (0.1-0.8) 10^3/uL Absolute Eosinophils 0.07 (0.0-0.7) 10^3/uL Absolute Basophils 0.04 (0.0-0.2) 10^3/uL Sodium 140 (136-145) mmol/L Potassium 3.8 (3.5-5.1) mmol/L Chloride 101 (98-107) mmol/L Carbon Dioxide 30.2 (21.0-32.0) mmol/L Anion Gap 8.8 (3-11) mmol/L BUN 13 (7-18) mg/dL Creatinine 0.9 (0.55-1.02) mg/dL Est GFR (CKD-EPI 2020) 75.03 (mL/min/1.73m2) Glucose 95 (74-106) mg/dL Calcium 10.2 H (8.5-10.1) mg/dL Magnesium 2.1 (1.8-2.4) mg/dL Total Bilirubin 0.4 (0.2-1.0) mg/dL AST 26 (15-37) U/L ALT 46 (14-59) U/L Alkaline Phosphatase 237 H (46-116) U/L Troponin I 91 H* (<or=51) ng/L NT-Pro-B Natriuret Pep 224 (<300) pg/mL Total Protein 8.9 H (6.4-8.2) g/dL Albumin 4.6 (3.4-5.0) g/dL COVID-19 Source SARS-CoV-2 (PCR) Influenza Type A (PCR) Influenza Type B (PCR) RSV (PCR) Intake and Output - 24 Hour Total 05/26/25 16:14 thru 05/26/25 16:16 Weight 54.431 kg Falls Risk Assessment History of Falls No History 05/26/25 17:39 Fall Total Score 0 05/26/25 17:39 Level of Risk Standard/Low Risk 05/26/25 17:39 Problems (Last Reviewed 05/26/25 @ 21:56 by Giuliano Ag) Neck pain (Acute) Stenosis of right internal carotid artery (Acute) Coronary artery disease status post coronary stent insertion (Acute) TIA (transient ischemic attack) (Acute) Dizziness (Acute) Chest pain (Acute) Hypothyroidism (Chronic) Essential hypertension (Acute) v v v v v v v v v Sending and/or Receiving Nurses: Please use comment section below to note any information pertinent to the patient hand-off not included above. Information / Comments: Pt 55 yo F admit to med/surg rm 214 from ED, seen here in ED yesterday and again today for dizzy, hypertension, lft side facial droop noted, take pills fine. Hx of CVA, AR x2 in 2019. Admit due to needing an MRI to rule out new CVA. Pt independent while ambulating, 18g IV lft AC. Pt on RA and A&Ox4. Report received from: Yesenia WILSON @ [id number]
[2025-05-26 23:25] LABS: TSH (W/Ref FT4) 4.94 uIU/mL (0.36-3.74)
[2025-05-27] MEDS: Levothyroxine 150 MCG TAB PO (06:14)
[2025-05-27 06:16] VITALS: BP 136/83; PULSE 68; RESP 16; TEMP 36.9; O2SAT 96
[2025-05-27 06:28] LABS: HCT 33.3 % (36.0-46.0); HGB 11.3 g/dL (11.2-15.7); MCH 31.7 pg (27.0-33.0); MCHC 33.9 % (32.0-36.0); MCV 94 fL (80-95); MPV 10.6 fL (8.0-11.0); Platelet Count 264 10^3/uL (130-400); RBC 3.56 10^6/uL (3.93-5.22); RDW 12.8 % (11.7-14.6); RDW-SD 44.1 fL; WBC 5.14 10^3/uL (4.4-10.8)
[2025-05-27 07:07] LABS: ALT 39 U/L (14-59); AST 22 U/L (15-37); Albumin 4.1 g/dL (3.4-5.0); Alkaline Phosphatase 208 U/L (46-116); Anion Gap 8.7 mmol/L (3-11); BUN 13 mg/dL (7-18); Bilirubin, Total 0.4 mg/dL (0.2-1.0); CO2 30.3 mmol/L (21.0-32.0); Calcium 9.6 mg/dL (8.5-10.1); Chloride 101 mmol/L (98-107); Estimated GFR 53.13 (mL/min/1.73m2); Glucose 98 mg/dL (74-106); Magnesium 2.8 mg/dL (1.8-2.4); Potassium 3.6 mmol/L (3.5-5.1); Sodium 140 mmol/L (136-145); Total Protein 7.9 g/dL (6.4-8.2)
[2025-05-27 07:18] LABS: Troponin I 94 ng/L (<or=51)
[2025-05-27 07:25] LABS: COVID-19 PCR Negative (Negative); RSV PCR Negative (Negative)
[2025-05-27 07:26] VITALS: BP 115/75; PULSE 68; RESP 17; TEMP 36.7; O2SAT 94
--- NOTE | 2025-05-27 08:00 | DI.US_ITS ---
APPROVED REPORT EXAM: Comprehensive 2D, Doppler, and color-flow Echocardiogram Patient Location: In-Patient Room/Bed: 214 Package Clerk: Gely Baptiste RDCS (AE) Indications: TIA with previous CVA, Right ICA stenosis Echo Enhancing Agent Indication: Rule out Shunt Agent(s) / Amount(s) Used: Agitated Saline 30.0 cc Comments: Contrast study was performed with 3 IV injections of 10ccs of agitated normal saline, at rest, with cough and post valsalva maneuver. Negative contrast study for shunt flow. Other Information Study Quality: Adequate Conclusion Normal left ventricular wall thickness and chamber size. Ejection fraction is 55 to 60%. Wall motion is normal Normal right ventricular size and function Both atria are normal in size No intracardiac shunting is demonstrated with injection of agitated saline There is no structural or hemodynamically significant valvular disease Wall motion Left Ventricle The left ventricle is normal size. The left ventricular systolic function is normal. The left ventricular ejection fraction is within the normal range. There is normal left ventricular wall thickness. There is normal LV segmental wall motion. There is no ventricular septal defect visualized. LVEF is 55-60%. Right Ventricle The right ventricle is normal size. The right ventricular systolic function is normal. Atria The left atrium size is normal. The right atrium size is normal. The interatrial septum is intact with no evidence for an atrial septal defect. Saline bubble contrast intravenous injection does not demonstrate PFO. Aortic Valve The aortic valve is normal in structure. Aortic valve is trileaflet. There is no aortic valvular stenosis. No aortic regurgitation is present. Mitral Valve The mitral valve is normal in structure. No evidence of mitral valve stenosis. Trace mitral regurgitation. Tricuspid Valve The tricuspid valve is normal in structure. There is no tricuspid valve stenosis. Trace tricuspid regurgitation. Unable to assess PA pressure. Pulmonic Valve The pulmonary valve is normal in structure. There is no pulmonic valvular stenosis. There is no pulmonic valvular regurgitation. Great Vessels The aortic root is normal in size. The ascending aorta is normal in size. Aortic arch is normal in caliber. IVC is normal in size and collapses >50% with inspiration. Pericardium There is no pericardial effusion. 2D Dimensions IVSD d PLAX 0.83 cm F: 0.6-1.0 Ao Root d 2.39 cm F: 2.7 - 3.3 LVPW d PLAX 0.80 cm F: 0.6 - 1.0 Ao Asc Diam d 2.92 cm F: 2.3 - 3.1 LVID d PLAX 4.29 cm F: 3.8 - 5.2 LVDs 2.91 cm F: 2.2 - 3.5 LV EF Teichholz 60.5 % FS 32.08 % LV EDV (Teich) 82.6 mL LV ESV (Teich) 32.6 mL M-Mode TAPSE 1.79 cm (M/F) >1.7 Auto EF LV EDV A4C 89.3 mL LV EDV A2C 101.6 mL LV EDV BP 95.8 mL LV ESV A4C 40.2 mL LV ESV A2C 45.8 mL LV ESV BP 43.4 mL LVEF(%) A4C 55.0 % LVEF(%) A2C 54.9 % LVEF(%) BP 54.7 % LV SV A4C 49.1 ml LV SV A2C 55.8 ml LV SV BP 52.4 ml LV CO A4C 3.0 L/min LV CO A2C 3.6 L/min LV CO BP 3.3 L/min HR A4C 62.07 BPM HR A2C 65.34 BPM LV EDV Index (BP) LA Volume LA Length A4C 4.5 cm LA Length A2C 4.4 cm LA Area A4C s 13.62 cm2 LA Area A2C s 14.73 cm2 LA Vol A4C A-L 35.27 mL LA Vol A2C A-L 41.41 mL LA Vol Biplane A-L 38.3 mL LA Vol/BSA A4C A-L LA Vol/BSA A2C A-L LA Vol/BSA BP A-L 24.9 mL/m2 LA Vol A4C MOD 31.8 mL LA Vol A2C MOD 39.4 mL LA Vol BP MOD 35.3 mL RA Volume RA Area A4C 10.2 cm2 RA ESV A4C (A-L) 20.3mL RA Vol/BSA A4C A-L RA Length A4C 4.3 cm RA ESV A4C (MOD) 19.3mL LV Diastology MV E' medial 0.071 (>0.07 m/s) MV E Vmax 0.62 (0.4-1.3 m/s) MV E/E' MED 8.73 (<14) MV A Vmax 0.75 (0.4-1.3 m/s) E/A Ratio 0.8 Aortic Valve AoV Vmax 1.22 m/s LVOT Vmax 1.04 m/s AoV Peak Grad 5.9 mmHg LVOT Peak Grad 4.3 mmHg AoV Area (Vmax) 2.34 cm2 LVOT VTI 0.225 m AoV VTI 0.259 m LVOT Mean Grad 2.4 mmHg AoV Mean Emerson. 0.85 m/s LVOT SV 61.73 mL AoV Mean Grad 3.3 mmHg LVOT Diam s 1.85 cm AoV Area (VTI) 2.38 cm2 AV Regurg Peak Gr. 5.93 mmHg Velocity Ratio 0.85 Mitral Valve MV DT 213 (160-240 msec) MV Vmax TIPS 0.83 m/s MV Mean Grad 0.9 (<2mmHg) MV VTI 0.236 m Pulmonary Valve PV Vmax 0.91 (0.5-1.5 m/s) RVOT Vmax 0.71 m/s PV Peak Grad 3.3 mmHg RVOT Peak Gr. 2.0 mmHg PV Mean Emerson 0.69 m/s RVOT VTI 0.165 m PV Mean Grad 2.1 mmHg RVOT Mean Gr. 1.1 mmHg Tricuspid Valve RA Pressure 3.00 mmHg TV S' 0.11 m/s
--- NOTE | 2025-05-27 08:54 | INITIAL_ITS ---
Date of service: 05/27/25 Time of Service: 08:54 Care Management Initial Assmt Initial Assessment Reason for Hospitalization: TIA Functional Status/Living Situation Patient Presentation: Geoff was awake and lying in bed when CM met with her and is accompanied by her daughter Dee. She is here for monitoring and further medical work following a TIA. Geoff resides in [place] and lives alone. She drives, is active and independent at baseline and works at [employer]. She has supportive family and her good friend Nicolle lives next door. Town of Residence: [place] Resides with: Alone Significant Other/Family: Local Natural Supports: Daughter Dee Friend Nicolle Employment Status: Employed ([employer]) Instrumental Activities of Daily Living (ADLs): Independent Medications Medication Management: No Issues/Barriers identified Advance Directives Advance Directives: Do you have an Advance Directive: N , 16:14 AD On File at [facility]: N 12/31/12, 15:18 Date Asked 05/26/25 05/26/25, 21:49 AD Date Reviewed COLST On File at [facility] No 05/25/25, 17:30 COLST Date Scanned Code Status Resuscitation Status Full Code Insurance Coverage/Financial Issues Insurance: Self pay Financial Issues: Referral is pending at [facility] for support with HC coverage and community needs. Care Team Visit Care Team Role Provider Type Maxine Deng NP NURSE PRACTITIONER Brittany Sandoval, DAYSI Primary Care Provider NURSE PRACTITIONER Eleazar Buenrostro MD Emergency Provider [facility] STAFF PHYSICIAN Giuliano Ag Admit Provider NON-[facility] STAFF PHYSICIAN Attending Provider Discharge Potential Discharge Needs: PCP F/U Appt Anticipated Barriers to Discharge: None Identified Patient/Family Education Needs: Review discharge instructions, discuss Ask Me Three Transportation: Private vehicle Plan: Geoff will be discharged home via private vehicle with family. She will follow up with her PCP and continue per the discharge plan of care. The patient reports that she intends to reach out to [facility] for support with healthcare coverage eligibility and assistance with navigating available resources for food and housing. Social Determinants of Health Screening Social Determinants of health last assessed in clinic: 05/27/25 Will the Patient Participate in the Screening?: Yes Do you worry about having a steady place to live?: no Problems where you live: no known problems In the past 12 months, have you had to go without electric, gas, oil or water in your home?: no 1. Within the past 12 months, we worried whether our food would run out before we got money to buy more.: Never true 2. Within the past 12 months, the food we bought just didn't last and we didn't have money to get more.: Never true Has lack of transportation kept you from medical appointments or from doing things needed for daily living?: no Has anyone in your life made you feel unsafe or unsupported?: no How hard is it for you to pay for the very basics like food, housing, medical care, and heating? Would you say it is:: Somewhat hard Do you want help finding or keeping work or a job?: I do not need or want help If for any reason you need help with day-to-day activities such as bathing, preparing meals, shopping, managing finances, etc., do you get the help you need?: I don?t need any help How often do you feel lonely or isolated from those around you?: Never Do you speak a language other than Citizen [place] at home?: No Does the patient want assistance with any of the above?: No Health Related Social Needs Health related social needs: problems related to housing/economic circumstances (Z59.89) Health related social needs details: Pt reports some difficulty paYING BILLS PFSH All Active Problems (Updated 05/27/25 @ 00:51 by Giuliano Ag) CAD (coronary artery disease), [place] coronary artery (Chronic) Neck pain (Acute) Stenosis of right internal carotid artery (Chronic) Coronary artery disease status post coronary stent insertion (Acute) TIA (transient ischemic attack) (Acute) Dizziness (Acute) Chest pain (Acute) LFT elevation (Acute) Compromised kidney function (Acute) Hypothyroidism (Chronic) Pure hypercholesterolemia (Acute 04/02/16) Essential hypertension (Chronic) Uncontrolled Medical History Major depression, recurrent, chronic De Quervain's tenosynovitis, right 40 mg Depo-Medrol injection: 09/15/2023 Acute stroke due to stenosis of right carotid artery Intracranial carotid stenosis, bilateral Elevated troponin Eczema of both hands Cervical disc disorder [facility] MRI- 08/29/21: Large disk herniation C6-7 w/ extrusion posterior to C7 vertebral body. +spinal cord compression & central spinal canal stenosis. C4- C5 & C5-C6 DJD w/spinal canal stenosis, Multilevel neural foraminal stenosis, prominence of the central canal in the spinal cord posterior to the T1-T3 vertebral bodies. 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; + antibody, - antigen Hx of pyelonephritis (02/09/14) 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) (03/09/14) History of acute renal failure Hypercholesteremia Hypothyroidism Hyperthyroidism Surgical History History of open reduction and internal fixation (ORIF) procedure History of appendectomy , Ectopic X 2 Family History Mother Essential hypertension Personal history of malignant neoplasm BREAST Father Essential hypertension Personal history of malignant neoplasm PROSTATE Sister Essential hypertension Brother Essential hypertension Social History Smoking/Tobacco Use Status: Former Tobacco Use Quit status: quit date established Second Hand Exposure: Yes Smoking risk assessment performed?: Yes Alcohol Intake: former Drug use: Never Substance use type: does not use Counseling given: No Counseling provided: none Caregiver/Support person: No Household members: family Housing: apartment Communication Needs: Deaf Do you need help understanding health information?: Never 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
--- NOTE | 2025-05-27 09:00 | DI.MRI_ITS ---
Exam(s) MR BRAIN WO EXAM: MR BRAIN WO CLINICAL HISTORY: TIA with previous left cerebellar CVA TECHNIQUE: Multiplanar multisequence MRI of the brain was performed. COMPARISON: MR MR BRAIN WO from 03/05/2023 CTA study 05/26/2025 also reviewed FINDINGS: CEREBRAL PARENCHYMA: There is no evidence of intracranial hemorrhage, mass effect, or shift of midline structures. There are no extra-axial fluid collections. Ventricles are not enlarged or shifted. Small nonacute lacunar infarct noted in the left cerebellar hemisphere, unchanged. Tiny focus of FLAIR bright signal abnormality noted in the posterior horn of the right internal capsule, also unchanged. There few bilateral FLAIR bright foci Malka in supra ventricular signal abnormality which are unchanged from the MRI February 2023 and are not associated with hemorrhage, surrounding edema, nor restricted diffusion. SWI: No microhemorrhages evident. PITUITARY GLAND: No mass nor parasellar abnormality. No obvious abnormality in the cavernous sinuses. FLOW VOIDS: The expected flow void are noted. No evidence of obvious aneurysm nor obvious vascular malformation. PARANASAL SINUSES: The visualized paranasal sinuses appear unremarkable. No obvious finding ORBITS: No obvious findings. IMPRESSION: No significant acute intracranial findings on this noninfused MRI scan of the brain. No areas of restricted diffusion to suggest acute ischemic event. Bilateral sub cm foci of FLAIR bright signal abnormality are unchanged from MRI scan of February 2023 and consistent with chronic small-vessel white matter ischemic changes. DATA REPOSITORY:
[2025-05-27] MEDS: Carvedilol 3.125 MG TAB PO (09:19)
[2025-05-27] MEDS: Clopidogrel 75 MG TAB PO (09:19)
[2025-05-27] MEDS: buPROPion-CR 150 MG TABCR PO (09:19)
[2025-05-27] MEDS: Aspirin E.C. 81 MG TABEC 162 MG PO (09:19)
[2025-05-27] MEDS: Enoxaparin 40 MG/0.4 ML SYR SC (09:19)
[2025-05-27 09:36] VITALS: BP 122/78; BP 125/80
--- NOTE | 2025-05-27 10:47 | W.PM.DS.N ---
Date of service: 05/27/25 Time of Service: 10:46 DS: Diagnosis Discharge Diagnosis (1) TIA (transient ischemic attack): Status: Acute (2) Stenosis of right internal carotid artery: Status: Chronic (3) Essential hypertension: Status: Chronic (4) Elevated troponin: (5) CAD (coronary artery disease), [place] coronary artery: Status: Chronic (6) Hypercholesteremia: (7) Hypothyroidism: Status: Chronic (8) Major depression, recurrent, chronic: Discharge Plan Disposition Patient Disposition: Home Condition: Stable Discharge Details Reason For Visit: TIA,HTN, Elevated Troponin Admit Date/Time: 05/26/25 21:47 Admit Provider: Giuliano Ag Attending Provider: Giuliano Ag Primary Care Provider: Brittany Sandoval [facility] Course Hospital Course: This is a 57-year-old male patient with complex past medical history including previous CVA with right ICA focal stenosis, hypertension, hypothyroidism hypercholesterolemia coronary artery disease status post stent who presents to the emergency department with reports of, headache, dizziness, nausea. She was seen in the emergency department the day before for dizziness, chest pain and nausea with a negative workup for ischemic heart disease. She was discharged to home. On return Found to be hypertensive with a blood pressure of 194/102. She was on medication for hypertension. She was noted to have some facial droop and tremors and underwent CTA of the head and neck. She received aspirin load in the emergency department. She continues to take Plavix from previous CVA. She was admitted to the hospitalist services for MRI telemetry monitoring and echocardiogram. Overnight she remained hemodynamically stable with blood pressure normalized. She denied any further symptoms back at her baseline. MRI and echocardiogram reviewed and no acute intracranial findings with normal echocardiogram please see reports. She is feeling ready for discharge to home. She will continue her usual medications as previously directed. She was advised to monitor her blood pressure and bring log to follow-up appointment she will return to the emergency department sooner for new or worsening symptoms discharge discussed with Dr Gilbert Home Meds and New Rx's Prescriptions: Continued clobetasol 0.05 % ointment 1 applic topical BID 14 Days Qty: 60 1RF Rx Instructions: Use BID for 1 week, then daily for 1 week and then as needed. atorvastatin 40 mg Tablet 80 mg PO QPM Qty: 180 3RF bupropion HCl 150 mg Tablet Sustained-Release 12 Hr 150 mg PO BID Qty: 180 3RF clopidogrel 75 mg Tablet 75 mg PO DAILY Qty: 90 3RF aspirin 81 mg Tablet,Delayed Release (Dr/Ec) 81 mg PO DAILY Qty: 90 3RF carvedilol 3.125 mg Tablet 3.125 mg PO BID Qty: 180 3RF amlodipine 10 mg Tablet 10 mg PO DAILY Qty: 90 3RF lisinopril 10 mg Tablet 10 mg PO DAILY Qty: 90 3RF levothyroxine 150 mcg Tablet 150 mcg PO DAILY@0600 Qty: 90 3RF Discharge Instructions Instructions: High blood pressure in adults Additional Instructions: Take medications as directed. Check blood sugars 3 times weekly and bring log to your PCP's office for revealed Stand Alone Forms: Nursing Discharge Form Referrals: Brittany Sandoval NP [Primary Care Provider, Medicine] Referral Note: Please call your PCP office to set up a follow up appointment for within 1 to 2 weeks. Activity:: Activity as Tolerated Equipment/Supplies:: No Equipment Needed Diet:: As Tolerated Discharge Orders Discharge Orders: Discharge Order (Routine); Ordered 05/27/25 Ordered By: Maxine Deng DS: Summary Time Spent with Patient providing and/or coordinating discharge services: Less than 30 minutes Status at Discharge Functional status at discharge: independent ambulation Overall status at discharge: patient is back to baseline Mental Status: mental status grossly normal Speech and Movement: speech and movement normal Mood: congruent mood Affect: normal affect Quality:SDOH Health Related Social Needs: Health related social needs house/econ circumstance Health related social needs details Pt reports some difficulty paYING BILLS Health related social needs details: Pt reports some difficulty paYING BILLS Exam Const General: no acute distress Orientation: alert HENMT Head: normal to inspection Ears: external ears normal General nose exam: external nose normal Mouth: moist mucous membranes Eyes General: appearance normal, both eyes and all related structures Neck Neck: normal visual inspection Resp Effort & Inspection: normal respiratory effort and able to speak in complete sentences Cardio Rate: regular rate GI Palpation: soft and nontender Skin General skin exam: no rashes or lesions noted Neuro General: patient alert and patient oriented x3 Extrem General: normal to inspection Psych Mental Status: mental status grossly normal Speech and Movement: speech and movement normal Mood: congruent mood Affect: normal affect DS: Data Vitals/I&O Vitals and I&O: Vital Signs Temperature 36.7 C 05/27/25 07:26 Temperature Source Temporal Artery Scan 05/27/25 07:26 Pulse 68 05/27/25 07:26 Pulse Rhythm Regular 05/26/25 22:51 Pulse 78 05/26/25 18:07 Respiratory Rate 17 05/27/25 07:26 Respiratory Effort Normal 05/26/25 22:51 Respiratory Depth Normal 05/26/25 22:51 Respiratory Pattern Normal 05/26/25 22:51 Blood Pressure 122/78 05/27/25 09:36 Blood Pressure Mean 92 05/27/25 09:36 Pulse Oximetry 94 05/27/25 07:26 Oxygen Delivery Method Room Air 05/27/25 07:26 Oxygen Flow Rate 0 05/27/25 07:26 Pain Level 0 05/27/25 07:26 Comment Pt asleep 05/27/25 03:32 Intake & Output 05/26/25 05/26/25 05/27/25 11:59 23:59 11:59 Intake Total 250 / 250 Balance 250 / 250 Weight 56.245 kg 59.4 kg Intake: IV 10 Oral 240 / 240 Other: Urine Appearance Clear Data Completed and Pending Labs on day of discharge: Labs from last 24 hours 05/27/25 05/27/25 05/26/25 06:40 06:02 19:57 WBC 5.14 RBC 3.56 L Hgb 11.3 Hct 33.3 L MCV 94 MCH 31.7 MCHC 33.9 RDW 12.8 Plt Count 264 MPV 10.6 Immature Gran % Neutrophils % Lymphocytes % Monocytes % Eosinophils % Basophils % Nucleated RBC % Absolute Neutrophils Absolute Lymphocytes Absolute Monocytes Absolute Eosinophils Absolute Basophils Sodium 140 Potassium 3.6 Chloride 101 Carbon Dioxide 30.3 Anion Gap 8.7 BUN 13 Creatinine 1.2 H Est GFR (CKD-EPI 2020) 53.13 Glucose 98 Calcium 9.6 Magnesium 2.8 H Total Bilirubin 0.4 AST 22 ALT 39 Alkaline Phosphatase 208 H Troponin I 94 H* 91 H* NT-Pro-B Natriuret Pep Total Protein 7.9 Albumin 4.1 TSH 4.94 H Free T4 1.80 H COVID-19 Source Nasopharynx SARS-CoV-2 (PCR) Negative Influenza Type A (PCR) Negative Influenza Type B (PCR) Negative RSV (PCR) Negative 05/26/25 05/26/25 18:00 16:55 WBC 7.46 RBC 4.01 Hgb 12.2 Hct 37.1 MCV 93 MCH 30.4 MCHC 32.9 RDW 12.6 Plt Count 285 MPV 10.5 Immature Gran % 0.4 Neutrophils % 77.9 Lymphocytes % 12.1 Monocytes % 8.2 Eosinophils % 0.9 Basophils % 0.5 Nucleated RBC % 0.0 Absolute Neutrophils 5.81 Absolute Lymphocytes 0.90 L Absolute Monocytes 0.61 Absolute Eosinophils 0.07 Absolute Basophils 0.04 Sodium 140 Potassium 3.8 Chloride 101 Carbon Dioxide 30.2 Anion Gap 8.8 BUN 13 Creatinine 0.9 Est GFR (CKD-EPI 2020) 75.03 Glucose 95 Calcium 10.2 H Magnesium 2.1 Total Bilirubin 0.4 AST 26 ALT 46 Alkaline Phosphatase 237 H Troponin I 81 H* 91 H* NT-Pro-B Natriuret Pep 224 Total Protein 8.9 H Albumin 4.6 TSH Free T4 COVID-19 Source SARS-CoV-2 (PCR) Influenza Type A (PCR) Influenza Type B (PCR) RSV (PCR) PFSH All Active Problems (Updated 05/27/25 @ 00:51 by Giuliano Ag) CAD (coronary artery disease), [place] coronary artery (Chronic) Neck pain (Acute) Stenosis of right internal carotid artery (Chronic) Coronary artery disease status post coronary stent insertion (Acute) TIA (transient ischemic attack) (Acute) Dizziness (Acute) Chest pain (Acute) LFT elevation (Acute) Compromised kidney function (Acute) Hypothyroidism (Chronic) Pure hypercholesterolemia (Acute 04/02/16) Essential hypertension (Chronic) Uncontrolled Medical History Major depression, recurrent, chronic De Quervain's tenosynovitis, right 40 mg Depo-Medrol injection: 09/15/2023 Acute stroke due to stenosis of right carotid artery Intracranial carotid stenosis, bilateral Elevated troponin Eczema of both hands Cervical disc disorder [facility] MRI- 08/29/21: Large disk herniation C6-7 w/ extrusion posterior to C7 vertebral body. +spinal cord compression & central spinal canal stenosis. C4-C5 & C5-C6 DJD w/spinal canal stenosis, Multilevel neural foraminal stenosis, prominence of the central canal in the spinal cord posterior to the T1-T3 vertebral bodies. 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; + antibody, - antigen Hx of pyelonephritis (02/09/14) 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) (03/09/14) History of acute renal failure Hypercholesteremia Hypothyroidism Hyperthyroidism Surgical History History of open reduction and internal fixation (ORIF) procedure History of appendectomy , Ectopic X 2 Family History Mother Essential hypertension Personal history of malignant neoplasm BREAST Father Essential hypertension Personal history of malignant neoplasm PROSTATE Sister Essential hypertension Brother Essential hypertension Social History Smoking/Tobacco Use Status: Former Tobacco Use Quit status: quit date established Second Hand Exposure: Yes Smoking risk assessment performed?: Yes Alcohol Intake: former Drug use: Never Substance use type: does not use Counseling given: No Counseling provided: none Caregiver/Support person: No Household members: family Housing: apartment Communication Needs: Deaf Do you need help understanding health information?: Never 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 Pets and animals: No Sexually active: No Do you think of yourself as: straight/heterosexual Current gender identity: male What is your relationship status?: never How often do you talk on the phone with friends or family?: never How often do you get together with friends or relatives?: once per week How often do you attend bahai or synagogue services?: decline to answer Do you belong to any clubs or organized social groups?: no Panel score (0-1 are the most socially isolated patients): 0 Do you feel safe at home: Yes Do you feel safe in your relationship?: Yes Time Spent with Patient Time Spent with Patient: <45 minutes Time was spent: preparing to see the patient(eg.review tests), obtaining and/or reviewing separately otained hiistory, indepentently interpreting results and counseling the patient
[2025-05-27 11:33] VITALS: BP 129/81; PULSE 70; RESP 16; TEMP 36.7; O2SAT 98
--- NOTE | 2025-05-27 13:05 | PDOC.CMDIS ---
Date of service: 05/27/25 Time of Service: 13:05 LACE Index Scoring Tool Questions: Length of Stay (in days): 1 Was the patient admitted via the E.D.?: Yes Comorbidities: Cerebrovascular Disease E.D. Visits: 3 Answers: Total Score: 8 Risk of Readmission: Low Risk Care Management Discharge Plan Reason for Hospitalization: TIA Discharge Plan: Geoff is discharged home via private vehicle with family. Patient will follow up with her PCP and continue per the discharge plan of care. The patient reports that she intends to reach out to [facility] for support with healthcare coverage eligibility and assistance with navigating available resources for food and housing. Patient/Family Education Needs: Discuss plan for outpatient follow-up and ask me three. SDOH Health Related Social Needs: Health related social needs house/econ circumstance Health related social needs details Pt reports some difficulty paYING BILLS Health related social needs details: Pt reports some difficulty paYING BILLS
--- NOTE | 2025-05-27 13:21 | CHAPLAIN ---
I had a brief visit with Geoff, explained my role and offered support.
[2025-05-27] MEDS: Normal Saline Flush 10 ML SYR IVP (13:59)
== END 2025-05-27 13:52 | disposition home or self-care (01) ==
LOC: ER 21:54 → MS 22:48
PROVIDERS: Admitting Provider Family Medicine; Emergency Provider General Practice; PCP Nurse Practitioner Family; Responsible Provider Nurse Practitioner Acute Care; Visit Provider Family Medicine
DX: G45.1 Carotid artery syndrome (hemispheric) (principal); I10 Essential (primary) hypertension; I25.10 Atherosclerotic heart disease of native coronary artery without angina pectoris; E78.00 Pure hypercholesterolemia, unspecified; F33.9 Major depressive disorder, recurrent, unspecified; Z86.73 Personal history of transient ischemic attack (TIA), and cerebral infarction without residual deficits; Z79.82 Long term (current) use of aspirin; Z79.02 Long term (current) use of antithrombotics/antiplatelets; G43.909 Migraine, unspecified, not intractable, without status migrainosus; I34.0 Nonrheumatic mitral (valve) insufficiency; I25.2 Old myocardial infarction; R74.8 Abnormal levels of other serum enzymes; R42 Dizziness and giddiness; N28.89 Other specified disorders of kidney and ureter; M50.221 Other cervical disc displacement at C4-C5 level; I71.43 Infrarenal abdominal aortic aneurysm, without rupture; R29.810 Facial weakness; R25.1 Tremor, unspecified; Z59.89 Other problems related to housing and economic circumstances
CPT/HCPCS: 00123; 36415; 70496; 70498; 80053; 85027; 87637; 93005; 96365; 96366; 96372; 96375; 99285; J1650; 70551; 71045; 83735; 83880; 84439; 84443; 84484; 85025; 93010; 93306; 99233; 99238; G0378; J1790; J3475; J3490

== ENCOUNTER 2025-06-13 13:24 | Emergency (ER) | payer SELFPAY ==
[2025-06-13] VITALS (23 sets, daily range): BP systolic 143–182; BP diastolic 82–100; PULSE 73–89; RESP 11–21; TEMP 36.4; O2SAT 96–98
--- NOTE | 2025-06-13 13:15 | RT.EKG_ITS ---
APPROVED REPORT Exam: Resting ECG Reason for Exam: Dizziness Patient Location: E HR:80 bpm ECG Measurements Heart Rate 80 AXIS CA 195 P 58 QRSd 98 QRS 65 QT 395 T 42 QTc 455 Conclusion Sinus rhythm...normal P axis, V-rate 60- 99 Physician: No STEMI
[2025-06-13] MEDS: Prochlorperazine 10 MG/2 ML VIAL 5 MG IVP (14:15)
[2025-06-13 15:07] LABS: Abs Immature Grans 0.02 10^3/uL (0.0-0.06); HCT 31.7 % (36.0-46.0); HGB 10.6 g/dL (11.2-15.7); Immature Grans % 0.4 %; MCH 30.9 pg (27.0-33.0); MCHC 33.4 % (32.0-36.0); MCV 92 fL (80-95); MPV 10.4 fL (8.0-11.0); Platelet Count 217 10^3/uL (130-400); RBC 3.43 10^6/uL (3.93-5.22); RDW 12.9 % (11.7-14.6); RDW-SD 44.0 fL; WBC 5.17 10^3/uL (4.4-10.8)
[2025-06-13 15:33] LABS: ALT 26 U/L (14-59); AST 17 U/L (15-37); Albumin 4.1 g/dL (3.4-5.0); Alkaline Phosphatase 168 U/L (46-116); Anion Gap 9.5 mmol/L (3-11); BUN 17 mg/dL (7-18); Bilirubin, Total 0.4 mg/dL (0.2-1.0); CO2 29.5 mmol/L (21.0-32.0); Calcium 9.7 mg/dL (8.5-10.1); Chloride 104 mmol/L (98-107); Estimated GFR 53.13 (mL/min/1.73m2); Glucose 95 mg/dL (74-106); Potassium 3.4 mmol/L (3.5-5.1); Sodium 143 mmol/L (136-145); TSH (W/Ref FT4) 0.15 uIU/mL (0.36-3.74); Total Protein 7.8 g/dL (6.4-8.2)
--- NOTE | 2025-06-13 15:51 | ED.GENADUL_ITS ---
Discharge Plan Disposition Patient Disposition: Home Condition: Stable Discharge Details Clinical Impression: Nausea, Intermittent lightheadedness, Hypothyroidism, Acute hypokalemia Primary Care Provider: Brittany Sandoval ED Provider: Lynne Pierre Home Meds and New Rx's Prescriptions: New levothyroxine 88 mcg capsule 88 mcg PO DAILY Qty: 30 0RF Rx Instructions: Please take 1 capsule daily ondansetron 4 mg tablet,disintegrating 4 mg PO Q8H PRN (Reason: nausea and vomiting) 4 Days Qty: 9 0RF Rx Instructions: Take 1 tablet up to 3 times daily as needed for nausea and vomiting 20 minutes prior to meals. Held levothyroxine 150 mcg Tablet 150 mcg PO DAILY@0600 Qty: 90 3RF Hold Instructions: Resume on 07/06/25. Re-eval by PCP No Action clobetasol 0.05 % ointment 1 applic topical BID 14 Days Qty: 60 1RF Rx Instructions: Use BID for 1 week, then daily for 1 week and then as needed. atorvastatin 40 mg Tablet 80 mg PO QPM Qty: 180 3RF bupropion HCl 150 mg Tablet Sustained-Release 12 Hr 150 mg PO BID Qty: 180 3RF clopidogrel 75 mg Tablet 75 mg PO DAILY Qty: 90 3RF aspirin 81 mg Tablet,Delayed Release (Dr/Ec) 81 mg PO DAILY Qty: 90 3RF carvedilol 3.125 mg Tablet 3.125 mg PO BID Qty: 180 3RF amlodipine 10 mg Tablet 10 mg PO DAILY Qty: 90 3RF lisinopril 10 mg Tablet 10 mg PO DAILY Qty: 90 3RF Discharge Instructions Instructions: High Potassium Diet, Dizziness, Adult ED, Nausea and Vomiting, Adult ED Additional Instructions: At this time that troponin tests have come back slightly elevated but downtrending and lower than your previous results. Your TSH is 0.15 and Free T4 is 2.56 Please resume the previous lower dose of your thyroid medication and follow-up closely with your PCP. Please increase foods with high potassium content over the next few days including bananas. As your potassium was slightly low at 3.4. At this time you have declined to wait for a third troponin level to confirm that this is downtrending. Please return to the ER for any worsening nausea dizziness lightheadedness chest pain shortness of breath or feeling as if you are going to faint. Follow up with primary care provider in 3-5 days. Return to ED sooner if any worsening or concerns. Thank you for allowing us to care for you today. Referrals: Brittany Sandoval NP [Primary Care Provider, Medicine] - 3 days Referral Note: ER follow-up call for an appointment Clinical Impression: Intermittent lightheadedness; Hypothyroidism Discharge Data Discharge Date/Time-TO BE ENTERED AT DEPARTURE: 06/13/25 17:45 HPI <LIAN Causey - Last Filed: 06/14/25 20:36> General Date/Time Provider Initiated Documentation: 06/13/25 13:38 . HPI Narrative: This 55-year-old female with history of TIA coronary artery disease cholesterolemia with recent admission to the hospital for hypertensive urgency and concern for TIA versus CVA presents with report of lightheadedness and nausea. She states that this has been intermittent since her admission 2 weeks ago. She does state that her thyroid medication was increased as was her carvedilol. She states her blood pressure has been well-controlled but she is really concerned because she has her insurance is not stated and she has not been able to follow-up with her primary care physician because of this. She denies any headache she denies any fever or chills. She has any abdominal pain. She denies any strength or sensation or speech change. She denies any exacerbating or alleviating factors. This event occurred while she was at work while she was standing. Related Data Home Medications ?Medication ?Instructions ?Recorded ?Confirmed clobetasol 0.05 % topical ointment 1 applic topical BI D 2 weeks #60 08/05/23 06/13/25 grams amlodipine 10 mg tablet 10 mg PO DAILY #90 tabs 04/2906/13/25 aspirin 81 mg tablet,delayed 81 mg PO DAILY #90 tabs 0 05/11/25 06/13/25 release atorvastatin 40 mg tablet 80 mg (2 x 40 mg) PO QPM #18 0 tabs 05/11/25 06/13/25 bupropion HCl 150 mg tablet,12 hr 150 mg PO BID #180 t abs 05/11/25 06/13/25 sustained-release carvedilol 3.125 mg tablet 3.125 mg PO BID #180 tabs 0 05/11/25 06/13/25 clopidogrel 75 mg tablet 75 mg PO DAILY #90 tabs 04/2906/13/25 levothyroxine 150 mcg tablet 150 mcg PO DAILY@0600 #90 tabs 05/11/25 06/13/25 Held on 06/13/25. Instructions: Resume on 07/06/25. Re-eval by PCP lisinopril 10 mg tablet 10 mg PO DAILY #90 tabs 04/2906/13/25 levothyroxine 88 mcg capsule 88 mcg PO DAILY Hypothyro idisim 06/13/25 #30 caps ondansetron 4 mg disintegrating 4 mg PO Q8H PRN nausea and 06/13/25 tablet vomiting 4 days #9 tabs Previous Rx's ?Medication ?Instructions ?Recorded clobetasol 0.05 % topical ointment 1 applic topical BI D 2 weeks #60 08/05/23 grams amlodipine 10 mg tablet 10 mg PO DAILY #90 tabs 04/29 12/21 aspirin 81 mg tablet,delayed 81 mg PO DAILY #90 tabs 0 05/11/25 release atorvastatin 40 mg tablet 80 mg (2 x 40 mg) PO QPM #18 0 tabs 05/11/25 bupropion HCl 150 mg tablet,12 hr 150 mg PO BID #180 t abs 05/11/25 sustained-release carvedilol 3.125 mg tablet 3.125 mg PO BID #180 tabs 0 05/11/25 clopidogrel 75 mg tablet 75 mg PO DAILY #90 tabs 04/29 12/21 levothyroxine 150 mcg tablet 150 mcg PO DAILY@0600 #90 tabs 05/11/25 Held on 06/13/25. Instructions: Resume on 07/06/25. Re-eval by PCP lisinopril 10 mg tablet 10 mg PO DAILY #90 tabs 04/29 12/21 levothyroxine 88 mcg capsule 88 mcg PO DAILY Hypothyro idisim 06/13/25 #30 caps ondansetron 4 mg disintegrating 4 mg PO Q8H PRN nausea and 06/13/25 tablet vomiting 4 days #9 tabs Allergies Allergy/AdvReac Type Severity Reaction Status Date / Time codeine Allergy Intermediate CHEST Verified 06/13/25 13:30 CLOSING General Stated Complaint: Dizzy/Sync ORA: 3 Exam <LIAN Causey - Last Filed: 06/14/25 20:36> Narrative Exam Narrative: Alert and oriented female 55 in no acute distress pupils equal reactive to light and accommodation cranial nerves II through XII intact ambulatory with steady gait negative orthostatics cardiac rate rhythm regular lungs clear to auscultation no nystagmus distal pulses intact all 4 extremities Course <LIAN Causey - Last Filed: 06/14/25 20:36> Vital Signs Vital signs: Vital Signs Temperature 36.4 C 06/13/25 13:26 Pulse 85 06/13/25 13:26 Respiratory Rate 18 06/13/25 13:26 Blood Pressure 143/100 H 06/13/25 13:26 Pulse Oximetry 96 06/13/25 13:26 Temperature 36.4 C 06/13/25 13:26 Temperature Source Oral 06/13/25 13:26 Pulse 85 06/13/25 13:26 Respiratory Rate 18 06/13/25 13:26 Blood Pressure 143/100 H 06/13/25 13:26 Pulse Oximetry 96 06/13/25 13:26 Pain Level 0 06/13/25 13:26 Lab/Test Results Lab/Test Results: Laboratory Tests Range/Units 06/13/25 14:54 WBC (4.4-10.8) 10^3/uL 5.17 RBC (3.93-5.22) 10^6/uL 3.43 L Hgb (11.2-15.7) g/dL 10.6 L Hct (36.0-46.0) % 31.7 L MCV (80-95) fL 92 MCH (27.0-33.0) pg 30.9 MCHC (32.0-36.0) % 33.4 RDW (11.7-14.6) % 12.9 Plt Count (130-400) 10^3/uL 217 MPV (8.0-11.0) fL 10.4 Immature Gran % % 0.4 Neutrophils % % 69.6 Lymphocytes % % 17.4 Monocytes % % 10.6 Eosinophils % % 1.4 Basophils % % 0.6 Nucleated RBC % (0.0-0.3) % 0.0 Absolute Neutrophils (1.2-6.7) 10^3/uL 3.60 Absolute Lymphocytes (1.2-3.4) 10^3/uL 0.90 L Absolute Monocytes (0.1-0.8) 10^3/uL 0.55 Absolute Eosinophils (0.0-0.7) 10^3/uL 0.07 Absolute Basophils (0.0-0.2) 10^3/uL 0.03 Sodium (136-145) mmol/L 143 Potassium (3.5-5.1) mmol/L 3.4 L Chloride (98-107) mmol/L 104 Carbon Dioxide (21.0-32.0) mmol/L 29.5 Anion Gap (3-11) mmol/L 9.5 BUN (7-18) mg/dL 17 Creatinine (0.55-1.02) mg/dL 1.2 H Est GFR (CKD-EPI 2020) (mL/min/1.73m2) 53.13 Glucose (74-106) mg/dL 95 Calcium (8.5-10.1) mg/dL 9.7 Total Bilirubin (0.2-1.0) mg/dL 0.4 AST (15-37) U/L 17 ALT (14-59) U/L 26 Alkaline Phosphatase (46-116) U/L 168 H Total Protein (6.4-8.2) g/dL 7.8 Albumin (3.4-5.0) g/dL 4.1 TSH (0.36-3.74) uIU/mL 0.15 L Medical Decision Making <LIAN Causey - Last Filed: 06/14/25 20:36> Results: Alert and oriented 55-year-old female in no acute distress, I reviewed patient's CTA and MRI of her brain from 2 weeks ago without acute abnormality in addition to her diagnostic labs. Her thyroid has fallen from 4-0.15 . Patient has mild anemia, no significant change creatinine baseline for patient Assessment and plan: Patient will be given Compazine, fluids, and reassessment, initial troponin is still pending diagnostic labs are otherwise reassuring, her thyroid will need adjustment to her prior dose. EKG is nonischemic. I see no indication for repeat imaging at this time and will reassess after fluids and Compazine have been administered. Patient did have a very thorough assessment both with her hypertensive emergency 1 month ago and TIA admission 2 weeks prior to arrival with CTs MRIs and diagnostic blood work. I will have her continue her blood pressure medication and decrease thyroid medication and continue hydration at home. Care will be transitioned pending troponin and reassessment by Niki Pierre nurse practitioner. Patient was not orthostatic during today's assessment Quality:SDOH Health Related Social Needs: Health related social needs house/econ circumstance Health related social needs details Pt reports some di fficulty paYING BILLS <Lynne Pierre NP - Last Filed: 06/13/25 22:44> Medical Records Medical records narrative: 1600: SJ: Care assumed from provider (Rebecca BEAL) Please see their initial HPI, PE, and documentation. Discussed patient details and case and pending workup and disposition. Patient is hemodynamically stable, and alert and oriented. At the time of signout awaiting initial and 1 hour second troponin, In short, patient is a 55-year-old female here with lightheadedness and nausea. Signout provider recommends resuming her previous thyroid dose medication and potassium supplementation, potassium slightly low at 3.4, TSH 0.15 Free T4 2.56. No the initial troponin was resulted after the second troponin, lab reported that the initial troponin was 86 and the second troponin is 77. I did recommend a third troponin to confirm downtrending however, with patient in discussion she is requesting to be discharged. She does not want a wait for the third troponin. She is not currently having any any chest pain and her nausea and lightheadedness have since resolved. I did discuss strict return instructions and risk versus benefits she verbalized understanding. She is currently trying to get referrals to [facility] cardiology and PCP. I did encourage close follow- up. Prescription written for 88 mcg of thyroxine daily, give Zofran 4 mg ODT. Discussed close follow-up. Discussed return instructions. Patient remained hemodynamically stable throughout the remainder of her stay. Denies chest pain shortness of breath. This text was generated using [employer] system, please disregard any oddities of phrase or misspellings. Lab Data Lab results reviewed: Yes I reviewed the patient's lab results. Labs: Laboratory Tests Range/Units 06/13/25 06/13/25 06/13/25 14:54 15:37 16:00 WBC (4.4-10.8) 10^3/uL 5.17 RBC (3.93-5.22) 10^6/uL 3.43 L Hgb (11.2-15.7) g/dL 10.6 L Hct (36.0-46.0) % 31.7 L MCV (80-95) fL 92 MCH (27.0-33.0) pg 30.9 MCHC (32.0-36.0) % 33.4 RDW (11.7-14.6) % 12.9 Plt Count (130-400) 10^3/uL 217 MPV (8.0-11.0) fL 10.4 Immature Gran % % 0.4 Neutrophils % % 69.6 Lymphocytes % % 17.4 Monocytes % % 10.6 Eosinophils % % 1.4 Basophils % % 0.6 Nucleated RBC % (0.0-0.3) % 0.0 Absolute Neutrophils (1.2-6.7) 10^3/uL 3.60 Absolute Lymphocytes (1.2-3.4) 10^3/uL 0.90 L Absolute Monocytes (0.1-0.8) 10^3/uL 0.55 Absolute Eosinophils (0.0-0.7) 10^3/uL 0.07 Absolute Basophils (0.0-0.2) 10^3/uL 0.03 Sodium (136-145) mmol/L 143 Potassium (3.5-5.1) mmol/L 3.4 L Chloride (98-107) mmol/L 104 Carbon Dioxide (21.0-32.0) mmol/L 29.5 Anion Gap (3-11) mmol/L 9.5 BUN (7-18) mg/dL 17 Creatinine (0.55-1.02) mg/dL 1.2 H Est GFR (CKD-EPI 2020) (mL/min/1.73m2) 53.13 Glucose (74-106) mg/dL 95 Calcium (8.5-10.1) mg/dL 9.7 Total Bilirubin (0.2-1.0) mg/dL 0.4 AST (15-37) U/L 17 ALT (14-59) U/L 26 Alkaline Phosphatase (46-116) U/L 168 H Troponin I (<or=51) ng/L 86 H* 77 H* Total Protein (6.4-8.2) g/dL 7.8 Albumin (3.4-5.0) g/dL 4.1 TSH (0.36-3.74) uIU/mL 0.15 L Free T4 (0.76-1.46) ng/dL 2.56 H Cancelled Urine Color (Yellow) Urine Clarity (Clear) Urine pH (5-8) Ur Specific [place] (1.005-1.025) Urine Protein (Neg-Trace) mg/dL Urine Ketones (Negative) mg/dL Urine Blood (Negative) Urine Nitrite (Negative) Urine Bilirubin (Negative) Urine Urobilinogen (Up to 0.2) mg/dL Ur Leukocyte Esterase (Negative) Urine RBC (0-2) HPF Urine WBC (0-5) HPF Ur Epithelial Cells (Negative) HPF Urine Crystals (Negative) HPF Urine Bacteria (Negative) HPF Urine Casts (Negative) LPF Urine Mucus (Negative) Ur Culture Indicated? Urine Glucose (Negative) mg/dL Add-On Test Request DONE Range/Units 06/13/25 16:40 WBC (4.4-10.8) 10^3/uL RBC (3.93-5.22) 10^6/uL Hgb (11.2-15.7) g/dL Hct (36.0-46.0) % MCV (80-95) fL MCH (27.0-33.0) pg MCHC (32.0-36.0) % RDW (11.7-14.6) % Plt Count (130-400) 10^3/uL MPV (8.0-11.0) fL Immature Gran % % Neutrophils % % Lymphocytes % % Monocytes % % Eosinophils % % Basophils % % Nucleated RBC % (0.0-0.3) % Absolute Neutrophils (1.2-6.7) 10^3/uL Absolute Lymphocytes (1.2-3.4) 10^3/uL Absolute Monocytes (0.1-0.8) 10^3/uL Absolute Eosinophils (0.0-0.7) 10^3/uL Absolute Basophils (0.0-0.2) 10^3/uL Sodium (136-145) mmol/L Potassium (3.5-5.1) mmol/L Chloride (98-107) mmol/L Carbon Dioxide (21.0-32.0) mmol/L Anion Gap (3-11) mmol/L BUN (7-18) mg/dL Creatinine (0.55-1.02) mg/dL Est GFR (CKD-EPI 2020) (mL/min/1.73m2) Glucose (74-106) mg/dL Calcium (8.5-10.1) mg/dL Total Bilirubin (0.2-1.0) mg/dL AST (15-37) U/L ALT (14-59) U/L Alkaline Phosphatase (46-116) U/L Troponin I (<or=51) ng/L Total Protein (6.4-8.2) g/dL Albumin (3.4-5.0) g/dL TSH (0.36-3.74) uIU/mL Free T4 (0.76-1.46) ng/dL Urine Color (Yellow) Yellow Urine Clarity (Clear) Clear Urine pH (5-8) 6.0 Ur Specific [place] (1.005-1.025) 1.015 Urine Protein (Neg-Trace) mg/dL Negative Urine Ketones (Negative) mg/dL Negative Urine Blood (Negative) Trace-intact H Urine Nitrite (Negative) Negative Urine Bilirubin (Negative) Negative Urine Urobilinogen (Up to 0.2) mg/dL 0.2 Ur Leukocyte Esterase (Negative) Trace H Urine RBC (0-2) HPF 0-2 Urine WBC (0-5) HPF 0-2 Ur Epithelial Cells (Negative) HPF Rare Urine Crystals (Negative) HPF Negative Urine Bacteria (Negative) HPF Rare Urine Casts (Negative) LPF 0-2 Hyaline Urine Mucus (Negative) Trace Ur Culture Indicated? No Urine Glucose (Negative) mg/dL Negative Add-On Test Request [facility] <LIAN Causey - Last Filed: 06/14/25 20:36> All Active Problems (Updated 06/13/25 @ 17:25 by Lynne Pierre NP) Acute hypokalemia (Acute) Intermittent lightheadedness (Acute) Nausea (Acute) CAD (coronary artery disease), osage coronary artery (Chronic) Neck pain (Acute) Stenosis of right internal carotid artery (Chronic) Coronary artery disease status post coronary stent insertion (Acute) TIA (transient ischemic attack) (Acute) Dizziness (Acute) Chest pain (Acute) LFT elevation (Acute) Compromised kidney function (Acute) Hypothyroidism (Chronic) Pure hypercholesterolemia (Acute 04/02/16) Essential hypertension (Chronic) Uncontrolled Medical History Major depression, recurrent, chronic De Quervain's tenosynovitis, right 40 mg Depo-Medrol injection: 09/15/2023 Acute stroke due to stenosis of right carotid artery Intracranial carotid stenosis, bilateral Elevated troponin Eczema of both hands Cervical disc disorder [facility] MRI- 08/29/21: Large disk herniation C6-7 w/ extrusion posterior to C7 vertebral body. +spinal cord compression & central spinal canal stenosis. C4- C5 & C5-C6 DJD w/spinal canal stenosis, Multilevel neural foraminal stenosis, prominence of the central canal in the spinal cord posterior to the T1-T3 vertebral bodies. 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; + antibody, - antigen Hx of pyelonephritis (02/09/14) 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) (03/09/14) History of acute renal failure Hypercholesteremia Hypothyroidism Hyperthyroidism Surgical History History of open reduction and internal fixation (ORIF) procedure History of appendectomy , Ectopic X 2 Family History Mother Essential hypertension Personal history of malignant neoplasm BREAST Father Essential hypertension Personal history of malignant neoplasm PROSTATE Sister Essential hypertension Brother Essential hypertension Social History Smoking/Tobacco Use Status: Former Tobacco Use Quit status: quit date established Second Hand Exposure: Yes Smoking risk assessment performed?: Yes Alcohol Intake: former Drug use: Never Substance use type: does not use Counseling given: No Counseling provided: none Caregiver/Support person: No Household members: family Housing: apartment Communication Needs: Deaf Do you need help understanding health information?: Never current occupation: [employer] Pets and animals: No Sexually active: No Do you think of yourself as: straight/heterosexual Current gender identity: male What is your relationship status?: never How often do you talk on the phone with friends or family?: never How often do you get together with friends or relatives?: once per week How often do you attend holiness or evangelical services?: decline to answer Do you belong to any clubs or organized social groups?: no Panel score (0-1 are the most socially isolated patients): 0 Do you feel safe at home: Yes Do you feel safe in your relationship?: Yes
[2025-06-13 16:23] LABS: Lab Add On Test DONE
[2025-06-13 16:40] LABS: Troponin I 77 ng/L (<or=51)
[2025-06-13 16:47] LABS: Troponin I 86 ng/L (<or=51)
[2025-06-13 16:52] LABS: Glucose Negative (Negative)
[2025-06-13 17:02] LABS: RBC 0-2 HPF (0-2); WBC 0-2 HPF (0-5)
[2025-06-13 17:03] LABS: C & S Indicated? No
[2025-06-13] MEDS: Ondansetron O.D.T. 4 MG TABEF, 3 TABS/BTL PO (17:44)
== END 2025-06-13 17:45 | disposition home or self-care (01) ==
PROVIDERS: Physician Assistant; Emergency Provider Registered Nurse Emergency; PCP Nurse Practitioner Family
DX: R11.0 Nausea (principal); R42 Dizziness and giddiness; E78.5 Hyperlipidemia, unspecified; E87.6 Hypokalemia; I10 Essential (primary) hypertension; I25.10 Atherosclerotic heart disease of native coronary artery without angina pectoris; Z79.02 Long term (current) use of antithrombotics/antiplatelets; Z79.82 Long term (current) use of aspirin; Z86.73 Personal history of transient ischemic attack (TIA), and cerebral infarction without residual deficits; Z87.891 Personal history of nicotine dependence
CPT/HCPCS: 80053; 93005; 96374; 99284; 81003; 81015; 84439; 84443; 84484; 85025; 93010; J0780